=== PATIENT | female | born 1935 | race Caucasian/White ===

== ENCOUNTER → 2020-07-11 09:59 | Outpatient (BNVA) | payer MEDICARE, SELFPAY | PROVIDERS: PCP Internal Medicine; Visit Provider Urology | DX: N39.0 Urinary tract infection, site not specified (principal) | CPT/HCPCS: 99213 ==

== ENCOUNTER 2020-09-12 11:29 | Outpatient (REF) | payer MEDICARE, SELFPAY ==
[2020-09-12 15:28] LABS: Glucose Urine UA NEG (NEG); Leukocyte Esterase Urine 2+ (NEG); Nitrite Urine POS (NEG); PH 5.5 (5.0-8.0); Specific Gravity - Urine >= 1.030 (1.005-1.025); Urine Blood 3+ (NEG); Urine Ketones NEG (NEG); Urine Protein 1+ MG/DL (NEG-TRACE)
[2020-09-12 15:29] LABS: Appearance Urine CLOUDY; Color Urine YELLOW
[2020-09-12 15:39] LABS: Bacteria Urine 4+ /LPF; Calcium Oxalate Crystals Urine 1+ /LPF; Squamous Epithelial Cell Urine 2+ /LPF; WBC Urine TNTC /HPF (0-4)
== END 2020-09-12 11:30 | disposition home or self-care (01) ==
LOC: HO.HMGCLDS 11:29
PROVIDERS: PCP Internal Medicine; Visit Provider Urology
DX: Z13.9 Encounter for screening, unspecified (principal)
CPT/HCPCS: 81001; 87086; 87088; 87186

== ENCOUNTER → 2020-09-26 08:43 | Outpatient (BNVA) | payer MEDICARE, SELFPAY | PROVIDERS: PCP Internal Medicine; Visit Provider Urology | DX: N39.0 Urinary tract infection, site not specified (principal) | CPT/HCPCS: Q3014 ==

== ENCOUNTER 2020-10-10 10:38 | Outpatient (REF) | payer MEDICARE, SELFPAY ==
[2020-10-10 14:01] LABS: MANUAL DIFF FLAG NO
[2020-10-10 14:11] LABS: Basophils Percent Auto 0.4 % (0-2); Eosinophils Absolute Auto 0.1 X10*3/uL (0.0-0.4); Eosinophils Percent Auto 1.6 % (0-4); Hematocrit 42.9 % (37-47); Hemoglobin 13.9 g/dl (12.0-16.0); Imm Gran Abs Auto 0.03 X10*3/uL (0.00-0.03); Imm Gran Pct Auto 0.4 % (0.0-0.4); Lymphocytes Absolute Auto 1.3 X10*3/uL (1.2-4.9); Lymphocytes Percent Auto 18.6 % (20-40); Mean Corpuscular HGB Conc 32.4 g/dl (31.0-35.0); Mean Corpuscular Hemoglobin 31.2 pg (27.0-33.0); Mean Corpuscular Volume 96.2 fL (80-98); Mean Platelet Volume 10.3 fL (9.4-12.3); Monocytes Absolute Auto 0.5 X10*3/uL (0.1-1.2); Monocytes Percent Auto 7.2 % (2-11); Neutrophils Percent Auto 71.8 % (45-73); Platelet Count 339 X10*3/uL (160-400); Red Blood Count 4.46 X10*6/uL (4.20-5.50); Red Cell Distribution Width 12.9 % (11.0-16.0)
[2020-10-10 14:53] LABS: Alanine Aminotransferase 20 U/L (0-31); Alkaline Phosphatase 54 U/L (39-117); Anion Gap 14 (12-20); Aspartate Amino Transferase 19 U/L (5-31); Bilirubin Total 0.4 mg/dL (0.0-1.0); Blood Urea Nitrogen 11 mg/dL (9-16); Calcium 9.2 mg/dL (8.4-10.2); Carbon Dioxide 27 mmol/L (22-29); Chloride 105 mmol/L (96-108); Estimated Glomerular Filt Rate > 60; Glucose Fasting 84 mg/dL (60-99); Potassium 4.1 mmol/l (3.3-5.1); Sodium 142 mmol/L (135-145); Total Protein 6.5 g/dL (6.5-8.0)
[2020-10-10 14:54] LABS: TSH reflex Free T4 0.27 mIU/mL (0.32-4.0); Vitamin D 25-OH Total 33.9 ng/mL (>30)
[2020-10-10 15:11] LABS: Folate 12.3 ng/mL (> or = 4.0); Vitamin B12 400 pg/mL (200-900)
[2020-10-10 15:38] LABS: Free T4 (Free Thyroxine) 1.34 ng/dL (0.71-1.85)
== END 2020-10-10 10:39 | disposition home or self-care (01) ==
LOC: HO.HMGCLDS 10:38
PROVIDERS: PCP Internal Medicine; Visit Provider Internal Medicine
DX: I48.91 Unspecified atrial fibrillation (principal); E55.9 Vitamin D deficiency, unspecified; E03.9 Hypothyroidism, unspecified; I10 Essential (primary) hypertension
CPT/HCPCS: 36415; 80053; 82306; 82607; 82746; 84439; 84443; 85025

== ENCOUNTER → 2020-12-26 13:05 | Outpatient (BNVA) | payer MEDICARE, SELFPAY | PROVIDERS: PCP Internal Medicine; Visit Provider Internal Medicine Cardiovascular Disease | DX: I48.0 Paroxysmal atrial fibrillation (principal); I44.7 Left bundle-branch block, unspecified; Z79.899 Other long term (current) drug therapy | CPT/HCPCS: 93005; 99212 ==

== ENCOUNTER → 2021-02-09 09:24 | Outpatient (REF) | payer MEDICARE, SELFPAY ==
--- NOTE | 2021-02-09 09:27 | CA_ITS ---
Transthoracic Echocardiogram Patient (Last, First, Middle): Mary Shannon R Gender: Female Date of : 1935 Age: 85 Procedure Date: 02/09/2021 Procedure Type: Transthoracic Echocardiogram Location: OP Height: 152.4 cm Weight: 49.9 kg BSA: 1.45 m2 Heart Rate: 72 bpm BP: 166 / 80 mmHg Gate Supervisor: Referring MD: Jason Roger MD Symptoms: I48.0 - Paroxysmal atrial fibrillation Study Quality: Good ECG Rhythm: Sinus, LLBB, PAF Conclusions: - Normal left ventricular size and systolic function. - The visually estimated ejection fraction is between 55-60%. - E/E prime ratio is between 8 and 15 consistent with indeterminate filling pressures. - Normal right ventricular cavity size and systolic function. Findings Left Ventricle Normal left ventricular size and systolic function. There is mildly increased left ventricular wall thickness. The visually estimated ejection fraction is between 55-60%. There is no evidence of regional wall motion abnormalities. There is paradoxical septal motion consistent with a left bundle branch block. Diastolic function is indeterminate on the basis of available data. E/E prime ratio is between 8 and 15 consistent with indeterminate filling pressures. Right Ventricle Normal right ventricular cavity size and systolic function. Atria The left atrium is normal in size. Aortic Valve There is a normal trileaflet aortic valve. There is mild thickening of the aortic valve. There is no aortic valve stenosis. There is no aortic valve regurgitation. Mitral Valve Normal mitral valve structure and function. There is trace mitral valve regurgitation. There is no mitral valve stenosis. Pulmonic Valve The pulmonic valve is likely normal. Tricuspid Valve Normal tricuspid valve structure and function. There is trace tricuspid valve regurgitation. Normal right atrial pressure. There is no evidence of pulmonary hypertension. Great Vessels All visible segments of the aorta are normal in size. The visualized portions of the pulmonary artery and branches are normal. Venous The inferior vena cava is normal in size and collapses greater than 50% with inspiration. Pericardium/Pleural There is no evidence of pericardial effusion. Prior Study Comparison Changes noted compared to prior study dated: 11/19/2019. Mildly increased wall thickness. Measurements 2D Linear Measurements RVIDd: 2.20 RVIDd Index: 1.52 IVSd: 0.95 0.6-0.9/0.6-1.0 cm LVIDd: 3.57 3.9-5.3/4.2-5.9 cm LVIDd Index: 2.46 2.4-3.2/2.2-3.1 cm/m2 LVIDs: 2.67 2.0-3.6 cm LVPWd: 1.20 0.7-1.1 cm Ao Root: 2.50 2.1-3.5 cm LA Diam: 2.90 2.7-3.8/3.0-4.0 cm LAIDs Index: 2.00 1.5-2.3 cm/m2 LV Mass: 147.21 67-162/88-224 g LV Mass Index: 101.53 43-95/49-115 g/m2 LVOT Diam: 1.80 3.0+(-)1.3 cm 2D Systolic Function EF 4C: 56.90 >55% EF 2C: 74.70 >55% Mitral Valve MV Pk E: 0.81 MV PK A: 1.24 MV Decel Time: 232.00 E/A: 0.60 E'Lateral: 5.61 E'Medial: 6.19 E/E' Med: 13.00 E/E' Lat: 14.30 PHT: 95.00 MVA PHT: 2.32 Decel Peach: 2.81 MR Vol - PW Dopp: 19.40 MR VTI: 1.94 MR ERO: 10.00 MR Alias Ancelmo: 0.35 MR RAD: 0.50 Aortic Valve AoV Pk Ancelmo: 1.14 AoV Mn Ancelmo: 0.91 AoV VTI: 0.23 AoV Pk Grad: 5.00 Aov Mn Grad: 4.00 CONCETTA Cont.VTI: 2.39 LVOT LVOT Pk Ancelmo: 0.95 LVOT Mn Ancelmo: 0.64 LVOT VTI: 0.22 LVOT Pk Grad: 4.00 LVOT Mn Grad: 2.00 LVOT Diam: 1.80 LVOT Area: 2.54 Diastolic Function MV Pk E: 0.81 MV Pk A: 1.24 E/A: 0.60 E'Medial: 6.19 E/E' Med: 13.00 E' Laterial: 5.61 E/E' Lat: 14.30 Tricuspid Valve TR Pk Ancelmo: 2.43 TR Pk Grad: 24.00 RA Press: 3.00 RVSP: 27.00 Great Vessels Aorta Ao Root-2D: 2.50 2.0-3.7 cm Ao Asc: 2.50 2.1-3.4 cm Updated in Other Vendor System with Status of Final Jeremy York MD electronically signed on 02/10/2021 9:04:16 PM with status of Final
[2021-02-09 17:24] LABS: Alanine Aminotransferase 17 U/L (0-31); Albumin Level 4.1 g/dL (3.5-5.0); Alkaline Phosphatase 62 U/L (39-117); Anion Gap 12 (12-20); Aspartate Amino Transferase 16 U/L (5-31); Bilirubin Total 0.6 mg/dL (0.0-1.0); Blood Urea Nitrogen 14 mg/dL (9-16); Calcium 9.4 mg/dL (8.4-10.2); Carbon Dioxide 30 mmol/L (22-29); Chloride 103 mmol/L (96-108); Estimated Glomerular Filt Rate 59; Glucose Random 82 mg/dL (60-115); Potassium 4.3 mmol/L (3.3-5.1); Sodium 141 mmol/L (135-145); Total Protein 6.4 g/dL (6.5-8.0)
[2021-02-09 17:36] LABS: TSH reflex Free T4 0.06 uIU/mL (0.32-4.0)
[2021-02-09 18:09] LABS: Free T4 (Free Thyroxine) 1.17 ng/dL (0.71-1.85)
== END ==
LOC: HO.CARD 09:24
PROVIDERS: PCP Internal Medicine; Visit Provider Internal Medicine Cardiovascular Disease
DX: I44.7 Left bundle-branch block, unspecified (principal); I48.0 Paroxysmal atrial fibrillation
CPT/HCPCS: 36415; 80053; 84439; 84443; 93306

== ENCOUNTER 2021-04-13 10:13 | Outpatient (REF) | payer MEDICARE, SELFPAY | END 2021-04-13 10:14 | disposition home or self-care (01) | LOC: HO.LNP 10:13 | PROVIDERS: PCP Internal Medicine | DX: N39.0 Urinary tract infection, site not specified (principal) | CPT/HCPCS: 87086; 87088; 87186; Q3014 ==

== ENCOUNTER → 2021-04-16 14:36 | Outpatient (BNVA) | payer MEDICARE, SELFPAY | PROVIDERS: PCP Internal Medicine | DX: Z13.89 Encounter for screening for other disorder (principal) | CPT/HCPCS: Q3014 ==

== ENCOUNTER → 2021-04-30 13:31 | Outpatient (BNVA) | payer MEDICARE, SELFPAY | PROVIDERS: PCP Internal Medicine | DX: N39.0 Urinary tract infection, site not specified (principal); I10 Essential (primary) hypertension; I44.7 Left bundle-branch block, unspecified; I48.0 Paroxysmal atrial fibrillation; E03.9 Hypothyroidism, unspecified; E55.9 Vitamin D deficiency, unspecified; Z88.5 Allergy status to narcotic agent | CPT/HCPCS: 99212 ==

== ENCOUNTER → 2021-05-15 13:06 | Outpatient (BNVA) | payer MEDICARE, SELFPAY | PROVIDERS: PCP Internal Medicine | CPT/HCPCS: Q3014 ==

== ENCOUNTER → 2021-06-01 11:52 | Outpatient (BNVA) | payer MEDICARE, SELFPAY | PROVIDERS: PCP Internal Medicine | DX: Z13.89 Encounter for screening for other disorder (principal) | CPT/HCPCS: Q3014 ==

== ENCOUNTER 2021-07-03 09:01 | Outpatient (REF) | payer MEDICARE, SELFPAY | END 2021-07-03 09:02 | disposition home or self-care (01) | LOC: HO.LAB 09:01 | PROVIDERS: PCP Internal Medicine | DX: N39.0 Urinary tract infection, site not specified (principal); I10 Essential (primary) hypertension; E03.9 Hypothyroidism, unspecified; I44.7 Left bundle-branch block, unspecified; I48.0 Paroxysmal atrial fibrillation; E55.9 Vitamin D deficiency, unspecified; Z88.6 Allergy status to analgesic agent | CPT/HCPCS: 87086; Q3014 ==

== ENCOUNTER 2021-07-16 08:24 | Observation (INO) | payer MEDICARE, SELFPAY ==
[2021-07-16] VITALS (9 sets, daily range): BP systolic 152–200; BP diastolic 66–91; PULSE 68–84; RESP 14–20; TEMP 36.6–36.9; O2SAT 92–100; BMI 21.4; BMI 21.5
--- NOTE | 2021-07-16 | ECG_ITS ---
Test Reason : Epigastric pain, htn Blood Pressure : / mmHG Vent. Rate : 065 BPM Atrial Rate : 065 BPM P-R Int : 170 ms QRS Dur : 132 ms QT Int : 456 ms P-R-T Axes : 038 -49 061 degrees QTc Int : 474 ms Normal sinus rhythm Left axis deviation Left bundle branch block Abnormal ECG No significant changes seen Referred By: Gianfranco Reyna Electronically Signed By:SHANNON ROMEO MD
--- NOTE | ~2021-07-16 | XR_ITS ---
EXAMINATION: XR CHEST CLINICAL INFORMATION: Chest pain. COMPARISON: 03/06/2018 chest radiograph. TECHNIQUE: Frontal view of the chest was obtained. FINDINGS: No significant abnormality is noted involving the heart, lungs, mediastinum, bony thorax or soft tissues. XR/XR chest 1V IMPRESSION: No acute cardiopulmonary process.
--- NOTE | ~2021-07-16 | CT_ITS ---
EXAMINATION: CT ABDOMEN AND PELVIS WITH CONTRAST CLINICAL INFORMATION: Epigastric pain. COMPARISON: None TECHNIQUE: Multidetector volumetric images were obtained from the superior aspect of the liver through the pubic symphysis following administration 85 mL of Omnipaque 350 intravenous contrast. Sagittal and coronal reformatted images were obtained on the technologist's workstation. Oral contrast: No. This CT examination was performed using dose optimization techniques as appropriate, variously including the following: *Automated exposure control *Adjustment of mA and/or kV according to patient size (this includes techniques or standardized protocols for targeted exams where dose is matched to indication/reason for exam; i.e. extremities or head) *Use of iterative reconstruction technique DLP: 448 mGy-cm FINDINGS: LUNG BASES: The visualized lung bases are unremarkable. LIVER, GALLBLADDER, AND BILIARY TREE: The liver is normal in size, shape, and attenuation. There are multiple hypodense liver lesions most likely simple cysts. The largest cyst in segment 4A measures 4.4 x 4.4 cm. The gallbladder is not visualized. PANCREAS: Unremarkable. SPLEEN: The spleen is unremarkable. There is a small accessory splenule at the tip of the spleen. ADRENAL GLANDS: The adrenal glands are symmetrical and normal. KIDNEYS AND URETERS: The kidneys are normal in size, shape, and attenuation. No hydronephrosis, hydroureter, or calculi seen. No perinephric stranding. There are bilateral small renal cysts. The largest midpole cyst measures 9 mm left kidney. BLADDER: Unremarkable. GASTROINTESTINAL TRACT: There is scattered stool, diverticuli and gas seen in the colon without distention.. ABDOMINAL WALL: No significant hernia is appreciated. LYMPH NODES: Normal. VASCULAR: Unremarkable. PELVIC VISCERA: Unremarkable. OSSEOUS STRUCTURES: There is no lytic or sclerotic process seen. There are degenerative disc changes at the L5-S1, L4-L5, L3-L4, and L1-L2 disc levels. CT/CT abdomen pelvis w con IMPRESSION: Multiple hepatic cysts and liver cysts. Mild constipation. No radiopaque renal calculi. The pancreas is normal. The gallbladder is not seen.
[2021-07-16 10:52] LABS: MANUAL DIFF FLAG NO
--- NOTE | 2021-07-16 10:53 | ED.GENADULT ---
HPI - General Adult General Chief complaint: Abdominal Pain Stated complaint: hbp Time Seen by Provider: 07/16/21 10:24 Source: patient Mode of arrival: ambulatory Limitations: no limitations History of Present Illness HPI narrative: 86-year-old female presents with episode of epigastric pain that started at 6:00 a.m. this morning. She was lying in bed and had 1 hour of epigastric pressure and she was sweaty. She had no nausea, no shortness of breath, no chest pain. No vomiting. She had a bowel movement this morning with no dark, tarry, or bloody stool. The pain did not radiate. The pain lasted for 1 hour and then resolved. It felt more like an uncomfortable pressure than pain. Patient had an elevated blood pressure after that, her blood pressure was 190/100. Patient reports she has not been eating or sleeping well, reports depression. Patient has a history of atrial fibrillation, hypertension, left bundle branch block, and UTI. Related Data Home Medications Medication Instructions Recorded Confirmed [id number] acid 0.4 1 tab PO DAILY 07/11/20 07/16/21 mg-lycopene 300 mcg-lutein 250 mcg tablet (Centrum Silver) lorazepam 0.5 mg tablet 0.5 mg PO DAILY PRN 10/06/20 07/16/21 duloxetine 30 mg capsule,delayed 30 mg PO DAILY 12/26/20 07/16/21 release levothyroxine 75 mcg tablet 75 mcg PO DAILY 12/26/20 07/16/21 metoprolol succinate 50 mg 75 mg PO DAILY tab 06/01/21 07/16/21 tablet,extended release 24 hr cholecalciferol (vitamin D3) 25 25 mcg PO DAILY 07/16/21 07/16/21 mcg (1,000 unit) tablet (Vitamin D3) Previous Rx's Medication Instructions Recorded simvastatin 40 mg tablet 40 mg PO DAILY #90 tab 11/07/20 apixaban 2.5 mg tablet (Eliquis) 2.5 mg PO BID #180 tab 07/04/21 Allergies Allergy/AdvReac Type Severity Reaction Status Date / Time codeine [CODEINE] Allergy Unknown SEVERE Verified 06/01/21 11:53 VOMITING, stomach upset Review of Systems Constitutional: Constitutional: Denies body ache(s), Denies chills, Denies fatigue, Denies fever(s), Denies headache(s), Denies malaise and Denies weakness Eyes: Eyes: Denies diplopia ENT: Denies vertigo, Denies dizziness, Denies otalgia, Denies headache(s), Denies mouth pain, Denies post nasal drip, Denies sinus pain, Denies sinus pressure, Denies sore throat and Denies throat swelling Cardiovascular: Cardiovascular: Denies chest pain, Denies syncope, Denies leg edema, Denies lightheadedness, Denies Loss of Consciousness, Denies palpitations and Denies dyspnea Respiratory: Respiratory: Denies chest congestion, Denies cough and Denies dyspnea Gastrointestinal: Gastrointestinal: Reports abdominal pain, Denies hematochezia, Denies constipation, Denies diarrhea, Denies nausea and Denies vomiting Musculoskeletal: Musculoskeletal: Reports no additional musculoskeletal complaints Neurologic: Denies confusion, Denies vertigo, Denies dizziness, Denies syncope, Denies headache(s) and Denies weakness Psychiatric: Psychiatric: Denies anxiety, Denies confusion and Denies depression Endocrine: Endocrine: Denies fatigue and Denies palpitations Allergic/Immunologic: Allergic/Immunologic: Denies throat swelling [facility] Past Medical History Medical History HTN (hypertension) Hypothyroidism Left bundle branch block Microscopic hematuria Osteoarthritis Paroxysmal atrial fibrillation Vitamin D deficiency Surgical History H/O colonoscopy History of laparoscopy History of total abdominal hysterectomy Family History Family History Father No problems noted. Mother HTN (hypertension) CVD (cardiovascular disease) Brother No problems noted. Brother No problems noted. Sister No problems noted. Son No problems noted. Son No problems noted. Daughter No problems noted. Social History Social History Alcohol intake: never Patient Tobacco Use Status: Never used Tobacco Use of substances other than those prescribed or required for medical reasons: No Advance Directives: No Physical Exam Vital Signs: Vital Signs: Last Vital Signs Temp 98.1 F 07/16/21 12:33 Pulse 71 07/16/21 15:28 Resp 16 07/16/21 15:28 BP 164/70 H 07/16/21 15:28 Pulse Ox 97 07/16/21 14:48 Body Mass Index 21.4 Const: General: No confusion Nutritional Appearance: well nourished Orientation/consciousness: No confusion Limitations: no limitations HENMT: Head: Yes normal to inspection, Yes normocephalic and Yes atraumatic Ears: hearing grossly normal bilaterally, external ears normal, TM's normal bilaterally and EAC's normal General nose exam: Normal external nose present Face and sinus: Yes normal facial exam and Yes sinuses nontender Mouth: Normal oral and palatal mucosa present Throat: Yes posterior oropharynx normal Eyes: Conjunctivae: conjunctivae normal Pupils: Equal, round and reactive pupils present EOM: EOMs intact bilaterally Neck: Neck: Yes full ROM, Yes no lymphadenopathy and Yes supple Resp: Effort & Inspection: normal respiratory effort and able to speak in complete sentences Auscultation: clear to auscultation bilaterally, no crackles, no rales, no rhonchi and no wheezes Cardio: Rate: regular rate Rhythm: regular rhythm Heart sounds: S1 normal heart sound present and S2 normal heart sound present GI: Inspection: Yes normal to inspection Palpation (GI): Soft to palpation, Tenderness to palpation present (GI) in the epigastrum, no guarding and not rigid Percussion: Yes normal to percussion Auscultation: normal bowel sounds Skin: General skin exam: no rashes or lesions noted Neuro: General: No confusion Cranial nerves: Yes Equal, round and reactive pupils present Extrem: General: Yes normal to inspection and Yes full ROM Psych: Appearance: grossly normal Affect: normal affect Attitude: cooperative Thought process: Normal thought process present Course Course Course Narrative: 86-year-old female with a past medical history of atrial fibrillation, left bundle branch block, hypertension, UTI, with a surgical history of hysterectomy, cholecystectomy, and bowel resection for diverticulitis presents for 1 hour of epigastric pressure at 6:00 a.m. this morning. On exam, patient is tender in her epigastrium, is otherwise appearing although she endorses depression. Chest x-ray is normal, EKG shows left bundle branch with no ischemic changes, initial troponin 4.5, patient's potassium 3.2, patient has cracked calcium 8.0. Urine shows trace blood, no infection. Repleted potassium, awaiting CT Reevaluation(s) Reevaluation #1: Patient has remained hypertensive despite 10 of labetalol. Patient got an additional 10 mg of labetalol, now her blood pressure is 152/66. Patient's troponin has increased, from 4.5 to 18.8 in [address] results, CT/CT abdomen pelvis w con IMPRESSION: Multiple hepatic cysts and liver cysts. ? Mild constipation. No radiopaque renal calculi. The pancreas is normal. The gallbladder is not seen. Tire Mechanic advised patient be admitted for further evaluation. Hospitalist accepted patient. Medical Decision Making Lab Data Result diagrams: 07/16/21 10:10 07/16/21 10:10 Labs: Lab Results 07/16/21 07/16/21 07/16/21 Range/Units 10:10 10:10 10:10 WBC 9.1 (4.8-10.8) X10*3/uL RBC 4.50 (4.20-5.50) X10*6/uL Hgb 14.4 (12.0-16.0) g/dl Hct 42.1 (37-47) % MCV 93.6 (80-98) fL MCH 32.0 (27.0-33.0) pg MCHC 34.2 (31.0-35.0) g/dl RDW 12.9 (11.0-16.0) % Plt Count 279 (160-400) X10*3/uL MPV 10.4 (9.4-12.3) fL Immature Gran % (Auto) 0.3 (0.0-0.4) % Neut % (Auto) 80.1 H (45-73) % Lymph % (Auto) 13.2 L (20-40) % Amelia % (Auto) 5.8 (2-11) % Eos % (Auto) 0.3 (0-4) % Baso % (Auto) 0.3 (0-2) % Lymph # (Auto) 1.2 (1.2-4.9) X10*3/uL Amelia # (Auto) 0.5 (0.1-1.2) X10*3/uL Eos # (Auto) 0.0 (0.0-0.4) X10*3/uL Baso # (Auto) 0.0 (0.0-0.2) X10*3/uL Abs Immat Gran (auto) 0.03 (0.00-0.03) X10*3/uL Absolute Neuts (auto) 7.3 (2.0-8.3) X10*3/uL Absolute Nucleated RBC 0.000 (0.0-0.012) X10*3/uL Nucleated RBC % (auto) 0.0 (0.0-0.2) /100WBC PT (9.9-13.0) SEC INR (0.9-1.1) APTT (24.1-38.0) SEC Sodium 142 (135-145) mmol/L Potassium 3.2 L D (3.3-5.1) mmol/L Chloride 112 H (96-108) mmol/L Carbon Dioxide 22 (22-29) mmol/L Anion Gap 11 L (12-20) BUN 11 (9-16) mg/dL Creatinine 0.62 (0.5-1.4) mg/dL Estim Creat Clear Calc 47.6 Estimated GFR > 60 Random Glucose 83 (60-115) mg/dL Calcium 7.4 L D (8.4-10.2) mg/dL Total Bilirubin 0.5 (0.0-1.0) mg/dL AST 18 (5-31) U/L ALT 13 (0-31) U/L Alkaline Phosphatase 45 D (39-117) U/L Troponin I High Sens 4.5 (<3.5-17.0) ng/L Total Protein 5.2 L (6.5-8.0) g/dL Albumin 3.3 L (3.5-5.0) g/dL Lipase 27 (8-78) U/L Urine Color Urine Appearance Urine pH (5.0-8.0) Ur Specific [place] (1.005-1.025) Urine Protein (NEG-TRACE) MG/DL Urine Glucose (UA) (NEG) MG/DL Urine Ketones (NEG) MG/DL Urine Blood (NEG) Urine Nitrite (NEG) Ur Leukocyte Esterase (NEG) Urine RBC (0) /HPF Urine WBC (0-4) /HPF Ur Squamous Epith Cells /LPF Urine Bacteria /LPF COVID-19 (BLAINE) (Negative) COVID-19 Clin Com 1007/16/21 07/16/21 Range/Units 11:07 11:07 11:07 WBC (4.8-10.8) X10*3/uL RBC (4.20-5.50) X10*6/uL Hgb (12.0-16.0) g/dl Hct (37-47) % MCV (80-98) fL MCH (27.0-33.0) pg MCHC (31.0-35.0) g/dl RDW (11.0-16.0) % Plt Count (160-400) X10*3/uL MPV (9.4-12.3) fL Immature Gran % (Auto) (0.0-0.4) % Neut % (Auto) (45-73) % Lymph % (Auto) (20-40) % Amelia % (Auto) (2-11) % Eos % (Auto) (0-4) % Baso % (Auto) (0-2) % Lymph # (Auto) (1.2-4.9) X10*3/uL Amelia # (Auto) (0.1-1.2) X10*3/uL Eos # (Auto) (0.0-0.4) X10*3/uL Baso # (Auto) (0.0-0.2) X10*3/uL Abs Immat Gran (auto) (0.00-0.03) X10*3/uL Absolute Neuts (auto) (2.0-8.3) X10*3/uL Absolute Nucleated RBC (0.0-0.012) X10*3/uL Nucleated RBC % (auto) (0.0-0.2) /100WBC PT 13.2 H (9.9-13.0) SEC INR 1.2 H (0.9-1.1) APTT 41.8 H (24.1-38.0) SEC Sodium (135-145) mmol/L Potassium (3.3-5.1) mmol/L Chloride (96-108) mmol/L Carbon Dioxide (22-29) mmol/L Anion Gap (12-20) BUN (9-16) mg/dL Creatinine (0.5-1.4) mg/dL Estim Creat Clear Calc Estimated GFR Random Glucose (60-115) mg/dL Calcium (8.4-10.2) mg/dL Total Bilirubin (0.0-1.0) mg/dL AST (5-31) U/L ALT (0-31) U/L Alkaline Phosphatase (39-117) U/L Troponin I High Sens (<3.5-17.0) ng/L Total Protein (6.5-8.0) g/dL Albumin (3.5-5.0) g/dL Lipase (8-78) U/L Urine Color STRAW Urine Appearance CLEAR Urine pH 7.5 (5.0-8.0) Ur Specific [place] <= 1.005 (1.005-1.025) Urine Protein NEG (NEG-TRACE) MG/DL Urine Glucose (UA) NEG (NEG) MG/DL Urine Ketones NEG (NEG) MG/DL Urine Blood 1+ H (NEG) Urine Nitrite NEG (NEG) Ur Leukocyte Esterase NEG (NEG) Urine RBC 0-2 (0) /HPF Urine WBC 0-2 (0-4) /HPF Ur Squamous Epith Cells TRACE /LPF Urine Bacteria NONE /LPF COVID-19 (BLAINE) Negative (Negative) COVID-19 Clin Com See Note 07/16/21 Range/Units 14:52 WBC (4.8-10.8) X10*3/uL RBC (4.20-5.50) X10*6/uL Hgb (12.0-16.0) g/dl Hct (37-47) % MCV (80-98) fL MCH (27.0-33.0) pg MCHC (31.0-35.0) g/dl RDW (11.0-16.0) % Plt Count (160-400) X10*3/uL MPV (9.4-12.3) fL Immature Gran % (Auto) (0.0-0.4) % Neut % (Auto) (45-73) % Lymph % (Auto) (20-40) % Amelia % (Auto) (2-11) % Eos % (Auto) (0-4) % Baso % (Auto) (0-2) % Lymph # (Auto) (1.2-4.9) X10*3/uL Amelia # (Auto) (0.1-1.2) X10*3/uL Eos # (Auto) (0.0-0.4) X10*3/uL Baso # (Auto) (0.0-0.2) X10*3/uL Abs Immat Gran (auto) (0.00-0.03) X10*3/uL Absolute Neuts (auto) (2.0-8.3) X10*3/uL Absolute Nucleated RBC (0.0-0.012) X10*3/uL Nucleated RBC % (auto) (0.0-0.2) /100WBC PT (9.9-13.0) SEC INR (0.9-1.1) APTT (24.1-38.0) SEC Sodium (135-145) mmol/L Potassium (3.3-5.1) mmol/L Chloride (96-108) mmol/L Carbon Dioxide (22-29) mmol/L Anion Gap (12-20) BUN (9-16) mg/dL Creatinine (0.5-1.4) mg/dL Estim Creat Clear Calc Estimated GFR Random Glucose (60-115) mg/dL Calcium (8.4-10.2) mg/dL Total Bilirubin (0.0-1.0) mg/dL AST (5-31) U/L ALT (0-31) U/L Alkaline Phosphatase (39-117) U/L Troponin I High Sens 18.8 H* D (<3.5-17.0) ng/L Total Protein (6.5-8.0) g/dL Albumin (3.5-5.0) g/dL Lipase (8-78) U/L Urine Color Urine Appearance Urine pH (5.0-8.0) Ur Specific [place] (1.005-1.025) Urine Protein (NEG-TRACE) MG/DL Urine Glucose (UA) (NEG) MG/DL Urine Ketones (NEG) MG/DL Urine Blood (NEG) Urine Nitrite (NEG) Ur Leukocyte Esterase (NEG) Urine RBC (0) /HPF Urine WBC (0-4) /HPF Ur Squamous Epith Cells /LPF Urine Bacteria /LPF COVID-19 (BLAINE) (Negative) COVID-19 Clin Com ECG Data Interpretation: Sinus rhythm with a rate of 65. MS interval 170. QRS 132. QTC 474. Left axis deviation. No ST depression or elevation. Left bundle-branch block.
[2021-07-16 10:55] LABS: Basophils Percent Auto 0.3 % (0-2); Eosinophils Percent Auto 0.3 % (0-4); Hematocrit 42.1 % (37-47); Hemoglobin 14.4 g/dl (12.0-16.0); Imm Gran Abs Auto 0.03 X10*3/uL (0.00-0.03); Imm Gran Pct Auto 0.3 % (0.0-0.4); Lymphocytes Absolute Auto 1.2 X10*3/uL (1.2-4.9); Lymphocytes Percent Auto 13.2 % (20-40); Mean Corpuscular HGB Conc 34.2 g/dl (31.0-35.0); Mean Corpuscular Volume 93.6 fL (80-98); Mean Platelet Volume 10.4 fL (9.4-12.3); Monocytes Absolute Auto 0.5 X10*3/uL (0.1-1.2); Monocytes Percent Auto 5.8 % (2-11); Neutrophils Absolute Auto 7.3 X10*3/uL (2.0-8.3); Neutrophils Percent Auto 80.1 % (45-73); Platelet Count 279 X10*3/uL (160-400); Red Cell Distribution Width 12.9 % (11.0-16.0); White Blood Count 9.1 X10*3/uL (4.8-10.8)
[2021-07-16 11:13] LABS: Troponin-I High Sensitivity 4.5 ng/L (<3.5-17.0)
[2021-07-16 11:18] LABS: Alanine Aminotransferase 13 U/L (0-31); Albumin Level 3.3 g/dL (3.5-5.0); Alkaline Phosphatase 45 U/L (39-117); Anion Gap 11 (12-20); Aspartate Amino Transferase 18 U/L (5-31); Bilirubin Total 0.5 mg/dL (0.0-1.0); Blood Urea Nitrogen 11 mg/dL (9-16); Calcium 7.4 mg/dL (8.4-10.2); Carbon Dioxide 22 mmol/L (22-29); Chloride 112 mmol/L (96-108); Creatinine Clr Calc Pharmacy 47.6; Estimated Glomerular Filt Rate > 60; Glucose Random 83 mg/dL (60-115); Lipase 27 U/L (8-78); Potassium 3.2 mmol/L (3.3-5.1); Sodium 142 mmol/L (135-145); Total Protein 5.2 g/dL (6.5-8.0)
[2021-07-16 11:21] LABS: Appearance Urine CLEAR; Color Urine STRAW; Glucose Urine UA NEG (NEG); Leukocyte Esterase Urine NEG (NEG); Nitrite Urine NEG (NEG); PH 7.5 (5.0-8.0); Specific Gravity - Urine <= 1.005 (1.005-1.025); Urine Blood 1+ (NEG); Urine Ketones NEG (NEG); Urine Protein NEG (NEG-TRACE)
[2021-07-16 11:22] LABS: INTERNATIONAL NORM RATIO 1.2 (0.9-1.1); Prothrombin Time 13.2 SEC (9.9-13.0)
[2021-07-16 11:25] LABS: Partial Thromboplastin Time 41.8 SEC (24.1-38.0)
--- NOTE | 2021-07-16 11:31 | PC.NURSE ---
The pt presnets to the ED alert and oriented x 3 from home for evaluation of nausea, abdominal fullness , and diaphoresis. On arrival she states the abdominal fullness and diaphoresis have resolved, however the nausea remains. She denies chest pain. No SOb. Speech clear and appropriate. IV access/labs obtained. The pts daughter is at the bedside and the pt has signed consent for ct and is awiting CT.
[2021-07-16] MEDS: 0.9 % Sodium Chloride 500 ML IV (11:33)
[2021-07-16 11:34] LABS: COVID-19 Test Negative (Negative); IDNOW Serial# 9DD0AD1C
[2021-07-16 12:03] LABS: RBC Urine 0-2 /HPF (0); Squamous Epithelial Cell Urine TRACE /LPF; WBC Urine 0-2 /HPF (0-4)
[2021-07-16] MEDS: iohexoL 350 MG/ML 100 ML INFUS..BTL 85 ML IV (12:04)
[2021-07-16] MEDS: Potassium Chloride Packet 20 MEQ PACKET 40 MEQ PO (12:50)
[2021-07-16] MEDS: Labetalol HCL 100 MG/20 ML VIAL 10 MG IVPUSH ×2 (12:50→14:37)
--- NOTE | 2021-07-16 14:52 | PHA.MEDREC ---
Pharmacy Consult ? Medication Reconciliation Pharmacy has completed the medication reconciliation. Patient report she is suppose to be taking 1.5 tablets however she beleive she is only taking 1 tablet a daily. It may have been a month where she has not taken the 1.5 tablets. Lilliana Kelly, PharmD
[2021-07-16 15:21] LABS: Troponin-I High Sensitivity 18.8 ng/L (<3.5-17.0)
--- NOTE | 2021-07-16 15:28 | PC.NURSE ---
The pt continues to rest in bed, alert and oriented x 3 awaiting MD dispo. She denies nausea or vomiting at this time. She denies chest pain or SOB. She has been administered a second dose of Labetalol 10mg IVP in an attempt to decrease her BP. At this time her BP is 164/70 - we will continue to monitor this. She has ambuklated to and from the bathroom with one stand by assist without difficulty. Her daughter is intermittently at the bedside.
--- NOTE | 2021-07-16 17:31 | PM.IMHP ---
History of Present Illness Date of Service: 07/16/21 Chief Complaint: epigastric pain 86F presented with epigastric pain and htn. she states that evening prior to presentation she felt epigastric abdominal discomfort . felt like she was overfull. dneies sob, feve,r chills, chest pain. lasted about 20 minutes, no clear aggravating or alleviating factors. she checked her bp and found to have SBP 190. next day her BP was still persistently elevated so she came to ED. in ED EKG with known LBBB, high sensitivity troponin increased from 4.5 to 18.8. Review of Systems Review of Systems: Constitutional: Denies fever, denies Chills Eyes: denies blurry vision ENT: denies sore throat CVS: denies chest pain Respiratory: Denies dyspnea GI: abdominal pain : denies dysuria MSK: denies neck pain Skin: denies rash Neuro: dizzyness Psych: denies suicidal ideation Endocrine: denies heat/cold intolerance Hematologic: denies easy bleeding Allergy: denies hives [facility] Medical History HTN (hypertension) Hypothyroidism Left bundle branch block Microscopic hematuria Osteoarthritis Paroxysmal atrial fibrillation Vitamin D deficiency Family History Father No problems noted. Mother HTN (hypertension) CVD (cardiovascular disease) Brother No problems noted. Brother No problems noted. Sister No problems noted. Son No problems noted. Son No problems noted. Daughter No problems noted. Pertinent family history: . Surgical History H/O colonoscopy History of laparoscopy History of total abdominal hysterectomy Social History Alcohol intake: never Patient Tobacco Use Status: Never used Tobacco Use of substances other than those prescribed or required for medical reasons: No Advance Directives: No Meds Allergies Allergy/AdvReac Type Severity Reaction Status Date / Time codeine [CODEINE] Allergy Unknown SEVERE Verified 06/01/21 11:53 VOMITING, stomach upset Active Medications: Current Medications Apixaban (Apixaban 2.5 Mg Tablet) 2.5 mg PO BID RAJINDER Duloxetine HCl (Duloxetine Hcl 30 Mg Capsule.Dr) 30 mg PO DAILY [facility] Levothyroxine Sodium (Levothyroxine Sodium 75 Mcg Tablet) 75 mcg PO DAILY [facility] Lorazepam (Lorazepam 0.5 Mg Tablet) 0.5 mg PO DAILY PRN PRN Reason: Anxiety Metoprolol Succinate (Metoprolol Succinate Er 25 Mg Tab.Er.24h) 75 mg PO DAILY [facility]; Protocol Multivitamins/Vitamin C (Multivitamin Tablet) 1 tab PO DAILY [facility] Non-Formulary Medication (Simvastatin) 40 mg PO DAILY [facility] Omeprazole (Omeprazole 40 Mg Capsule.) 40 mg PO DAILY@0630 [facility] Pharmacy Consult (Consult Rx Perform Med Rec) 1 each MISCELLANE ONCE PRN PRN Reason: Consult order Vitamin D (Cholecalciferol (Vitamin D3) 25 Mcg Tablet) 25 mcg PO DAILY [facility] Home Medications Medication Instructions Recorded Confirmed Last Taken Type axslhtug-slc-hbzxe acid 0.4 1 tab PO DAILY 07/11/20 07/16/21 07/15/21 History mg-lycopene 300 mcg-lutein 250 mcg tablet (Centrum Silver) lorazepam 0.5 mg tablet 0.5 mg PO DAILY PRN 10/06/20 07/16/21 07/15/21 History duloxetine 30 mg capsule,delayed 30 mg PO DAILY 12/26/20 07/16/21 07/15/21 History release levothyroxine 75 mcg tablet 75 mcg PO DAILY 12/26/20 07/16/21 07/15/21 History metoprolol succinate 50 mg 75 mg PO DAILY tab 06/01/21 07/16/21 07/16/21 History tablet,extended release 24 hr cholecalciferol (vitamin D3) 25 25 mcg PO DAILY 07/16/21 07/16/21 07/15/21 History mcg (1,000 unit) tablet (Vitamin D3) Physical Exam Vital Signs and Narrative: Vital Signs: Last Vital Signs Temp 98.1 F 07/16/21 12:33 Pulse 71 07/16/21 15:28 Resp 16 07/16/21 15:28 BP 164/70 H 07/16/21 15:28 Pulse Ox 97 07/16/21 14:48 Body Mass Index 21.4 General: no acute distress HEENT: atraumatic Neck: normal to visual inspection CVS: S1, S2, RRR Resp: CTA bilateral Chest: non tender GI: soft, non tender, non distended : no CVA tenderness Skin: no rashes Extremities: no edema Neuro: Oriented X3, grossly intact Psych: cooperative Results Labs CBC and Chem 7: 07/16/21 10:10 07/16/21 10:10 Labs: Laboratory Results - last 24 hr 07/16/21 07/16/21 07/16/21 10:10 10:10 10:10 MCV 93.6 MCH 32.0 MCHC 34.2 RDW 12.9 Plt Count 279 MPV 10.4 Immature Gran % (Auto) 0.3 Neut % (Auto) 80.1 H Lymph % (Auto) 13.2 L Brule % (Auto) 5.8 Eos % (Auto) 0.3 Baso % (Auto) 0.3 Lymph # (Auto) 1.2 Brule # (Auto) 0.5 Eos # (Auto) 0.0 Baso # (Auto) 0.0 Abs Immat Gran (auto) 0.03 Absolute Neuts (auto) 7.3 Absolute Nucleated RBC 0.000 Nucleated RBC % (auto) 0.0 PT INR APTT Anion Gap 11 L Estim Creat Clear Calc 47.6 Estimated GFR > 60 Random Glucose 83 Calcium 7.4 L D Total Bilirubin 0.5 AST 18 ALT 13 Alkaline Phosphatase 45 D Troponin I High Sens 4.5 Total Protein 5.2 L Albumin 3.3 L Lipase 27 Urine Color Urine Appearance Urine pH Ur Specific Corning Urine Protein Urine Glucose (UA) Urine Ketones Urine Blood Urine Nitrite Ur Leukocyte Esterase Urine RBC Urine WBC Ur Squamous Epith Cells Urine Bacteria COVID-19 (BLAINE) COVID-19 Clin Com 07/16/21 07/16/21 07/16/21 11:07 11:07 11:07 MCV MCH MCHC RDW Plt Count MPV Immature Gran % (Auto) Neut % (Auto) Lymph % (Auto) Brule % (Auto) Eos % (Auto) Baso % (Auto) Lymph # (Auto) Brule # (Auto) Eos # (Auto) Baso # (Auto) Abs Immat Gran (auto) Absolute Neuts (auto) Absolute Nucleated RBC Nucleated RBC % (auto) PT 13.2 H INR 1.2 H APTT 41.8 H Anion Gap Estim Creat Clear Calc Estimated GFR Random Glucose Calcium Total Bilirubin AST ALT Alkaline Phosphatase Troponin I High Sens Total Protein Albumin Lipase Urine Color STRAW Urine Appearance CLEAR Urine pH 7.5 Ur Specific Corning <= 1.005 Urine Protein NEG Urine Glucose (UA) NEG Urine Ketones NEG Urine Blood 1+ H Urine Nitrite NEG Ur Leukocyte Esterase NEG Urine RBC 0-2 Urine WBC 0-2 Ur Squamous Epith Cells TRACE Urine Bacteria NONE COVID-19 (BLAINE) Negative COVID-19 Clin Com See Note 07/16/21 14:52 MCV MCH MCHC RDW Plt Count MPV Immature Gran % (Auto) Neut % (Auto) Lymph % (Auto) Brule % (Auto) Eos % (Auto) Baso % (Auto) Lymph # (Auto) Brule # (Auto) Eos # (Auto) Baso # (Auto) Abs Immat Gran (auto) Absolute Neuts (auto) Absolute Nucleated RBC Nucleated RBC % (auto) PT INR APTT Anion Gap Estim Creat Clear Calc Estimated GFR Random Glucose Calcium Total Bilirubin AST ALT Alkaline Phosphatase Troponin I High Sens 18.8 H* D Total Protein Albumin Lipase Urine Color Urine Appearance Urine pH Ur Specific Corning Urine Protein Urine Glucose (UA) Urine Ketones Urine Blood Urine Nitrite Ur Leukocyte Esterase Urine RBC Urine WBC Ur Squamous Epith Cells Urine Bacteria COVID-19 (BLAINE) COVID-19 Clin Com Imaging Radiologist's Impressions: Impressions Abdomen/Pelvis CT 07/16/21 10:43 IMPRESSION: Multiple hepatic cysts and liver cysts. Mild constipation. No radiopaque renal calculi. The pancreas is normal. The gallbladder is not seen. Chest X-Ray 07/16/21 10:43 IMPRESSION: No acute cardiopulmonary process. Assessment and Plan (1) Elevation of cardiac enzymes: Status: Acute (2) Abdominal pain, epigastric: Status: Acute (3) Left bundle branch block: Status: Acute (4) Paroxysmal atrial fibrillation: Status: Acute (5) Hypothyroidism: Status: Acute (6) HTN (hypertension): Status: Acute 86F presented with epigastric pain, htn, elevated troponin epigastric pain, uncontrolled hypertension, elevated troponin monitor repeat troponin bp improved to 150s, will use hydralazine as needed for now ppi cardio eval tele hypokalemia replaced, monitor paroxysmal atrial fibrillation in NSR continue toprol, eliquis (low dose for age and weight) hld statin hypothryoid synthroid derpession cymbalta full code Quality Stroke Does the patient have a stroke diagnosis?: No VTE Prior VTE?: No VTE Risk Level:: Medical - moderate - high VTE Device Contraindication: Treatment Not Indicated VTE Drug Contraindication: N/A - Med Ordered
--- NOTE | 2021-07-16 18:00 | PC.NURSE ---
The pt is alert and oriented x 3, resting in bed with her daughter at the bedside. She has been informed by ED provider that she has an elevation in her cardiac enzymes and will need to stay in the hospital for serial enzymes.She reports worry in response to this news but I know I'm in good hands. Currently she denies any pain. Respirations are non-labored. Speech clear and appropriate. She is currently awaiting admitting hospitalist rozina and inpatient bed assignment. We will continue to monitor Mary. She remains with SR on bedside monitor, rate 80's. She continues to take PO food and fluids without difficulty and occasionally ambulates to the bathroom independently with steady he has been voiding here in the ED without difficulty. She has not had a bowel movement while in the ED. Last BM 07/15/21.
[2021-07-16 19:53] LABS: Troponin-I High Sensitivity 25.9 ng/L (<3.5-17.0)
--- NOTE | 2021-07-16 21:39 | MHC.CM.PN ---
CM met with pt assigned to observation, with bed assignment pending. JERAMY reviewed and signed per protocol 07/16/2021@2045. A&Ox3. Independent. Lives alone. No services, no DME. Fully vaccinated with Pfizer. No HCP on file. HCP reviewed, completed and signed . Copies given and uploaded into [employer]. HCP/daughter, Jasiel Garcia ([phone]). D/C plan is home without services. Family to provide transportation. CM to follow for d/c needs.
[2021-07-16] MEDS: Apixaban 2.5 MG TABLET PO (22:19)
[2021-07-17 03:55] VITALS: BP 130/60; PULSE 72; RESP 20; TEMP 37; O2SAT 98
[2021-07-17] MEDS: Omeprazole 40 MG CAPSULE.DR PO (06:29)
[2021-07-17] MEDS: Levothyroxine Sodium 75 MCG TABLET PO (06:29)
[2021-07-17 06:46] LABS: Hematocrit 39.5 % (37-47); Hemoglobin 13.5 g/dl (12.0-16.0); Mean Corpuscular HGB Conc 34.2 g/dl (31.0-35.0); Mean Corpuscular Hemoglobin 31.8 pg (27.0-33.0); Mean Corpuscular Volume 92.9 fL (80-98); Mean Platelet Volume 10.1 fL (9.4-12.3); Platelet Count 249 X10*3/uL (160-400); Red Blood Count 4.25 X10*6/uL (4.20-5.50); Red Cell Distribution Width 13.4 % (11.0-16.0); White Blood Count 8.2 X10*3/uL (4.8-10.8)
[2021-07-17 07:00] LABS: Anion Gap 12 (12-20); Blood Urea Nitrogen 13 mg/dL (9-16); Carbon Dioxide 26 mmol/L (22-29); Chloride 108 mmol/L (96-108); Creatinine Clr Calc Pharmacy 37.8; Estimated Glomerular Filt Rate > 60; Glucose Fasting 96 mg/dL (60-99); Potassium 3.8 mmol/L (3.3-5.1); Sodium 142 mmol/L (135-145)
[2021-07-17 07:06] LABS: Calcium 9.2 mg/dL (8.4-10.2)
[2021-07-17 08:00] VITALS: BP 178/76; PULSE 69; RESP 17; TEMP 36.9; O2SAT 99
[2021-07-17 08:11] VITALS: BP 130/60; PULSE 72
[2021-07-17] MEDS: Cholecalciferol (Vitamin D3) 25 MCG TABLET PO (08:11)
[2021-07-17] MEDS: Apixaban 2.5 MG TABLET PO (08:11)
[2021-07-17] MEDS: Metoprolol Succinate ER 25 MG TAB.ER.24H 75 MG PO (08:11)
[2021-07-17] MEDS: Multivitamin TABLET 1 TAB PO (08:12)
[2021-07-17] MEDS: 0.9 % Sodium Chloride Flush 3 ML SYRINGE IVFLUSH (08:12)
--- NOTE | 2021-07-17 09:33 | ECG_ITS ---
Test Reason : ELEV TROPONINS Blood Pressure : / mmHG Vent. Rate : 070 BPM Atrial Rate : 070 BPM P-R Int : 166 ms QRS Dur : 134 ms QT Int : 424 ms P-R-T Axes : 034 -43 109 degrees QTc Int : 457 ms Normal sinus rhythm Left axis deviation Left bundle branch block Abnormal ECG When compared with ECG of 20-AUG-2018 16:24, T wave inversion more evident in Lateral leads Referred By: Sigifredo Carlisle Electronically Signed By:SHANNON ROMEO MD
--- NOTE | 2021-07-17 09:34 | CA_ITS ---
Transthoracic Echocardiogram Patient (Last, First, Middle): Mary Shannon R Gender: Female Date of : 1935 Age: 86 Procedure Date: 07/17/2021 Procedure Type: Transthoracic Echocardiogram [place] [facility] [place]: 152.4 cm Weight: 49.9 kg BSA: 1.45 m2 Heart Rate: bpm BP: 130 / 60 mmHg Incident Response Coordinator: Referring MD: Sigifredo Cralisle MD Symptoms: elevated troponins Study Quality: Fair ECG Rhythm: Sinus Conclusions: - The left ventricular systolic function is normal. The calculated ejection fraction is 60% by biplane method. Findings Left Ventricle Normal left ventricular cavity size. The left ventricular systolic function is normal. The calculated ejection fraction is 60% by biplane method. There is paradoxical septal motion consistent with a left bundle branch block. Right Ventricle Normal right ventricular cavity size and systolic function. Prior Study Comparison No significant change compared to prior study dated: 02/09/2021. Measurements 2D Linear Measurements IVSd: 1.08 0.6-0.9/0.6-1.0 cm LVIDd: 3.06 3.9-5.3/4.2-5.9 cm LVIDd Index: 2.11 2.4-3.2/2.2-3.1 cm/m2 LVIDs: 1.77 2.0-3.6 cm LVPWd: 1.04 0.7-1.1 cm LV Mass: 114.75 67-162/88-224 g LV Mass Index: 79.14 43-95/49-115 g/m2 2D Systolic Function EF 4C: 56.60 >55% EF 2C: 64.30 >55% EF BiP: 60.20 >55% Mitral Valve MV Pk E: 0.78 MV PK A: 1.29 MV Decel Time: 196.00 E/A: 0.60 E'Lateral: 5.00 E'Medial: 5.22 E/E' Med: 14.90 E/E' Lat: 15.60 PHT: 57.00 MVA PHT: 3.86 Decel Sanders: 3.98 Diastolic Function MV Pk E: 0.78 MV Pk A: 1.29 E/A: 0.60 E'Medial: 5.22 E/E' Med: 14.90 E' Laterial: 5.00 E/E' Lat: 15.60 Updated in Other Vendor System with Status of Final Sigifredo Carlisle MD electronically signed on 07/17/2021 12:01:28 PM with status of Final
--- NOTE | 2021-07-17 11:05 | P.CONCA_ITS ---
History of Present Illness History of Present Illness Date of Service: 07/17/21 Chief complaint: Epigastric pain, elevated trop Narrative: This is a cardiology consultation regarding epigastric pain, elevated troponins. She also has uncontrolled blood pressure. Patient of Dr. Roger. She is currently the hospital for epigastric/abdominal discomfort. She describes it started as a discomfort as opposed to pain. Her blood pressures also been running high. However, no chest pain whatsoever. She was evaluated in the ER noted to have elevation of troponins and that led to hospitalization. She has no anginal-type symptoms in the past or presently. Denies any history of coronary artery disease as well. She has history of hypertension but states that on several occasions recently, her blood pressures have been running quite high. Review of Systems Review of Systems: Yes all other systems are reviewed and are negative Cardiovascular: Cardiovascular: Reports as per HPI, Reports no additional cardiovascular complaints, Denies acrocyanosis, Denies cool extremities, Denies painful fingertips, Denies chest pain, Denies chest pain at rest, Denies diaphoresis, Denies syncope, Denies irregular heart rhythm, Denies claudication, Denies leg edema, Denies lightheadedness, Denies palpitations and Denies dyspnea Respiratory: Respiratory: Denies dyspnea Gastrointestinal: Comments: Abdominal pain Neurologic: Denies syncope Endocrine: Endocrine: Denies palpitations PMFSH Past Medical History Medical History HTN (hypertension) Hypothyroidism Left bundle branch block Microscopic hematuria Osteoarthritis Paroxysmal atrial fibrillation Vitamin D deficiency Family History Family History Father No problems noted. Mother HTN (hypertension) CVD (cardiovascular disease) Brother No problems noted. Brother No problems noted. Sister No problems noted. Son No problems noted. Son No problems noted. Daughter No problems noted. Surgical History Surgical History H/O colonoscopy History of laparoscopy History of total abdominal hysterectomy Social History Social History Household Members: None Housing: House Do you presently have visiting nurse or other home services: No Alcohol intake: never Patient Tobacco Use Status: Never used Tobacco Second Hand Smoke Exposure: No Use of substances other than those prescribed or required for medical reasons: No Currently Displaying Signs/Symptoms of Drug Intoxication Withdrawal: No Any prior treatment program specific to substance use: No Have you been hit, kicked, punched, or otherwise hurt by someone within the past year? If so, by whom?: No Do you feel safe in your current relationship?: No Current Relationship Is there a partner from a previous relationship who is making you feel unsafe now?: No Are you made to feel afraid or neglected: No Advance Directives: No Advance Directives Information Provided: No (declined) Advance Directives on File: No Do you have thoughts of harming others: None Do you have a plan to hurt others: No Plan Recently lost weight without trying: No How much weight loss: Not applicable Eating poorly because of decreased appetite: No Nutrition screen score: 0 Patient : No : No Poor oral hygiene: No service: No Current occupational status: retired [employer] Allergies Allergy/AdvReac Type Severity Reaction Status Date / Time codeine [CODEINE] Allergy Unknown SEVERE Verified 06/01/21 11:53 VOMITING, stomach upset Active Medications: Current Medications Acetaminophen (Acetaminophen 325 Mg Tablet) 650 mg PO Q6H PRN PRN Reason: Pain, Mild (Pain Scale 1-3) Apixaban (Apixaban 2.5 Mg Tablet) 2.5 mg PO BID [facility] Last Admin: 07/17/21 08:11 Dose: 2.5 mg Documented by: Atorvastatin Calcium (Atorvastatin Calcium 20 Mg Tablet) 20 mg PO BEDTIME [facility] Duloxetine HCl (Duloxetine Hcl 30 Mg Capsule.Dr) 30 mg PO DAILY [facility] Last Admin: 07/17/21 08:17 Dose: Not Given Documented by: Hydralazine HCl (Hydralazine Hcl 20 Mg/Ml Vial) 5 mg IVPUSH Q6H PRN; Protocol PRN Reason: for sbp >180 Levothyroxine Sodium (Levothyroxine Sodium 75 Mcg Tablet) 75 mcg PO DAILY@0630 [facility] Last Admin: 07/17/21 06:29 Dose: 75 mcg Documented by: Lorazepam (Lorazepam 0.5 Mg Tablet) 0.5 mg PO DAILY PRN PRN Reason: Anxiety Metoprolol Succinate (Metoprolol Succinate Er 25 Mg Tab.Er.24h) 75 mg PO DAILY [facility]; Protocol Last Admin: 07/17/21 08:11 Dose: 75 mg Documented by: Multivitamins/Vitamin C (Multivitamin Tablet) 1 tab PO DAILY [facility] Last Admin: 07/17/21 08:12 Dose: 1 tab Documented by: Omeprazole (Omeprazole 40 Mg Capsule.) 40 mg PO DAILY@0630 [facility] Last Admin: 07/17/21 06:29 Dose: 40 mg Documented by: Pharmacy Consult (Consult Rx Perform Med Rec) 1 each MISCELLANE ONCE PRN PRN Reason: Consult order Sodium Chloride (0.9 % Sodium Chloride Flush 3 Ml Syringe) 3 ml IVFLUSH QSHIFT [facility] Last Admin: 07/17/21 08:12 Dose: 3 ml Documented by: Vitamin D (Cholecalciferol (Vitamin D3) 25 Mcg Tablet) 25 mcg PO DAILY [facility] Last Admin: 07/17/21 08:11 Dose: 25 mcg Documented by: Home Medications Medication Instructions Recorded Confirmed Last Taken Type [id number] acid 0.4 1 tab PO DAILY 07/11/20 07/16/21 07/15/21 History mg-lycopene 300 mcg-lutein 250 mcg tablet (Centrum Silver) lorazepam 0.5 mg tablet 0.5 mg PO DAILY PRN 10/06/20 07/16/21 07/15/21 History duloxetine 30 mg capsule,delayed 30 mg PO DAILY 12/26/20 07/16/21 07/15/21 History release levothyroxine 75 mcg tablet 75 mcg PO DAILY 12/26/20 07/16/21 07/15/21 History metoprolol succinate 50 mg 75 mg PO DAILY tab 06/01/21 07/16/21 07/16/21 History tablet,extended release 24 hr cholecalciferol (vitamin D3) 25 25 mcg PO DAILY 07/16/21 07/16/21 07/15/21 History mcg (1,000 unit) tablet (Vitamin D3) Physical Exam Vital Signs: Vital Signs: Last Vital Signs Temp 98.4 F 07/17/21 08:00 Pulse 72 07/17/21 08:11 Resp 17 07/17/21 08:00 BP 130/60 07/17/21 08:11 Pulse Ox 99 07/17/21 08:00 Body Mass Index 21.5 Const: General: cooperative and no acute distress HENMT: Other: Unremarkable Neck: Neck: Yes normal visual inspection Chest: Chest palpation & inspection: normal inspection of the chest Resp: Auscultation: clear to auscultation bilaterally, no crackles and no wheezes Cardio: Jugular venous distension: no JVD Palpation: normal PMI Heart sounds: S1 normal heart sound present, S2 normal heart sound present, no gallop s, no murmurs and no rubs GI: Palpation (GI): Soft to palpation Back/Spine/Pelvis: Other: unremarkable Skin: General skin exam: no rashes or lesions noted Neuro: Cranial nerves: Yes Other cranial nerve findings present Extrem: General: Yes no clubbing, cyanosis or edema Psych: Mental Status: other Results Labs and Meds Result diagrams: 07/17/21 05:58 07/17/21 05:58 Lab results: Laboratory Results - last 24 hr 07/16/21 07/16/21 07/16/21 10:10 10:10 11:07 WBC RBC Hgb Hct MCV MCH MCHC RDW Plt Count MPV Absolute Nucleated RBC Nucleated RBC % (auto) PT 13.2 H INR 1.2 H APTT 41.8 H Sodium 142 Potassium 3.2 L D Chloride 112 H Carbon Dioxide 22 Anion Gap 11 L BUN 11 Creatinine 0.62 Estim Creat Clear Calc 47.6 Estimated GFR > 60 Random Glucose 83 Fasting Glucose Calcium 7.4 L D Total Bilirubin 0.5 AST 18 ALT 13 Alkaline Phosphatase 45 D Troponin I High Sens 4.5 Total Protein 5.2 L Albumin 3.3 L Lipase 27 Urine Color Urine Appearance Urine pH Ur Specific [place] Urine Protein Urine Glucose (UA) Urine Ketones Urine Blood Urine Nitrite Ur Leukocyte Esterase Urine RBC Urine WBC Ur Squamous Epith Cells Urine Bacteria COVID-19 ([facility]LAINE) COVID-19 Clin Com 07/16/21 07/16/21 07/16/21 11:07 11:07 14:52 WBC RBC Hgb Hct MCV MCH MCHC RDW Plt Count MPV Absolute Nucleated RBC Nucleated RBC % (auto) PT INR APTT Sodium Potassium Chloride Carbon Dioxide Anion Gap BUN Creatinine Estim Creat Clear Calc Estimated GFR Random Glucose Fasting Glucose Calcium Total Bilirubin AST ALT Alkaline Phosphatase Troponin I High Sens 18.8 H* D Total Protein Albumin Lipase Urine Color STRAW Urine Appearance CLEAR Urine pH 7.5 Ur Specific [place] <= 1.005 Urine Protein NEG Urine Glucose (UA) NEG Urine Ketones NEG Urine Blood 1+ H Urine Nitrite NEG Ur Leukocyte Esterase NEG Urine RBC 0-2 Urine WBC 0-2 Ur Squamous Epith Cells TRACE Urine Bacteria NONE COVID-19 (BLAINE) Negative COVID-19 Clin Com See Note 07/16/21 07/17/21 07/17/21 19:18 05:58 05:58 WBC 8.2 RBC 4.25 Hgb 13.5 Hct 39.5 MCV 92.9 MCH 31.8 MCHC 34.2 RDW 13.4 Plt Count 249 MPV 10.1 Absolute Nucleated RBC 0.000 Nucleated RBC % (auto) 0.0 PT INR APTT Sodium Potassium Chloride Carbon Dioxide Anion Gap BUN Creatinine Estim Creat Clear Calc Estimated GFR Random Glucose Fasting Glucose Calcium Total Bilirubin AST ALT Alkaline Phosphatase Troponin I High Sens 25.9 H* 13.0 Total Protein Albumin Lipase Urine Color Urine Appearance Urine pH Ur Specific [place] Urine Protein Urine Glucose (UA) Urine Ketones Urine Blood Urine Nitrite Ur Leukocyte Esterase Urine RBC Urine WBC Ur Squamous Epith Cells Urine Bacteria COVID-19 (BLAINE) COVID-19 Clin Com 07/17/21 05:58 WBC RBC Hgb Hct MCV MCH MCHC RDW Plt Count MPV Absolute Nucleated RBC Nucleated RBC % (auto) PT INR APTT Sodium 142 Potassium 3.8 Chloride 108 Carbon Dioxide 26 Anion Gap 12 BUN 13 Creatinine 0.78 Estim Creat Clear Calc 37.8 Estimated GFR > 60 Random Glucose Fasting Glucose 96 Calcium 9.2 D Total Bilirubin AST ALT Alkaline Phosphatase Troponin I High Sens Total Protein Albumin Lipase Urine Color Urine Appearance Urine pH Ur Specific [place] Urine Protein Urine Glucose (UA) Urine Ketones Urine Blood Urine Nitrite Ur Leukocyte Esterase Urine RBC Urine WBC Ur Squamous Epith Cells Urine Bacteria COVID-19 ([facility]LAINE) COVID-19 Clin Com Imaging Radiologist's impression: Impressions Abdomen/Pelvis CT 07/16/21 10:43 IMPRESSION: Multiple hepatic cysts and liver cysts. Mild constipation. No radiopaque renal calculi. The pancreas is normal. The gallbladder is not seen. Chest X-Ray 07/16/21 10:43 IMPRESSION: No acute cardiopulmonary process. Assessment and Plan (1) Hypertensive emergency: Status: Acute (2) Elevated troponin: Status: Acute (3) Paroxysmal atrial fibrillation: Status: Acute (4) Left bundle branch block: Status: Acute Cardiac and other data reviewed. Last echocardiogram is from January this year. At that time, LVEF 55-60%; wall motion abnormality from left bundle branch block noted but study was otherwise unremarkable. EKG shows a chronic left bundle-branch block. Troponins are slightly elevated, most likely from the high blood pressures. Initial blood pressures were as high as 200/81 mm Hg but currently at 130/60 mmHg. It seems that she has received some doses of labetalol intravenously. Per medication reconciliation, on metoprolol ER 75 mg daily. We can add Norvasc 5 mg daily. Continue Eliquis. Will follow-up in the office. Procedures Date of Service Date of Service: 07/17/21
--- NOTE | 2021-07-17 11:24 | P.DS_ITS ---
DS: Providers Provider Date of Service: 07/17/21 Date of admission: 07/16/21 17:30 Primary care physician: Beth Maravilla MD Consults: 07/16/21 17:30 Consult to Cardiology Routine Consulting Provider: Sigifredo Carlisle Reason for consultation: chest pain, elevated tn DS: Diagnosis Discharge Diagnosis (1) Hypertensive emergency: Status: Acute (2) Elevated troponin: Status: Acute (3) Paroxysmal atrial fibrillation: Status: Acute (4) Left bundle branch block: Status: Acute DS: Summary Hospital Course Hospital Course: patient was admitted for hypertensive emergency. blood pressure became better controlled after some labetolol. discomfort feeling did not return. troponin peaked at 25, ekg was non ischemic. she was seen by cardiology who recommending adding amlodipine 5mg daily. she is now feeling better and will be discharged home. Time Spent with Patient Time attestation: Total time spent providing and/or coordinating discharge services: Discharge coordination time: Greater than 30 minutes Quality: Stroke Does the patient have a stroke diagnosis?: No Physical Exam Vital Signs: Vital Signs: Last Vital Signs Temp 98.4 F 07/17/21 08:00 Pulse 72 07/17/21 08:11 Resp 17 07/17/21 08:00 BP 130/60 07/17/21 08:11 Pulse Ox 99 07/17/21 08:00 Body Mass Index 21.5 General: AO X 3, no acute distress Resp: CTA bilateral, no accessory muscles used CVS: S1,S2,RRR GI: soft, non tender, non distended Neuro: motor grossly intact, alert Psych: appropriate affect, appropriate insight DS: Data Data Completed and Pending Labs on day of discharge: Laboratory Results - last 24 hr 07/16/21 07/16/21 07/16/21 11:07 11:07 11:07 WBC RBC Hgb Hct MCV MCH MCHC RDW Plt Count MPV Absolute Nucleated RBC Nucleated RBC % (auto) PT 13.2 H INR 1.2 H APTT 41.8 H Sodium Potassium Chloride Carbon Dioxide Anion Gap BUN Creatinine Estim Creat Clear Calc Estimated GFR Fasting Glucose Calcium Troponin I High Sens Urine Color STRAW Urine Appearance CLEAR Urine pH 7.5 Ur Specific [place] <= 1.005 Urine Protein NEG Urine Glucose (UA) NEG Urine Ketones NEG Urine Blood 1+ H Urine Nitrite NEG Ur Leukocyte Esterase NEG Urine RBC 0-2 Urine WBC 0-2 Ur Squamous Epith Cells TRACE Urine Bacteria NONE COVID-19 (BLAINE) Negative COVID-19 [employer] Com See Note 07/16/21 07/16/21 07/17/21 14:52 19:18 05:58 WBC RBC Hgb Hct MCV MCH MCHC RDW Plt Count MPV Absolute Nucleated RBC Nucleated RBC % (auto) PT INR APTT Sodium Potassium Chloride Carbon Dioxide Anion Gap BUN Creatinine Estim Creat Clear Calc Estimated GFR Fasting Glucose Calcium Troponin I High Sens 18.8 H* D 25.9 H* 13.0 Urine Color Urine Appearance Urine pH Ur Specific [place] Urine Protein Urine Glucose (UA) Urine Ketones Urine Blood Urine Nitrite Ur Leukocyte Esterase Urine RBC Urine WBC Ur Squamous Epith Cells Urine Bacteria COVID-19 (BLAINE) COVID-19 [employer] Com 07/17/21 07/17/21 05:58 05:58 WBC 8.2 RBC 4.25 Hgb 13.5 Hct 39.5 MCV 92.9 MCH 31.8 MCHC 34.2 RDW 13.4 Plt Count 249 MPV 10.1 Absolute Nucleated RBC 0.000 Nucleated RBC % (auto) 0.0 PT INR APTT Sodium 142 Potassium 3.8 Chloride 108 Carbon Dioxide 26 Anion Gap 12 BUN 13 Creatinine 0.78 Estim Creat Clear Calc 37.8 Estimated GFR > 60 Fasting Glucose 96 Calcium 9.2 D Troponin I High Sens Urine Color Urine Appearance Urine pH Ur Specific [place] Urine Protein Urine Glucose (UA) Urine Ketones Urine Blood Urine Nitrite Ur Leukocyte Esterase Urine RBC Urine WBC Ur Squamous Epith Cells Urine Bacteria COVID-19 (BLAINE) COVID-19 [employer] Com Discharge Plan Discharge Patient Disposition: Home, Self-Care Discharge Diagnosis: hypertensive emergency Referrals: Beth Maravilla MD [Primary Care Provider] - 1 Week Discharge Medications: New amlodipine 5 mg tablet 5 mg PO DAILY Qty: 30 RF: 0 Continued simvastatin 40 mg tablet 40 mg PO DAILY Qty: 90 RF: 3 Eliquis 2.5 mg tablet 2.5 mg PO BID Qty: 180 RF: 5 cholecalciferol (vitamin D3) [Vitamin D3] 25 mcg (1,000 unit) Tablet 25 mcg PO DAILY RF: 0 lorazepam 0.5 mg tablet 0.5 mg PO DAILY PRN (Reason: Anxiety) RF: 0 duloxetine 30 mg capsule,delayed release(DR/EC) 30 mg PO DAILY RF: 0 levothyroxine 75 mcg tablet 75 mcg PO DAILY RF: 0 metoprolol succinate 50 mg tablet extended release 24 hr 75 mg PO DAILY RF: 0 Centrum Silver 0.4-300-250 mg-mcg-mcg tablet 1 tab PO DAILY RF: 0 Discharge Orders: Discharge Order (Routine); Ordered 07/17/21 Ordered By: Obi Nolen Diet: advance to usual diet Activity on Discharge: As tolerated Stand Alone Forms: Patient Portal Discharge page Care Plan Goals: manage blood pressure Health Concerns: elevated blood pressure Plan of Treatment: low salt diet, amlodipine 5mg daily added to your medications, continue metoprolol, follow up with cardiology Assessment: see above
--- NOTE | 2021-07-17 11:33 | MHC.CM.PN ---
home no servceis orderdd by
[2021-07-17 11:41] VITALS: BP 184/67; PULSE 69; RESP 18; TEMP 36.6; O2SAT 98
== END 2021-07-17 15:04 | disposition home or self-care (01) ==
LOC: HO.ED 17:15 → HO.EDOVER 17:40 → HO.IMC 21:58
PROVIDERS: Physician Assistant; Admitting Provider Internal Medicine; Emergency Provider Student in an Organized Health Care Education/Training Program; PCP Internal Medicine; Visit Provider Internal Medicine
DX: R77.8 Other specified abnormalities of plasma proteins (principal); R10.13 Epigastric pain; I16.1 Hypertensive emergency; E03.9 Hypothyroidism, unspecified; I44.7 Left bundle-branch block, unspecified; I48.0 Paroxysmal atrial fibrillation; E55.9 Vitamin D deficiency, unspecified; K76.89 Other specified diseases of liver; Z20.822 Contact with and (suspected) exposure to COVID-19; Z88.6 Allergy status to analgesic agent; Z79.899 Other long term (current) drug therapy
CPT/HCPCS: 36415; 71045; 74177; 80048; 80053; 81001; 83690; 84484; 85025; 85027; 85610; 85730; 87635; 93005; 93308; 96361; 96374; 96376; 99205; 99219; 99285; Q9967

== ENCOUNTER → 2021-08-08 08:44 | Outpatient (BNVA) | payer MEDICARE, SELFPAY | PROVIDERS: PCP Internal Medicine; Referring Provider Internal Medicine; Visit Provider Internal Medicine Cardiovascular Disease | DX: I48.0 Paroxysmal atrial fibrillation (principal); I10 Essential (primary) hypertension; R74.8 Abnormal levels of other serum enzymes | CPT/HCPCS: 99212 ==

== ENCOUNTER 2021-08-13 01:39 | Emergency (ER) | payer MEDICARE, SELFPAY ==
--- NOTE | 2021-08-13 | ECG_ITS ---
Test Reason : nausea/vomiting Blood Pressure : / mmHG Vent. Rate : 076 BPM Atrial Rate : 076 BPM P-R Int : 160 ms QRS Dur : 130 ms QT Int : 432 ms P-R-T Axes : 075 -43 089 degrees QTc Int : 486 ms Normal sinus rhythm Left axis deviation Left bundle branch block Abnormal ECG When compared with ECG of 17-JUL-2021 09:44, T wave inversion less evident in Lateral leads Referred By: Generic ED Physician Electronically Signed By:SHANNON RMOEO MD
--- NOTE | ~2021-08-13 | CT_ITS ---
EXAMINATION: CT ABDOMEN AND PELVIS WITH CONTRAST CLINICAL INFORMATION: Left-sided abdominal pain COMPARISON: 07/16/2021 TECHNIQUE: Multidetector volumetric images were obtained from the superior aspect of the liver through the pubic symphysis following administration 85 mL of Omnipaque 350 intravenous contrast. Sagittal and coronal reformatted images were obtained on the technologist's workstation. Oral contrast: No This CT examination was performed using dose optimization techniques as appropriate, variously including the following: *Automated exposure control *Adjustment of mA and/or kV according to patient size (this includes techniques or standardized protocols for targeted exams where dose is matched to indication/reason for exam; i.e. extremities or head) *Use of iterative reconstruction technique DLP: 395 mGy-cm FINDINGS: LUNG BASES: The visualized lung bases are unremarkable. LIVER, GALLBLADDER, AND BILIARY TREE: The liver is normal in size, shape, and attenuation. No biliary ductal dilatation. Multiple hepatic cysts are again noted.. The gallbladder is absent. PANCREAS: Unremarkable. SPLEEN: Normal size spleen. A few calcifications are seen. ADRENAL GLANDS: Unremarkable. KIDNEYS AND URETERS: The kidneys are normal in size, shape, and attenuation. No hydronephrosis, hydroureter, or calculi seen. No perinephric stranding. Left renal simple cysts. No follow-up imaging recommended. BLADDER: Unremarkable. GASTROINTESTINAL TRACT: The stomach is unremarkable. Tiny duodenal diverticulum. Normal caliber of the small bowel. There is no obstruction. Fluid-filled appearance of small bowel in the left midabdomen. Distal colonic anastomosis. Colonic diverticulosis without diverticulitis. No free air or free fluid. ABDOMINAL WALL: No significant hernia is appreciated. LYMPH NODES: Normal. VASCULAR: Normal caliber aorta with mild to moderate atherosclerotic calcification. PELVIC VISCERA: The uterus is not seen. No adnexal mass. OSSEOUS STRUCTURES: No acute or suspicious osseous abnormality. Degenerative changes throughout the spine. Degenerative changes of the hips. CT/CT abdomen pelvis w con IMPRESSION: Fluid-filled small bowel in the left midabdomen without obstructive appearance. Mild enteritis is possible. Colonic diverticulosis without diverticulitis.
--- NOTE | ~2021-08-13 | XR_ITS ---
EXAMINATION: XR CHEST CLINICAL INFORMATION: Cough COMPARISON: 07/16/2021 TECHNIQUE: Frontal view of the chest was obtained. FINDINGS: Cardiac leads overlie the chest. The lungs are well expanded. There is no focal consolidation, edema, or effusion. No pneumothorax. The cardiomediastinal silhouette is within normal limits of size with a calcified aorta. No acute osseous abnormality. XR/XR chest 1V IMPRESSION: No acute pulmonary finding.
[2021-08-13 01:47] VITALS: BP 138/90; BP 173/60; PULSE 74; PULSE 75; RESP 18; TEMP 36.8; O2SAT 100; O2SAT 97; BMI 21.7
--- NOTE | 2021-08-13 02:10 | ED_ITS ---
HPI - Nausea/Vomiting/Diarrhea General Chief complaint: Nausea/Vomiting/Diarrhea Stated complaint: nausea vomiting Time Seen by Provider: 08/13/21 01:49 Source: patient Mode of arrival: EMS History of Present Illness HPI Narrative: 86-year-old female who presents via EMS with complaints crampy, lower abdominal pain associated with multiple episodes of nausea and nonbloody/nonbilious vomiting this started shortly after she ate dinner cons isting of chicken. She otherwise denies any fever or chills and currently states that the pain has resolved but reports that she has had some urinary discomfort but denies any shortness of breath/chest pain/palpitations. She does have a positive intra-abdominal surgical history significant for diverticulitis. She denies history of renal colic and states she is not passing flatus. Related Data Home Medications Medication Instructions Recorded Confirmed ajndcdla-arv-pyzky acid 0.4 1 tab PO DAILY 07/11/20 08/08/21 mg-lycopene 300 mcg-lutein 250 mcg tablet (Centrum Silver) lorazepam 0.5 mg tablet 0.5 mg PO DAILY PRN 10/06/20 08/08/21 duloxetine 30 mg capsule,delayed 30 mg PO DAILY 12/26/20 08/08/21 release metoprolol succinate 50 mg 75 mg PO DAILY tab 06/01/21 08/08/21 tablet,extended release 24 hr cholecalciferol (vitamin D3) 25 25 mcg PO DAILY 07/16/21 08/08/21 mcg (1,000 unit) tablet (Vitamin D3) Previous Rx's Medication Instructions Recorded levothyroxine 75 mcg tablet 75 mcg PO DAILY #90 tab 08/03/21 amlodipine 5 mg tablet 5 mg PO BID #60 tab 08/08/21 apixaban 2.5 mg tablet (Eliquis) 2.5 mg PO BID #180 tab 08/08/21 atorvastatin 20 mg tablet 20 mg PO DAILY #30 tab 08/08/21 amoxicillin 875 mg-potassium 1 tab PO Q12H 5 Days #10 tab 08/13/21 clavulanate 125 mg tablet (Augmentin) Allergies Allergy/AdvReac Type Severity Reaction Status Date / Time codeine [CODEINE] Allergy Unknown SEVERE Verified 08/13/21 01:54 VOMITING, stomach upset Review of Systems Review of Systems: Pertinent positives and negatives as stated in HPI 10 point review of systems is otherwise negative. PMFSH Past Medical History Source: nursing notes reviewed Medical History Anxiety HTN (hypertension) Hypothyroidism Left bundle branch block Microscopic hematuria Osteoarthritis Paroxysmal atrial fibrillation Vitamin D deficiency Surgical History H/O colonoscopy History of laparoscopy History of total abdominal hysterectomy Family History Family History Father No problems noted. Mother HTN (hypertension) CVD (cardiovascular disease) Brother No problems noted. Brother No problems noted. Sister No problems noted. Son No problems noted. Son No problems noted. Daughter No problems noted. Social History Social History Household Members: None Housing: House Do you presently have visiting nurse or other home services: No Alcohol intake: never Patient Tobacco Use Status: Never used Tobacco e-Cigarette/Vaping Use: Never Used Second Hand Smoke Exposure: No Advance Directives: No service: No Current occupational status: retired Physical Exam Vital Signs: Vital Signs: Last Vital Signs Temp 98.3 F 08/13/21 01:47 Pulse 68 08/13/21 03:59 Resp 22 H 08/13/21 03:59 BP 167/74 H 08/13/21 03:59 Pulse Ox 98 08/13/21 03:59 Body Mass Index 21.7 VITAL SIGNS: Reviewed. GENERAL: Well developed, well nourished, mild distress. HEAD: Normocephalic/atraumatic EYES: PERRLA, EOMI EARS: Ext canals without abnormality NOSE: Nares patent bilateral OROPHARYNX: no oral lesions noted, posterior pharynx clear NECK: Supple, no adenopathy LUNGS: Normal breath sounds. No adventitious sounds or accessory muscle use. SpO2<100> CARDIOVASCULAR: Regular rate and rhythm without noted murmurs, no JVD or lower extremity edema. ABDOMEN: Soft, minimal tenderness at lower abdomen/left lower quadrant non- distended with bowel sounds. MUSCULOSKELETAL: No tenderness, deformities, or effusions noted on gross inspection. EXTREMITIES: No cyanosis, clubbing or edema. SKIN: Inspection of the skin reveals no rashes NEUROLOGIC: Alert and oriented x 4. Strength and sensation to light touch were grossly intact x 4. Course Course Course Narrative: 86-year-old female with history and clinical presentation suggestive of possible diverticulitis/SBO. Review of all investigations without acute findings other than evidence enteritis without obstruction or diverticulitis. Patient received initial antibiotics here in the emergency room and will go home with a prescription for antibiotics given the noted leukocytosis that may be attributable to patient's nausea and vomiting but chest x-ray and urinalysis are otherwise negative. MDM - Nausea/Vomiting/Diarrhea Lab Data Result diagrams: 08/13/21 02:21 08/13/21 02:21 Labs: Lab Results 08/13/21 08/13/21 08/13/21 Range/Units 02:21 02:21 02:21 WBC 16.0 H (4.8-10.8) X10*3/uL RBC 4.78 (4.20-5.50) X10*6/uL Hgb 15.2 (12.0-16.0) g/dl Hct 45.0 (37.0-47.0) % MCV 94.1 (80.0-98.0) fL MCH 31.8 (27.0-33.0) pg MCHC 33.8 (31.0-35.0) g/dl RDW 12.9 (11.0-16.0) % Plt Count 293 (160-400) X10*3/uL MPV 9.8 (9.4-12.3) fL Immature Gran % (Auto) 0.4 (0.0-0.4) % Neut % (Auto) 88.1 H (45-73) % Lymph % (Auto) 5.7 L (20-40) % Carlton % (Auto) 5.3 (2-11) % Eos % (Auto) 0.3 (0-4) % Baso % (Auto) 0.2 (0-2) % Lymph # (Auto) 0.9 L (1.2-4.9) X10*3/uL Carlton # (Auto) 0.9 (0.1-1.2) X10*3/uL Eos # (Auto) 0.1 (0.0-0.4) X10*3/uL Baso # (Auto) 0.0 (0.0-0.2) X10*3/uL Abs Immat Gran (auto) 0.07 H (0.00-0.03) X10*3/uL Absolute Neuts (auto) 14.1 H (2.0-8.3) x10*3/uL Absolute Nucleated RBC 0.000 (0.0-0.012) X10*3/uL Nucleated RBC % (auto) 0.0 (0.0-0.2) /100WBC PT 11.2 (9.9-13.0) SEC INR 1.0 (0.9-1.1) Sodium 141 (135-145) mmol/L Potassium 4.0 (3.3-5.1) mmol/L Chloride 101 (96-108) mmol/L Carbon Dioxide 31 H (22-29) mmol/L Anion Gap 13 (12-20) BUN 23 H D (9-16) mg/dL Creatinine 1.12 (0.5-1.4) mg/dL Estim Creat Clear Calc 26.4 Estimated GFR 46 Random Glucose 146 H (60-115) mg/dL Lactic Acid (0.5-2.0) mmol/L Calcium 9.8 D (8.4-10.2) mg/dL Total Bilirubin 0.7 (0.0-1.0) mg/dL AST 25 (5-31) U/L ALT 31 (0-31) U/L Alkaline Phosphatase 62 D (39-117) U/L Troponin I High Sens (<3.5-17.0) ng/L Total Protein 6.6 D (6.5-8.0) g/dL Albumin 4.2 D (3.5-5.0) g/dL Urine Color Urine Appearance Urine pH (5.0-8.0) Ur Specific [place] (1.005-1.025) Urine Protein (NEG-TRACE) MG/DL Urine Glucose (UA) (NEG) MG/DL Urine Ketones (NEG) MG/DL Urine Blood (NEG) Urine Nitrite (NEG) Ur Leukocyte Esterase (NEG) Urine RBC (0) /HPF Urine WBC (0-4) /HPF Ur Squamous Epith Cells /LPF Ur Renal Epithelial Cell /LPF Uric Acid Crystals /LPF Urine Bacteria /LPF Granular Casts /LPF Urine Mucus /LPF 08/13/21 08/13/21 08/13/21 Range/Units 02:21 02:21 02:41 WBC (4.8-10.8) X10*3/uL RBC (4.20-5.50) X10*6/uL Hgb (12.0-16.0) g/dl Hct (37.0-47.0) % MCV (80.0-98.0) fL MCH (27.0-33.0) pg MCHC (31.0-35.0) g/dl RDW (11.0-16.0) % Plt Count (160-400) X10*3/uL MPV (9.4-12.3) fL Immature Gran % (Auto) (0.0-0.4) % Neut % (Auto) (45-73) % Lymph % (Auto) (20-40) % Carlton % (Auto) (2-11) % Eos % (Auto) (0-4) % Baso % (Auto) (0-2) % Lymph # (Auto) (1.2-4.9) X10*3/uL Carlton # (Auto) (0.1-1.2) X10*3/uL Eos # (Auto) (0.0-0.4) X10*3/uL Baso # (Auto) (0.0-0.2) X10*3/uL Abs Immat Gran (auto) (0.00-0.03) X10*3/uL Absolute Neuts (auto) (2.0-8.3) x10*3/uL Absolute Nucleated RBC (0.0-0.012) X10*3/uL Nucleated RBC % (auto) (0.0-0.2) /100WBC PT (9.9-13.0) SEC INR (0.9-1.1) Sodium (135-145) mmol/L Potassium (3.3-5.1) mmol/L Chloride (96-108) mmol/L Carbon Dioxide (22-29) mmol/L Anion Gap (12-20) BUN (9-16) mg/dL Creatinine (0.5-1.4) mg/dL Estim Creat Clear Calc Estimated GFR Random Glucose (60-115) mg/dL Lactic Acid 1.7 (0.5-2.0) mmol/L Calcium (8.4-10.2) mg/dL Total Bilirubin (0.0-1.0) mg/dL AST (5-31) U/L ALT (0-31) U/L Alkaline Phosphatase (39-117) U/L Troponin I High Sens < 3.5 D (<3.5-17.0) ng/L Total Protein (6.5-8.0) g/dL Albumin (3.5-5.0) g/dL Urine Color YELLOW Urine Appearance HAZY Urine pH 7.5 (5.0-8.0) Ur Specific [place] 1.015 (1.005-1.025) Urine Protein 1+ H (NEG-TRACE) MG/DL Urine Glucose (UA) NEG (NEG) MG/DL Urine Ketones 15 (NEG) MG/DL Urine Blood TRACE (NEG) Urine Nitrite NEG (NEG) Ur Leukocyte Esterase NEG (NEG) Urine RBC 1-4 (0) /HPF Urine WBC 1-4 (0-4) /HPF Ur Squamous Epith Cells TRACE /LPF Ur Renal Epithelial Cell TRACE /LPF Uric Acid Crystals 4+ /LPF Urine Bacteria TRACE /LPF Granular Casts 5-9 /LPF Urine Mucus 3+ /LPF ECG Data Attestation: I personally reviewed and interpreted this ECG as follows: Prior ECG tracings: available for review (07/17/2021 no acute changes on comparison) Interpretation: Sinus rhythm, HR-76, LBBB, no STEMI, OH/QTC are within normal limits. Discharge Plan Discharge Clinical Impression: Enteritis Patient Disposition: Home, Self-Care Instructions: Enteritis (ED) Additional Instructions: 1. Resume all home medications. 2. Recommend bland diet and advance as tolerated. 3. Please follow-up with your primary care provider today to set up an appointment for re-evaluation further outpatient management. 4. Complete the entire course of antibiotics as prescribed. Return to the ER for acute worsening of symptoms. Prescriptions: New amoxicillin-pot clavulanate [Augmentin] 875-125 mg tablet 1 tab PO Q12H 5 Days Qty: 10 RF: 0 No Action levothyroxine 75 mcg tablet 75 mcg PO DAILY Qty: 90 RF: 3 cholecalciferol (vitamin D3) [Vitamin D3] 25 mcg (1,000 unit) Tablet 25 mcg PO DAILY RF: 0 lorazepam 0.5 mg tablet 0.5 mg PO DAILY PRN (Reason: Anxiety) RF: 0 duloxetine 30 mg capsule,delayed release(DR/EC) 30 mg PO DAILY RF: 0 metoprolol succinate 50 mg tablet extended release 24 hr 75 mg PO DAILY RF: 0 Centrum Silver 0.4-300-250 mg-mcg-mcg tablet 1 tab PO DAILY RF: 0 Eliquis 2.5 mg tablet 2.5 mg PO BID Qty: 180 RF: 1 amlodipine 5 mg tablet 5 mg PO BID Qty: 60 RF: 5 atorvastatin 20 mg tablet 20 mg PO DAILY Qty: 30 RF: 5 Referrals: Beth Maravilla MD [Primary Care Provider] - 2 days
[2021-08-13 02:26] LABS: MANUAL DIFF FLAG NO
[2021-08-13 02:28] LABS: Basophils Percent Auto 0.2 % (0-2); Eosinophils Absolute Auto 0.1 X10*3/uL (0.0-0.4); Eosinophils Percent Auto 0.3 % (0-4); Hemoglobin 15.2 g/dl (12.0-16.0); Imm Gran Abs Auto 0.07 X10*3/uL (0.00-0.03); Imm Gran Pct Auto 0.4 % (0.0-0.4); Lymphocytes Absolute Auto 0.9 X10*3/uL (1.2-4.9); Lymphocytes Percent Auto 5.7 % (20-40); Mean Corpuscular HGB Conc 33.8 g/dl (31.0-35.0); Mean Corpuscular Hemoglobin 31.8 pg (27.0-33.0); Mean Corpuscular Volume 94.1 fL (80.0-98.0); Mean Platelet Volume 9.8 fL (9.4-12.3); Monocytes Absolute Auto 0.9 X10*3/uL (0.1-1.2); Monocytes Percent Auto 5.3 % (2-11); Neutrophils Absolute Auto 14.1 x10*3/uL (2.0-8.3); Neutrophils Percent Auto 88.1 % (45-73); Platelet Count 293 X10*3/uL (160-400); Red Blood Count 4.78 X10*6/uL (4.20-5.50); Red Cell Distribution Width 12.9 % (11.0-16.0)
[2021-08-13 02:36] LABS: Prothrombin Time 11.2 SEC (9.9-13.0)
[2021-08-13 02:37] VITALS: BP 178/80; PULSE 82; RESP 12; O2SAT 98
[2021-08-13 02:41] LABS: Lactic Acid 1.7 mmol/L (0.5-2.0)
[2021-08-13 02:46] LABS: Alanine Aminotransferase 31 U/L (0-31); Albumin Level 4.2 g/dL (3.5-5.0); Alkaline Phosphatase 62 U/L (39-117); Anion Gap 13 (12-20); Aspartate Amino Transferase 25 U/L (5-31); Bilirubin Total 0.7 mg/dL (0.0-1.0); Blood Urea Nitrogen 23 mg/dL (9-16); Calcium 9.8 mg/dL (8.4-10.2); Carbon Dioxide 31 mmol/L (22-29); Chloride 101 mmol/L (96-108); Creatinine Clr Calc Pharmacy 26.4; Estimated Glomerular Filt Rate 46; Glucose Random 146 mg/dL (60-115); Sodium 141 mmol/L (135-145); Total Protein 6.6 g/dL (6.5-8.0)
[2021-08-13 02:47] LABS: Appearance Urine HAZY; Color Urine YELLOW; Glucose Urine UA NEG (NEG); Leukocyte Esterase Urine NEG (NEG); Nitrite Urine NEG (NEG); PH 7.5 (5.0-8.0); Specific Gravity - Urine 1.015 (1.005-1.025); UACC Culture Trigger NO; Urine Blood TRACE (NEG); Urine Ketones 15 MG/DL (NEG); Urine Protein 1+ MG/DL (NEG-TRACE)
--- NOTE | 2021-08-13 02:48 | PC.NURSE ---
IV established, all labs including BCX x 2 obtained and sent. Pt ambulating to the bathroom to provide urine sample. Pt aware of plan to await results.
[2021-08-13 02:49] LABS: Troponin-I High Sensitivity < 3.5 ng/L (<3.5-17.0)
--- NOTE | 2021-08-13 03:13 | PC.NURSE ---
Pt off to CT at this time. Plan for ABX upon return.
[2021-08-13] MEDS: iohexoL 350 MG/ML 100 ML INFUS..BTL 85 ML IV (03:33)
[2021-08-13 03:34] LABS: Bacteria Urine TRACE /LPF; Mucus Urine 3+ /LPF; Renal Epithelial Cells Urine TRACE /LPF; Squamous Epithelial Cell Urine TRACE /LPF
[2021-08-13 03:38] LABS: Uric Acid Crystals Urine 4+ /LPF
[2021-08-13] MEDS: Piperacillin Sodium/Tazobactam 3.375 GM in 0.9 % Sodium Chloride 50 ML IV (03:54)
[2021-08-13 03:59] VITALS: PULSE 84
[2021-08-13 04:44] VITALS: BP 152/65; PULSE 81; RESP 18; O2SAT 99
== END 2021-08-13 04:48 | disposition home or self-care (01) ==
PROVIDERS: Emergency Provider Student in an Organized Health Care Education/Training Program; PCP Internal Medicine
DX: K52.9 Noninfective gastroenteritis and colitis, unspecified (principal); I10 Essential (primary) hypertension; I48.0 Paroxysmal atrial fibrillation; Z79.01 Long term (current) use of anticoagulants; Z79.899 Other long term (current) drug therapy
CPT/HCPCS: 36415; 71045; 74177; 80053; 81001; 83605; 84484; 85025; 85610; 87040; 93005; 96365; 99284; J2543; Q9967

== ENCOUNTER → 2021-08-28 08:56 | Outpatient (REF) | payer MEDICARE, SELFPAY ==
--- NOTE | ~2021-08-28 | NM_ITS ---
Myocardial perfusion study Indication: Abnormal troponins to evaluate for myocardial ischemia Technique: The patient was brought in for a Lexiscan perfusion study on 08/28/2021. Patient performed low-level exercise and was injected 0.4 mg of Lexiscan intravenously. Within a minute of injection, 25 mCi of sestamibi was given intravenously. Images were obtained using the SPECT gamma camera interlaced with the gating device. Images were obtained in supine position. Resting perfusion study was performed on 08/29/2021. Patient was administered 25 mCi of sestamibi intravenously at rest. Images were then obtained in supine position. Images obtained with and without CT attenuation. Total DLP 78 mGy-cm. Images were processed with the software and compared side to side in short axis, horizontal long axis and vertical long axis views. Findings: The stress perfusion study showed non attenuated images show minimal thinning of the inferoapical wall of the LV myocardium. Remainder of the LV myocardium is normally perfused. Attenuation corrected images show mildly to moderately reduced uptake in the distal anterior, apex and inferoapical wall and distal septum of the LV myocardium.. The gated study shows normal LV systolic function with calculated LVEF of 65%. LV cavity is normal in size. The gated study shows normal systolic wall thickening and contraction of segments. Resting study shows no significant change in perfusion on non attenuated study.. Gating at rest reveals normal systolic wall motion with ejection fraction at greater than 70 %. The findings are consistent with normal myocardial perfusion. NM/NM romi perf SPECT rest & str Impression: 1. Myocardial perfusion imaging study shows normal myocardial perfusion 2. Gated LVEF is 65% 3. Transient ischemic dilatation not present EKG is nondiagnostic for ischemia
--- NOTE | 2021-08-28 08:59 | CA_ITS ---
Acquisition Time: 2021-08-28 09:00:15 Total Exercise Time: 00:02:00 Test Indications: ABN ENZYMES Medications: AMLOLIPINE METOPROL SIMVASTATIN Protocol: LEXISCAN Max HR: 117 BPM 86% of Pred: 135 BPM Max BP: 142/068 mmHG Max Work Load: 1.0 METS Pharmacological stress test with Lexiscan injection, while sitting and not moving, with heart rate up to 87% MPHR with report of feeling anxious, without anginal symptoms, without arrythmia, with normotensive response to injection, with nondiagnostic EKG for ischemia. In recovery she had fatigue and was treated with Aminophylline 75mg IVP to reverse Lexiscan with improvement in symptom. Nuclear images pending. Test reviewed with Dr Carlisle. Referred By: Jason Roger Overread By: LETI ROSENTHAL
== END ==
LOC: HO.CARD 08:56
PROVIDERS: Visit Provider Internal Medicine Cardiovascular Disease
DX: R74.8 Abnormal levels of other serum enzymes (principal)
CPT/HCPCS: 78452; 93017; A9500; J0280; J2785

== ENCOUNTER → 2022-01-08 09:37 | Outpatient (BNVA) | payer MEDICARE, SELFPAY | PROVIDERS: PCP Internal Medicine; Referring Provider Internal Medicine; Visit Provider Internal Medicine Cardiovascular Disease | DX: I48.0 Paroxysmal atrial fibrillation (principal); I44.7 Left bundle-branch block, unspecified; I10 Essential (primary) hypertension; Z79.01 Long term (current) use of anticoagulants; Z79.899 Other long term (current) drug therapy | CPT/HCPCS: 99212 ==

== ENCOUNTER → 2022-05-30 12:23 | Outpatient (REF) | payer MEDICARE, SELFPAY ==
--- NOTE | 2022-05-30 12:27 | CA_ITS ---
Transthoracic Echocardiogram Patient (Last, First, Middle): Mary Shannon R Gender: Female Date of : 1935 Age: 87 Procedure Date: 05/30/2022 Procedure Type: Transthoracic Echocardiogram Location: OP Height: 149.86 cm Weight: 49.9 kg BSA: 1.43 m2 Heart Rate: 67 bpm BP: 124 / 72 mmHg Chief Solution Architect: KENIA Referring MD: Jason Roger MD Underwriting Clerk: Jason Roger MD Symptoms: I48.0 - Paroxysmal atrial fibrillation Study Quality: Adequate ECG Rhythm: Sinus Conclusions: - 1. Normal LV systolic function with grade 1 diastolic dysfunction 2. Normal cardiac valvular Dopplers 3. Normal RV systolic pressure 4. No gross pericardial effusion Findings Left Ventricle Normal left ventricular size, thickness, and systolic function. The visually estimated ejection fraction is between 60-65%. Spectral Doppler is indicative of an impaired relaxation filling pattern. E/E prime ratio is <8, consistent with normal filling pressures. Evidence suggests grade I (mild) diastolic dysfunction.Peak GLS is -17.4% within normal limits. Right Ventricle Normal right ventricular cavity size and systolic function. Atria Both atria are normal in size. Interatrial shunt cannot be excluded. Aortic Valve There is mild calcification of the aortic valve. There is no aortic valve stenosis. There is no aortic valve regurgitation. Mitral Valve There is mild anterior and posterior mitral leaflet thickening. There is mild mitral annular calcification. There is trace mitral valve regurgitation. There is no mitral valve stenosis. Pulmonic Valve The pulmonic valve was not well visualized. Tricuspid Valve Likely normal tricuspid valve structure and function. There is trace tricuspid valve regurgitation. The right ventricular systolic pressure is normal. The right ventricular systolic pressure is 26 mmHg. Normal right atrial pressure. There is no evidence of pulmonary hypertension. Great Vessels All visible segments of the aorta are normal in size. The pulmonary artery was not well visualized. Venous The inferior vena cava is normal in size and collapses greater than 50% with inspiration. Pericardium/Pleural There is no evidence of pericardial effusion. Prior Study Comparison No significant change compared to prior study dated: 07/17/2021. Measurements 2D Linear Measurements IVSd: 1.01 0.6-0.9/0.6-1.0 cm LVIDd: 3.25 3.9-5.3/4.2-5.9 cm LVIDd Index: 2.27 2.4-3.2/2.2-3.1 cm/m2 LVIDs: 2.40 2.0-3.6 cm LVPWd: 0.79 0.7-1.1 cm LA Diam: 2.60 2.7-3.8/3.0-4.0 cm LAIDs Index: 1.82 1.5-2.3 cm/m2 LV Mass: 97.92 67-162/88-224 g LV Mass Index: 68.48 43-95/49-115 g/m2 LVOT Diam: 1.60 3.0+(-)1.3 cm 2D Systolic Function EF 4C: 64.20 >55% EF 2C: 52.30 >55% EF BiP: 58.50 >55% Mitral Valve MV Pk E: 0.75 MV PK A: 1.07 MV Decel Time: 282.00 E/A: 0.70 E'Lateral: 4.79 E'Medial: 5.55 E/E' Med: 13.60 E/E' Lat: 15.70 PHT: 82.00 MVA PHT: 2.68 Decel [place]: 2.67 Aortic Valve AoV Pk Ancelmo: 1.07 AoV Mn Ancelmo: 0.79 AoV VTI: 0.24 AoV Pk Grad: 5.00 Aov Mn Grad: 3.00 CONCETTA Cont.VTI: 1.38 CONCETTA Planim: 2.07 LVOT LVOT Pk Ancelmo: 0.73 LVOT Mn Ancelmo: 0.52 LVOT VTI: 0.16 LVOT Pk Grad: 2.00 LVOT Mn Grad: 1.00 LVOT Diam: 1.60 LVOT Area: 2.01 Diastolic Function MV Pk E: 0.75 MV Pk A: 1.07 E/A: 0.70 E'Medial: 5.55 E/E' Med: 13.60 E' Laterial: 4.79 E/E' Lat: 15.70 Right Ventricle TVS' Ancelmo: 11.00 Tricuspid Valve TR Pk Ancelmo: 2.39 TR Pk Grad: 23.00 RA Press: 3.00 RVSP: 26.00 Great Vessels Aorta Sinus of Valsalva: 2.60 2.0-3.5 cm Ao Asc: 3.10 2.1-3.4 cm Pulmonary Valve PV Pk Ancelmo: 0.91 Peak PV Grad: 3.00 Updated in Other Vendor System with Status of Final Jason Roger MD electronically signed on 05/31/2022 12:28:23 PM with status of Final
== END ==
LOC: HO.CARD 12:23
PROVIDERS: PCP Internal Medicine; Visit Provider Internal Medicine Cardiovascular Disease
DX: I48.0 Paroxysmal atrial fibrillation (principal)
CPT/HCPCS: 93306; 93356

== ENCOUNTER 2022-06-10 12:36 | Outpatient (REF) | payer MEDICARE, SELFPAY ==
[2022-06-10 13:55] LABS: MANUAL DIFF FLAG NO
[2022-06-10 14:03] LABS: Basophils Percent Auto 0.4 % (0-2); Eosinophils Absolute Auto 0.1 X10*3/uL (0.0-0.4); Eosinophils Percent Auto 0.8 % (0-4); Hematocrit 42.1 % (37.0-47.0); Hemoglobin 14.2 g/dl (12.0-16.0); Imm Gran Abs Auto 0.09 X10*3/uL (0.00-0.03); Imm Gran Pct Auto 1.2 % (0.0-0.4); Lymphocytes Absolute Auto 1.6 X10*3/uL (1.2-4.9); Lymphocytes Percent Auto 20.5 % (20-40); Mean Corpuscular HGB Conc 33.7 g/dl (31.0-35.0); Mean Corpuscular Hemoglobin 31.3 pg (27.0-33.0); Mean Corpuscular Volume 92.7 fL (80.0-98.0); Mean Platelet Volume 10.4 fL (9.4-12.3); Monocytes Absolute Auto 0.7 X10*3/uL (0.1-1.2); Monocytes Percent Auto 9.1 % (2-11); Neutrophils Absolute Auto 5.2 x10*3/uL (2.0-8.3); Platelet Count 317 X10*3/uL (160-400); Red Blood Count 4.54 X10*6/uL (4.20-5.50); White Blood Count 7.7 X10*3/uL (4.8-10.8)
[2022-06-10 14:24] LABS: Alanine Aminotransferase 22 U/L (0-31); Albumin Level 4.2 g/dL (3.5-5.0); Alkaline Phosphatase 67 U/L (39-117); Anion Gap 15 (12-20); Aspartate Amino Transferase 20 U/L (5-31); Bilirubin Total 0.6 mg/dL (0.0-1.0); Blood Urea Nitrogen 19 mg/dL (9-16); Calcium 9.1 mg/dL (8.4-10.2); Carbon Dioxide 26 mmol/L (22-29); Chloride 103 mmol/L (96-108); Estimated Glomerular Filt Rate 50; Glucose Random 100 mg/dL (60-115); Potassium 3.6 mmol/L (3.3-5.1); Sodium 140 mmol/L (135-145); Total Protein 6.7 g/dL (6.5-8.0)
[2022-06-10 14:44] LABS: Vitamin D 25-OH Total 39.4 ng/mL (>30)
[2022-06-10 15:22] LABS: Free T4 (Free Thyroxine) 0.94 ng/dL (0.71-1.85)
== END 2022-06-10 12:37 | disposition home or self-care (01) ==
LOC: HO.HMGCLDS 12:36
PROVIDERS: PCP Internal Medicine; Visit Provider Internal Medicine
DX: E03.9 Hypothyroidism, unspecified (principal); E55.9 Vitamin D deficiency, unspecified; I10 Essential (primary) hypertension; I48.0 Paroxysmal atrial fibrillation
CPT/HCPCS: 36415; 80053; 82306; 84439; 84443; 85025

== ENCOUNTER → 2022-07-31 08:45 | Outpatient (BNVA) | payer MEDICARE, SELFPAY | PROVIDERS: PCP Internal Medicine; Visit Provider Internal Medicine Cardiovascular Disease | DX: I48.0 Paroxysmal atrial fibrillation (principal); I44.7 Left bundle-branch block, unspecified; I10 Essential (primary) hypertension | CPT/HCPCS: 99212 ==

== ENCOUNTER 2022-08-16 15:11 | Outpatient (REF) | payer MEDICARE, SELFPAY | END 2022-08-16 15:12 | disposition home or self-care (01) | LOC: HO.LAB 15:11 | PROVIDERS: Visit Provider Urology | DX: N39.0 Urinary tract infection, site not specified (principal); R35.0 Frequency of micturition | CPT/HCPCS: 51798; 99212 ==

== ENCOUNTER → 2022-09-06 11:06 | Outpatient (BNVA) | payer MEDICARE, SELFPAY | PROVIDERS: PCP Internal Medicine; Visit Provider Urology | DX: N39.0 Urinary tract infection, site not specified (principal) | CPT/HCPCS: 51701 ==

== ENCOUNTER → 2022-09-24 09:54 | Outpatient (BNVA) | payer MEDICARE, SELFPAY | PROVIDERS: PCP Internal Medicine; Visit Provider Urology | DX: N39.0 Urinary tract infection, site not specified (principal) | CPT/HCPCS: 51701 ==

== ENCOUNTER 2022-10-11 09:56 | Outpatient (REF) | payer MEDICARE, SELFPAY ==
--- NOTE | ~2022-10-11 | US_ITS ---
EXAMINATION: US RETROPERITONEAL LIMITED (RENAL ONLY) CLINICAL INFORMATION: Frequency of micturition. COMPARISON: CT abdomen and pelvis 08/13/2021. TECHNIQUE: Real-time imaging of the kidneys. FINDINGS: RIGHT KIDNEY: 9.4 x 3.8 x 3.9 cm (SAG x AP x TRV). The kidney is normal in size, contour, and echogenicity. Renal cortical thickness is normal. No calculi or focal parenchymal lesions. No hydronephrosis. There are scattered echogenic foci which do not meet formal ultrasound criteria for calculi. LEFT KIDNEY: 8.6 x 4.7 x 4.8 cm (SAG x AP x TRV). The kidney is normal in size, contour, and echogenicity. Renal cortical thickness is normal. No renal calculi or hydronephrosis. At the interpolar aspect, a 1.3 cm in maximal diameter anechoic, simple cyst is seen. At the interpolar aspect, an 8.9 x 9 mm hyperechoic, circumscribed mass is seen, with ultrasound features characteristic for a benign angiomyolipoma. This is consistent with the CT findings of 04/14/2016 (6:63). US/US renal BI IMPRESSION: 1. 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 2. A benign, simple left renal cyst is redemonstrated and requires no imaging follow-up. 3. No renal calculus or hydronephrosis is seen bilaterally.
== END 2022-10-11 09:57 | disposition home or self-care (01) ==
LOC: HO.US 09:56
PROVIDERS: PCP Internal Medicine; Visit Provider Urology
DX: N39.0 Urinary tract infection, site not specified (principal); R35.0 Frequency of micturition
CPT/HCPCS: 76775

== ENCOUNTER 2022-10-16 10:54 | Outpatient (REF) | payer MEDICARE, SELFPAY | END 2022-10-16 10:55 | disposition home or self-care (01) | LOC: HO.LAB 10:54 | PROVIDERS: PCP Internal Medicine; Visit Provider Urology | DX: N39.0 Urinary tract infection, site not specified (principal); R35.0 Frequency of micturition; N28.1 Cyst of kidney, acquired; D17.71 Benign lipomatous neoplasm of kidney | CPT/HCPCS: 52000; 87086; 99212 ==

== ENCOUNTER → 2022-11-29 10:36 | Outpatient (BNVA) | payer MEDICARE, SELFPAY | PROVIDERS: PCP Internal Medicine; Visit Provider Urology | DX: N39.0 Urinary tract infection, site not specified (principal) | CPT/HCPCS: 51798; 99212 ==

== ENCOUNTER → 2023-02-04 09:28 | Outpatient (BNVA) | payer MEDICARE, SELFPAY | PROVIDERS: PCP Internal Medicine; Referring Provider Internal Medicine; Visit Provider Internal Medicine Cardiovascular Disease | DX: I48.0 Paroxysmal atrial fibrillation (principal); I10 Essential (primary) hypertension; I44.7 Left bundle-branch block, unspecified | CPT/HCPCS: 99212 ==

== ENCOUNTER → 2023-03-12 16:01 | Outpatient (BNVA) | payer MEDICARE, SELFPAY | PROVIDERS: PCP Nurse Practitioner Family; Visit Provider Urology | DX: N39.0 Urinary tract infection, site not specified (principal); R31.29 Other microscopic hematuria; R35.0 Frequency of micturition; R35.1 Nocturia; N28.1 Cyst of kidney, acquired; D17.71 Benign lipomatous neoplasm of kidney | CPT/HCPCS: Q3014 ==

== ENCOUNTER 2023-04-29 12:25 | Outpatient (REF) | payer MEDICARE, SELFPAY ==
[2023-04-29 14:42] LABS: Appearance Urine Cloudy; Color Urine Yellow; Glucose Urine UA Negative (Negative); Leukocyte Esterase Urine Large (3+) (Negative); Nitrite Urine Positive (Negative); Specific Gravity - Urine 1.015 (1.005-1.025); UMIC TRIGGER UA YES; Urine Blood Small (1+) (Negative); Urine Ketones Negative (Negative); Urine Protein Trace mg/dL (Neg-Trace)
[2023-04-29 15:07] LABS: Bacteria Urine 4+ (None Seen); Hyaline Casts Urine 0-2 /LPF (0-2); Squamous Epithelial Cell Urine 0-2 /HPF (0-2); WBC Urine >50 /HPF (0-5)
== END 2023-04-29 12:26 | disposition home or self-care (01) ==
LOC: HO.LAB 12:25
PROVIDERS: PCP Nurse Practitioner Family; Visit Provider Urology
DX: N39.0 Urinary tract infection, site not specified (principal)
CPT/HCPCS: 81001; 87086; 87088; 87186

== ENCOUNTER 2023-05-07 08:05 | Outpatient (REF) | payer MEDICARE, SELFPAY ==
[2023-05-07 08:16] LABS: MANUAL DIFF FLAG NO
[2023-05-07 09:41] LABS: Basophils Absolute Auto 0.1 X10*3/uL (0.0-0.2); Basophils Percent Auto 0.7 % (0-2); Eosinophils Absolute Auto 0.1 X10*3/uL (0.0-0.4); Eosinophils Percent Auto 1.5 % (0-4); Hematocrit 42.2 % (37.0-47.0); Hemoglobin 13.8 g/dl (12.0-16.0); Imm Gran Abs Auto 0.08 X10*3/uL (0.00-0.03); Imm Gran Pct Auto 0.9 % (0.0-0.4); Lymphocytes Absolute Auto 1.7 X10*3/uL (1.2-4.9); Lymphocytes Percent Auto 19.6 % (20-40); Mean Corpuscular HGB Conc 32.7 g/dl (31.0-35.0); Mean Corpuscular Hemoglobin 31.1 pg (27.0-33.0); Mean Platelet Volume 10.3 fL (9.4-12.3); Monocytes Absolute Auto 0.7 X10*3/uL (0.1-1.2); Monocytes Percent Auto 8.2 % (2-11); Neutrophils Absolute Auto 5.9 x10*3/uL (2.0-8.3); Neutrophils Percent Auto 69.1 % (45-73); Platelet Count 336 X10*3/uL (160-400); Red Blood Count 4.44 X10*6/uL (4.20-5.50); Red Cell Distribution Width 13.3 % (11.0-16.0); White Blood Count 8.5 X10*3/uL (4.8-10.8)
[2023-05-07 11:03] LABS: Alanine Aminotransferase 19 U/L (0-31); Albumin Level 4.1 g/dL (3.5-5.0); Alkaline Phosphatase 58 U/L (39-117); Anion Gap 14 (12-20); Aspartate Amino Transferase 15 U/L (5-31); Bilirubin Total 0.5 mg/dL (0.0-1.0); Blood Urea Nitrogen 13 mg/dL (9-16); Calcium 9.7 mg/dL (8.4-10.2); Carbon Dioxide 25 mmol/L (22-29); Chloride 108 mmol/L (96-108); Cholesterol 225 mg/dL; Estimated Glomerular Filt Rate > 60; Glucose Fasting 97 mg/dL (60-99); HDL Cholesterol 58 mg/dL; LDL Cholesterol Calculated 138 mg/dl; Potassium 3.6 mmol/L (3.3-5.1); Sodium 143 mmol/L (135-145); Total Protein 6.8 g/dL (6.5-8.0); Triglycerides 148 mg/dL
[2023-05-07 11:11] LABS: Folate 8.4 ng/mL (> or = 4.0); Vitamin B12 368 pg/mL (200-900)
[2023-05-07 11:22] LABS: TSH reflex Free T4 9.23 uIU/mL (0.32-4.0); Vitamin D 25-OH Total 36.3 ng/mL (>30)
[2023-05-07 12:36] LABS: Free T4 (Free Thyroxine) 0.85 ng/dL (0.71-1.85)
== END 2023-05-07 08:06 | disposition home or self-care (01) ==
LOC: HO.LAB 08:05
PROVIDERS: PCP Nurse Practitioner Family; Visit Provider Nurse Practitioner Family
DX: E03.9 Hypothyroidism, unspecified (principal); I10 Essential (primary) hypertension; E55.9 Vitamin D deficiency, unspecified
CPT/HCPCS: 36415; 80053; 80061; 82306; 82607; 82746; 84439; 84443; 85025

== ENCOUNTER 2023-05-13 09:54 | Outpatient (AMB) | payer MEDICARE, SELFPAY ==
[2023-05-13 09:55] VITALS: BP 108/66; PULSE 83; O2SAT 97; BMI 21.5
--- NOTE | 2023-05-13 09:55 | A.OFFPC_ITS ---
Vital Signs 05/13/23 09:55 Height 5 ft Weight 110 lb 0.6 oz BMI 21.5 BP 108/66 Blood Pressure Location Lt brachial Position Sitting Pulse 83 Pulse Source Pulse Oximeter Temp Source Skin Pulse Oximetry (%) 97 Oxygen Delivery Method Room Air Intake Visit Reasons: Failure to thrive Subscription Clerk Required: No Allergies codeine [CODEINE] Allergy (Unknown, Verified 05/13/23 10:06) SEVERE VOMITING, stomach upset aspirin Allergy (Verified 05/13/23 10:06) nausea demerol Allergy (Uncoded 05/13/23 10:06) Nausea Medication List - Last Reconciled 05/13/23 by Ethel Becerril, ENRIQUE amlodipine 5 mg PO BID apixaban (Eliquis) 2.5 mg PO BID levothyroxine 75 mcg PO DAILY lidocaine 4% (Aspercreme (lidocaine)) 1 patch topical DAILY PRN meclizine 12.5 mg PO DAILY PRN metoprolol succinate ER 75 mg (1.5 x 50 mg) PO DAILY mirabegron ER (Myrbetriq) 25 mg PO DAILY esnixlus-ahu-TB-lycopen-lutein 0.4 mg-300 mcg- 250 mcg (Centrum Silver) 1 tab PO DAILY nitrofurantoin macrocrystal 100 mg PO BID 10 days ondansetron HCl 4 mg PO Q8H PRN Tobacco use date assessed: 05/13/23 Fall risk assessment: No Falls in past year Last assessed Fall Risk: 05/13/23 HPI Failure to thrive HPI Details Patient is an 88-year-old female who presents today for a routine fol low-up.? Medical history significant for recurrent UTI-followed by [facility], hypertension, hypothyroidism, AFib-followed by Dr. 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 Patient is compliant with medications.? Patient reports problems with sleeping, she did use melatonin with no improvement. She also reports feeling lousy for about 4 weeks now, no much appetite. Patient was on medication for anxiety and depression in the past and she stopped this. Patient reports when she feels anxious she gets this feeling like there is a knot in her stomach and she can not eat? Patient denies shortness of breath or chest pain. Recent labs reviewed with the patient. ? [facility] Medical History Anxiety HTN (hypertension) Hypothyroidism Left bundle branch block Microscopic hematuria Osteoarthritis Paroxysmal atrial fibrillation Vitamin D deficiency Surgical History H/O colonoscopy History of laparoscopy History of total abdominal hysterectomy Family History Father No problems noted. Mother HTN (hypertension) CVD (cardiovascular disease) Brother No problems noted. Brother No problems noted. Sister No problems noted. Son No problems noted. Son No problems noted. Daughter No problems noted. Social History Household Members: None Housing: House Do you presently have visiting nurse or other home services: No Alcohol intake: never Patient Tobacco Use Status: Never used Tobacco e-Cigarette/Vaping Use: Never Used Second Hand Smoke Exposure: No service: No Current occupational status: retired Cognitive needs: No Hearing needs: No Vision needs: Yes Questionnaire Thrive Questionnaire Date Thrive assessed: 10/08/22 AUDIT C Alcohol Use Questionnaire (AUDIT-C) 1. How often do you have a drink containing alcohol?: Never 3. How often do you have six or more drinks on one occasion?: Never Total Score: 0 Score Reviewed/Action Taken: No JEANETH-7 AMB Questionnaire JEANETH-7 Date JEANETH - 7 assessed: 10/08/22 Source: Developed by Drs. Fabio Gongora, Sakina Oliver, Papi Stacy and colleagues, with an educational debbie from [email or web address]. Review of Systems Const Denies body aches, Denies chills, Reports difficulty sleeping, Reports fatigue, Denies fever(s), Denies headache(s) and Reports poor appetite Eyes Denies change in vision ENT Denies dizziness, Denies otalgia, Denies headache(s), Denies nasal discharge, Denies sinus pain and Denies sore throat Card Denies chest pain, Denies edema, Denies lightheadedness and Denies dyspnea Resp Denies cough and Denies dyspnea GI Denies constipation, Denies diarrhea, Denies nausea and Denies vomiting Denies dysuria Musc Denies myalgias and Reports arthralgias Skin/Breast Denies rash Neuro Denies dizziness and Denies headache(s) Endo Reports fatigue Physical exam (Primary Care) Vital Signs: Last Vital Signs Pulse 83 05/13/23 09:55 BP 108/66 05/13/23 09:55 Pulse Ox 97 05/13/23 09:55 Oxygen Delivery Method Room Air 05/13/23 09:55 BMI result Body Mass Index 21.5 Tobacco/Smoking Status: Tobacco use Status Tobacco use date assessed 05/13/23 05/13/23 09:56 Patient Tobacco Use Status Never used Tobacco 05/13/23 09:56 e-Cigarette/Vaping Use Never Used 05/13/23 09:56 Thrive Assessment: Date of Thrive Assessment Date Thrive assessed 10/08/22 05/13/23 09:56 Const General: cooperative and no acute distress Orientation/consciousness: patient oriented x3 HENMT Head: Yes normocephalic and Yes atraumatic Face and sinus: Yes sinuses nontender Mouth: oropharynx normal and moist mucous membranes Throat: Yes posterior oropharynx normal Eyes General: appearance normal, both eyes and all related structures Pupils: Equal, round and reactive pupils present EOM: EOMs intact bilaterally Neck Neck: Yes normal visual inspection, Yes full ROM and Yes no lymphadenopathy Thyroid: Thyroid normal Resp Effort & Inspection: normal respiratory effort and able to speak in complete sentences Auscultation: clear to auscultation bilaterally, no crackles, no rales, no rhonchi and no wheezes Cardio Rate: regular rate Rhythm: regular rhythm Heart sounds: S1 normal heart sound present and S2 normal heart sound present GI Auscultation: normal bowel sounds Skin General skin exam: no rashes or lesions noted Neuro General: patient oriented x3 Cranial nerves: Yes Equal, round and reactive pupils present Gait exam (Neuro): Normal gait present Extrem General: Yes full ROM and No edema Assessment and Plan Assessment & Plan (1) Paroxysmal atrial fibrillation: Code(s): I48.0 - Paroxysmal atrial fibrillation Plan: Continue to follow-up with Dr. Roger Continue Eliquis and metoprolol (2) Hypothyroidism: Code(s): E03.9 - Hypothyroidism, unspecified Plan: TSH 9.23, free T4 0.85 /2022 Increase levothyroxine to 88 mcg daily Recheck blood work in 4 weeks (3) HTN (hypertension): Code(s): I10 - Essential (primary) hypertension Plan: Continue to follow-up with Dr. Roger Continue metoprolol and amlodipine (4) Insomnia: Code(s): G47.00 - Insomnia, unspecified Plan: Reinforced sleep hygiene Start trazodone 25 mg at bedtime p.r.n.-possible adverse reactions were reviewed with the patient and her daughter (5) Hyperlipidemia: Code(s): E78.5 - Hyperlipidemia, unspecified Plan: LDL 138 04/2023, previously patient was on atorvastatin Restart atorvastatin 10 mg at bedtime Low-cholesterol diet Plan Follow-up in 3 months or sooner as needed Orders: Orders TSH reflex Free T4 4 Weeks E03.9 - Hypothyroidism, unspecified Comprehensive Lyles. Panel Fast 3 Months I10 - Essential (primary) hypertension Lipid Panel 3 Months E78.5 - Hyperlipidemia, unspecified Medications: New levothyroxine 88 mcg PO DAILY 30 tabs 2RF E03.9 - Hypothyroidism, unspecified trazodone 25 mg (1/2 x 50 mg) PO BEDTIME PRN 30 tabs 0RF sleep G47.00 - Insomnia, unspecified atorvastatin 10 mg PO BEDTIME 90 tabs 0RF E78.5 - Hyperlipidemia, unspecified Discontinued levothyroxine Discontinued Reason: Doctor's Order 75 mcg PO DAILY 90 tabs 3RF Coding Level of Care Code Est Pt Level 4 (69310) Diagnoses Paroxysmal atrial fibrillation I48.0 Hypothyroidism E03.9 HTN (hypertension) I10 Insomnia G47.00 Hyperlipidemia E78.5
== END 2023-05-13 10:24 | disposition home or self-care (01) ==
PROVIDERS: PCP Nurse Practitioner Family; Visit Provider Nurse Practitioner Family
DX: I48.0 Paroxysmal atrial fibrillation (principal); E03.9 Hypothyroidism, unspecified; I10 Essential (primary) hypertension; G47.00 Insomnia, unspecified; E78.5 Hyperlipidemia, unspecified
CPT/HCPCS: 99214

== ENCOUNTER 2023-08-26 10:44 | Outpatient (AMB) | payer MEDICARE, SELFPAY ==
[2023-08-26 11:00] VITALS: BP 102/66; PULSE 68; O2SAT 98; BMI 21.3
--- NOTE | 2023-08-26 11:00 | MHC.PC.OV ---
Vital Signs 08/26/23 11:00 Height 5 ft Weight 109 lb 0.8 oz BMI 21.3 BP 102/66 Blood Pressure Location Lt brachial Position Sitting Pulse 68 Pulse Source Pulse Oximeter Pulse Oximetry (%) 98 Oxygen Delivery Method Room Air Intake Visit Reasons: F/U thyroid, insomnia Manager Sharepoint Required: No Allergies codeine [CODEINE] Allergy (Unknown, Verified 08/26/23 11:08) SEVERE VOMITING, stomach upset aspirin Allergy (Verified 08/26/23 11:08) nausea demerol Allergy (Uncoded 08/26/23 11:08) Nausea Medication List - Last Reconciled 08/26/23 by Ethel Becerirl, ENRIQUE amlodipine 5 mg PO BID apixaban (Eliquis) 2.5 mg PO BID atorvastatin 10 mg PO BEDTIME levothyroxine 88 mcg PO DAILY lidocaine 4% (Aspercreme (lidocaine)) 1 patch topical DAILY PRN meclizine 12.5 mg (1/2 x 25 mg) PO DAILY PRN metoprolol succinate ER 75 mg (1.5 x 50 mg) PO DAILY mirabegron ER (Myrbetriq) 25 mg PO DAILY pfivrank-jaz-SO-lycopen-lutein 0.4 mg-300 mcg- 250 mcg (Centrum Silver) 1 tab PO DAILY ondansetron HCl 4 mg PO Q8H PRN trazodone 25 mg (1/2 x 50 mg) PO BEDTIME PRN Tobacco use date assessed: 08/26/23 Fall risk assessment: No Falls in past year Last assessed Fall Risk: 08/26/23 HPI F/U thyroid, insomnia HPI Details Patient is an 88-year-old female who presents today for a routine follow-up.? Medical history significant for recurrent UTI-followed by [facility], hypertension, hypothyroidism, AFib-followed by Dr. 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 Patient is compliant with medications.? In addition, patient reports intermittent forgetfulness for the past couple months - patient and her daughter interested in neurology referral for this issue. Patient also reports that she finished Keflex last week due to UTI symptoms, she still reports with some urinary urgency, frequency and intermittent chills, denies burning with urination. Patient unable to provide urine in the office-she will go to the lab later in the day today. Patient was encouraged to complete her blood work. [facility] Medical History Anxiety Left bundle branch block Paroxysmal atrial fibrillation Vitamin D deficiency Microscopic hematuria Hypothyroidism HTN (hypertension) Osteoarthritis Surgical History H/O colonoscopy History of laparoscopy History of total abdominal hysterectomy Family History Father No problems noted. Mother HTN (hypertension) CVD (cardiovascular disease) Brother No problems noted. Brother No problems noted. Sister No problems noted. Son No problems noted. Son No problems noted. Daughter No problems noted. Social History Household Members: None Housing: House Do you presently have visiting nurse or other home services: No Alcohol intake: never Patient Tobacco Use Status: Never used Tobacco e-Cigarette/Vaping Use: Never Used Second Hand Smoke Exposure: No service: No Current occupational status: retired Cognitive needs: No Hearing needs: No Vision needs: Yes Questionnaire Thrive Questionnaire Date Thrive assessed: 10/08/22 AUDIT C Alcohol Use Questionnaire (AUDIT-C) 1. How often do you have a drink containing alcohol?: Never 3. How often do you have six or more drinks on one occasion?: Never Total Score: 0 Score Reviewed/Action Taken: No JEANETH-7 AMB Questionnaire JEANETH-7 Date JEANETH - 7 assessed: 10/08/22 Source: Developed by Drs. Fabio Gongora, Sakina Oliver, Papi Stacy and colleagues, with an educational debbie from [employer]. Review of Systems Const Denies body aches, Denies chills, Reports difficulty sleeping, Denies fever(s) and Denies headache(s) ENT Denies dizziness, Denies otalgia, Denies headache(s), Denies nasal discharge, Denies sinus pain and Denies sore throat Card Denies chest pain, Denies edema, Denies lightheadedness and Denies dyspnea Resp Denies cough and Denies dyspnea GI Denies constipation, Denies diarrhea, Denies nausea and Denies vomiting Reports as per HPI and Denies dysuria Musc Denies myalgias and Reports arthralgias Neuro Denies dizziness and Denies headache(s) Physical exam (Primary Care) Vital Signs: Last Vital Signs Pulse 68 08/26/23 11:00 BP 102/66 08/26/23 11:00 Pulse Ox 98 08/26/23 11:00 Oxygen Delivery Method Room Air 08/26/23 11:00 BMI result Body Mass Index 21.3 Tobacco/Smoking Status: Tobacco use Status Tobacco use date assessed 08/26/23 08/26/23 11:06 Patient Tobacco Use Status Never used Tobacco 08/26/23 11:02 e-Cigarette/Vaping Use Never Used 08/26/23 11:02 Thrive Assessment: Date of Thrive Assessment Date Thrive assessed 10/08/22 08/26/23 11:02 Const General: cooperative and no acute distress Orientation/consciousness: patient oriented x3 HENMT Head: Yes normocephalic and Yes atraumatic Face and sinus: Yes sinuses nontender Mouth: oropharynx normal and moist mucous membranes Throat: Yes posterior oropharynx normal Eyes General: appearance normal, both eyes and all related structures Neck Neck: Yes normal visual inspection, Yes full ROM and Yes no lymphadenopathy Thyroid: Thyroid normal Resp Effort & Inspection: normal respiratory effort and able to speak in complete sentences Auscultation: clear to auscultation bilaterally, no crackles, no rales, no rhonchi and no wheezes Cardio Rate: regular rate Rhythm: regular rhythm Heart sounds: S1 normal heart sound present and S2 normal heart sound present GI Auscultation: normal bowel sounds Neuro General: patient oriented x3 Gait exam (Neuro): Normal gait present Extrem General: Yes full ROM and No edema Office Procedures Flu Questionnaire Does the patient have a severe egg allergy?: No Does the patient have severe life threatening allergies?: No Does the patient have a fever or illness today?: No Has the patient ever had Guillain-Washburn Syndrome?: No Has the patient ever had any past reaction to a flu shot?: No Immunizations flu vacc [id number] 6mos up(PF) 60 mcg(15 mcgx4)/0.5 mL IM syringe Performing Provider: ENRIQUE Gonzalez [facility] Administered by: MARISA Espinoza on 08/26/23 11:54 Dose Route Admin Location Dispensed Lot Number Expiration Date NDC Field Trainer 0.5 mL IM Left Deltoid 0.5 mL [id number] 03/28/24 69406-360-70 [employer] VIS Given Date VIS Provided VIS Publication Date 08/26/23 Single Vaccine 21 Eligibility Eligibility Date Funding Source Not [facility] Eligible 08/26/23 Private Assessment and Plan Assessment & Plan (1) Urinary frequency: Code(s): R35.0 - Frequency of micturition Plan: Urinalysis ordered Will call patient with results Increase fluid consumption (2) Paroxysmal atrial fibrillation: Code(s): I48.0 - Paroxysmal atrial fibrillation Plan: Continue to follow-up with Dr. Roger Continue Eliquis and metoprolol (3) Hypothyroidism: Code(s): E03.9 - Hypothyroidism, unspecified Plan: TSH 9.23, free T4 0.85 04/2023 Continue levothyroxine to 88 mcg daily Patient was encouraged to complete her blood work (4) HTN (hypertension): Code(s): I10 - Essential (primary) hypertension Plan: Continue to follow-up with Dr. Roger Continue metoprolol and amlodipine (5) Insomnia: Code(s): G47.00 - Insomnia, unspecified Plan: Reinforced sleep hygiene Increase trazodone to 50 mg at bedtime p.r.n. (6) Hyperlipidemia: Code(s): E78.5 - Hyperlipidemia, unspecified Plan: LDL 138 04/2023 Continue atorvastatin 10 mg at bedtime Low-cholesterol diet Patient was encouraged to complete her blood work (7) Forgetfulness: Code(s): R68.89 - Other general symptoms and signs Plan: Neurology referral for an evaluation and treatment Plan Follow-up in 3 months or sooner as needed Orders: Orders Influenza [id number] Immunization Today Z23 - Encounter for immunization UA CC w/rflx Micro + Cult Today R35.0 - Frequency of micturition Referrals Neurology Referral R68.89 - Other general symptoms and signs Medications: Changed From trazodone 25 mg (1/2 x 50 mg) PO BEDTIME PRN 30 tabs 0RF sleep G47.00 - Insomnia, unspecified To trazodone 50 mg PO BEDTIME PRN 30 tabs 2RF sleep G47.00 - Insomnia, unspecified Coding Level of Care Code Est Pt Level 4 (84914) Diagnoses Urinary frequency R35.0 Paroxysmal atrial fibrillation I48.0 Hypothyroidism E03.9 HTN (hypertension) I10 Insomnia G47.00 Hyperlipidemia E78.5 Forgetfulness R68.89
== END 2023-08-26 13:37 | disposition home or self-care (01) ==
PROVIDERS: PCP Nurse Practitioner Family; Visit Provider Nurse Practitioner Family
DX: R35.0 Frequency of micturition (principal); I48.0 Paroxysmal atrial fibrillation; E03.9 Hypothyroidism, unspecified; Z23 Encounter for immunization; I10 Essential (primary) hypertension; G47.00 Insomnia, unspecified; E78.5 Hyperlipidemia, unspecified; R68.89 Other general symptoms and signs
CPT/HCPCS: 90471; 90686; 99214

== ENCOUNTER 2023-08-26 14:19 | Outpatient (REF) | payer MEDICARE, SELFPAY ==
[2023-08-26 15:25] LABS: Alanine Aminotransferase 12 U/L (0-31); Albumin Level 4.1 g/dL (3.5-5.0); Alkaline Phosphatase 56 U/L (39-117); Anion Gap 11 (12-20); Aspartate Amino Transferase 17 U/L (5-31); Bilirubin Total 0.4 mg/dL (0.0-1.0); Blood Urea Nitrogen 26 mg/dL (9-16); Calcium 9.3 mg/dL (8.4-10.2); Carbon Dioxide 29 mmol/L (22-29); Chloride 106 mmol/L (96-108); Cholesterol 242 mg/dL (<200); Estimated Glomerular Filt Rate > 60; Glucose Fasting 83 mg/dL (60-99); HDL Cholesterol 63 mg/dL (>40); LDL Cholesterol Calculated 148 mg/dL (<100); Potassium 3.8 mmol/L (3.3-5.1); Sodium 142 mmol/L (135-145); Total Protein 6.7 g/dL (6.5-8.0); Triglycerides 159 mg/dL (<150)
[2023-08-26 15:41] LABS: TSH reflex Free T4 22.99 uIU/mL (0.32-4.0)
[2023-08-26 15:44] LABS: Appearance Urine Cloudy; Color Urine Dark Yellow; Glucose Urine UA Negative (Negative); Leukocyte Esterase Urine Trace (Negative); Nitrite Urine Negative (Negative); PH 5.5 (5.0-9.0); Specific Gravity - Urine >= 1.030 (1.005-1.025); UMIC TRIGGER UACC YES; Urine Blood Negative (Negative); Urine Ketones Negative (Negative); Urine Protein Trace mg/dL (Neg-Trace)
[2023-08-26 16:11] LABS: Bacteria Urine None Seen (None Seen); Calcium Oxalate Crystals Urine Present; Squamous Epithelial Cell Urine 0-2 /HPF (0-2); UACC Culture Trigger YES; WBC Urine 21-50 /HPF (0-5)
[2023-08-26 16:25] LABS: Free T4 (Free Thyroxine) 0.75 ng/dL (0.71-1.85)
== END 2023-08-26 14:20 | disposition home or self-care (01) ==
LOC: HO.LAB 14:19
PROVIDERS: PCP Nurse Practitioner Family; Visit Provider Nurse Practitioner Family
DX: I48.0 Paroxysmal atrial fibrillation (principal); I44.7 Left bundle-branch block, unspecified; I10 Essential (primary) hypertension; E78.5 Hyperlipidemia, unspecified; E03.9 Hypothyroidism, unspecified; R35.0 Frequency of micturition; Z79.899 Other long term (current) drug therapy
CPT/HCPCS: 36415; 80053; 80061; 81001; 84439; 84443; 87086; 93005; 99212

== ENCOUNTER 2023-08-26 14:43 | Outpatient (AMB) | payer MEDICARE, SELFPAY ==
[2023-08-26 14:45] VITALS: BP 120/78; PULSE 70; BMI 20.7
--- NOTE | 2023-08-26 14:45 | A.OFFVIS_ITS ---
Intake Vital Signs 08/26/23 14:45 Height 5 ft Weight 105 lb 13.15 oz BMI 20.7 BP 120/78 Blood Pressure Location Lt brachial Position Sitting Pulse 70 Intake Visit Reasons: 6 month follow up Intake Note: 6 month follow-up with ekg feeling good Molecular Pathologist Required: No Allergies codeine [CODEINE] Allergy (Unknown, Verified 08/26/23 11:08) SEVERE VOMITING, stomach upset aspirin Allergy (Verified 08/26/23 11:08) nausea demerol Allergy (Uncoded 08/26/23 11:08) Nausea Medication List - Last Reconciled 08/26/23 by Jason Roger MD amlodipine 5 mg PO BID apixaban (Eliquis) 2.5 mg PO BID atorvastatin 10 mg PO BEDTIME levothyroxine 88 mcg PO DAILY lidocaine 4% (Aspercreme (lidocaine)) 1 patch topical DAILY PRN meclizine 12.5 mg (1/2 x 25 mg) PO DAILY PRN metoprolol succinate ER 75 mg (1.5 x 50 mg) PO DAILY mirabegron ER (Myrbetriq) 25 mg PO DAILY jdsrjrpv-nps-UK-lycopen-lutein 0.4 mg-300 mcg- 250 mcg (Centrum Silver) 1 tab PO DAILY ondansetron HCl 4 mg PO Q8H PRN trazodone 50 mg PO BEDTIME PRN HPI HPI Comments History of Present Illness Details Mary comes for follow-up. She has been doing well from cardiac perspective. 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 She says at the end of long rear so sessions she does get tired but otherwise has no worsening shortness of breath. No chest pain, palpitations, irregular heartbeat. No bleeding issues or neurologic events. No lightheadedness, syncope. Takes all her medications. PFSH Medical History Anxiety Left bundle branch block Paroxysmal atrial fibrillation Vitamin D deficiency Microscopic hematuria Hypothyroidism HTN (hypertension) Osteoarthritis Surgical History H/O colonoscopy History of laparoscopy History of total abdominal hysterectomy Family History Father No problems noted. Mother HTN (hypertension) CVD (cardiovascular disease) Brother No problems noted. Brother No problems noted. Sister No problems noted. Son No problems noted. Son No problems noted. Daughter No problems noted. Social History Household Members: None Housing: House Do you presently have visiting nurse or other home services: No Alcohol intake: never Patient Tobacco Use Status: Never used Tobacco e-Cigarette/Vaping Use: Never Used Second Hand Smoke Exposure: No service: No Current occupational status: retired Cognitive needs: No Hearing needs: No Vision needs: Yes Review of Systems Const Denies chills, Denies fatigue, Denies fever(s), Denies frequent falls, Denies weakness, Denies weight gain and Denies weight loss ENT Denies dizziness Card Denies chest pain, Denies leg edema, Denies lightheadedness, Denies palpitations, Denies dyspnea, Denies dyspnea on exertion, Denies orthopnea and Denies other (loss of consciousness) Resp Denies cough, Denies dyspnea and Denies dyspnea on exertion GI Denies hematochezia and Denies change in stool character Musc Denies abnormal gait, Denies muscle weakness, Denies numbness, Denies radiating pain into limb and Denies tingling Neuro Denies abnormal gait, Denies dizziness, Denies frequent falls, Denies numbness, Denies tingling and Denies weakness Endo Denies fatigue and Denies palpitations Physical Exam Vital Signs: Last Vital Signs Pulse 70 08/26/23 14:45 BP 120/78 08/26/23 14:45 BMI result Body Mass Index 20.7 Const General: cooperative, comfortable, no acute distress, alert, awake and well groomed Nutritional Appearance: thin Orientation/consciousness: patient oriented x3 Limitations: no limitations Neck Neck: Yes trachea midline, Yes supple and Yes no JVD Resp Effort & Inspection: normal respiratory effort Auscultation: clear to auscultation bilaterally Cardio Jugular venous distension: no JVD Palpation: normal PMI Rate: regular rate Rhythm: regular rhythm Heart sounds: S1 normal heart sound present and S2 normal heart sound present GI Auscultation: normal bowel sounds Skin General skin exam: no rashes or lesions noted and ecchymosis Neuro General: patient oriented x3 and no focal motor deficits Extrem General: Yes no clubbing, cyanosis or edema Psych Appearance: grossly normal Office Procedures EKG Details: EKG shows normal sinus rhythm with left bundle-branch block morphology [id number], Complete Assessment & Plan Assessment & Plan (1) Paroxysmal atrial fibrillation: Code(s): I48.0 - Paroxysmal atrial fibrillation Plan: Paroxysmal atrial fibrillation, symptoms without any overt clinical recurrence at this point time. Continue medical therapy. Continue rhythm control approach. Continue current metoprolol therapy. Full oral anticoagulation, currently on Eliquis, renally dose adjusted. Quarterly renal function test should be pursued. Avoidance of stimulants was discussed. No indication for antiarrhythmic drug therapy at this point in time. (2) Left bundle branch block: Code(s): I44.7 - Left bundle-branch block, unspecified Plan: Chronic left bundle-branch block without any symptoms. No interventions required. Will continue monitor echocardiogram for LV systolic function every few years. (3) HTN (hypertension): Code(s): I10 - Essential (primary) hypertension Plan: Blood pressure is currently well optimized advised to monitor blood pressure at home maintain a log. Currently on amlodipine as well as metoprolol therapy. Importance of good blood pressure control was discussed advised low-salt diet. Will follow up in the clinic in 6 months time, sooner p.r.n.. Coding Level of Care Code Est Pt Level 4 (29272) Diagnoses Paroxysmal atrial fibrillation I48.0 Left bundle branch block I44.7 HTN (hypertension) I10 CPT Codes EKG - CPT: 20666-[id number], Complete ([id number])
== END 2023-08-26 15:36 | disposition home or self-care (01) ==
PROVIDERS: PCP Nurse Practitioner Family; Visit Provider Internal Medicine Cardiovascular Disease
DX: I48.0 Paroxysmal atrial fibrillation (principal); I44.7 Left bundle-branch block, unspecified; I10 Essential (primary) hypertension
CPT/HCPCS: 93010; 99214

== ENCOUNTER 2023-09-11 11:56 | Outpatient (AMB) | payer MEDICARE, SELFPAY ==
--- NOTE | 2023-09-11 11:59 | A.OFFVIS_ITS ---
Intake Intake Visit Reasons: 6m follow up Intake Note: Patient presents for a follow-up on Recurrent UTI Meds: None Allergies to Antibiotic: NONE Blood Thinner: Eliquis Clinical Dietitian Required: No Accompanied by: Self / Same As Patient Allergies codeine [CODEINE] Allergy (Unknown, Verified 09/11/23 12:01) SEVERE VOMITING, stomach upset aspirin Allergy (Verified 09/11/23 12:01) nausea demerol Allergy (Uncoded 09/11/23 12:01) Nausea HPI HPI Comments History of Present Illness Details Mary is an 87-year-old female who is here for tele-health follow-up for recurrent UTIs. 09/11/23- follow-up for recurrent UTIs. She states she has been doing well. The patient is active, sings in a choir ([employer]) She denies urinary incontinence. She completed Keflex 250 mg suppressive therapy. She is not using the Myrbetriq Review of chart: Office cystoscopy-10/16/22-- no suspicious bladder lesions, mild inflammatory changes c/w cystitis. She completed Keflex [address] abdomen and pelvis 08/13/2021 kidneys within normal limits left simple cysts Renal u/s -- Left renal cyst, 9 mm Left fatty lesion c/w angiomyolipoma-stable Plan: Behaviorial modificaiton. Timed Voiding Follow-up after 9 months. [facility] Medical History Anxiety Left bundle branch block Paroxysmal atrial fibrillation Vitamin D deficiency Microscopic hematuria Hypothyroidism HTN (hypertension) Osteoarthritis Surgical History H/O colonoscopy History of laparoscopy History of total abdominal hysterectomy Family History Father No problems noted. Mother HTN (hypertension) CVD (cardiovascular disease) Brother No problems noted. Brother No problems noted. Sister No problems noted. Son No problems noted. Son No problems noted. Daughter No problems noted. Social History Household Members: None Housing: House Do you presently have visiting nurse or other home services: No Alcohol intake: never Patient Tobacco Use Status: Never used Tobacco e-Cigarette/Vaping Use: Never Used Second Hand Smoke Exposure: No service: No Current occupational status: retired Cognitive needs: No Hearing needs: No Vision needs: Yes Review of Systems Const All systems reviewed & are unremarkable except as noted in HPI and below Reports no additional complaints Eyes Reports no additional complaints ENT Denies neck pain Resp Denies cough Reports no additional complaints Musc Reports no additional complaints and Denies neck pain Skin/Breast Denies rash and Denies unusual bruising Neuro Reports no additional complaints Psych Reports no additional complaints Endo Reports no additional complaints Aidan/Lymph Reports no additional complaints Aller/Immun Reports no additional complaints Results AMB Urinalysis, Automated UA Leukoctes 70 Roselia/uL Last Edit by MARISA Castillo on 09/11/23 12:23 UA Nitrite Negative Last Edit by MARISA Castillo on 09/11/23 12:23 UA Urobilinogen 0.2 mg/dL Last Edit by MARISA Castillo on 09/11/23 12:2 3 UA Protein 15 mg/dL Last Edit by MARISA Castillo on 09/11/23 12:23 UA pH 6.0 Last Edit by MARISA Castillo on 09/11/23 12:23 UA Blood 10 Xavier/uL Last Edit by MARISA Castillo on 09/11/23 12:23 UA Specific Wink 1.030 Last Edit by MARISA Castillo on 09/11/23 12: 23 UA Ketone Negative Last Edit by MARISA Castillo on 09/11/23 12:23 UA Bilirubin 0 mg/dL Last Edit by MARISA Castillo on 09/11/23 12:23 UA Glucose 0 mg/dL Last Edit by MARISA Castillo on 09/11/23 12:23 Results Reviewed Results Reviewed: Laboratory Last Values Urine pH (Auto) 6.0 09/11/23 12:21 Specific Wink (Auto) 1.030 09/11/23 12:21 Urine Protein (Auto) 15 mg/dL 09/11/23 12:21 Glucose (UA)(Auto) 0 mg/dL 09/11/23 12:21 Urine Ketones (Auto) Negative 09/11/23 12:21 Urine Blood (Auto) 10 Xavier/uL 09/11/23 12:21 Urine Nitrite (Auto) Negative 09/11/23 12:21 Urine Bilirubin (Auto) 0 mg/dL 09/11/23 12:21 Urine Urobilinogen (Auto) 0.2 mg/dL 09/11/23 12:21 Leukocyte Esterase (Auto) 70 Roselia/uL 09/11/23 12:21 Assessment & Plan Assessment & Plan (1) Recurrent UTI (urinary tract infection): Comment: August 2020 pansensitive E coli Code(s): N39.0 - Urinary tract infection, site not specified (2) Urinary frequency: Code(s): R35.0 - Frequency of micturition (3) Simple renal cyst: Code(s): N28.1 - Cyst of kidney, acquired (4) Angiomyolipoma of left kidney: Comment: 9 mm on renal ultrasound 10/11/22 Code(s): D17.71 - Benign lipomatous neoplasm of kidney (5) Nocturia: Code(s): R35.1 - Nocturia Plan Behaviorial modificaiton. Timed Voiding Follow-up after 9 months. Orders: Orders AMB Urinalysis Automated 09/11/23 Z13.9 - Encounter for screening, unspecified Patient Instructions: The patient had an opportunity to ask questions regarding treatment plan. All questions were answered. Imaging, Laboratory studies and physical exam results were discussed and reviewed in detail. No major barriers to understanding were identified. The patient expressed understanding and agreement with the above treatment plan. The patient is aware they should contact our office by phone for worsening of their current condition or the appearance of new symptoms. Compliance is encouraged with any medications and followup testing that is ordered. It is a privilege to be allowed the opportunity to participate in the urologic care of your patient. If you have any questions or concerns regarding treatment for the above conditions please do not hesitate to contact me. The office telephone contact is [phone]. This note is constructed in part using voice recognition software. While every effort has been made to ensure accuracy teacher aide clerical errors may have been included. Yours sincerely, Blaise Whitaker MD Coding Level of Care Code Est Pt Level 3 (93724) Diagnoses Recurrent UTI (urinary tract infection) N39.0 Urinary frequency R35.0 Simple renal cyst N28.1 Angiomyolipoma of left kidney D17.71 Nocturia R35.1
== END 2023-09-11 12:41 | disposition home or self-care (01) ==
LOC: HO.HUSH 11:56
PROVIDERS: PCP Nurse Practitioner Family; Visit Provider Urology
DX: N39.0 Urinary tract infection, site not specified (principal); R35.0 Frequency of micturition; N28.1 Cyst of kidney, acquired; D17.71 Benign lipomatous neoplasm of kidney; R35.1 Nocturia
CPT/HCPCS: 99213

== ENCOUNTER → 2023-09-11 11:56 | Outpatient (BNVA) | payer MEDICARE, SELFPAY | PROVIDERS: PCP Nurse Practitioner Family; Visit Provider Urology | DX: N39.0 Urinary tract infection, site not specified (principal); R35.0 Frequency of micturition; R35.1 Nocturia; N28.1 Cyst of kidney, acquired; D17.71 Benign lipomatous neoplasm of kidney | CPT/HCPCS: 81003; 99212 ==

== ENCOUNTER 2023-10-29 08:46 | Outpatient (AMB) | payer MEDICARE, SELFPAY ==
--- NOTE | 2023-10-29 08:01 | A.OFFVIS_ITS ---
Intake Intake Visit Reasons: 6wk follow up/US Allergies codeine [CODEINE] Allergy (Unknown, Verified 10/29/23 08:49) SEVERE VOMITING, stomach upset aspirin Allergy (Verified 10/29/23 08:49) nausea demerol Allergy (Uncoded 10/29/23 08:49) Nausea Medication List - Last Reconciled 10/29/23 by Blaise Whitaker MD amlodipine 5 mg PO BID apixaban (Eliquis) 2.5 mg PO BID atorvastatin 10 mg PO BEDTIME levothyroxine 100 mcg PO DAILY lidocaine 4% (Aspercreme (lidocaine)) 1 patch topical DAILY PRN meclizine 12.5 mg (1/2 x 25 mg) PO DAILY PRN metoprolol succinate ER 75 mg (1.5 x 50 mg) PO DAILY ktlbjflp-fmz-PT-lycopen-lutein 0.4 mg-300 mcg- 250 mcg (Centrum Silver) 1 tab PO DAILY ondansetron HCl 4 mg PO Q8H PRN trazodone 50 mg PO BEDTIME PRN vibegron (Gemtesa) 75 mg PO DAILY HPI HPI Comments History of Present Illness Details Mary is an 87-year-old female who is here for tele-health follow-up. Video attempted. 10/29/23-- She is followed for recurrent UTIs and OAB. She was prescribed Myrbetriq that was not covered by insurance and was on behaviorial modification. She states her bladder symptoms are more of a problem and affecting her daily activities. She denies dysuria. The patient is active, sings in a choir ([employer] She denies urinary incontinence. She completed Keflex 250 mg suppressive therapy. I will prescribe gemtesa 75 mg daily follow-up in 2 months Review of chart: Office cystoscopy-10/16/22-- no suspicious bladder lesions, mild inflammatory changes c/w cystitis. She completed Keflex [address] abdomen and pelvis 08/13/2021 kidneys within normal limits left simple cysts Renal u/s -- Left renal cyst, 9 mm Left fatty lesion c/w angiomyolipoma-stable Plan: GemTesa 75 mg daily. Continue timed voiding. Follow-up in 2 months [facility] Medical History Anxiety Left bundle branch block Paroxysmal atrial fibrillation Vitamin D deficiency Microscopic hematuria Hypothyroidism HTN (hypertension) Osteoarthritis Surgical History H/O colonoscopy History of laparoscopy History of total abdominal hysterectomy Family History Father No problems noted. Mother HTN (hypertension) CVD (cardiovascular disease) Brother No problems noted. Brother No problems noted. Sister No problems noted. Son No problems noted. Son No problems noted. Daughter No problems noted. Social History Household Members: None Housing: House Do you presently have visiting nurse or other home services: No Alcohol intake: never Patient Tobacco Use Status: Never used Tobacco e-Cigarette/Vaping Use: Never Used Second Hand Smoke Exposure: No service: No Current occupational status: retired Cognitive needs: No Hearing needs: No Vision needs: Yes Review of Systems Const All systems reviewed & are unremarkable except as noted in HPI and below Reports no additional complaints Eyes Reports no additional complaints ENT Denies neck pain Resp Denies cough Reports no additional complaints Musc Reports no additional complaints and Denies neck pain Skin/Breast Denies rash and Denies unusual bruising Neuro Reports no additional complaints Psych Reports no additional complaints Endo Reports no additional complaints Aidan/Lymph Reports no additional complaints Aller/Immun Reports no additional complaints Results Reviewed Results Reviewed: Date of Service: 10/11/22 EXAMINATION: US RETROPERITONEAL LIMITED (RENAL ONLY) CLINICAL INFORMATION: Frequency of micturition. COMPARISON: CT abdomen and pelvis 08/13/2021. TECHNIQUE: Real-time imaging of the kidneys. FINDINGS: RIGHT KIDNEY: 9.4 x 3.8 x 3.9 cm (SAG x AP x TRV). The kidney is normal in size, contour, and echogenicity. Renal cortical thickness is normal. No calculi or focal parenchymal lesions. No hydronephrosis. There are scattered echogenic foci which do not meet formal ultrasound criteria for calculi. LEFT KIDNEY: 8.6 x 4.7 x 4.8 cm (SAG x AP x TRV). The kidney is normal in size, contour, and echogenicity. Renal cortical thickness is normal. No renal calculi or hydronephrosis. At the interpolar aspect, a 1.3 cm in maximal diameter anechoic, simple cyst is seen. At the interpolar aspect, an 8.9 x 9 mm hyperechoic, circumscribed mass is seen, with ultrasound features characteristic for a benign angiomyolipoma. This is consistent with the CT findings of 04/14/2016 (6:63). IMPRESSION: 1. 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 2. A benign, simple left renal cyst is redemonstrated and requires no imaging follow-up. 3. No renal calculus or hydronephrosis is seen bilaterally. Assessment & Plan Assessment & Plan (1) Recurrent UTI (urinary tract infection): Comment: August 2020 pansensitive E coli Code(s): N39.0 - Urinary tract infection, site not specified (2) Urinary frequency: Code(s): R35.0 - Frequency of micturition (3) Simple renal cyst: Code(s): N28.1 - Cyst of kidney, acquired (4) Angiomyolipoma of left kidney: Comment: 9 mm on renal ultrasound 10/11/22 Code(s): D17.71 - Benign lipomatous neoplasm of kidney (5) Nocturia: Code(s): R35.1 - Nocturia Plan GemTesa 75 mg daily. Continue timed voiding. Follow-up in 2 months Medications: New vibegron (Gemtesa) 75 mg PO DAILY 90 tabs 1RF Discontinued mirabegron ER (Myrbetriq) Discontinued Reason: Duplicate 25 mg PO DAILY 90 tabs 0RF Patient Instructions: The patient had an opportunity to ask questions regarding treatment plan. All questions were answered. Imaging, Laboratory studies and physical exam results were discussed and reviewed in detail. No major barriers to understanding were identified. The patient expressed understanding and agreement with the above treatment plan. The patient is aware they should contact our office by phone for worsening of their current condition or the appearance of new symptoms. Compliance is encouraged with any medications and followup testing that is ordered. It is a privilege to be allowed the opportunity to participate in the urologic care of your patient. If you have any questions or concerns regarding treatment for the above conditions please do not hesitate to contact me. The office tel ephone contact is [phone]. This note is constructed in part using voice recognition software. While every effort has been made to ensure accuracy curb supervisor errors may have been included. Yours sincerely, Blaise Whitaker MD Telehealth Telehealth Location of provider rendering services: practice address Location of patient: address on file Patient Identification confirmed using: Name, : Yes Telehealth method: voice only Patient verbally consented to treatment: Yes Patient verbally consented to billing insurance company: Yes Patient informed of any privacy concerns related to visit: Yes Minutes spent on Phone/Video with Pt.: 15 Coding Level of Care Code Tele Est Pt Level 4 (34205) Diagnoses Recurrent UTI (urinary tract infection) N39.0 Urinary frequency R35.0 Simple renal cyst N28.1 Angiomyolipoma of left kidney D17.71 Nocturia R35.1
--- NOTE | 2023-10-29 08:47 | A.OFFVIS_ITS ---
Intake Intake Visit Reasons: 6wk follow up/US Intake Note: Patient presents today for a follow-up on: Ultrasound Meds- Myrbetriq Allergies to Antibiotic- No Known Allergies Blood Thinner- Eliquis Cycle Analyst Required: No Allergies codeine [CODEINE] Allergy (Unknown, Verified 10/29/23 08:49) SEVERE VOMITING, stomach upset aspirin Allergy (Verified 10/29/23 08:49) nausea demerol Allergy (Uncoded 10/29/23 08:49) Nausea PFSH Medical History Anxiety Left bundle branch block Paroxysmal atrial fibrillation Vitamin D deficiency Microscopic hematuria Hypothyroidism HTN (hypertension) Osteoarthritis Surgical History H/O colonoscopy History of laparoscopy History of total abdominal hysterectomy Family History Father No problems noted. Mother HTN (hypertension) CVD (cardiovascular disease) Brother No problems noted. Brother No problems noted. Sister No problems noted. Son No problems noted. Son No problems noted. Daughter No problems noted. Social History Household Members: None Housing: House Do you presently have visiting nurse or other home services: No Alcohol intake: never Patient Tobacco Use Status: Never used Tobacco e-Cigarette/Vaping Use: Never Used Second Hand Smoke Exposure: No service: No Current occupational status: retired Cognitive needs: No Hearing needs: No Vision needs: Yes Assessment & Plan Assessment & Plan (1) Recurrent UTI (urinary tract infection): Comment: August 2020 pansensitive E coli Code(s): N39.0 - Urinary tract infection, site not specified (2) Urinary frequency: Code(s): R35.0 - Frequency of micturition (3) Simple renal cyst: Code(s): N28.1 - Cyst of kidney, acquired (4) Angiomyolipoma of left kidney: Comment: 9 mm on renal ultrasound 10/11/22 Code(s): D17.71 - Benign lipomatous neoplasm of kidney (5) Nocturia: Code(s): R35.1 - Nocturia Telehealth Telehealth Location of provider rendering services: practice address Location of patient: address on file Patient Identification confirmed using: Name, : Yes Telehealth method: voice only Patient verbally consented to treatment: Yes Patient verbally consented to billing insurance company: Yes Patient informed of any privacy concerns related to visit: Yes Minutes spent on Phone/Video with Pt.: 15 Coding Diagnoses Recurrent UTI (urinary tract infection) N39.0 Urinary frequency R35.0 Simple renal cyst N28.1 Angiomyolipoma of left kidney D17.71 Nocturia R35.1
== END 2023-10-29 09:30 | disposition home or self-care (01) ==
LOC: HO.HUSH 08:46
PROVIDERS: PCP Nurse Practitioner Family; Visit Provider Urology
DX: N39.0 Urinary tract infection, site not specified (principal); R35.0 Frequency of micturition; N28.1 Cyst of kidney, acquired; D17.71 Benign lipomatous neoplasm of kidney; R35.1 Nocturia
CPT/HCPCS: 99442

== ENCOUNTER → 2023-10-29 08:46 | Outpatient (BNVA) | payer MEDICARE, SELFPAY | PROVIDERS: PCP Nurse Practitioner Family; Visit Provider Urology ==

== ENCOUNTER 2023-12-09 08:44 | Outpatient (REF) | payer MEDICARE, SELFPAY ==
--- NOTE | ~2023-12-09 | MR_ITS ---
EXAMINATION: MR BRAIN WITHOUT CONTRAST CLINICAL INFORMATION: Dementia COMPARISON: MRI of the brain with and without contrast 09/12/2017 TECHNIQUE: Multiplanar multisequence MR imaging of the brain was obtained without intravenous contrast. FINDINGS: There is no acute infarct on diffusion-weighted imaging. There is no intracranial hemorrhage on iron-sensitive imaging. No extra-axial collection or mass effect/herniation. Scattered periventricular and deep white matter T2 FLAIR hyperintensities consistent with mild underlying microangiopathy. No hydrocephalus. Mild to moderate generalized volume loss with commensurate sulcal and ventricular prominence. The major flow voids at the skull base are preserved. The midline structures are normal. The cerebellar tonsils are normally positioned. The craniocervical junction is normal. 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 Upper cervical spondylosis. Marrow signal is within normal limits. The visualized soft tissues are without significant abnormality. No signal abnormality within the paranasal sinuses or within the mastoid air cells. MR/MR head/brain wo con IMPRESSION: Mild chronic microangiopathy and mild to moderate generalized cerebral volume loss. Otherwise unremarkable noncontrast MRI of the brain.
== END 2023-12-09 08:45 | disposition home or self-care (01) ==
LOC: HO.MRI 08:44
PROVIDERS: PCP Nurse Practitioner Family; Visit Provider Psychiatry & Neurology Neurology
DX: G30.9 Alzheimer's disease, unspecified (principal)
CPT/HCPCS: 70551

== ENCOUNTER 2024-01-07 10:25 | Outpatient (AMB) | payer MEDICARE, SELFPAY ==
--- NOTE | 2024-01-07 10:38 | A.OFFPC_ITS ---
Vital Signs 01/07/24 10:40 Height 5 ft Weight 109 lb 2 oz BMI 21.3 BP 120/74 Blood Pressure Location Lt brachial Position Sitting Pulse 65 Pulse Source Pulse Oximeter Pulse Oximetry (%) 98 Oxygen Delivery Method Room Air Intake Visit Reasons: F/U Intake Note: Patient is here to follow up on HLD, HTN, PAfib, Hypothyroidism. Regional Education Manager Required: No [employer] Teacher: Present Accompanied by: Daughter Allergies codeine [CODEINE] Allergy (Unknown, Verified 01/07/24 12:08) SEVERE VOMITING, stomach upset aspirin Allergy (Verified 01/07/24 12:08) nausea demerol Allergy (Uncoded 01/07/24 12:08) Nausea Medication List - Last Reconciled 01/07/24 by Claudy Gabriel MD amlodipine 5 mg PO BID apixaban (Eliquis) 2.5 mg PO BID 90 days atorvastatin 10 mg PO BEDTIME levothyroxine 100 mcg PO DAILY meclizine 12.5 mg (1/2 x 25 mg) PO DAILY PRN metoprolol succinate ER 75 mg (1.5 x 50 mg) PO DAILY 90 days vcrdloww-flu-YR-lycopen-lutein 0.4 mg-300 mcg- 250 mcg (Centrum Silver) 1 tab PO DAILY ondansetron HCl 4 mg PO Q8H PRN tolterodine ER 4 mg PO DAILY trazodone 50 mg PO BEDTIME PRN Tobacco use date assessed: 01/07/24 Fall risk assessment: No Falls in past year Last assessed Fall Risk: 01/07/24 Dental Screening Dental Screen Date: 01/07/24 Did you have a dental visit in the last 12 months?: Yes Did you have a dental problem in the last 6 months where you did not have access to dental care?: No Was dental information given to patient?: Patient has dentist HPI F/U HPI Details 88-year-old female presents to the offic e to discuss her chronic medical conditions. I will be her new provider as her primary care provider has left the practice. Her daughter accompanies her on this visit. Patient lives alone and is very independent about her finances. She is seen the neurologist recently and was diagnosed with Alzheimer's disease. However she does not like taking the medications. Daughter is concerned about her driving ability. Patient drives independently, has not had any recent accidents or minor scrapes. She goes to the grocery st [place] or to attend the choir group. She is never missed her way back except for 1 or 2 occasions. Patient has history of vertigo and requests a refill on her meclizine and Zofran. [facility], [facility] Medical History (Updated 01/07/24 @ 14:11 by Claudy Gabriel MD) Alzheimer disease Anxiety Left bundle branch block Paroxysmal atrial fibrillation Vitamin D deficiency Microscopic hematuria Hypothyroidism HTN (hypertension) Osteoarthritis Surgical History H/O colonoscopy History of laparoscopy History of total abdominal hysterectomy Family History Father No problems noted. Mother HTN (hypertension) CVD (cardiovascular disease) Brother No problems noted. Brother No problems noted. Sister No problems noted. Son No problems noted. Son No problems noted. Daughter No problems noted. Social History Household Members: None Housing: House Do you presently have visiting nurse or other home services: No Alcohol intake: never Patient Tobacco Use Status: Never used Tobacco e-Cigarette/Vaping Use: Never Used Second Hand Smoke Exposure: No service: No Current occupational status: retired Cognitive needs: No Hearing needs: No Vision needs: Yes (glasses) Questionnaire PHQ-9 Over the last 2 weeks, how often have you been bothered by any of the following problems? 1. Little interest or pleasure in doing things: not at all 2. Feeling down, depressed, or hopeless: not at all 3. Trouble falling or staying asleep, or sleeping too much: not at all 4. Feeling tired or having little energy: not at all 5. Poor appetite or overeating: not at all 6. Feeling bad about yourself - or that you are a failure or have let yourself or your family down: not at all 7. Trouble concentrating on things, such as reading the newspaper or watching television: not at all 8. Moving or speaking so slowly that other people could have noticed. Or the opposite - being so fidgety or restless that you have been moving around a lot more than usual: not at all 9. Thoughts that you would be better off or of hurting yourself in some way: not at all Total score: 0 Depression Screening Interpretation: Negative Depression Screening Done: Yes Source: Developed by Drs. Fabio Gongora, Papi Mondragon and colleagues, with an educational debbie from [employer]. Thrive Questionnaire Date Thrive assessed: 01/07/24 I am a: Patient What is your living situation today?: I have a steady place to live Within the past 12 months, did the food you bought not last and you didn't have the money to get more?: Never true Within the past 12 months, did you worry whether your food would run out before you got money to buy more?: Never true Do you have trouble paying for medicines?: No Do you have trouble getting transportation to medical appointments?: No Do you have trouble paying your heating and electricity bill?: No Do you have trouble taking care of your child, family member or friend?: No Do you have trouble with day-to-day activities such as bathing, preparing meals, shopping, managing finances, etc.?: No Are you currently unemployed and looking for a job?: No Are you interested in more education?: No Currently or been in a relationship where the following occur: no concerns reported THRIVE Score: 0 AUDIT C Alcohol Use Questionnaire (AUDIT-C) 1. How often do you have a drink containing alcohol?: Never Total Score: 0 JEANETH-7 AMB Questionnaire JEANETH-7 Date JEANETH - 7 assessed: 01/07/24 Feeling nervous, anxious, or on edge: 0 = Not at all Not being able to stop or control worryin = Not at all Worrying too much about different things: 0 = Not at all Trouble relaxin = Not at all Being so restless that it is hard to sit still: 0 = Not at all Becoming easily annoyed or irritable: 0 = Not at all Feeling afraid as if something awful might happen: 0 = Not at all Total JEANETH-7 score (0-4 normal; 5-9 mild; 10-14 moderate; 15-21 severe): 0 Source: Developed by Sakina Pearson Kurt Kroenke and colleagues, with an educational debbie from [employer]. Physical exam (Primary Care) Vital Signs: Last Vital Signs Pulse 65 01/07/24 10:40 BP 120/74 01/07/24 10:40 Pulse Ox 98 01/07/24 10:40 Oxygen Delivery Method Room Air 01/07/24 10:40 Care Plan Goal for BP management: Blood pressure is in range. BMI result Body Mass Index 21.3 Tobacco/Smoking Status: Tobacco use Status Tobacco use date assessed 01/07/24 01/07/24 10:40 Patient Tobacco Use Status Never used Tobacco 01/07/24 10:40 e-Cigarette/Vaping Use Never Used 01/07/24 10:40 PHQ-9: PHQ-9 Score PHQ-9: Total score 0 01/07/24 10:40 Depression Screening Interpretation: Negative Thrive Assessment: Date of Thrive Assessment Date Thrive assessed 01/07/24 01/07/24 10:40 Currently or been in a relationship where the following occur: no concerns reported Const General: cooperative and healthy appearing Nutritional Appearance: well nourished Orientation/consciousness: patient oriented x3 Limitations: no limitations HENMT Head: Yes normal to inspection Eyes General: appearance normal, both eyes and all related structures Neck Neck: Yes normal visual inspection Chest Chest palpation & inspection: normal palpation of entire chest wall Resp Effort & Inspection: normal respiratory effort Neuro General: patient oriented x3 Assessment and Plan Assessment & Plan (1) Paroxysmal atrial fibrillation: Code(s): I48.0 - Paroxysmal atrial fibrillation Plan: Continue current medications. (2) Hypothyroidism: Code(s): E03.9 - Hypothyroidism, unspecified Plan: Levothyroxine has been reordered. (3) Vertigo: Code(s): R42 - Dizziness and giddiness Plan: Meclizine and Zofran reordered (4) Alzheimer disease: Code(s): G30.9 - Alzheimer's disease, unspecified; F02.80 - Dementia in other diseases classified elsewhere, unspecified severity, without behavioral disturbance, psychotic disturbance, mood disturbance, and anxiety Plan: Spent 20 minutes on this issue. Patient at present has no difficulties in driving. The car she drives appears in good shape. She should continue driving. However she should be conscientious and careful. If she begins to forget her way, confused, this issue should be addressed again. Medications: Refilled levothyroxine 100 mcg PO DAILY 30 tabs 2RF E03.9 - Hypothyroidism, unspecified ondansetron HCl 4 mg PO Q8H PRN 10 tabs 0RF nausea and vomiting Coding Level of Care Code Est Pt Level 4 (86141) Diagnoses Paroxysmal atrial fibrillation I48.0 Hypothyroidism E03.9 Vertigo R42 Alzheimer disease G30.9; F02.80
[2024-01-07 10:40] VITALS: BP 120/74; PULSE 65; O2SAT 98; BMI 21.3
== END 2024-01-07 11:58 | disposition home or self-care (01) ==
PROVIDERS: PCP Nurse Practitioner Family; Visit Provider Internal Medicine
DX: I48.0 Paroxysmal atrial fibrillation (principal); R42 Dizziness and giddiness; G30.9 Alzheimer's disease, unspecified; F02.80 Dementia in other diseases classified elsewhere, unspecified severity, without behavioral disturbance, psychotic disturbance, mood disturbance, and anxiety
CPT/HCPCS: 99214

== ENCOUNTER 2024-02-17 13:42 | Outpatient (AMB) | payer MEDICARE, SELFPAY ==
[2024-02-17 13:44] VITALS: BP 120/70; PULSE 72; BMI 20.2
--- NOTE | 2024-02-17 13:44 | MHC.OFFVIS ---
Vital Signs 02/17/24 13:44 Height 5 ft Weight 103 lb 9.876 oz BMI 20.2 BP 120/70 Blood Pressure Location Lt brachial Position Sitting Pulse 72 Intake Visit Reasons: 6 mth f/up Intake Note: 6 month follow-up feeling good Attending Ambulatory Care Required: No Allergies codeine [CODEINE] Allergy (Unknown, Verified 01/07/24 12:08) SEVERE VOMITING, stomach upset aspirin Allergy (Verified 01/07/24 12:08) nausea demerol Allergy (Uncoded 01/07/24 12:08) Nausea Medication List - Last Reconciled 02/17/24 by Jason Roger MD amlodipine 5 mg PO BID apixaban (Eliquis) 2.5 mg PO BID 90 days atorvastatin 10 mg PO BEDTIME levothyroxine 100 mcg PO DAILY meclizine 12.5 mg (1/2 x 25 mg) PO DAILY PRN metoprolol succinate ER 75 mg (1.5 x 50 mg) PO DAILY 90 days syhofuya-xri-IP-lycopen-lutein 0.4 mg-300 mcg- 250 mcg (Centrum Silver) 1 tab PO DAILY ondansetron HCl 4 mg PO Q8H PRN trazodone 50 mg PO BEDTIME PRN HPI Comments Details: Mary comes for follow-up. She is accompanied by her daughter. Besides short-term memory issues she has otherwise been doing very well. She denies any new cardiac symptoms. Denies any prolonged palpitation irregular heartbeat. Denies any chest pain, shortness of breath, orthopnea, PND, bleeding issues, neurologic events. No lightheadedness, syncope. Taking all her medications. [facility] Medical History Alzheimer disease Anxiety Left bundle branch block Paroxysmal atrial fibrillation Vitamin D deficiency Microscopic hematuria Hypothyroidism HTN (hypertension) Osteoarthritis Surgical History H/O colonoscopy History of laparoscopy History of total abdominal hysterectomy Family History Father No problems noted. Mother HTN (hypertension) CVD (cardiovascular disease) Brother No problems noted. Brother No problems noted. Sister No problems noted. Son No problems noted. Son No problems noted. Daughter No problems noted. Social History Household Members: None Housing: House Do you presently have visiting nurse or other home services: No Alcohol intake: never Patient Tobacco Use Status: Never used Tobacco e-Cigarette/Vaping Use: Never Used Second Hand Smoke Exposure: No service: No Current occupational status: retired Cognitive needs: No Hearing needs: No Vision needs: Yes (glasses) Review of Systems Const Denies chills, Denies fatigue, Denies fever(s), Denies frequent falls, Denies weakness, Denies weight gain and Denies weight loss ENT Denies dizziness Card Denies chest pain, Denies leg edema, Denies lightheadedness, Denies palpitations, Denies dyspnea, Denies dyspnea on exertion, Denies orthopnea and Denies other (loss of consciousness) Resp Denies cough, Denies dyspnea and Denies dyspnea on exertion GI Denies hematochezia and Denies change in stool character Musc Denies abnormal gait, Denies muscle weakness, Denies numbness, Denies radiating pain into limb and Denies tingling Neuro Denies abnormal gait, Denies dizziness, Denies frequent falls, Denies numbness, Denies tingling and Denies weakness Endo Denies fatigue and Denies palpitations Physical Exam Vital Signs: Last Vital Signs Pulse 72 02/17/24 13:44 BP 120/70 02/17/24 13:44 BMI result Body Mass Index 20.2 Const General: cooperative, comfortable, no acute distress, alert, awake and well groomed Nutritional Appearance: thin Orientation/consciousness: patient oriented x3 Limitations: no limitations Neck Neck: Yes trachea midline, Yes supple and Yes no JVD Resp Effort & Inspection: normal respiratory effort Auscultation: clear to auscultation bilaterally Cardio Jugular venous distension: no JVD Palpation: normal PMI Rate: regular rate Rhythm: regular rhythm Heart sounds: S1 normal heart sound present and S2 normal heart sound present GI Auscultation: normal bowel sounds Skin General skin exam: no rashes or lesions noted and ecchymosis Neuro General: patient oriented x3 and no focal motor deficits Extrem General: Yes no clubbing, cyanosis or edema Psych Appearance: grossly normal Assessment & Plan Assessment & Plan (1) Paroxysmal atrial fibrillation: Code(s): I48.0 - Paroxysmal atrial fibrillation Category: Medical Plan: Paroxysmal atrial fibrillation this elderly woman without any significant symptoms at this point time. Vital suppressed on metoprolol therapy. No need for antiarrhythmic therapy but will pursue rhythm control approach. Continue full oral anticoagulation, currently on 2.5 mg b.i.d.. Semi annual renal function test should be pursued. Avoidance of stimulants was discussed. Advised to call me with any worsening symptoms. (2) Left bundle branch block: Code(s): I44.7 - Left bundle-branch block, unspecified Category: Medical Plan: Chronic left bundle-branch block without any symptoms. No interventions required. Follow-up with EKG on a yearly basis. Echocardiogram every 2-3 years can be pursued to evaluate for LV systolic dysfunction. (3) HTN (hypertension): Code(s): I10 - Essential (primary) hypertension Category: Medical Plan: Hypertension which is currently well optimized on current therapy. Continue the same. She has no symptoms of lightheadedness. Blood pressure is well optimized. Low-salt diet was discussed. Advised to monitor blood pressure intermittently at home and maintain a log. Will follow up in the clinic in 1 year's time, sooner p.r.n.. Thank you for allowing me to partake Coding Level of Care Code Est Pt Level 4 (94823) Diagnoses Paroxysmal atrial fibrillation I48.0 Left bundle branch block I44.7 HTN (hypertension) I10
== END 2024-02-17 14:05 | disposition home or self-care (01) ==
PROVIDERS: PCP Nurse Practitioner Family; Visit Provider Internal Medicine Cardiovascular Disease
DX: I48.0 Paroxysmal atrial fibrillation (principal); I44.7 Left bundle-branch block, unspecified; I10 Essential (primary) hypertension
CPT/HCPCS: 99214

== ENCOUNTER → 2024-02-17 13:42 | Outpatient (BNVA) | payer MEDICARE, SELFPAY | PROVIDERS: PCP Nurse Practitioner Family; Visit Provider Internal Medicine Cardiovascular Disease | DX: I48.0 Paroxysmal atrial fibrillation (principal); I44.7 Left bundle-branch block, unspecified; I10 Essential (primary) hypertension | CPT/HCPCS: 99212 ==

== ENCOUNTER 2024-04-14 09:15 | Outpatient (AMB) | payer MEDICARE, SELFPAY ==
--- NOTE | 2024-04-14 09:22 | MHC.PC.OV ---
Vital Signs 04/14/24 09:23 Height 5 ft Weight 99 lb 8 oz BMI 19.4 BP 122/66 Blood Pressure Location Lt brachial Position Sitting Pulse 71 Pulse Source Pulse Oximeter Pulse Oximetry (%) 96 Oxygen Delivery Method Room Air Intake Visit Reasons: 3 month f/u Intake Note: Patient is here to follow up on Alzheimer, HLD, HTN, PAfib. Office Administration Instructor Required: No Interior Design Faculty Member: Present Accompanied by: Daughter Allergies codeine [CODEINE] Allergy (Unknown, Verified 04/14/24 10:00) SEVERE VOMITING, stomach upset aspirin Allergy (Verified 04/14/24 10:00) nausea demerol Allergy (Uncoded 04/14/24 10:00) Nausea Medication List - Last Reconciled 04/14/24 by Claudy Gabriel MD amlodipine 5 mg PO BID apixaban (Eliquis) 2.5 mg PO BID 90 days levothyroxine 100 mcg PO DAILY meclizine 12.5 mg (1/2 x 25 mg) PO DAILY PRN metoprolol succinate ER 75 mg (1.5 x 50 mg) PO DAILY 90 days azmbhsjg-abn-ZS-lycopen-lutein 0.4 mg-300 mcg- 250 mcg (Centrum Silver) 1 tab PO DAILY ondansetron HCl 4 mg PO Q8H PRN quetiapine (Seroquel) 25 mg PO BEDTIME trazodone 50 mg PO BEDTIME PRN Tobacco use date assessed: 04/14/24 Fall risk assessment: No Falls in past year Last assessed Fall Risk: 04/14/24 Dental Screening Dental Screen Date: 01/07/24 HPI 3 month f/u HPI Details 88-year-old female presents to the office to discuss her chronic medical conditions. Patient is concerned about her weight loss despite not making an effort to lose weight. She has been compliant with her medications. Daughter is concerned about her worsening cognition. She has seen the neurologist a few months ago who had put her on Seroquel. Patient has been taking this medication at night. Continues to have occasional incontinence of urine. [facility] Medical History Alzheimer disease Anxiety Left bundle branch block Paroxysmal atrial fibrillation Vitamin D deficiency Microscopic hematuria Hypothyroidism HTN (hypertension) Osteoarthritis Surgical History H/O colonoscopy History of laparoscopy History of total abdominal hysterectomy Family History Father No problems noted. Mother HTN (hypertension) CVD (cardiovascular disease) Brother No problems noted. Brother No problems noted. Sister No problems noted. Son No problems noted. Son No problems noted. Daughter No problems noted. Social History Household Members: None Housing: House Do you presently have visiting nurse or other home services: No Alcohol intake: never Patient Tobacco Use Status: Never used Tobacco e-Cigarette/Vaping Use: Never Used Second Hand Smoke Exposure: No service: No Current occupational status: retired Cognitive needs: No Hearing needs: No Vision needs: Yes (glasses) Questionnaire Thrive Questionnaire Date Thrive assessed: 01/07/24 JEANETH-7 AMB Questionnaire JEANETH-7 Date JEANETH - 7 assessed: 01/07/24 Source: Developed by Drs. Fabio Gongora, Sakina Oliver, Papi Stacy and colleagues, with an educational debbie from [email or web address]. Physical exam (Primary Care) Vital Signs: Last Vital Signs Pulse 71 04/14/24 09:23 BP 122/66 04/14/24 09:23 Pulse Ox 96 04/14/24 09:23 Oxygen Delivery Method Room Air 04/14/24 09:23 Care Plan Goal for BP management: Blood pressure is in range. BMI result Body Mass Index 19.4 Tobacco/Smoking Status: Tobacco use Status Tobacco use date assessed 04/14/24 04/14/24 09:31 Patient Tobacco Use Status Never used Tobacco 04/14/24 09:31 e-Cigarette/Vaping Use Never Used 04/14/24 09:31 Thrive Assessment: Date of Thrive Assessment Date Thrive assessed 01/07/24 04/14/24 09:31 Advance Care Planning discussion: Exists, not on file Date of discussion: 04/14/24 Who was present: Patient and daughter Forms completed: Health Care Proxy Const General: cooperative and healthy appearing Nutritional Appearance: well nourished Orientation/consciousness: patient oriented x3 Limitations: no limitations HENMT Head: Yes normal to inspection Eyes General: appearance normal, both eyes and all related structures Neck Neck: Yes normal visual inspection Chest Chest palpation & inspection: normal palpation of entire chest wall Resp Effort & Inspection: normal respiratory effort Neuro General: patient oriented x3 Assessment and Plan Assessment & Plan (1) Alzheimer disease: Code(s): G30.9 - Alzheimer's disease, unspecified; F02.80 - Dementia in other diseases classified elsewhere, unspecified severity, without behavioral disturbance, psychotic disturbance, mood disturbance, and anxiety Plan: Patient has seen a neurologist. The daughter and the patient are in conflict about her driving ability. I have suggested that [facility] will be contacted to see if the patient can be given a driving test. She also sees a neurologist and his opinion will also be sort. (2) Paroxysmal atrial fibrillation: Code(s): I48.0 - Paroxysmal atrial fibrillation Plan: Currently in sinus rhythm. Continue to take the anticoagulants and blood pressure medication at the same dosage. (3) Hypothyroidism: Code(s): E03.9 - Hypothyroidism, unspecified Plan: TSH needs to be checked to adjust the Synthroid dosage. (4) Weight loss: Code(s): R63.4 - Abnormal weight loss Plan: Weight is recorded in the past were reviewed. Patient has only lost 3 lb. Will continue to monitor. Coding Level of Care Code Est Pt Level 4 (87234) Complex EM visit Add On G2211 Diagnoses Alzheimer disease G30.9; F02.80 Paroxysmal atrial fibrillation I48.0 Hypothyroidism E03.9 Weight loss R63.4 Additional Codes Vital Signs *Quality* - Advance Care Planning discussion: Exists, not on file ([id number])
[2024-04-14 09:23] VITALS: BP 122/66; PULSE 71; O2SAT 96; BMI 19.4
== END 2024-04-14 10:05 | disposition home or self-care (01) ==
PROVIDERS: PCP Internal Medicine; Visit Provider Internal Medicine
DX: G30.9 Alzheimer's disease, unspecified (principal); F02.80 Dementia in other diseases classified elsewhere, unspecified severity, without behavioral disturbance, psychotic disturbance, mood disturbance, and anxiety; I48.0 Paroxysmal atrial fibrillation; E03.9 Hypothyroidism, unspecified; R63.4 Abnormal weight loss; Z00.00 Encounter for general adult medical examination without abnormal findings
CPT/HCPCS: 1123F; 99214; G2211

== ENCOUNTER 2024-04-14 10:10 | Outpatient (REF) | payer MEDICARE, SELFPAY ==
[2024-04-14 10:56] LABS: Hematocrit 41.1 % (37.0-47.0); Hemoglobin 13.9 g/dl (12.0-16.0); Mean Corpuscular HGB Conc 33.8 g/dl (31.0-35.0); Mean Corpuscular Hemoglobin 32.9 pg (27.0-33.0); Mean Corpuscular Volume 97.2 fL (80.0-98.0); Mean Platelet Volume 9.9 fL (9.4-12.3); Platelet Count 277 X10*3/uL (160-400); Red Blood Count 4.23 X10*6/uL (4.20-5.50); Red Cell Distribution Width 13.2 % (11.0-16.0); White Blood Count 7.8 X10*3/uL (4.8-10.8)
[2024-04-14 11:50] LABS: Alanine Aminotransferase 9 U/L (0-31); Alkaline Phosphatase 48 U/L (39-117); Anion Gap 12 (12-20); Aspartate Amino Transferase 12 U/L (5-31); Bilirubin Direct 0.2 mg/dL (0.0-0.5); Bilirubin Total 0.5 mg/dL (0.0-1.0); Blood Urea Nitrogen 17 mg/dL (9-16); Calcium 9.6 mg/dL (8.4-10.2); Carbon Dioxide 27 mmol/L (22-29); Chloride 107 mmol/L (96-108); Cholesterol 215 mg/dL (<200); Estimated Glomerular Filt Rate > 60; Glucose Random 101 mg/dL (60-115); HDL Cholesterol 58 mg/dL (>40); LDL Cholesterol Calculated 136 mg/dL (<100); Sodium 142 mmol/L (135-145); Total Protein 6.4 g/dL (6.5-8.0); Triglycerides 106 mg/dL (<150)
[2024-04-14 12:06] LABS: Thyroid Stimulating Hormone 1.11 uIU/mL (0.32-4.0)
[2024-04-14 17:28] LABS: Appearance Urine Turbid; Color Urine Dark Yellow; Glucose Urine UA Negative (Negative); Leukocyte Esterase Urine Moderate (2+) (Negative); Nitrite Urine Negative (Negative); PH 5.5 (5.0-9.0); UMIC TRIGGER UA YES; Urine Blood Trace (Negative); Urine Ketones Negative (Negative); Urine Protein 100 (2+) mg/dL (Neg-Trace)
[2024-04-14 18:17] LABS: RBC Urine 0-2 /HPF (0-2); Squamous Epithelial Cell Urine 0-2 /HPF (0-2); WBC Urine 21-50 /HPF (0-5)
[2024-04-14 18:18] LABS: Bacteria Urine 1+ (None Seen); Calcium Oxalate Crystals Urine Present; Hyaline Casts Urine 0-2 /LPF (0-2)
== END 2024-04-14 10:11 | disposition home or self-care (01) ==
LOC: HO.LAB 10:10
PROVIDERS: PCP Internal Medicine; Visit Provider Internal Medicine
DX: G30.9 Alzheimer's disease, unspecified (principal); F02.80 Dementia in other diseases classified elsewhere, unspecified severity, without behavioral disturbance, psychotic disturbance, mood disturbance, and anxiety; I48.0 Paroxysmal atrial fibrillation
CPT/HCPCS: 36415; 80048; 80061; 80076; 81001; 84443; 85027

== ENCOUNTER 2024-06-10 13:01 | Emergency (ER) | payer MEDICARE, SELFPAY ==
--- NOTE | ~2024-06-10 | XR_ITS ---
EXAMINATION: XR CHEST CLINICAL INFORMATION: Pneumonia? Altered. COMPARISON: Chest radiograph 08/13/2021 TECHNIQUE: Frontal view of the chest was obtained. FINDINGS: No significant abnormality is noted involving the heart, lungs, mediastinum, bony thorax or soft tissues. XR/XR chest 1V IMPRESSION: Unremarkable examination. Electronically signed by: Fidencio Separs MD 06/10/2024 03:23 PM EDT
[2024-06-10 13:09] VITALS: BP 169/55; PULSE 66; RESP 18; TEMP 36.5; O2SAT 98; BMI 17.7
--- NOTE | 2024-06-10 13:15 | ED.GENADULT ---
HPI - General Adult General Chief complaint: General Medical Stated complaint: Weakness, shaking Time Seen by Provider: 06/10/24 17:19 Source: patient Mode of arrival: ambulatory Limitations: no limitations History of Present Illness ED Provider: balaji HPI narrative: Patient's history of dementia been feeling increased confused with poor oral intake and weakness for last 3 days and discomfort when she urinates patient's about 8 years ago and still thinks that he is at home Related Data Home Medications ?Medication ?Instructions ?Recorded ?Confirmed julpwmrx-tfp-blvge acid 0.4 1 tab PO DAILY 07/11/20 05/05/24 mg-lycopene 300 mcg-lutein 250 mcg tablet (Centrum Silver) quetiapine 50 mg tablet (Seroquel) 25 mg PO BEDTIME 04/14/24 05/05/24 Previous Rx's ?Medication ?Instructions ?Recorded apixaban 2.5 mg tablet (Eliquis) 2.5 mg PO BID 90 days #180 tabs 11/03/23 metoprolol succinate 50 mg 75 mg (1.5 x 50 mg) PO DAILY 90 12/13/23 tablet,extended release 24 hr days #135 tabs meclizine 25 mg tablet 12.5 mg (1/2 x 25 mg) PO DAILY PRN 01/07/24 vertigo #15 tabs ondansetron HCl 4 mg tablet 4 mg PO Q8H PRN nausea and 01/07/24 vomiting #10 tabs amlodipine 5 mg tablet 5 mg PO BID #180 tabs 04/29/24 levothyroxine 100 mcg tablet 100 mcg PO DAILY #90 tabs 04/29/24 trazodone 50 mg tablet 50 mg PO BEDTIME PRN sleep #30 tabs 05/28/24 cefuroxime axetil 250 mg tablet 250 mg PO BID 5 days #10 tabs 06/10/24 Allergies Allergy/AdvReac Type Severity Reaction Status Date / Time codeine [CODEINE] Allergy Unknown SEVERE Verified 06/10/24 13:13 VOMITING, stomach upset aspirin Allergy nausea Verified 06/10/24 13:13 demerol Allergy Nausea Uncoded 04/14/24 10:00 Review of Systems Review of Systems: Yes all other systems are reviewed and are negative PMFSH Past Medical History Medical History Alzheimer disease Anxiety Left bundle branch block Paroxysmal atrial fibrillation Vitamin D deficiency Microscopic hematuria Hypothyroidism HTN (hypertension) Osteoarthritis Surgical History H/O colonoscopy History of laparoscopy History of total abdominal hysterectomy Family History Family History Father No problems noted. Mother HTN (hypertension) CVD (cardiovascular disease) Brother No problems noted. Brother No problems noted. Sister No problems noted. Son No problems noted. Son No problems noted. Daughter No problems noted. Social History Social History Household Members: None Housing: House Do you presently have visiting nurse or other home services: No Alcohol intake: never Patient Tobacco Use Status: Never used Tobacco e-Cigarette/Vaping Use: Never Used Second Hand Smoke Exposure: No Advance Directives: Yes Advance Directives Information Provided: No Advance Directives on File: No Do you have a plan to hurt others: No Plan service: No Current occupational status: retired Cognitive needs: No Hearing needs: No Vision needs: Yes (glasses) Physical Exam ED Vital Signs: Vital Signs - 24 hr 06/10/24 13:09 06/10/24 17:11 06/10/24 18:20 Temperature 97.7 F 98 F 98.2 F Pulse Rate 66 65 64 Respiratory Rate 18 20 19 Blood Pressure 169/55 H 176/71 H 165/83 H Pulse Oximetry 98 99 99 Oxygen Delivery Method Room Air Room Air Room Air 06/10/24 20:29 Temperature 98.2 F Pulse Rate 64 Respiratory Rate 19 Blood Pressure 165/83 H Pulse Oximetry 99 Oxygen Delivery Method Room Air BMI result Body Mass Index 17.7 Appearance: Alert. Oriented X3. No acute distress. Eyes: PERRLA, No Nystagmus ENT: Pharynx normal. Oral Mucosa moist Neck: Normal inspection. Neck supple. CVS: Normal heart rate and rhythm. Pulses normal. Respiratory: No respiratory distress. Equal air entry bilateral, no wheezing/rales/rhonchi Abdomen: Soft and nontender. Bowel sounds are present, no mass palpable, no CVA tenderness Skin: Skin warm and dry. Normal skin color. Normal skin turgor. Extremities: No lower extremity edema. No calf tenderness Neuro: Oriented X 3. No motor deficit. No sensory deficit.No cerebellar signs , cranial nerves II-XII intact Course Course Course Narrative: RME: Done by VANESSA Covington. 89-year-old female history of Alzheimer's brought by daughter due to daughter stating patient has had altered mental status in terms of patient becoming more aggressive towards her. Patient is also states pressure when urinating. Daughter states poor appetite. Mode of steroids patient become aggressive usually she has a UTI. Physical exam negative for any signs of any neuro deficits. NIH score is 0. Presently patient is at baseline AAO x3 as per daughter. Lungs abdomen heart sounds normal. Medications Administered Discontinued Medications Generic Name Dose Route Start Last Admin Trade Name Freq PRN Reason Stop Dose Admin Cefuroxime Axetil 250 mg 06/10/24 17:41 06/10/24 20:27 Cefuroxime Axetil 250 Mg Tablet PO 06/10/24 17:42 250 mg ONCE ONE Administration Medical Decision Making Medical Decision Making [facility] Narrative: Patient's dementia with increased confusion noticed to have mild UTI will prescribe cefuroxime labs are stable otherwise case discussed with case plan for increased help at home Differential Diagnosis Differential Diagnoses: The differential diagnosis associated with the presentation includes UTI/metabolic encephalopathy/hyponatremia/uremia Lab Data [facility] Lab Attestation statement: I reviewed the patient's lab results. 06/10/24 13:31 06/10/24 13:31 Labs: Lab Results 06/10/24 Range/Units 13:31 WBC 8.8 (4.8-10.8) X10*3/uL RBC 4.41 (4.20-5.50) X10*6/uL Hgb 14.4 (12.0-16.0) g/dl Hct 40.4 (37.0-47.0) % MCV 91.6 (80.0-98.0) fL MCH 32.7 (27.0-33.0) pg MCHC 35.6 H (31.0-35.0) g/dl RDW 12.7 (11.0-16.0) % Plt Count 329 (160-400) X10*3/uL MPV 9.7 (9.4-12.3) fL Immature Gran % (Auto) 0.5 H (0.0-0.4) % Neut % (Auto) 75.7 H (45-73) % Lymph % (Auto) 14.6 L (20-40) % [place] % (Auto) 8.3 (2-11) % Eos % (Auto) 0.3 (0-4) % Baso % (Auto) 0.6 (0-2) % Lymph # (Auto) 1.3 (1.2-4.9) X10*3/uL [place] # (Auto) 0.7 (0.1-1.2) X10*3/uL Eos # (Auto) 0.0 (0.0-0.4) X10*3/uL Baso # (Auto) 0.1 (0.0-0.2) X10*3/uL Abs Immat Gran (auto) 0.04 H (0.00-0.03) X10*3/uL Absolute Neuts (auto) 6.7 (2.0-8.3) x10*3/uL Absolute Nucleated RBC 0.000 (0.0-0.012) X10*3/uL Nucleated RBC % (auto) 0.0 (0.0-0.2) /100WBC Sodium 139 (135-145) mmol/L Potassium 3.8 (3.3-5.1) mmol/L Chloride 107 (96-108) mmol/L Carbon Dioxide 22 (22-29) mmol/L Anion Gap 14 (12-20) BUN 19 H (9-16) mg/dL Creatinine 0.75 (0.5-1.4) mg/dL Estim Creat Clear Calc 33.7 Estimated GFR > 60 Random Glucose 107 (60-115) mg/dL Calcium 9.3 (8.4-10.2) mg/dL Total Bilirubin 0.6 (0.0-1.0) mg/dL AST 19 (5-31) U/L ALT 14 (0-31) U/L Alkaline Phosphatase 42 (39-117) U/L Ammonia 36 (13-55) umol/L Troponin I High Sens 3.2 (<3.5-17.0) ng/L Total Protein 6.5 (6.5-8.0) g/dL Albumin 3.9 (3.5-5.0) g/dL Urine Color Yellow Urine Appearance Clear Urine pH 6.0 (5.0-9.0) Ur Specific [place] 1.020 (1.005-1.025) Urine Protein Negative (Neg-Trace) mg/dL Urine Glucose (UA) Negative (Negative) mg/dL Urine Ketones 15 (Negative) mg/dL Urine Blood Negative (Negative) Urine Nitrite Negative (Negative) Ur Leukocyte Esterase Moderate (2+) H (Negative) Urine RBC 0-2 (0-2) /HPF Urine WBC 11-20 H (0-5) /HPF Ur Squamous Epith Cells 0-2 (0-2) /HPF Urine Bacteria None Seen (None Seen) Hyaline Casts 0-2 (0-2) /LPF Influenza Type A (PCR) NEGATIVE (Negative) Influenza Type B (PCR) NEGATIVE (Negative) RSV RNA Qual (PCR) NEGATIVE (Negative) SARS-CoV-2 RNA (RT-PCR) NEGATIVE (Negative) Discharge Plan Discharge Clinical Impression: Alzheimer disease, Acute UTI Patient Disposition: Home, Self-Care Instructions: Alzheimer Disease (DC), Urinary Tract Infection in Older Adults (ED) Additional Instructions: Drink plenty of fluids Take antibiotic as prescribed you have very mild urinary tract infection if any Follow with your PCP and case management for extra help at home Prescriptions: New cefuroxime axetil 250 mg tablet 250 mg PO BID 5 Days Qty: 10 0RF No Action Eliquis 2.5 mg tablet 2.5 mg PO BID 90 Days Qty: 180 3RF metoprolol succinate 50 mg tablet extended release 24 hr 75 mg PO DAILY 90 Days Qty: 135 3RF amlodipine 5 mg tablet 5 mg PO BID Qty: 180 1RF levothyroxine 100 mcg tablet 100 mcg PO DAILY Qty: 90 1RF trazodone 50 mg tablet 50 mg PO BEDTIME PRN (Reason: sleep) Qty: 30 1RF meclizine 25 mg tablet 12.5 mg PO DAILY PRN (Reason: vertigo) Qty: 15 0RF ondansetron HCl 4 mg tablet 4 mg PO Q8H PRN (Reason: nausea and vomiting) Qty: 10 0RF quetiapine [Seroquel] 50 mg tablet 25 mg PO BEDTIME Centrum Silver 0.4-300-250 mg-mcg-mcg tablet 1 tab PO DAILY Interventions: ED Discharge Assessment Last Done: 06/10/24 20:29 Discharge Date/Time: 06/10/24 20:30 Print Language: Mongolian
--- NOTE | 2024-06-10 13:19 | ECG_ITS ---
Test Reason : ams Blood Pressure : / mmHG Vent. Rate : 066 BPM Atrial Rate : 066 BPM P-R Int : 138 ms QRS Dur : 132 ms QT Int : 444 ms P-R-T Axes : 066 -44 095 degrees QTc Int : 465 ms Normal sinus rhythm Left axis deviation Left bundle branch block Abnormal ECG When compared with ECG of 13-AUG-2021 01:46, No significant change was found Referred By: Gabriel Covington Electronically Signed By:RENAN LIZARRAGA
[2024-06-10 13:37] LABS: MANUAL DIFF FLAG NO
[2024-06-10 13:38] LABS: Basophils Absolute Auto 0.1 X10*3/uL (0.0-0.2); Basophils Percent Auto 0.6 % (0-2); Eosinophils Percent Auto 0.3 % (0-4); Hematocrit 40.4 % (37.0-47.0); Hemoglobin 14.4 g/dl (12.0-16.0); Imm Gran Abs Auto 0.04 X10*3/uL (0.00-0.03); Imm Gran Pct Auto 0.5 % (0.0-0.4); Lymphocytes Absolute Auto 1.3 X10*3/uL (1.2-4.9); Lymphocytes Percent Auto 14.6 % (20-40); Mean Corpuscular HGB Conc 35.6 g/dl (31.0-35.0); Mean Corpuscular Hemoglobin 32.7 pg (27.0-33.0); Mean Corpuscular Volume 91.6 fL (80.0-98.0); Mean Platelet Volume 9.7 fL (9.4-12.3); Monocytes Absolute Auto 0.7 X10*3/uL (0.1-1.2); Monocytes Percent Auto 8.3 % (2-11); Neutrophils Absolute Auto 6.7 x10*3/uL (2.0-8.3); Neutrophils Percent Auto 75.7 % (45-73); Platelet Count 329 X10*3/uL (160-400); Red Blood Count 4.41 X10*6/uL (4.20-5.50); Red Cell Distribution Width 12.7 % (11.0-16.0); White Blood Count 8.8 X10*3/uL (4.8-10.8)
[2024-06-10 13:40] LABS: Appearance Urine Clear; Color Urine Yellow; Glucose Urine UA Negative (Negative); Leukocyte Esterase Urine Moderate (2+) (Negative); Nitrite Urine Negative (Negative); UMIC TRIGGER UACC YES; Urine Blood Negative (Negative); Urine Ketones 15 mg/dL (Negative); Urine Protein Negative (Neg-Trace)
[2024-06-10 13:46] LABS: Ammonia 36 umol/L (13-55)
[2024-06-10 13:49] LABS: Bacteria Urine None Seen (None Seen); Hyaline Casts Urine 0-2 /LPF (0-2); RBC Urine 0-2 /HPF (0-2); Squamous Epithelial Cell Urine 0-2 /HPF (0-2); UACC Culture Trigger YES
[2024-06-10 13:56] LABS: Alanine Aminotransferase 14 U/L (0-31); Albumin Level 3.9 g/dL (3.5-5.0); Alkaline Phosphatase 42 U/L (39-117); Anion Gap 14 (12-20); Aspartate Amino Transferase 19 U/L (5-31); Bilirubin Total 0.6 mg/dL (0.0-1.0); Blood Urea Nitrogen 19 mg/dL (9-16); Calcium 9.3 mg/dL (8.4-10.2); Carbon Dioxide 22 mmol/L (22-29); Chloride 107 mmol/L (96-108); Creatinine Clr Calc Pharmacy 33.7; Estimated Glomerular Filt Rate > 60; Glucose Random 107 mg/dL (60-115); Potassium 3.8 mmol/L (3.3-5.1); Sodium 139 mmol/L (135-145); Total Protein 6.5 g/dL (6.5-8.0)
[2024-06-10 14:01] LABS: Troponin-I High Sensitivity 3.2 ng/L (<3.5-17.0)
[2024-06-10 14:15] LABS: Influenza A PCR NEGATIVE (Negative); Influenza B PCR NEGATIVE (Negative); Resp Syncy Virus RNA Qual PCR NEGATIVE (Negative); SARS COV2 PCR INHOUSE NEGATIVE (Negative)
[2024-06-10 17:11] VITALS: BP 176/71; PULSE 65; RESP 20; TEMP 36.6; O2SAT 99
[2024-06-10 18:20] VITALS: BP 165/83; PULSE 64; RESP 19; TEMP 36.8; O2SAT 99
--- NOTE | 2024-06-10 19:58 | MHC.CM.ED ---
CM met with patient and daughter at the request of Dr. Pappas. Pt has Alzheimer dementia. Jasiel Red ([phone])daughter/HCP/ HCP on file. PCP is verified. Pt uses no DME. Lives alone. Recently has MOW, life alert and HHC twice a month from [facility]. Daughter sees patient twice a day, morning and evening. Daughter manages her medications, brings extra meals, manages doctor visits, pays all bills and grocery shops. Pt is pleasant and forgetful. Believes her is alive and then remembers he 8 years ago. Pt has been resistant to help at home.. She does not drive and her car is no longer at her home. Her appetite is poor. She also sees a neurologist. She has a mild UTI and will be treated. Daughter would like to take her home. Does not feel that her mother needs a PT consult. Pt has no needs for VNA referral. Meet with daughter privately at her request. She tells CM that her mother is becoming aggressive and angry. Has outbursts. CM explained that can happen with AD dementia. Daughter is a nurse at [employer] and is know to this song writer. Daughter given multiple resources, including increasing help with [facility], visiting angels for companionship, [facility] with advanced memory care for advancing dementia and some home safety changes.(cameras and alarms). Also encouraged daughter to speak with provider regarding additional medications to help with alzheimer's aggression. Patient has some funds. Offered [employer] [facility] [employer] financial services, but daughter declined at this time. Contact card given. Pt will be discharged home.
[2024-06-10] MEDS: cefuroxime axetiL 250 MG TABLET PO (20:27)
[2024-06-10 20:29] VITALS: BP 165/83; PULSE 64; RESP 19; TEMP 36.8; O2SAT 99
== END 2024-06-10 20:30 | disposition home or self-care (01) ==
PROVIDERS: Physician Assistant; Emergency Provider Internal Medicine; PCP Internal Medicine
DX: G30.9 Alzheimer's disease, unspecified (principal); N39.0 Urinary tract infection, site not specified; I44.7 Left bundle-branch block, unspecified; F02.80 Dementia in other diseases classified elsewhere, unspecified severity, without behavioral disturbance, psychotic disturbance, mood disturbance, and anxiety; R53.1 Weakness; R94.31 Abnormal electrocardiogram [ECG] [EKG]; R30.0 Dysuria; Z03.818 Encounter for observation for suspected exposure to other biological agents ruled out; Z79.899 Other long term (current) drug therapy
CPT/HCPCS: 0241U; 36415; 71045; 80053; 81001; 82140; 84484; 85025; 87086; 93005; 99283; 99284

== ENCOUNTER 2024-06-24 20:17 | Inpatient (IN) | payer MEDICARE, SELFPAY ==
--- NOTE | ~2024-06-24 | XR_ITS ---
EXAMINATION: XR CHEST CLINICAL INFORMATION: Rule out pneumonia COMPARISON: Chest x-ray on 06/10/2024 TECHNIQUE: 2 views of the chest were obtained. FINDINGS: No significant abnormality is noted involving the heart, lungs, mediastinum, bony thorax or soft tissues. XR/XR chest 2V IMPRESSION: Unremarkable examination. Electronically signed by: Evita Choudhury MD 07/15/2024 11:10 PM EDT RP
[2024-06-24 20:19] VITALS: BP 140/60; PULSE 80; O2SAT 98
[2024-06-24 20:22] VITALS: BMI 18.7
[2024-06-24 20:23] VITALS: BP 145/70; PULSE 73; RESP 18; TEMP 36.8; O2SAT 96
--- NOTE | 2024-06-24 21:04 | ECG_ITS ---
Test Reason : WEAKNESS Blood Pressure : / mmHG Vent. Rate : 063 BPM Atrial Rate : 063 BPM P-R Int : 162 ms QRS Dur : 136 ms QT Int : 452 ms P-R-T Axes : 048 -53 082 degrees QTc Int : 462 ms Normal sinus rhythm Left axis deviation Left bundle branch block Abnormal ECG When compared with ECG of 10-JUN-2024 13:18, No significant change was found Referred By: Manisha Quan Electronically Signed By:RENAN LIZARRAGA
[2024-06-24 21:42] LABS: MANUAL DIFF FLAG NO
[2024-06-24 21:48] LABS: Basophils Percent Auto 0.3 % (0-2); Eosinophils Absolute Auto 0.1 X10*3/uL (0.0-0.4); Eosinophils Percent Auto 0.6 % (0-4); Hematocrit 39.9 % (37.0-47.0); Hemoglobin 13.8 g/dl (12.0-16.0); Imm Gran Abs Auto 0.05 X10*3/uL (0.00-0.03); Imm Gran Pct Auto 0.5 % (0.0-0.4); Lymphocytes Absolute Auto 1.4 X10*3/uL (1.2-4.9); Lymphocytes Percent Auto 13.6 % (20-40); Mean Corpuscular HGB Conc 34.6 g/dl (31.0-35.0); Mean Corpuscular Hemoglobin 31.9 pg (27.0-33.0); Mean Corpuscular Volume 92.4 fL (80.0-98.0); Mean Platelet Volume 9.8 fL (9.4-12.3); Monocytes Percent Auto 9.9 % (2-11); Neutrophils Absolute Auto 7.5 x10*3/uL (2.0-8.3); Neutrophils Percent Auto 75.1 % (45-73); Platelet Count 303 X10*3/uL (160-400); Red Blood Count 4.32 X10*6/uL (4.20-5.50); Red Cell Distribution Width 12.8 % (11.0-16.0)
[2024-06-24 21:50] LABS: Appearance Urine Clear; Color Urine Yellow; Glucose Urine UA Negative (Negative); Leukocyte Esterase Urine Moderate (2+) (Negative); Nitrite Urine Negative (Negative); PH 6.5 (5.0-9.0); Specific Gravity - Urine 1.015 (1.005-1.025); UMIC TRIGGER UACC YES; Urine Blood Negative (Negative); Urine Ketones Negative (Negative); Urine Protein Negative (Neg-Trace)
[2024-06-24 21:55] LABS: Bacteria Urine None Seen (None Seen); Hyaline Casts Urine 0-2 /LPF (0-2); RBC Urine 0-2 /HPF (0-2); Squamous Epithelial Cell Urine 0-2 /HPF (0-2); UACC Culture Trigger YES
--- NOTE | 2024-06-24 21:58 | ED.GENADULT ---
HPI - General Adult General Chief complaint: General Medical Stated complaint: combative w/ family, has demetia Time Seen by Provider: 06/24/24 21:04 Source: patient and EMS Mode of arrival: EMS Limitations: other (dementia) History of Present Illness ED Provider: MAIN CHAMBERLAIN narrative: 89 yo female from home with PMH of UTI, HLD, dementia, PAF on eliquis, hypothyroidism, HTN, here with c/o being agitated at home though she denies this to me. Reported aggression at home. Patient is very nice and pleasant here no signs of head trauma and no falls reported. She denies headaches. She is oriented to self and place. Daughter arrived and patient became aggressive and agitated. MD complaint: change in behaviors Onset (ago): day(s) (few) Severity: moderate Relieving factors: none Exacerbating factors: none Associated symptoms: denies other symptoms Treatments prior to arrival: none Related Data Home Medications ?Medication ?Instructions ?Recorded ?Confirmed pdrmsayj-wni-lvwdx acid 0.4 1 tab PO DAILY 07/11/20 05/05/24 mg-lycopene 300 mcg-lutein 250 mcg tablet (Centrum Silver) quetiapine 50 mg tablet (Seroquel) 25 mg PO BEDTIME 04/14/24 06/24/24 amlodipine 5 mg tablet 5 mg PO DAILY 06/24/24 06/24/24 donepezil 5 mg tablet 5 mg PO DAILY 06/24/24 06/24/24 Previous Rx's ?Medication ?Instructions ?Recorded apixaban 2.5 mg tablet (Eliquis) 2.5 mg PO BID 90 days #180 tabs 11/03/23 metoprolol succinate 50 mg 75 mg (1.5 x 50 mg) PO DAILY 90 12/13/23 tablet,extended release 24 hr days #135 tabs meclizine 25 mg tablet 12.5 mg (1/2 x 25 mg) PO DAILY PRN 01/07/24 vertigo #15 tabs ondansetron HCl 4 mg tablet 4 mg PO Q8H PRN nausea and 01/07/24 vomiting #10 tabs levothyroxine 100 mcg tablet 100 mcg PO DAILY #90 tabs 04/29/24 trazodone 50 mg tablet 50 mg PO BEDTIME PRN sleep #30 tabs 05/28/24 cefuroxime axetil 250 mg tablet 250 mg PO BID 5 days #10 tabs 06/10/24 Allergies Allergy/AdvReac Type Severity Reaction Status Date / Time codeine [CODEINE] Allergy Unknown SEVERE Verified 06/24/24 20:23 VOMITING, stomach upset aspirin Allergy nausea Verified 06/24/24 20:23 demerol Allergy Nausea Uncoded 06/24/24 20:23 Review of Systems Review of Systems: Constitutional : No Fever, No Chills, No Fatigue ENT/Mouth : No sore throat, No Rhinorrhea Eyes: No Eye Pain, No Swelling, No Redness Cardiovascular : No Chest Pain, No SOB, No Dyspnea on Exertion Respiratory : No Cough, No Sputum Gastrointestinal : No Nausea, No Vomiting, No Diarrhea, No abdominal Pain Genitourinary : pos Dysuria, No Urinary Frequency, No Hematuria, Musculoskeletal : No joint pain, No Myalgias, No Joint Swelling Skin : No Skin Lesions, No rash Neuro : No Weakness, No Numbness, No Dizziness, no Headache Psych : No Anxiety/Panic, No Depression All other systems reviewed and are negative [facility] Past Medical History Attestation statement: The following information was validated with the patient. Source: old records reviewed Medical History Alzheimer disease Anxiety Left bundle branch block Paroxysmal atrial fibrillation Vitamin D deficiency Microscopic hematuria Hypothyroidism HTN (hypertension) Osteoarthritis Surgical History H/O colonoscopy History of laparoscopy History of total abdominal hysterectomy Family History Family History Father No problems noted. Mother HTN (hypertension) CVD (cardiovascular disease) Brother No problems noted. Brother No problems noted. Sister No problems noted. Son No problems noted. Son No problems noted. Daughter No problems noted. Social History Social History Household Members: None Housing: House Do you presently have visiting nurse or other home services: No Alcohol intake: never Patient Tobacco Use Status: Never used Tobacco Smoked in Last 30 Days: No e-Cigarette/Vaping Use: Never Used Second Hand Smoke Exposure: No Use of substances other than those prescribed or required for medical reasons: No Advance Directives: Yes Advance Directives Information Provided: No Advance Directives on File: No service: No Current occupational status: retired Cognitive needs: No Hearing needs: No Vision needs: Yes (glasses) Physical Exam ED Vital Signs: Vital Signs - 24 hr 06/24/24 20:23 06/24/24 22:35 06/25/24 00:10 Temperature 98.3 F 98.3 F 98.3 F Pulse Rate 73 65 69 Respiratory Rate 18 16 16 Blood Pressure 145/70 H 175/86 H 121/57 L Pulse Oximetry 96 98 94 Oxygen Delivery Method Room Air Room Air Room Air BMI result Body Mass Index 18.7 Appearance: Alert. Oriented X2 . No acute distress. Eyes: Pupils equal, round and reactive to light. ENT: Pharynx normal. Neck: Normal inspection. Neck supple. CVS: Normal heart rate and rhythm. Pulses normal. Respiratory: No respiratory distress. Breath sounds normal. Abdomen: Soft and nontender. Skin: Skin warm and dry. Normal skin color. Normal skin turgor. Extremities: No lower extremity edema. No calf ttp Neuro: Oriented X 2. No motor deficit. No sensory deficit. Course Course Course Narrative: per CARE team inpatient bed search Medications Administered Generic Name Dose Route Start Last Admin Trade Name Freq PRN Reason Stop Dose Admin Cefuroxime Axetil 250 mg 06/24/24 22:10 06/24/24 22:49 Cefuroxime Axetil 250 Mg Tablet PO 07/01/24 22:09 250 mg BID RAJINDER Administration Trazodone HCl 50 mg 06/24/24 22:37 06/24/24 22:49 Trazodone Hcl 50 Mg Tablet PO 50 mg BEDTIME PRN Administration sleep Medical Decision Making Medical Decision Making MDM Narrative: 89 yo female from home with PMH of UTI, HLD, dementia, PAF on eliquis, hypothyroidism, HTN, here with c/o dementia and aggression towards family no signs of head trauma has mild dysuria at this time will need labs, EKG, UA - refer to [facility]. She has no signs of head trauma. Differential Diagnosis Differential Diagnoses: The differential diagnosis associated with the presentation includes dementia, UTI Admission/Observation Consideration of admission/observation: Escalation of care including admission/observation considered physician observation started at 1010pm pending CARE team Lab Data [facility] Lab Attestation statement: I reviewed the patient's lab results. 06/24/24 21:35 06/24/24 21:35 Labs: Lab Results 06/24/24 Range/Units 21:35 WBC 10.0 (4.8-10.8) X10*3/uL RBC 4.32 (4.20-5.50) X10*6/uL Hgb 13.8 (12.0-16.0) g/dl Hct 39.9 (37.0-47.0) % MCV 92.4 (80.0-98.0) fL MCH 31.9 (27.0-33.0) pg MCHC 34.6 (31.0-35.0) g/dl RDW 12.8 (11.0-16.0) % Plt Count 303 (160-400) X10*3/uL MPV 9.8 (9.4-12.3) fL Immature Gran % (Auto) 0.5 H (0.0-0.4) % Neut % (Auto) 75.1 H (45-73) % Lymph % (Auto) 13.6 L (20-40) % [place] % (Auto) 9.9 (2-11) % Eos % (Auto) 0.6 (0-4) % Baso % (Auto) 0.3 (0-2) % Lymph # (Auto) 1.4 (1.2-4.9) X10*3/uL [place] # (Auto) 1.0 (0.1-1.2) X10*3/uL Eos # (Auto) 0.1 (0.0-0.4) X10*3/uL Baso # (Auto) 0.0 (0.0-0.2) X10*3/uL Abs Immat Gran (auto) 0.05 H (0.00-0.03) X10*3/uL Absolute Neuts (auto) 7.5 (2.0-8.3) x10*3/uL Absolute Nucleated RBC 0.000 (0.0-0.012) X10*3/uL Nucleated RBC % (auto) 0.0 (0.0-0.2) /100WBC Sodium 141 (135-145) mmol/L Potassium 3.8 (3.3-5.1) mmol/L Chloride 106 (96-108) mmol/L Carbon Dioxide 28 (22-29) mmol/L Anion Gap 11 L (12-20) BUN 17 H (9-16) mg/dL Creatinine 0.81 (0.5-1.4) mg/dL Estim Creat Clear Calc 32.9 Estimated GFR > 60 Random Glucose 103 (60-115) mg/dL Calcium 9.4 (8.4-10.2) mg/dL Total Bilirubin 0.3 (0.0-1.0) mg/dL AST 14 (5-31) U/L ALT 14 (0-31) U/L Alkaline Phosphatase 47 (39-117) U/L Total Protein 6.2 L (6.5-8.0) g/dL Albumin 3.9 (3.5-5.0) g/dL TSH 0.15 L (0.32-4.0) uIU/mL Free T4 1.54 (0.71-1.85) ng/dL Urine Color Yellow Urine Appearance Clear Urine pH 6.5 (5.0-9.0) Ur Specific [place] 1.015 (1.005-1.025) Urine Protein Negative (Neg-Trace) mg/dL Urine Glucose (UA) Negative (Negative) mg/dL Urine Ketones Negative (Negative) mg/dL Urine Blood Negative (Negative) Urine Nitrite Negative (Negative) Ur Leukocyte Esterase Moderate (2+) H (Negative) Urine RBC 0-2 (0-2) /HPF Urine WBC 11-20 H (0-5) /HPF Ur Squamous Epith Cells 0-2 (0-2) /HPF Urine Bacteria None Seen (None Seen) Hyaline Casts 0-2 (0-2) /LPF Independent Interpretation I performed an independent interpretation of an: EKG Interpretation: Rate: 63 Rhythm: NSR [place]: left Normal P waves. Normal SUSAN. LBBB ST T wave : inverted t waves I and aVL, no ELAINE qTC: 462 prior studies: on change from priors The study has been interpreted contemporaneously by me. . Independent Historian Clinical information obtained from an independent historian. History obtained from or confirmed by: EMS External Record Review External record reviewed: Office record Discharge Plan Discharge Clinical Impression: Recurrent UTI (urinary tract infection) Dementia Qualifiers: Dementia type: Alzheimer's Alzheimer's disease onset: unspecified onset Dementia severity: unspecified severity Dementia behavioral or psychological symptom: with other behavioral disturbance Qualified Code(s): G30.9 - Alzheimer's disease, unspecified Patient Disposition: Still a Patient Prescriptions: No Action Eliquis 2.5 mg tablet 2.5 mg PO BID 90 Days Qty: 180 3RF metoprolol succinate 50 mg tablet extended release 24 hr 75 mg PO DAILY 90 Days Qty: 135 3RF levothyroxine 100 mcg tablet 100 mcg PO DAILY Qty: 90 1RF trazodone 50 mg tablet 50 mg PO BEDTIME PRN (Reason: sleep) Qty: 30 1RF donepezil 5 mg tablet 5 mg PO DAILY amlodipine 5 mg tablet 5 mg PO DAILY cefuroxime axetil 250 mg tablet 250 mg PO BID 5 Days Qty: 10 0RF meclizine 25 mg tablet 12.5 mg PO DAILY PRN (Reason: vertigo) Qty: 15 0RF ondansetron HCl 4 mg tablet 4 mg PO Q8H PRN (Reason: nausea and vomiting) Qty: 10 0RF quetiapine [Seroquel] 50 mg tablet 25 mg PO BEDTIME Centrum Silver 0.4-300-250 mg-mcg-mcg tablet 1 tab PO DAILY Print Language: [place]
[2024-06-24 22:06] LABS: Alanine Aminotransferase 14 U/L (0-31); Albumin Level 3.9 g/dL (3.5-5.0); Alkaline Phosphatase 47 U/L (39-117); Anion Gap 11 (12-20); Aspartate Amino Transferase 14 U/L (5-31); Bilirubin Total 0.3 mg/dL (0.0-1.0); Blood Urea Nitrogen 17 mg/dL (9-16); Calcium 9.4 mg/dL (8.4-10.2); Carbon Dioxide 28 mmol/L (22-29); Chloride 106 mmol/L (96-108); Creatinine Clr Calc Pharmacy 32.9; Estimated Glomerular Filt Rate > 60; Glucose Random 103 mg/dL (60-115); Potassium 3.8 mmol/L (3.3-5.1); Sodium 141 mmol/L (135-145); Total Protein 6.2 g/dL (6.5-8.0)
--- NOTE | 2024-06-24 22:17 | PC.NURSE ---
med rec completed based on med list provided by daughter at bedside
[2024-06-24 22:26] LABS: TSH reflex Free T4 0.15 uIU/mL (0.32-4.0)
[2024-06-24 22:35] VITALS: BP 175/86; PULSE 65; RESP 16; TEMP 36.8; O2SAT 98
[2024-06-24] MEDS: cefuroxime axetiL 250 MG TABLET PO (22:49)
[2024-06-24] MEDS: traZODone HCL 50 MG TABLET PO (22:49)
[2024-06-24 22:58] LABS: Free T4 (Free Thyroxine) 1.54 ng/dL (0.71-1.85)
[2024-06-25] VITALS (7 sets, daily range): BP systolic 121–163; BP diastolic 57–80; PULSE 58–70; RESP 16–18; TEMP 36.1–36.8; O2SAT 94–99; BMI 18.7
[2024-06-25] MEDS: Levothyroxine Sodium 100 MCG TABLET PO (07:41)
--- NOTE | 2024-06-25 07:46 | PC.NURSE ---
Resumed care of pt at 0700. Pt resting in bed quietly, respirations even and unlabored, no increased wob/sob noted. a/o x2, s1 and s2 heard, abdomen soft, non-tender on palpation. Pt up in bed eating breakfast. Plan for pt to go to [facility], possibly getting a bed today, pt updated on this plan of care. Call castañeda within reach, all needs met at this time.
[2024-06-25] MEDS: amLODIPine Besylate 5 MG TABLET PO (08:42)
[2024-06-25] MEDS: Donepezil HCl 5 MG TABLET PO (08:43)
[2024-06-25] MEDS: cefuroxime axetiL 250 MG TABLET PO ×2 (08:43→20:10)
[2024-06-25] MEDS: Apixaban 2.5 MG TABLET PO ×2 (08:43→20:10)
[2024-06-25] MEDS: Metoprolol Succinate ER 25 MG TAB.ER.24H 75 MG PO (08:43)
--- NOTE | 2024-06-25 08:48 | PC.NURSE ---
Pt family at bedside. Updated on plan of care for bed in [facility].
--- NOTE | 2024-06-25 10:16 | PHA.MEDREC ---
Addendum entered by Britni Velazquez RPh 06/25/24 10:31: Reviewed by [facility]. Original Note: Pharmacy Consult ? Medication Reconciliation Pharmacy has completed the medication reconciliation. Spoke to patients daughter to confirm med list. Daughter stated patient no longer takes A multivitamin daily, and Quetiapine 50 mg .
--- NOTE | 2024-06-25 11:33 | PC.NURSE ---
Pts family at bedside at this time. Pt noted to become agitated at times, raising her voice towards her family members. Pt remains an inpatient [facility] at this time
[2024-06-25 11:55] LABS: Amphetamine Screen Urine Not Detected (Not Detect); Barbiturates, Urine Not Detected (Not Detect); Benzodiazepines Screen Urine Not Detected (Not Detect); Buprenorphine Scr Not Detected (Not Detect); Cannabinoid Screen Urine Not Detected (Not Detect); Cocaine Screen Urine Not Detected (Not Detect); Fentanyl, urine Not Detected (Not Detect); Methadone Screen, Urine Not Detected (Not Detect); Opiate Screen Urine Not Detected (Not Detect); Oxycodone Screen Urine Not Detected (Not Detect); Phencyclidine Screen Urine Not Detected (Not Detect)
[2024-06-25 12:53] LABS: Amphetamine Screen Urine Not Detected (Not Detect); Barbiturates, Urine Not Detected (Not Detect); Benzodiazepines Screen Urine Not Detected (Not Detect); Buprenorphine Scr Not Detected (Not Detect); Cannabinoid Screen Urine Not Detected (Not Detect); Cocaine Screen Urine Not Detected (Not Detect); Fentanyl, urine Not Detected (Not Detect); Methadone Screen, Urine Not Detected (Not Detect); Opiate Screen Urine Not Detected (Not Detect); Oxycodone Screen Urine Not Detected (Not Detect); Phencyclidine Screen Urine Not Detected (Not Detect)
--- NOTE | 2024-06-25 16:14 | HO.PSYADMNOT ---
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 The patient was seen by the care team and apparently her mental status has changed in the last weeks. She was also assessed by the medical team and they found out a UTI and was started on antibiotics. On the intake interview the patient was very pleasant cooperative, she was unable to understand why she was brought to the emergency room, she stated that she is feeling fine, she admitted that she has chronic UTI and she stated that sometimes she forgets sporadically. She was unable to provide any major information. She was very cordial but looks confused. She was able to understand Rojas warning and she signed herself into the facility. She wants to have treatment. We will try to gather more collateral information. Apparently, as per the crisis team, the patient was pleasant and cooperative and she become very agitated and angry when her daughter came into the emergency room. Past Psychiatric History: The patient is a very poor historian but apparently she has never had psychiatric treatment. She has never been admitted into the hospital no history of substance abuse. Medical Evaluation Reviewed: Yes [facility] Medical History Alzheimer disease Anxiety Left bundle branch block Paroxysmal atrial fibrillation Vitamin D deficiency Microscopic hematuria Hypothyroidism HTN (hypertension) Osteoarthritis Surgical History H/O colonoscopy History of laparoscopy History of total abdominal hysterectomy Diagnostics Vital Signs (24Hr): Vital Signs - 24 hr 06/24/24 20:23 06/24/24 22:35 06/25/24 00:10 Temperature 98.3 F 98.3 F 98.3 F Pulse Rate 73 65 69 Respiratory Rate 18 16 16 Blood Pressure 145/70 H 175/86 H 121/57 L Pulse Oximetry 96 98 94 Oxygen Delivery Method Room Air Room Air Room Air 06/25/24 06:00 06/25/24 08:41 06/25/24 08:42 Temperature 97.9 F Pulse Rate 58 Respiratory Rate 18 18 Blood Pressure 157/63 H 157/63 H Pulse Oximetry 97 Oxygen Delivery Method Room Air 06/25/24 08:43 06/25/24 14:57 Temperature 96.9 F Pulse Rate 70 62 Respiratory Rate 17 Blood Pressure 157/63 H 163/72 H Pulse Oximetry 99 Oxygen Delivery Method Room Air BMI result Body Mass Index 18.7 Labs 06/24/24 21:35 06/24/24 21:35 Labs: Laboratory Results - last 48 hr 06/24/24 06/25/24 21:35 12:31 WBC 10.0 RBC 4.32 Hgb 13.8 Hct 39.9 MCV 92.4 MCH 31.9 MCHC 34.6 RDW 12.8 Plt Count 303 MPV 9.8 Immature Gran % (Auto) 0.5 H Neut % (Auto) 75.1 H Lymph % (Auto) 13.6 L [place] % (Auto) 9.9 Eos % (Auto) 0.6 Baso % (Auto) 0.3 Lymph # (Auto) 1.4 [place] # (Auto) 1.0 Eos # (Auto) 0.1 Baso # (Auto) 0.0 Abs Immat Gran (auto) 0.05 H Absolute Neuts (auto) 7.5 Absolute Nucleated RBC 0.000 Nucleated RBC % (auto) 0.0 Sodium 141 Potassium 3.8 Chloride 106 Carbon Dioxide 28 Anion Gap 11 L BUN 17 H Creatinine 0.81 Estim Creat Clear Calc 32.9 Estimated GFR > 60 Random Glucose 103 Calcium 9.4 Total Bilirubin 0.3 AST 14 ALT 14 Alkaline Phosphatase 47 Total Protein 6.2 L Albumin 3.9 TSH 0.15 L Free T4 1.54 Urine Color Yellow Urine Appearance Clear Urine pH 6.5 Ur Specific [place] 1.015 Urine Protein Negative Urine Glucose (UA) Negative Urine Ketones Negative Urine Blood Negative Urine Nitrite Negative Ur Leukocyte Esterase Moderate (2+) H Urine RBC 0-2 Urine WBC 11-20 H Ur Squamous Epith Cells 0-2 Urine Bacteria None Seen Hyaline Casts 0-2 Urine Opiates Screen Not Detected Not Detected Ur Buprenorphine Scrn Not Detected Not Detected Ur Oxycodone Screen Not Detected Not Detected Urine Methadone Screen Not Detected Not Detected Urine Fentanyl Screen Not Detected Not Detected Ur Barbiturates Screen Not Detected Not Detected Ur Phencyclidine Scrn Not Detected Not Detected Ur Amphetamines Screen Not Detected Not Detected U Benzodiazepines Scrn Not Detected Not Detected Urine Cocaine Screen Not Detected Not Detected U Marijuana (THC) Screen Not Detected Not Detected Meds/Allergies Meds Home Medications ?Medication ?Instructions ?Recorded ?Confirmed ?Type amlodipine 5 mg tablet 5 mg PO DAILY 06/24/24 06/25/24 History donepezil 5 mg tablet 5 mg PO DAILY 06/24/24 06/25/24 History sertraline 25 mg tablet 25 mg PO DAILY 06/25/24 06/25/24 History Allergies Allergies Allergy/AdvReac Type Severity Reaction Status Date / Time codeine [CODEINE] Allergy Unknown SEVERE Verified 06/24/24 20:23 VOMITING, stomach upset aspirin Allergy nausea Verified 06/24/24 20:23 demerol Allergy Nausea Uncoded 06/24/24 20:23 Mental Status Exam Mental Status Exam Patient Appearance: Appropriate Patient Orientation: Person and Situation Level of Consciousness: Awake and Appropriate Patient Behavior: Appropriate and Passive Mood Description: Calm Affect Description: Constricted Patient Cognition Impaired: Yes Ability to Follow Directions: Good Speech Pattern: Clear Hallucinations: None Delusions: Ideas of Reference Thought Process: Distracted and Slowed Thinking Thought Content: positive for [place] and positive for Poverty of Content Judgement: Poor Assessment & Plan Assessment & Plan (1) Mood disorder: Status: Acute Code(s): F39 - Unspecified mood [affective] disorder (2) Alzheimer disease: Status: Acute Code(s): G30.9 - Alzheimer's disease, unspecified; F02.80 - Dementia in other diseases classified elsewhere, unspecified severity, without behavioral disturbance, psychotic disturbance, mood disturbance, and anxiety (3) HTN (hypertension): Status: Acute Code(s): I10 - Essential (primary) hypertension (4) Recurrent UTI (urinary tract infection): Status: Acute Code(s): N39.0 - Urinary tract infection, site not specified Plan The patient is an elderly female with no prior psychiatric history diagnosed with Alzheimer's treated already on Aricept who was brought to our emergency room in the context of exacerbation of confusion, irritability and disorganized behavior. While she was in the emergency room she was diagnosed with a UTI. The patient is a very poor historian unable to provide more details. According to the med rec, the patient was already started on Aricept 5 mg by her primary care physician. Plan 1. Gather collateral information. 2. The patient will be on 5 minute checks for the next 24 hours and later on, if the patient is able to contract for safety to 50 minute checks. 3. Continue with Aricept. 4. Continue with antibiotics for UTI. 5. Blood work for tomorrow. 6. Reassessment with results Patient educated on: diagnosis Reason for continued inpatient stay Substantial Risk for: inability to function, rapid decompensation and med/psych decompensation Statement Statement: I have reviewed the history and physical and performed a pertinent examination on my patient. No changes have occurred unless specified. If the History and Physical was not performed prior to admission, the Hospitalist's service will be consulted for completing the admission physical. Time Spent With Patient Time: Total time managing care of this patient today __45__ minutes.
[2024-06-25] MEDS: Ondansetron ODT 4 MG TAB.RAPDIS TRANSLINGU (16:37)
--- NOTE | 2024-06-25 16:55 | PC.ADMIT ---
Patient was admitted to the unit from the ED POD at 14:50 on a CV with Unspecified Anxiety and Alzheimer Disease. Patient was admitted to the ER secondary to increased agitation towards family at home. Patient's daughter Jasiel (whose also the patient's HCP), reported that the patient had recently been started on Aricept, but since then the aggression/agitation has only become worse; yelling, cursing and posturing at family members. While in the ED, patient's labs showed positive UTI and he was started on Ceftin abx. Upon the admission assessment, patient has been pleasant, calm and cooperative. She is A&Ox3, limited insight into her situation with some short term memory impairments noted. I just came in because I was having some GI upset . She also reports her is a current Pharmacist here in the hospital and that she lives with him at home (patient's has been for 8 years and she currently lives home alone with kids frequently checking on her). Patient denies depression/anxiety, SI/HI/AVH and has not exhibited any aggressive behavior towards staff since being admitted onto our unit. She is independent with ADL's/ambulation, vitals obtained and skin check completed with another nurse (old bruise noted on pt's upper chest and left forearm, skin otherwise is warm, dry and intact). Patient has been placed on 5 minute checks at this time.
--- NOTE | 2024-06-25 17:46 | PC.NURSE ---
Upon admission, patient initially agreed to receive the Influenza vaccine, later in the evening, patient reported increased nausea and feeling like I'm going to throw up . Patient feels it's best to hold off on the vaccine at this time.
[2024-06-25] MEDS: QUEtiapine Fumarate 25 MG TABLET PO (20:10)
[2024-06-25] MEDS: traZODone HCL 50 MG TABLET PO (20:11)
[2024-06-25] MEDS: Magnesium Hydrox/Alum Hydrox 30 ML ORAL.SUSP PO (20:42)
[2024-06-26] MEDS: Levothyroxine Sodium 100 MCG TABLET PO (06:19)
[2024-06-26 08:18] VITALS: BP 132/62; PULSE 70; RESP 18; TEMP 36.1; O2SAT 97
[2024-06-26] MEDS: Metoprolol Succinate ER 25 MG TAB.ER.24H 75 MG PO (08:36)
[2024-06-26] MEDS: cefuroxime axetiL 250 MG TABLET PO ×2 (08:37→20:10)
[2024-06-26] MEDS: Apixaban 2.5 MG TABLET PO ×2 (08:37→20:10)
[2024-06-26] MEDS: amLODIPine Besylate 5 MG TABLET PO (08:37)
[2024-06-26] MEDS: Donepezil HCl 5 MG TABLET PO (08:37)
[2024-06-26 09:04] LABS: Alanine Aminotransferase 14 U/L (0-31); Albumin Level 3.9 g/dL (3.5-5.0); Alkaline Phosphatase 43 U/L (39-117); Anion Gap 9 (12-20); Aspartate Amino Transferase 15 U/L (5-31); Bilirubin Total 0.6 mg/dL (0.0-1.0); Blood Urea Nitrogen 13 mg/dL (9-16); Calcium 9.6 mg/dL (8.4-10.2); Carbon Dioxide 31 mmol/L (22-29); Chloride 107 mmol/L (96-108); Cholesterol 196 mg/dL (<200); Creatinine Clr Calc Pharmacy 32.9; Estimated Glomerular Filt Rate > 60; Glucose Fasting 88 mg/dL (60-99); HDL Cholesterol 58 mg/dL (>40); LDL Cholesterol Calculated 117 mg/dL (<100); Potassium 3.6 mmol/L (3.3-5.1); Sodium 143 mmol/L (135-145); Triglycerides 109 mg/dL (<150)
--- NOTE | 2024-06-26 11:13 | HO.PSYCHPN ---
Subjective Subjective Date of Service: 06/26/24 Reason For Visit: AMS Interim History: Patient's case reviewed with nursing staff chart reviewed patient seen. Patient has not been combative she is at times perplexed able to discuss that she lives in [place] intermittently focused on the fact that her still works here response to some degree of re orientation. Being treated for UTI continues on Aricept Mental Status Exam Mental Status Exam Patient Appearance: Appropriate Patient Orientation: Person and Situation Level of Consciousness: Awake and Appropriate Patient Behavior: Appropriate and Passive Mood Description: Calm Affect Description: Constricted Patient Cognition Impaired: Yes Ability to Follow Directions: Good Speech Pattern: Clear Hallucinations: None Delusions: Ideas of Reference Thought Process: Distracted and Slowed Thinking Thought Content: positive for [place] and positive for Poverty of Content Judgement: Poor Judgement and Insight: Patient can not really explain how she came to the hospital what were the events she does know that she is at [facility] not combative during examination some intermittent difficulty with orientation preoccupied with the fact that her is still alive when in fact he has been a years able to relate that she has had urinary frequency Diagnostics Vital Signs (24Hr): Vital Signs - 24 hr 06/25/24 14:57 06/25/24 20:00 06/26/24 08:18 Temperature 96.9 F 97.4 F 96.9 F Pulse Rate 62 68 70 Respiratory Rate 17 18 18 Blood Pressure 163/72 H 156/80 H 132/62 Pulse Oximetry 99 98 97 Oxygen Delivery Method Room Air Room Air Room Air BMI result Body Mass Index 18.7 Labs 06/24/24 21:35 06/26/24 08:32 Labs: Laboratory Results - last 48 hr 06/24/24 06/25/24 06/26/24 21:35 12:31 08:32 WBC 10.0 RBC 4.32 Hgb 13.8 Hct 39.9 MCV 92.4 MCH 31.9 MCHC 34.6 RDW 12.8 Plt Count 303 MPV 9.8 Immature Gran % (Auto) 0.5 H Neut % (Auto) 75.1 H Lymph % (Auto) 13.6 L [place] % (Auto) 9.9 Eos % (Auto) 0.6 Baso % (Auto) 0.3 Lymph # (Auto) 1.4 [place] # (Auto) 1.0 Eos # (Auto) 0.1 Baso # (Auto) 0.0 Abs Immat Gran (auto) 0.05 H Absolute Neuts (auto) 7.5 Absolute Nucleated RBC 0.000 Nucleated RBC % (auto) 0.0 Sodium 141 143 Potassium 3.8 3.6 Chloride 106 107 Carbon Dioxide 28 31 H Anion Gap 11 L 9 L BUN 17 H 13 Creatinine 0.81 0.81 Estim Creat Clear Calc 32.9 32.9 Estimated GFR > 60 > 60 Random Glucose 103 Fasting Glucose 88 Calcium 9.4 9.6 Total Bilirubin 0.3 0.6 AST 14 15 ALT 14 14 Alkaline Phosphatase 47 43 Total Protein 6.2 L 6.0 L Albumin 3.9 3.9 Triglycerides 109 Cholesterol 196 LDL Cholesterol, Calc 117 H HDL Cholesterol 58 TSH 0.15 L Free T4 1.54 Urine Color Yellow Urine Appearance Clear Urine pH 6.5 Ur Specific [place] 1.015 Urine Protein Negative Urine Glucose (UA) Negative Urine Ketones Negative Urine Blood Negative Urine Nitrite Negative Ur Leukocyte Esterase Moderate (2+) H Urine RBC 0-2 Urine WBC 11-20 H Ur Squamous Epith Cells 0-2 Urine Bacteria None Seen Hyaline Casts 0-2 Urine Opiates Screen Not Detected Not Detected Ur Buprenorphine Scrn Not Detected Not Detected Ur Oxycodone Screen Not Detected Not Detected Urine Methadone Screen Not Detected Not Detected Urine Fentanyl Screen Not Detected Not Detected Ur Barbiturates Screen Not Detected Not Detected Ur Phencyclidine Scrn Not Detected Not Detected Ur Amphetamines Screen Not Detected Not Detected U Benzodiazepines Scrn Not Detected Not Detected Urine Cocaine Screen Not Detected Not Detected U Marijuana (THC) Screen Not Detected Not Detected Medications Medications Current Medications Acetaminophen (Acetaminophen 325 Mg Tablet) 650 mg PO Q6H PRN PRN Reason: Headache/Pain Mild Scale (1-3) Al Hydroxide/Mg Hydroxide (Magnesium Hydrox/Alum Hydrox 30 Ml Oral.Susp) 30 ml PO Q6H PRN PRN Reason: Heartburn/Nausea Last Admin: 06/25/24 20:42 Dose: 30 ml Amlodipine Besylate (Amlodipine Besylate 5 Mg Tablet) 5 mg PO DAILY RAJINDER; Protocol Last Admin: 06/26/24 08:37 Dose: 5 mg Apixaban (Apixaban 2.5 Mg Tablet) 2.5 mg PO BID [facility] Last Admin: 06/26/24 08:37 Dose: 2.5 mg Cefuroxime Axetil (Cefuroxime Axetil 250 Mg Tablet) 250 mg PO BID [facility] Stop: 07/01/24 22:09 Last Admin: 06/26/24 08:37 Dose: 250 mg Donepezil HCl (Donepezil Hcl 5 Mg Tablet) 5 mg PO DAILY [facility] Last Admin: 06/26/24 08:37 Dose: 5 mg Levothyroxine Sodium (Levothyroxine Sodium 100 Mcg Tablet) 100 mcg PO DAILY@0600 [facility] Last Admin: 06/26/24 06:19 Dose: 100 mcg Magnesium Hydroxide (Milk Of Magnesia 30 Ml Oral.Susp) 30 ml PO DAILY PRN PRN Reason: Constipation Metoprolol Succinate (Metoprolol Succinate Er 25 Mg Tab.Er.24h) 75 mg PO DAILY [facility]; Protocol Last Admin: 06/26/24 08:36 Dose: 75 mg Ondansetron HCl (Ondansetron Odt 4 Mg Tab.Rapdis) 4 mg TRANSLINGU Q6H PRN PRN Reason: Nausea and Vomiting Last Admin: 06/25/24 16:37 Dose: 4 mg Quetiapine Fumarate (Quetiapine Fumarate 25 Mg Tablet) 25 mg PO BEDTIME [facility] Last Admin: 06/25/24 20:10 Dose: 25 mg Trazodone HCl (Trazodone Hcl 50 Mg Tablet) 50 mg PO BEDTIME PRN PRN Reason: sleep Last Admin: 06/25/24 20:11 Dose: 50 mg Trazodone HCl (Trazodone Hcl 50 Mg Tablet) 50 mg PO BEDTIME MRX1 PRN PRN Reason: Insomnia Allergies Allergies Allergy/AdvReac Type Severity Reaction Status Date / Time codeine [CODEINE] Allergy Unknown SEVERE Verified 06/24/24 20:23 VOMITING, stomach upset aspirin Allergy nausea Verified 06/24/24 20:23 demerol Allergy Nausea Uncoded 06/24/24 20:23 Assessment & Plan Assessment & Plan (1) Mood disorder: Status: Acute Code(s): F39 - Unspecified mood [affective] disorder (2) Alzheimer disease: Status: Acute Code(s): G30.9 - Alzheimer's disease, unspecified; F02.80 - Dementia in other diseases classified elsewhere, unspecified severity, without behavioral disturbance, psychotic disturbance, mood disturbance, and anxiety (3) HTN (hypertension): Status: Acute Code(s): I10 - Essential (primary) hypertension (4) Recurrent UTI (urinary tract infection): Status: Acute Code(s): N39.0 - Urinary tract infection, site not specified Plan The patient is an elderly female with no prior psychiatric history diagnosed with Alzheimer's treated already on Aricept who was brought to our emergency room in the context of exacerbation of confusion, irritability and disorganized behavior. While she was in the emergency room she was diagnosed with a UTI. The patient is a very poor historian unable to provide more details. According to the med rec, the patient was already started on Aricept 5 mg by her primary care physician. Plan 1. Gather collateral information. 2. The patient will be on 5 minute checks for the next 24 hours and later on, if the patient is able to contract for safety to 50 minute checks. 3. Continue with Aricept. 4. Continue with antibiotics for UTI. 5. Blood work for tomorrow. 6. Reassessment with results 06/26/2024 Patient seen seems to be somewhat calmer than preadmission some difficulty with orientation understanding events that transpired prior to hospitalization CBC chemistries generally unremarkable TSH decreased free T4 unremarkable unfortunately urine culture and sensitivity not helpful The patient does have a healthcare proxy Unclear if recent agitation mental status changes and behavioral difficulties including aggression relates to UTI can sometimes worsen cholinesterase inhibitor Patient educated on: diagnosis Informed Consent: further education needed Reason for continued inpatient stay Substantial Risk for: inability to function, rapid decompensation and med/psych decompensation Time Spent With Patient Time: Total time managing care of this patient today 25____ minutes.
[2024-06-26 20:00] VITALS: BP 150/70; PULSE 66; RESP 16; TEMP 36.6; O2SAT 97
[2024-06-26] MEDS: QUEtiapine Fumarate 25 MG TABLET PO (20:10)
[2024-06-26] MEDS: traZODone HCL 50 MG TABLET PO (20:46)
[2024-06-27] MEDS: Levothyroxine Sodium 100 MCG TABLET PO (06:36)
[2024-06-27 08:00] VITALS: BP 173/75; PULSE 64; RESP 18; TEMP 36.2; O2SAT 98
[2024-06-27] MEDS: Apixaban 2.5 MG TABLET PO ×2 (08:25→20:46)
[2024-06-27] MEDS: Metoprolol Succinate ER 25 MG TAB.ER.24H 75 MG PO (08:26)
[2024-06-27] MEDS: amLODIPine Besylate 5 MG TABLET PO (08:26)
[2024-06-27] MEDS: cefuroxime axetiL 250 MG TABLET PO ×2 (08:26→20:46)
[2024-06-27] MEDS: Donepezil HCl 5 MG TABLET PO (08:26)
[2024-06-27 20:00] VITALS: BP 161/70; PULSE 64; RESP 18; TEMP 36.6; O2SAT 95
[2024-06-27] MEDS: QUEtiapine Fumarate 25 MG TABLET PO (20:46)
[2024-06-27] MEDS: traZODone HCL 50 MG TABLET PO (20:47)
--- NOTE | 2024-06-27 22:51 | HO.PSYCHPN ---
Subjective Subjective Date of Service: 06/27/24 Reason For Visit: AMS Subjective Notes: Conditional Voluntary Healthcare Proxy: Yes Interim History: Patient calm cooperative future oriented not combative urine culture and sensitivity mixed michelle Mental Status Exam Mental Status Exam Patient Appearance: Appropriate Patient Orientation: Person and Situation Level of Consciousness: Awake and Appropriate Patient Behavior: Appropriate and Passive Mood Description: Calm Affect Description: Constricted Patient Cognition Impaired: Yes Ability to Follow Directions: Good Speech Pattern: Clear Hallucinations: None Delusions: Ideas of Reference Thought Process: Distracted and Slowed Thinking Thought Content: positive for [place] and positive for Poverty of Content Judgement: Poor Judgement and Insight: Patient can not really explain how she came to the hospital what were the events she does know that she is at [facility] not combative during examination some intermittent difficulty with orientation preoccupied with the fact that her is still alive when in fact he has been a years able to relate that she has had urinary frequency Diagnostics Vital Signs (24Hr): Vital Signs - 24 hr 06/27/24 08:00 06/27/24 20:00 Temperature 97.1 F 97.8 F Pulse Rate 64 64 Respiratory Rate 18 18 Blood Pressure 173/75 H 161/70 H Pulse Oximetry 98 95 Oxygen Delivery Method Room Air Room Air BMI result Body Mass Index 18.7 Labs 06/24/24 21:35 06/26/24 08:32 Labs: Laboratory Results - last 48 hr 06/26/24 08:32 Sodium 143 Potassium 3.6 Chloride 107 Carbon Dioxide 31 H Anion Gap 9 L BUN 13 Creatinine 0.81 Estim Creat Clear Calc 32.9 Estimated GFR > 60 Fasting Glucose 88 Calcium 9.6 Total Bilirubin 0.6 AST 15 ALT 14 Alkaline Phosphatase 43 Total Protein 6.0 L Albumin 3.9 Triglycerides 109 Cholesterol 196 LDL Cholesterol, Calc 117 H HDL Cholesterol 58 Medications Medications Current Medications Acetaminophen (Acetaminophen 325 Mg Tablet) 650 mg PO Q6H PRN PRN Reason: Headache/Pain Mild Scale (1-3) Al Hydroxide/Mg Hydroxide (Magnesium Hydrox/Alum Hydrox 30 Ml Oral.Susp) 30 ml PO Q6H PRN PRN Reason: Heartburn/Nausea Last Admin: 06/25/24 20:42 Dose: 30 ml Amlodipine Besylate (Amlodipine Besylate 5 Mg Tablet) 5 mg PO DAILY RAJINDER; Protocol Last Admin: 06/27/24 08:26 Dose: 5 mg Apixaban (Apixaban 2.5 Mg Tablet) 2.5 mg PO BID [facility] Last Admin: 06/27/24 20:46 Dose: 2.5 mg Cefuroxime Axetil (Cefuroxime Axetil 250 Mg Tablet) 250 mg PO BID [facility] Stop: 07/01/24 22:09 Last Admin: 06/27/24 20:46 Dose: 250 mg Donepezil HCl (Donepezil Hcl 5 Mg Tablet) 5 mg PO DAILY [facility] Last Admin: 06/27/24 08:26 Dose: 5 mg Levothyroxine Sodium (Levothyroxine Sodium 100 Mcg Tablet) 100 mcg PO DAILY@0600 [facility] Last Admin: 06/27/24 06:36 Dose: 100 mcg Magnesium Hydroxide (Milk Of Magnesia 30 Ml Oral.Susp) 30 ml PO DAILY PRN PRN Reason: Constipation Metoprolol Succinate (Metoprolol Succinate Er 25 Mg Tab.Er.24h) 75 mg PO DAILY [facility]; Protocol Last Admin: 06/27/24 08:26 Dose: 75 mg Ondansetron HCl (Ondansetron Odt 4 Mg Tab.Rapdis) 4 mg TRANSLINGU Q6H PRN PRN Reason: Nausea and Vomiting Last Admin: 06/25/24 16:37 Dose: 4 mg Quetiapine Fumarate (Quetiapine Fumarate 25 Mg Tablet) 25 mg PO BEDTIME [facility] Last Admin: 06/27/24 20:46 Dose: 25 mg Trazodone HCl (Trazodone Hcl 50 Mg Tablet) 50 mg PO BEDTIME PRN PRN Reason: sleep Last Admin: 06/27/24 20:47 Dose: 50 mg Trazodone HCl (Trazodone Hcl 50 Mg Tablet) 50 mg PO BEDTIME MRX1 PRN PRN Reason: Insomnia Last Admin: 06/26/24 20:46 Dose: 50 mg Allergies Allergies Allergy/AdvReac Type Severity Reaction Status Date / Time codeine [CODEINE] Allergy Unknown SEVERE Verified 06/24/24 20:23 VOMITING, stomach upset aspirin Allergy nausea Verified 06/24/24 20:23 demerol Allergy Nausea Uncoded 06/24/24 20:23 Assessment & Plan Assessment & Plan (1) Mood disorder: Status: Acute Code(s): F39 - Unspecified mood [affective] disorder (2) Alzheimer disease: Status: Acute Code(s): G30.9 - Alzheimer's disease, unspecified; F02.80 - Dementia in other diseases classified elsewhere, unspecified severity, without behavioral disturbance, psychotic disturbance, mood disturbance, and anxiety (3) HTN (hypertension): Status: Acute Code(s): I10 - Essential (primary) hypertension (4) Recurrent UTI (urinary tract infection): Status: Acute Code(s): N39.0 - Urinary tract infection, site not specified Plan The patient is an elderly female with no prior psychiatric history diagnosed with Alzheimer's treated already on Aricept who was brought to our emergency room in the context of exacerbation of confusion, irritability and disorganized behavior. While she was in the emergency room she was diagnosed with a UTI. The patient is a very poor historian unable to provide more details. According to the [facility] rec, the patient was already started on Aricept 5 mg by her primary care physician. Plan 1. Gather collateral information. 2. The patient will be on 5 minute checks for the next 24 hours and later on, if the patient is able to contract for safety to 50 minute checks. 3. Continue with Aricept. 4. Continue with antibiotics for UTI. 5. Blood work for tomorrow. 6. Reassessment with results 06/26/2024 Patient seen seems to be somewhat calmer than preadmission some difficulty with orientation understanding events that transpired prior to hospitalization CBC chemistries generally unremarkable TSH decreased free T4 unremarkable unfortunately urine culture and sensitivity not helpful The patient does have a healthcare proxy Unclear if recent agitation mental status changes and behavioral difficulties including aggression relates to UTI can sometimes worsen cholinesterase inhibitor 06/27/2024 Continue plan of care Reason for continued inpatient stay Substantial Risk for: inability to function and rapid decompensation Time Spent With Patient Time: Total time managing care of this patient today ____ minutes.
[2024-06-28] MEDS: Levothyroxine Sodium 100 MCG TABLET PO (06:20)
[2024-06-28 08:15] VITALS: BP 129/62; PULSE 70; RESP 15; TEMP 36.8; O2SAT 99
[2024-06-28] MEDS: amLODIPine Besylate 5 MG TABLET PO (08:17)
[2024-06-28] MEDS: Apixaban 2.5 MG TABLET PO ×2 (08:17→20:40)
[2024-06-28] MEDS: cefuroxime axetiL 250 MG TABLET PO ×2 (08:17→20:40)
[2024-06-28] MEDS: Metoprolol Succinate ER 25 MG TAB.ER.24H 75 MG PO (08:17)
[2024-06-28] MEDS: Donepezil HCl 5 MG TABLET PO (08:17)
--- NOTE | 2024-06-28 12:55 | P.PNPSI_ITS ---
Subjective Subjective Date of Service: 06/28/24 Reason For Visit: AMS Subjective Notes: Conditional Voluntary Interim History: The nursing staff reported the patient had been pleasant cooperative, slept well last night. She was recently started on Aricept and the staff noticed that she was more agitated. She slept well last night. Continue antibiotics for UTI. On interview the patient denies new symptoms she agreed to have another UA to monitor improvement of the UTI. Mental Status Exam Mental Status Exam Patient Appearance: Appropriate Patient Orientation: Person and Situation Level of Consciousness: Awake and Appropriate Patient Behavior: Guarded and Passive Mood Description: Withdrawn Affect Description: Constricted Patient Cognition Impaired: Yes Ability to Follow Directions: Good Speech Pattern: Clear Hallucinations: None Delusions: Not Present Thought Process: Distracted and Slowed Thinking Thought Content: positive for [place] Judgement: Fair Diagnostics Vital Signs (24Hr): Vital Signs - 24 hr 06/27/24 20:00 06/28/24 08:15 Temperature 97.8 F 98.2 F Pulse Rate 64 70 Respiratory Rate 18 15 Blood Pressure 161/70 H 129/62 Pulse Oximetry 95 99 Oxygen Delivery Method Room Air Room Air BMI result Body Mass Index 18.7 Labs 06/24/24 21:35 06/26/24 08:32 Medications Medications Current Medications Acetaminophen (Acetaminophen 325 Mg Tablet) 650 mg PO Q6H PRN PRN Reason: Headache/Pain Mild Scale (1-3) Al Hydroxide/Mg Hydroxide (Magnesium Hydrox/Alum Hydrox 30 Ml Oral.Susp) 30 ml PO Q6H PRN PRN Reason: Heartburn/Nausea Last Admin: 06/25/24 20:42 Dose: 30 ml Amlodipine Besylate (Amlodipine Besylate 5 Mg Tablet) 5 mg PO DAILY [facility]; Protocol Last Admin: 06/28/24 08:17 Dose: 5 mg Apixaban (Apixaban 2.5 Mg Tablet) 2.5 mg PO BID [facility] Last Admin: 06/28/24 08:17 Dose: 2.5 mg Cefuroxime Axetil (Cefuroxime Axetil 250 Mg Tablet) 250 mg PO BID [facility] Stop: 07/01/24 22:09 Last Admin: 06/28/24 08:17 Dose: 250 mg Donepezil HCl (Donepezil Hcl 5 Mg Tablet) 5 mg PO DAILY [facility] Last Admin: 06/28/24 08:17 Dose: 5 mg Levothyroxine Sodium (Levothyroxine Sodium 100 Mcg Tablet) 100 mcg PO DAILY@0600 [facility] Last Admin: 06/28/24 06:20 Dose: 100 mcg Magnesium Hydroxide (Milk Of Magnesia 30 Ml Oral.Susp) 30 ml PO DAILY PRN PRN Reason: Constipation Metoprolol Succinate (Metoprolol Succinate Er 25 Mg Tab.Er.24h) 75 mg PO DAILY [facility]; Protocol Last Admin: 06/28/24 08:17 Dose: 75 mg Ondansetron HCl (Ondansetron Odt 4 Mg Tab.Rapdis) 4 mg TRANSLINGU Q6H PRN PRN Reason: Nausea and Vomiting Last Admin: 06/25/24 16:37 Dose: 4 mg Quetiapine Fumarate (Quetiapine Fumarate 25 Mg Tablet) 25 mg PO BEDTIME [facility] Last Admin: 06/27/24 20:46 Dose: 25 mg Trazodone HCl (Trazodone Hcl 50 Mg Tablet) 50 mg PO BEDTIME PRN PRN Reason: sleep Last Admin: 06/27/24 20:47 Dose: 50 mg Trazodone HCl (Trazodone Hcl 50 Mg Tablet) 50 mg PO BEDTIME MRX1 PRN PRN Reason: Insomnia Last Admin: 06/26/24 20:46 Dose: 50 mg Allergies Allergies Allergy/AdvReac Type Severity Reaction Status Date / Time codeine [CODEINE] Allergy Unknown SEVERE Verified 06/24/24 20:23 VOMITING, stomach upset aspirin Allergy nausea Verified 06/24/24 20:23 demerol Allergy Nausea Uncoded 06/24/24 20:23 Assessment & Plan Assessment & Plan (1) Mood disorder: Status: Acute Code(s): F39 - Unspecified mood [affective] disorder (2) Alzheimer disease: Status: Acute Code(s): G30.9 - Alzheimer's disease, unspecified; F02.80 - Dementia in other diseases classified elsewhere, unspecified severity, without behavioral disturbance, psychotic disturbance, mood disturbance, and anxiety (3) HTN (hypertension): Status: Acute Code(s): I10 - Essential (primary) hypertension (4) Recurrent UTI (urinary tract infection): Status: Acute Code(s): N39.0 - Urinary tract infection, site not specified Plan The patient is an elderly female with no prior psychiatric history diagnosed with Alzheimer's treated already on Aricept who was brought to our emergency room in the context of exacerbation of confusion, irritability and disorganized behavior. While she was in the emergency room she was diagnosed with a UTI. The patient is a very poor historian unable to provide more details. According to the med rec, the patient was already started on Aricept 5 mg by her primary care physician. Plan 1. Gather collateral information. 2. The patient will be on 5 minute checks for the next 24 hours and later on, if the patient is able to contract for safety to 50 minute checks. 3. Continue with Aricept. 4. Continue with antibiotics for UTI. 5. Blood work for tomorrow. 6. Reassessment with results 7. New UA ordered on June 28 Reason for continued inpatient stay Substantial Risk for: inability to function, rapid decompensation and med/psych decompensation Time Spent With Patient Time: Total time managing care of this patient today __20__ minutes.
--- NOTE | 2024-06-28 13:33 | MHC.CLN ---
NUTRITION PATIENT WITH POTENTIAL RISK FOR NUTRITIONAL PROBLEM. BMI=18.7 WITH WEIGHT 96% OF IBW. WEIGHT HX SHOWS WEIGHT STABLE X 2 MONTHS. WEIGHT LOSS -9.4% X [address] TO FOLLOW UP FOR PO INTAKE.
[2024-06-28 13:49] LABS: Appearance Urine Clear; Color Urine Yellow; Glucose Urine UA Negative (Negative); Leukocyte Esterase Urine Small (1+) (Negative); Nitrite Urine Negative (Negative); PH 6.5 (5.0-9.0); Specific Gravity - Urine 1.015 (1.005-1.025); UMIC TRIGGER UACC YES; Urine Blood Negative (Negative); Urine Ketones Negative (Negative); Urine Protein Negative (Neg-Trace)
[2024-06-28 15:07] LABS: Bacteria Urine None Seen (None Seen); Hyaline Casts Urine 0-2 /LPF (0-2); RBC Urine 0-2 /HPF (0-2); Squamous Epithelial Cell Urine 0-2 /HPF (0-2); UACC Culture Trigger YES; WBC Urine 0-5 /HPF (0-5)
[2024-06-28 20:00] VITALS: BP 153/78; PULSE 92; RESP 16; TEMP 36.1; O2SAT 98
[2024-06-28] MEDS: QUEtiapine Fumarate 25 MG TABLET PO (20:40)
[2024-06-28] MEDS: traZODone HCL 50 MG TABLET PO (20:41)
[2024-06-29] MEDS: traZODone HCL 50 MG TABLET PO ×2 (01:02→20:31)
[2024-06-29] MEDS: Levothyroxine Sodium 100 MCG TABLET PO (06:20)
[2024-06-29 09:12] VITALS: BP 122/61; PULSE 76; RESP 18; TEMP 36.6; O2SAT 99
[2024-06-29] MEDS: Metoprolol Succinate ER 25 MG TAB.ER.24H 75 MG PO (09:14)
[2024-06-29] MEDS: Apixaban 2.5 MG TABLET PO ×2 (09:14→20:31)
[2024-06-29] MEDS: cefuroxime axetiL 250 MG TABLET PO ×2 (09:14→20:31)
[2024-06-29] MEDS: amLODIPine Besylate 5 MG TABLET PO (09:15)
[2024-06-29] MEDS: Donepezil HCl 5 MG TABLET PO (09:20)
--- NOTE | 2024-06-29 17:01 | HO.PSYCHPN ---
Subjective Subjective Date of Service: 06/29/24 Reason For Visit: AMS Subjective Notes: Conditional Voluntary Interim History: The nursing staff reported the patient had been confused but pleasant, she slept 6 hours she has participate in groups. The social services technician reported that she spoke with her daughter and they were thinking of placement on assisted living facility. She was diagnosed with dementia 11/18/[address] Walters neurology. The occupational therapist did a [place] test and she scored 19/30 but her Luis E test was over 4. We have decided to increase Aricept to 10 mg p.o. q.h.s.. On interview the patient reports that she is feeling better, it is clear that the patient was on delirium due to UTI now that her urine test came back normal after antibiotics Mental Status Exam Mental Status Exam Patient Appearance: Appropriate Patient Orientation: Person and Situation Level of Consciousness: Awake and Appropriate Patient Behavior: Guarded and Passive Mood Description: Withdrawn Affect Description: Constricted Patient Cognition Impaired: Yes Ability to Follow Directions: Good Speech Pattern: Clear Hallucinations: None Delusions: Not Present Thought Process: Distracted and Slowed Thinking Thought Content: positive for [place] and positive for Poverty of Content Judgement: Fair Diagnostics Vital Signs (24Hr): Vital Signs - 24 hr 06/28/24 20:00 06/29/24 09:12 Temperature 96.9 F 97.8 F Pulse Rate 92 76 Respiratory Rate 16 18 Blood Pressure 153/78 H 122/61 Pulse Oximetry 98 99 Oxygen Delivery Method Room Air Room Air BMI result Body Mass Index 18.7 Labs 06/24/24 21:35 06/26/24 08:32 Labs: Laboratory Results - last 48 hr 06/28/24 13:00 Urine Color Yellow Urine Appearance Clear Urine pH 6.5 Ur Specific [place] 1.015 Urine Protein Negative Urine Glucose (UA) Negative Urine Ketones Negative Urine Blood Negative Urine Nitrite Negative Ur Leukocyte Esterase Small (1+) H Urine RBC 0-2 Urine WBC 0-5 Ur Squamous Epith Cells 0-2 Urine Bacteria None Seen Hyaline Casts 0-2 Medications Medications Current Medications Acetaminophen (Acetaminophen 325 Mg Tablet) 650 mg PO Q6H PRN PRN Reason: Headache/Pain Mild Scale (1-3) Al Hydroxide/Mg Hydroxide (Magnesium Hydrox/Alum Hydrox 30 Ml Oral.Susp) 30 ml PO Q6H PRN PRN Reason: Heartburn/Nausea Last Admin: 06/25/24 20:42 Dose: 30 ml Amlodipine Besylate (Amlodipine Besylate 5 Mg Tablet) 5 mg PO DAILY [facility]; Protocol Last Admin: 06/29/24 09:15 Dose: 5 mg Apixaban (Apixaban 2.5 Mg Tablet) 2.5 mg PO BID [facility] Last Admin: 06/29/24 09:14 Dose: 2.5 mg Cefuroxime Axetil (Cefuroxime Axetil 250 Mg Tablet) 250 mg PO BID [facility] Stop: 07/01/24 22:09 Last Admin: 06/29/24 09:14 Dose: 250 mg Donepezil HCl (Donepezil Hcl 10 Mg Tablet) 10 mg PO DAILY [facility] Levothyroxine Sodium (Levothyroxine Sodium 100 Mcg Tablet) 100 mcg PO DAILY@0600 [facility] Last Admin: 06/29/24 06:20 Dose: 100 mcg Magnesium Hydroxide (Milk Of Magnesia 30 Ml Oral.Susp) 30 ml PO DAILY PRN PRN Reason: Constipation Metoprolol Succinate (Metoprolol Succinate Er 25 Mg Tab.Er.24h) 75 mg PO DAILY [facility]; Protocol Last Admin: 06/29/24 09:14 Dose: 75 mg Ondansetron HCl (Ondansetron Odt 4 Mg Tab.Rapdis) 4 mg TRANSLINGU Q6H PRN PRN Reason: Nausea and Vomiting Last Admin: 06/25/24 16:37 Dose: 4 mg Quetiapine Fumarate (Quetiapine Fumarate 25 Mg Tablet) 25 mg PO BEDTIME [facility] Last Admin: 06/28/24 20:40 Dose: 25 mg Trazodone HCl (Trazodone Hcl 50 Mg Tablet) 50 mg PO BEDTIME PRN PRN Reason: sleep Last Admin: 06/28/24 20:41 Dose: 50 mg Trazodone HCl (Trazodone Hcl 50 Mg Tablet) 50 mg PO BEDTIME MRX1 PRN PRN Reason: Insomnia Last Admin: 06/29/24 01:02 Dose: 50 mg Allergies Allergies Allergy/AdvReac Type Severity Reaction Status Date / Time codeine [CODEINE] Allergy Unknown SEVERE Verified 06/24/24 20:23 VOMITING, stomach upset aspirin Allergy nausea Verified 06/24/24 20:23 demerol Allergy Nausea Uncoded 06/24/24 20:23 Assessment & Plan Assessment & Plan (1) Mood disorder: Status: Acute Code(s): F39 - Unspecified mood [affective] disorder (2) Alzheimer disease: Status: Acute Code(s): G30.9 - Alzheimer's disease, unspecified; F02.80 - Dementia in other diseases classified elsewhere, unspecified severity, without behavioral disturbance, psychotic disturbance, mood disturbance, and anxiety (3) HTN (hypertension): Status: Acute Code(s): I10 - Essential (primary) hypertension (4) Recurrent UTI (urinary tract infection): Status: Acute Code(s): N39.0 - Urinary tract infection, site not specified Plan The patient is an elderly female with no prior psychiatric history diagnosed with Alzheimer's treated already on Aricept who was brought to our emergency room in the context of exacerbation of confusion, irritability and disorganized behavior. While she was in the emergency room she was diagnosed with a UTI. The patient is a very poor historian unable to provide more details. According to the med rec, the patient was already started on Aricept 5 mg by her primary care physician. Plan 1. Gather collateral information. 2. The patient will be on 5 minute checks for the next 24 hours and later on, if the patient is able to contract for safety to 50 minute checks. 3. Continue with Aricept. 4. Continue with antibiotics for UTI. 5. Blood work for tomorrow. 6. Reassessment with results 7. New UA ordered on June 28 Reason for continued inpatient stay Substantial Risk for: inability to function, rapid decompensation and med/psych decompensation Time Spent With Patient Time: Total time managing care of this patient today _20___ minutes.
[2024-06-29 20:00] VITALS: BP 149/69; PULSE 88; RESP 18; TEMP 36.1; O2SAT 98
[2024-06-29] MEDS: QUEtiapine Fumarate 25 MG TABLET PO (20:31)
[2024-06-30] MEDS: Levothyroxine Sodium 100 MCG TABLET PO (06:19)
[2024-06-30 08:00] VITALS: BP 153/66; PULSE 66; RESP 16; TEMP 36.6; O2SAT 96
[2024-06-30] MEDS: amLODIPine Besylate 5 MG TABLET PO (08:41)
[2024-06-30] MEDS: Apixaban 2.5 MG TABLET PO ×2 (08:42→20:00)
[2024-06-30] MEDS: cefuroxime axetiL 250 MG TABLET PO ×2 (08:42→20:00)
[2024-06-30] MEDS: Donepezil HCl 10 MG TABLET PO (08:42)
[2024-06-30] MEDS: Metoprolol Succinate ER 25 MG TAB.ER.24H 75 MG PO (08:42)
--- NOTE | 2024-06-30 16:30 | P.PNPSI_ITS ---
Subjective Subjective Date of Service: 06/30/24 Reason For Visit: AMS Subjective Notes: Conditional Voluntary Interim History: The nursing staff reported the patient has a brighter affect she was been eating well. The professor of social work reported that we are going to have a family meeting tomorrow with the daughter. On interview the patient is pleasant cooperative less confused now that she has with antibiotics. Mental Status Exam Mental Status Exam Patient Appearance: Appropriate Patient Orientation: Person and Situation Level of Consciousness: Awake and Appropriate Patient Behavior: Guarded and Passive Mood Description: Calm Affect Description: Constricted Patient Cognition Impaired: Yes Ability to Follow Directions: Good Speech Pattern: Clear Hallucinations: None Delusions: Not Present Thought Process: Distracted and Slowed Thinking Thought Content: positive for [place] and positive for Poverty of Content Judgement: Fair Diagnostics Vital Signs (24Hr): Vital Signs - 24 hr 06/29/24 20:00 06/30/24 08:00 Temperature 97 F 97.9 F Pulse Rate 88 66 Respiratory Rate 18 16 Blood Pressure 149/69 H 153/66 H Pulse Oximetry 98 96 Oxygen Delivery Method Room Air Room Air BMI result Body Mass Index 18.7 Labs 06/24/24 21:35 06/26/24 08:32 Medications Medications Current Medications Acetaminophen (Acetaminophen 325 Mg Tablet) 650 mg PO Q6H PRN PRN Reason: Headache/Pain Mild Scale (1-3) Al Hydroxide/Mg Hydroxide (Magnesium Hydrox/Alum Hydrox 30 Ml Oral.Susp) 30 ml PO Q6H PRN PRN Reason: Heartburn/Nausea Last Admin: 06/25/24 20:42 Dose: 30 ml Amlodipine Besylate (Amlodipine Besylate 5 Mg Tablet) 5 mg PO DAILY [facility]; Protocol Last Admin: 06/30/24 08:41 Dose: 5 mg Apixaban (Apixaban 2.5 Mg Tablet) 2.5 mg PO BID [facility] Last Admin: 06/30/24 08:42 Dose: 2.5 mg Cefuroxime Axetil (Cefuroxime Axetil 250 Mg Tablet) 250 mg PO BID [facility] Stop: 07/01/24 22:09 Last Admin: 06/30/24 08:42 Dose: 250 mg Donepezil HCl (Donepezil Hcl 10 Mg Tablet) 10 mg PO DAILY [facility] Last Admin: 06/30/24 08:42 Dose: 10 mg Levothyroxine Sodium (Levothyroxine Sodium 100 Mcg Tablet) 100 mcg PO DAILY@0600 [facility] Last Admin: 06/30/24 06:19 Dose: 100 mcg Magnesium Hydroxide (Milk Of Magnesia 30 Ml Oral.Susp) 30 ml PO DAILY PRN PRN Reason: Constipation Metoprolol Succinate (Metoprolol Succinate Er 25 Mg Tab.Er.24h) 75 mg PO DAILY [facility]; Protocol Last Admin: 06/30/24 08:42 Dose: 75 mg Ondansetron HCl (Ondansetron Odt 4 Mg Tab.Rapdis) 4 mg TRANSLINGU Q6H PRN PRN Reason: Nausea and Vomiting Last Admin: 06/25/24 16:37 Dose: 4 mg Quetiapine Fumarate (Quetiapine Fumarate 25 Mg Tablet) 25 mg PO BEDTIME [facility] Last Admin: 06/29/24 20:31 Dose: 25 mg Trazodone HCl (Trazodone Hcl 50 Mg Tablet) 50 mg PO BEDTIME PRN PRN Reason: sleep Last Admin: 06/28/24 20:41 Dose: 50 mg Trazodone HCl (Trazodone Hcl 50 Mg Tablet) 50 mg PO BEDTIME MRX1 PRN PRN Reason: Insomnia Last Admin: 06/29/24 20:31 Dose: 50 mg Allergies Allergies Allergy/AdvReac Type Severity Reaction Status Date / Time codeine [CODEINE] Allergy Unknown SEVERE Verified 06/24/24 20:23 VOMITING, stomach upset aspirin Allergy nausea Verified 06/24/24 20:23 demerol Allergy Nausea Uncoded 06/24/24 20:23 Assessment & Plan Assessment & Plan (1) Mood disorder: Status: Acute Code(s): F39 - Unspecified mood [affective] disorder (2) Alzheimer disease: Status: Acute Code(s): G30.9 - Alzheimer's disease, unspecified; F02.80 - Dementia in other diseases classified elsewhere, unspecified severity, without behavioral disturbance, psychotic disturbance, mood disturbance, and anxiety (3) HTN (hypertension): Status: Acute Code(s): I10 - Essential (primary) hypertension (4) Recurrent UTI (urinary tract infection): Status: Acute Code(s): N39.0 - Urinary tract infection, site not specified Plan The patient is an elderly female with no prior psychiatric history diagnosed with Alzheimer's treated already on Aricept who was brought to our emergency room in the context of exacerbation of confusion, irritability and disorganized behavior. While she was in the emergency room she was diagnosed with a UTI. The patient is a very poor historian unable to provide more details. According to the med rec, the patient was already started on Aricept 5 mg by her primary care physician. Plan 1. Gather collateral information. 2. The patient will be on 5 minute checks for the next 24 hours and later on, if the patient is able to contract for safety to 50 minute checks. 3. Continue with Aricept. 4. Continue with antibiotics for UTI. 5. Blood work for tomorrow. 6. Reassessment with results 7. New UA ordered on June 28 Reason for continued inpatient stay Substantial Risk for: inability to function, rapid decompensation and med/psych decompensation Time Spent With Patient Time: Total time managing care of this patient today _20___ minutes.
[2024-06-30 20:00] VITALS: BP 193/78; PULSE 70; RESP 16; TEMP 36.6; O2SAT 99
[2024-06-30] MEDS: QUEtiapine Fumarate 25 MG TABLET PO (20:00)
[2024-06-30] MEDS: traZODone HCL 50 MG TABLET PO (21:13)
[2024-07-01] MEDS: traZODone HCL 50 MG TABLET PO (00:18)
[2024-07-01] MEDS: Levothyroxine Sodium 100 MCG TABLET PO (05:56)
[2024-07-01 08:05] VITALS: BP 128/68; PULSE 82; RESP 18; TEMP 36.6; O2SAT 97
[2024-07-01] MEDS: Donepezil HCl 10 MG TABLET PO (08:11)
[2024-07-01] MEDS: Apixaban 2.5 MG TABLET PO ×2 (08:11→19:28)
[2024-07-01] MEDS: cefuroxime axetiL 250 MG TABLET PO ×2 (08:11→19:28)
[2024-07-01] MEDS: amLODIPine Besylate 5 MG TABLET PO (08:11)
[2024-07-01] MEDS: Metoprolol Succinate ER 25 MG TAB.ER.24H 75 MG PO (08:12)
[2024-07-01 10:43] VITALS: BMI 18.6
--- NOTE | 2024-07-01 16:35 | HO.PSYCHPN ---
Subjective Subjective Date of Service: 07/01/24 Reason For Visit: AMS Subjective Notes: Conditional Voluntary Interim History: The nursing staff reported the patient had been pleasant cooperative. The secondary social studies teacher reported that we are going to have a family meeting today. She required trazodone last night poor sleep. On interview the patient denies new symptoms we are going to increase Seroquel at night. Mental Status Exam Mental Status Exam Patient Appearance: Appropriate Patient Orientation: Person and Situation Level of Consciousness: Awake and Appropriate Patient Behavior: Guarded and Passive Mood Description: Calm Affect Description: Constricted Patient Cognition Impaired: Yes Ability to Follow Directions: Good Speech Pattern: Clear Hallucinations: None Delusions: Not Present Thought Process: Distracted and Slowed Thinking Thought Content: positive for [place] and positive for Poverty of Content Judgement: Fair Diagnostics Vital Signs (24Hr): Vital Signs - 24 hr 06/30/24 20:00 07/01/24 08:05 Temperature 98 F 97.9 F Pulse Rate 70 82 Respiratory Rate 16 18 Blood Pressure 193/78 H 128/68 Pulse Oximetry 99 97 Oxygen Delivery Method Room Air Room Air BMI result Body Mass Index 18.6 Labs 06/24/24 21:35 06/26/24 08:32 Medications Medications Current Medications Acetaminophen (Acetaminophen 325 Mg Tablet) 650 mg PO Q6H PRN PRN Reason: Headache/Pain Mild Scale (1-3) Al Hydroxide/Mg Hydroxide (Magnesium Hydrox/Alum Hydrox 30 Ml Oral.Susp) 30 ml PO Q6H PRN PRN Reason: Heartburn/Nausea Last Admin: 06/25/24 20:42 Dose: 30 ml Amlodipine Besylate (Amlodipine Besylate 5 Mg Tablet) 5 mg PO DAILY [facility]; Protocol Last Admin: 07/01/24 08:11 Dose: 5 mg Apixaban (Apixaban 2.5 Mg Tablet) 2.5 mg PO BID [facility] Last Admin: 07/01/24 08:11 Dose: 2.5 mg Cefuroxime Axetil (Cefuroxime Axetil 250 Mg Tablet) 250 mg PO BID [facility] Stop: 07/01/24 22:09 Last Admin: 07/01/24 08:11 Dose: 250 mg Donepezil HCl (Donepezil Hcl 10 Mg Tablet) 10 mg PO DAILY [facility] Last Admin: 07/01/24 08:11 Dose: 10 mg Levothyroxine Sodium (Levothyroxine Sodium 100 Mcg Tablet) 100 mcg PO DAILY@0600 [facility] Last Admin: 07/01/24 05:56 Dose: 100 mcg Magnesium Hydroxide (Milk Of Magnesia 30 Ml Oral.Susp) 30 ml PO DAILY PRN PRN Reason: Constipation Metoprolol Succinate (Metoprolol Succinate Er 25 Mg Tab.Er.24h) 75 mg PO DAILY [facility]; Protocol Last Admin: 07/01/24 08:12 Dose: 75 mg Ondansetron HCl (Ondansetron Odt 4 Mg Tab.Rapdis) 4 mg TRANSLINGU Q6H PRN PRN Reason: Nausea and Vomiting Last Admin: 06/25/24 16:37 Dose: 4 mg Quetiapine Fumarate (Quetiapine Fumarate 25 Mg Tablet) 25 mg PO BEDTIME [facility] Last Admin: 06/30/24 20:00 Dose: 25 mg Trazodone HCl (Trazodone Hcl 50 Mg Tablet) 50 mg PO BEDTIME PRN PRN Reason: sleep Last Admin: 06/28/24 20:41 Dose: 50 mg Trazodone HCl (Trazodone Hcl 50 Mg Tablet) 50 mg PO BEDTIME MRX1 PRN PRN Reason: Insomnia Last Admin: 07/01/24 00:18 Dose: 50 mg Allergies Allergies Allergy/AdvReac Type Severity Reaction Status Date / Time codeine [CODEINE] Allergy Unknown SEVERE Verified 06/24/24 20:23 VOMITING, stomach upset aspirin Allergy nausea Verified 06/24/24 20:23 demerol Allergy Nausea Uncoded 06/24/24 20:23 Assessment & Plan Assessment & Plan (1) Mood disorder: Status: Acute Code(s): F39 - Unspecified mood [affective] disorder (2) Alzheimer disease: Status: Acute Code(s): G30.9 - Alzheimer's disease, unspecified; F02.80 - Dementia in other diseases classified elsewhere, unspecified severity, without behavioral disturbance, psychotic disturbance, mood disturbance, and anxiety (3) HTN (hypertension): Status: Acute Code(s): I10 - Essential (primary) hypertension (4) Recurrent UTI (urinary tract infection): Status: Acute Code(s): N39.0 - Urinary tract infection, site not specified Plan The patient is an elderly female with no prior psychiatric history diagnosed with Alzheimer's treated already on Aricept who was brought to our emergency room in the context of exacerbation of confusion, irritability and disorganized behavior. While she was in the emergency room she was diagnosed with a UTI. The patient is a very poor historian unable to provide more details. According to the med rec, the patient was already started on Aricept 5 mg by her primary care physician. Plan 1. Gather collateral information. 2. The patient will be on 5 minute checks for the next 24 hours and later on, if the patient is able to contract for safety to 50 minute checks. 3. Continue with Aricept. 4. Continue with antibiotics for UTI. 5. Blood work. 6. Reassessment with results 7. New UA ordered on June 28 it came back now normal. 8. Increase Seroquel up to 100 mg p.o. q.h.s. on July 01 Reason for continued inpatient stay Substantial Risk for: inability to function, rapid decompensation and med/psych decompensation Time Spent With Patient Time: Total time managing care of this patient today __20__ minutes.
[2024-07-01 19:27] VITALS: BP 163/81; PULSE 82; RESP 15; TEMP 36.1; O2SAT 100
[2024-07-01] MEDS: QUEtiapine Fumarate 25 MG TABLET PO (19:28)
[2024-07-02] MEDS: Levothyroxine Sodium 100 MCG TABLET PO (05:49)
[2024-07-02 08:58] VITALS: BP 163/74; PULSE 74; RESP 16; TEMP 36.7; O2SAT 100
[2024-07-02] MEDS: amLODIPine Besylate 5 MG TABLET PO (08:59)
[2024-07-02] MEDS: Metoprolol Succinate ER 25 MG TAB.ER.24H 75 MG PO (08:59)
[2024-07-02] MEDS: Donepezil HCl 10 MG TABLET PO (08:59)
[2024-07-02] MEDS: Apixaban 2.5 MG TABLET PO ×2 (08:59→20:59)
[2024-07-02] MEDS: LORazepam 0.5 MG TABLET PO (14:11)
--- NOTE | 2024-07-02 15:21 | P.PNPSI_ITS ---
Subjective Subjective Date of Service: 07/02/24 Reason For Visit: AMS Subjective Notes: Conditional Voluntary Interim History: The nursing staff reported the patient had been pleasant cooperative she slept 8 hours. Yesterday she vomited once. The psychosocial rehabilitation counselor reported that yesterday we have a family meeting and the family is interested in [facility]. On interview the patient denies new symptoms she is pleasant cooperative. She was very upset after talking with her daughter who explained her that she probably needs to go to assisted living facility. We needed to start Ativan p.r.n. for anxiety. Mental Status Exam Mental Status Exam Patient Appearance: Appropriate Patient Orientation: Person and Situation Level of Consciousness: Awake and Appropriate Patient Behavior: Guarded and Passive Mood Description: Withdrawn Affect Description: Constricted Patient Cognition Impaired: Yes Ability to Follow Directions: Good Speech Pattern: Clear Hallucinations: None Delusions: Ideas of Reference Thought Process: Distracted and Slowed Thinking Thought Content: positive for [place] and positive for Poverty of Content Judgement: Poor Diagnostics Vital Signs (24Hr): Vital Signs - 24 hr 07/01/24 19:27 07/02/24 08:58 Temperature 97 F 98.1 F Pulse Rate 82 74 Respiratory Rate 15 16 Blood Pressure 163/81 H 163/74 H Pulse Oximetry 100 100 Oxygen Delivery Method Room Air BMI result Body Mass Index 18.6 Labs 06/24/24 21:35 06/26/24 08:32 Medications Medications Current Medications Acetaminophen (Acetaminophen 325 Mg Tablet) 650 mg PO Q6H PRN PRN Reason: Headache/Pain Mild Scale (1-3) Al Hydroxide/Mg Hydroxide (Magnesium Hydrox/Alum Hydrox 30 Ml Oral.Susp) 30 ml PO Q6H PRN PRN Reason: Heartburn/Nausea Last Admin: 06/25/24 20:42 Dose: 30 ml Amlodipine Besylate (Amlodipine Besylate 5 Mg Tablet) 5 mg PO DAILY [facility]; Protocol Last Admin: 07/02/24 08:59 Dose: 5 mg Apixaban (Apixaban 2.5 Mg Tablet) 2.5 mg PO BID [facility] Last Admin: 07/02/24 08:59 Dose: 2.5 mg Donepezil HCl (Donepezil Hcl 10 Mg Tablet) 10 mg PO DAILY [facility] Last Admin: 07/02/24 08:59 Dose: 10 mg Levothyroxine Sodium (Levothyroxine Sodium 100 Mcg Tablet) 100 mcg PO DAILY@0600 [facility] Last Admin: 07/02/24 05:49 Dose: 100 mcg Lorazepam (Lorazepam 0.5 Mg Tablet) 0.5 mg PO Q8H PRN PRN Reason: Anxiety Last Admin: 07/02/24 14:11 Dose: 0.5 mg Magnesium Hydroxide (Milk Of Magnesia 30 Ml Oral.Susp) 30 ml PO DAILY PRN PRN Reason: Constipation Metoprolol Succinate (Metoprolol Succinate Er 25 Mg Tab.Er.24h) 75 mg PO DAILY [facility]; Protocol Last Admin: 07/02/24 08:59 Dose: 75 mg Ondansetron HCl (Ondansetron Odt 4 Mg Tab.Rapdis) 4 mg TRANSLINGU Q6H PRN PRN Reason: Nausea and Vomiting Last Admin: 06/25/24 16:37 Dose: 4 mg Quetiapine Fumarate (Quetiapine Fumarate 25 Mg Tablet) 25 mg PO BEDTIME [facility] Last Admin: 07/01/24 19:28 Dose: 25 mg Trazodone HCl (Trazodone Hcl 50 Mg Tablet) 50 mg PO BEDTIME PRN PRN Reason: sleep Last Admin: 06/28/24 20:41 Dose: 50 mg Trazodone HCl (Trazodone Hcl 50 Mg Tablet) 50 mg PO BEDTIME MRX1 PRN PRN Reason: Insomnia Last Admin: 07/01/24 00:18 Dose: 50 mg Allergies Allergies Allergy/AdvReac Type Severity Reaction Status Date / Time codeine [CODEINE] Allergy Unknown SEVERE Verified 06/24/24 20:23 VOMITING, stomach upset aspirin Allergy nausea Verified 06/24/24 20:23 demerol Allergy Nausea Uncoded 06/24/24 20:23 Assessment & Plan Assessment & Plan (1) Mood disorder: Status: Acute Code(s): F39 - Unspecified mood [affective] disorder (2) Alzheimer disease: Status: Acute Code(s): G30.9 - Alzheimer's disease, unspecified; F02.80 - Dementia in other diseases classified elsewhere, unspecified severity, without behavioral disturbance, psychotic disturbance, mood disturbance, and anxiety (3) HTN (hypertension): Status: Acute Code(s): I10 - Essential (primary) hypertension (4) Recurrent UTI (urinary tract infection): Status: Acute Code(s): N39.0 - Urinary tract infection, site not specified Plan The patient is an elderly female with no prior psychiatric history diagnosed with Alzheimer's treated already on Aricept who was brought to our emergency room in the context of exacerbation of confusion, irritability and disorganized behavior. While she was in the emergency room she was diagnosed with a UTI. The patient is a very poor historian unable to provide more details. According to the med rec, the patient was already started on Aricept 5 mg by her primary care physician. Plan 1. Gather collateral information. 2. The patient will be on 5 minute checks for the next 24 hours and later on, if the patient is able to contract for safety to 50 minute checks. 3. Continue with Aricept. 4. Continue with antibiotics for UTI. 5. Blood work. 6. Reassessment with results 7. New UA ordered on June 28 it came back now normal. 8. Increase Seroquel up to 100 mg p.o. q.h.s. on July 01 Reason for continued inpatient stay Substantial Risk for: inability to function, rapid decompensation and med/psych decompensation Time Spent With Patient Time: Total time managing care of this patient today __20__ minutes.
[2024-07-02 20:00] VITALS: BP 176/73; PULSE 74; RESP 16; TEMP 36.6; O2SAT 100
[2024-07-02] MEDS: traZODone HCL 50 MG TABLET PO (20:59)
[2024-07-02] MEDS: QUEtiapine Fumarate 25 MG TABLET PO (20:59)
[2024-07-03 08:00] VITALS: BP 144/67; PULSE 71; RESP 16; TEMP 36.9; O2SAT 99
[2024-07-03] MEDS: amLODIPine Besylate 5 MG TABLET PO (09:40)
[2024-07-03] MEDS: Apixaban 2.5 MG TABLET PO ×2 (09:40→21:18)
[2024-07-03] MEDS: Levothyroxine Sodium 100 MCG TABLET PO (09:40)
[2024-07-03] MEDS: Metoprolol Succinate ER 25 MG TAB.ER.24H 75 MG PO (09:41)
[2024-07-03] MEDS: Donepezil HCl 10 MG TABLET PO (09:41)
--- NOTE | 2024-07-03 15:17 | HO.PSYCHPN ---
Subjective Subjective Date of Service: 07/03/24 Reason For Visit: AMS Interim History: met with patient; discussed with team pt pleasant, calm on approach. She says she is doing well...i think. She says she prefers to go home. Understands she'll discuss this more with primary team when they return on friday. Mental Status Exam Mental Status Exam Patient Appearance: Appropriate Patient Orientation: Person and Situation Level of Consciousness: Awake and Appropriate Patient Behavior: Appropriate and Passive Mood Description: Calm and Appropriate Affect Description: Constricted Patient Cognition Impaired: Yes Ability to Follow Directions: Good Speech Pattern: Clear Hallucinations: None Delusions: Not Present Thought Process: Distracted and Slowed Thinking Thought Content: positive for [place] and positive for Poverty of Content Judgement: Fair Diagnostics Vital Signs (24Hr): Vital Signs - 24 hr 07/02/24 20:00 07/03/24 08:00 Temperature 97.9 F 98.4 F Pulse Rate 74 71 Respiratory Rate 16 16 Blood Pressure 176/73 H 144/67 H Pulse Oximetry 100 99 Oxygen Delivery Method Room Air Room Air BMI result Body Mass Index 18.6 Labs 06/24/24 21:35 06/26/24 08:32 Medications Medications Current Medications Acetaminophen (Acetaminophen 325 Mg Tablet) 650 mg PO Q6H PRN PRN Reason: Headache/Pain Mild Scale (1-3) Al Hydroxide/Mg Hydroxide (Magnesium Hydrox/Alum Hydrox 30 Ml Oral.Susp) 30 ml PO Q6H PRN PRN Reason: Heartburn/Nausea Last Admin: 06/25/24 20:42 Dose: 30 ml Amlodipine Besylate (Amlodipine Besylate 5 Mg Tablet) 5 mg PO DAILY [facility]; Protocol Last Admin: 07/03/24 09:40 Dose: 5 mg Apixaban (Apixaban 2.5 Mg Tablet) 2.5 mg PO BID [facility] Last Admin: 07/03/24 09:40 Dose: 2.5 mg Donepezil HCl (Donepezil Hcl 10 Mg Tablet) 10 mg PO DAILY [facility] Last Admin: 07/03/24 09:41 Dose: 10 mg Levothyroxine Sodium (Levothyroxine Sodium 100 Mcg Tablet) 100 mcg PO DAILY@0600 [facility] Last Admin: 07/03/24 09:40 Dose: 100 mcg Lorazepam (Lorazepam 0.5 Mg Tablet) 0.5 mg PO Q8H PRN PRN Reason: Anxiety Last Admin: 07/02/24 14:11 Dose: 0.5 mg Magnesium Hydroxide (Milk Of Magnesia 30 Ml Oral.Susp) 30 ml PO DAILY PRN PRN Reason: Constipation Metoprolol Succinate (Metoprolol Succinate Er 25 Mg Tab.Er.24h) 75 mg PO DAILY [facility]; Protocol Last Admin: 07/03/24 09:41 Dose: 75 mg Ondansetron HCl (Ondansetron Odt 4 Mg Tab.Rapdis) 4 mg TRANSLINGU Q6H PRN PRN Reason: Nausea and Vomiting Last Admin: 06/25/24 16:37 Dose: 4 mg Quetiapine Fumarate (Quetiapine Fumarate 25 Mg Tablet) 25 mg PO BEDTIME [facility] Last Admin: 07/02/24 20:59 Dose: 25 mg Trazodone HCl (Trazodone Hcl 50 Mg Tablet) 50 mg PO BEDTIME PRN PRN Reason: sleep Last Admin: 07/02/24 20:59 Dose: 50 mg Trazodone HCl (Trazodone Hcl 50 Mg Tablet) 50 mg PO BEDTIME MRX1 PRN PRN Reason: Insomnia Last Admin: 07/01/24 00:18 Dose: 50 mg Allergies Allergies Allergy/AdvReac Type Severity Reaction Status Date / Time codeine [CODEINE] Allergy Unknown SEVERE Verified 06/24/24 20:23 VOMITING, stomach upset aspirin Allergy nausea Verified 06/24/24 20:23 demerol Allergy Nausea Uncoded 06/24/24 20:23 Assessment & Plan Assessment & Plan (1) Mood disorder: Status: Acute Code(s): F39 - Unspecified mood [affective] disorder (2) Alzheimer disease: Status: Acute Code(s): G30.9 - Alzheimer's disease, unspecified; F02.80 - Dementia in other diseases classified elsewhere, unspecified severity, without behavioral disturbance, psychotic disturbance, mood disturbance, and anxiety (3) HTN (hypertension): Status: Acute Code(s): I10 - Essential (primary) hypertension (4) Recurrent UTI (urinary tract infection): Status: Acute Code(s): N39.0 - Urinary tract infection, site not specified Plan The patient is an elderly female with no prior psychiatric history diagnosed with Alzheimer's treated already on Aricept who was brought to our emergency room in the context of exacerbation of confusion, irritability and disorganized behavior. While she was in the emergency room she was diagnosed with a UTI. The patient is a very poor historian unable to provide more details. According to the med rec, the patient was already started on Aricept 5 mg by her primary care physician. Plan 1. Gather collateral information. 2. The patient will be on 5 minute checks for the next 24 hours and later on, if the patient is able to contract for safety to 50 minute checks. 3. Continue with Aricept. 4. Continue with antibiotics for UTI. 5. Blood work. 6. Reassessment with results 7. New UA ordered on June 28 it came back now normal. 8. Increase Seroquel up to 100 mg p.o. q.h.s. on July 01 Patient educated on: diagnosis Informed Consent: understands, does not understand and further education needed Reason for continued inpatient stay Substantial Risk for: inability to function Time Spent With Patient Time: Total time managing care of this patient today ____ minutes.
[2024-07-03 20:00] VITALS: BP 172/82; PULSE 97; RESP 16; TEMP 36.7; O2SAT 99
[2024-07-03] MEDS: QUEtiapine Fumarate 25 MG TABLET PO (21:19)
[2024-07-03] MEDS: traZODone HCL 50 MG TABLET PO (21:19)
[2024-07-04] MEDS: Levothyroxine Sodium 100 MCG TABLET PO (06:03)
[2024-07-04 08:37] VITALS: BP 144/63; PULSE 63; RESP 18; TEMP 36.1; O2SAT 100
[2024-07-04] MEDS: Metoprolol Succinate ER 25 MG TAB.ER.24H 75 MG PO (08:39)
[2024-07-04] MEDS: Apixaban 2.5 MG TABLET PO ×2 (08:40→21:02)
[2024-07-04] MEDS: amLODIPine Besylate 5 MG TABLET PO (08:40)
[2024-07-04] MEDS: Donepezil HCl 10 MG TABLET PO (09:38)
--- NOTE | 2024-07-04 16:48 | HO.PSYCHPN ---
Subjective Subjective Date of Service: 07/04/24 Reason For Visit: AMS Interim History: Met with patient; discussed with team Same presentation, patient quiet and friendly on approach; continues to prefer to be home and curious about discharge Mental Status Exam Mental Status Exam Patient Appearance: Appropriate Patient Orientation: Person and Situation Level of Consciousness: Awake and Appropriate Patient Behavior: Appropriate and Passive Mood Description: Calm and Appropriate Affect Description: Constricted Patient Cognition Impaired: Yes Ability to Follow Directions: Good Speech Pattern: Clear Hallucinations: None Delusions: Not Present Thought Process: Distracted and Slowed Thinking Thought Content: positive for [place] and positive for Poverty of Content Judgement: Fair Diagnostics Vital Signs (24Hr): Vital Signs - 24 hr 07/03/24 20:00 07/04/24 08:37 Temperature 98.1 F 96.9 F Pulse Rate 97 63 Respiratory Rate 16 18 Blood Pressure 172/82 H 144/63 H Pulse Oximetry 99 100 Oxygen Delivery Method Room Air Room Air BMI result Body Mass Index 18.6 Labs 06/24/24 21:35 06/26/24 08:32 Medications Medications Current Medications Acetaminophen (Acetaminophen 325 Mg Tablet) 650 mg PO Q6H PRN PRN Reason: Headache/Pain Mild Scale (1-3) Al Hydroxide/Mg Hydroxide (Magnesium Hydrox/Alum Hydrox 30 Ml Oral.Susp) 30 ml PO Q6H PRN PRN Reason: Heartburn/Nausea Last Admin: 06/25/24 20:42 Dose: 30 ml Amlodipine Besylate (Amlodipine Besylate 5 Mg Tablet) 5 mg PO DAILY [facility]; Protocol Last Admin: 07/04/24 08:40 Dose: 5 mg Apixaban (Apixaban 2.5 Mg Tablet) 2.5 mg PO BID [facility] Last Admin: 07/04/24 08:40 Dose: 2.5 mg Donepezil HCl (Donepezil Hcl 10 Mg Tablet) 10 mg PO DAILY [facility] Last Admin: 07/04/24 09:38 Dose: 10 mg Levothyroxine Sodium (Levothyroxine Sodium 100 Mcg Tablet) 100 mcg PO DAILY@0600 [facility] Last Admin: 07/04/24 06:03 Dose: 100 mcg Lorazepam (Lorazepam 0.5 Mg Tablet) 0.5 mg PO Q8H PRN PRN Reason: Anxiety Last Admin: 07/02/24 14:11 Dose: 0.5 mg Magnesium Hydroxide (Milk Of Magnesia 30 Ml Oral.Susp) 30 ml PO DAILY PRN PRN Reason: Constipation Metoprolol Succinate (Metoprolol Succinate Er 25 Mg Tab.Er.24h) 75 mg PO DAILY [facility]; Protocol Last Admin: 07/04/24 08:39 Dose: 75 mg Ondansetron HCl (Ondansetron Odt 4 Mg Tab.Rapdis) 4 mg TRANSLINGU Q6H PRN PRN Reason: Nausea and Vomiting Last Admin: 06/25/24 16:37 Dose: 4 mg Quetiapine Fumarate (Quetiapine Fumarate 25 Mg Tablet) 25 mg PO BEDTIME [facility]JIND[facility] Last Admin: 07/03/24 21:19 Dose: 25 mg Trazodone HCl (Trazodone Hcl 50 Mg Tablet) 50 mg PO BEDTIME PRN PRN Reason: sleep Last Admin: 07/03/24 21:19 Dose: 50 mg Trazodone HCl (Trazodone Hcl 50 Mg Tablet) 50 mg PO BEDTIME MRX1 PRN PRN Reason: Insomnia Last Admin: 07/01/24 00:18 Dose: 50 mg Allergies Allergies Allergy/AdvReac Type Severity Reaction Status Date / Time codeine [CODEINE] Allergy Unknown SEVERE Verified 06/24/24 20:23 VOMITING, stomach upset aspirin Allergy nausea Verified 06/24/24 20:23 demerol Allergy Nausea Uncoded 06/24/24 20:23 Assessment & Plan Assessment & Plan (1) Mood disorder: Status: Acute Code(s): F39 - Unspecified mood [affective] disorder (2) Alzheimer disease: Status: Acute Code(s): G30.9 - Alzheimer's disease, unspecified; F02.80 - Dementia in other diseases classified elsewhere, unspecified severity, without behavioral disturbance, psychotic disturbance, mood disturbance, and anxiety (3) HTN (hypertension): Status: Acute Code(s): I10 - Essential (primary) hypertension (4) Recurrent UTI (urinary tract infection): Status: Acute Code(s): N39.0 - Urinary tract infection, site not specified Plan The patient is an elderly female with no prior psychiatric history diagnosed with Alzheimer's treated already on Aricept who was brought to our emergency room in the context of exacerbation of confusion, irritability and disorganized behavior. While she was in the emergency room she was diagnosed with a UTI. The patient is a very poor historian unable to provide more details. According to the med rec, the patient was already started on Aricept 5 mg by her primary care physician. Plan 1. Gather collateral information. 2. The patient will be on 5 minute checks for the next 24 hours and later on, if the patient is able to contract for safety to 50 minute checks. 3. Continue with Aricept. 4. Continue with antibiotics for UTI. 5. Blood work. 6. Reassessment with results 7. New UA ordered on June 28 it came back now normal. 8. Increase Seroquel up to 100 mg p.o. q.h.s. on July 01 Patient educated on: diagnosis Informed Consent: does not understand Reason for continued inpatient stay Substantial Risk for: inability to function Time Spent With Patient Time: Total time managing care of this patient today ____ minutes.
[2024-07-04 20:00] VITALS: BP 168/66; PULSE 71; RESP 16; TEMP 36.6; O2SAT 99
[2024-07-04] MEDS: traZODone HCL 50 MG TABLET PO (21:01)
[2024-07-04] MEDS: LORazepam 0.5 MG TABLET PO (21:01)
[2024-07-04] MEDS: QUEtiapine Fumarate 25 MG TABLET PO (21:02)
[2024-07-05] MEDS: Levothyroxine Sodium 100 MCG TABLET PO (06:10)
[2024-07-05 08:26] VITALS: BP 141/67; PULSE 71; RESP 17; TEMP 36.1; O2SAT 97
[2024-07-05] MEDS: Metoprolol Succinate ER 25 MG TAB.ER.24H 75 MG PO (08:27)
[2024-07-05] MEDS: amLODIPine Besylate 5 MG TABLET PO (08:28)
[2024-07-05] MEDS: Donepezil HCl 10 MG TABLET PO (08:28)
[2024-07-05] MEDS: Apixaban 2.5 MG TABLET PO ×2 (08:28→20:15)
--- NOTE | 2024-07-05 12:10 | HO.PSYCHPN ---
Subjective Subjective Date of Service: 07/05/24 Reason For Visit: AMS Subjective Notes: Conditional Voluntary Interim History: The nursing staff reported the patient had been relaxed denies suicidal or homicidal thoughts, she slept 8 hours. The occupational therapist reported that she is pleasant but her short-term memory is were remarkable. On interview the patient was unable to remember previous conversations, we are adding Namenda 5 mg p.o. b.i.d. to target dementia. Mental Status Exam Mental Status Exam Patient Appearance: Appropriate Patient Orientation: Person and Situation Level of Consciousness: Awake and Appropriate Patient Behavior: Guarded and Passive Mood Description: Withdrawn Affect Description: Constricted Patient Cognition Impaired: Yes Ability to Follow Directions: Good Speech Pattern: Clear Hallucinations: None Delusions: Not Present Thought Process: Distracted and Slowed Thinking Thought Content: positive for [place] and positive for Poverty of Content Judgement: Fair Diagnostics Vital Signs (24Hr): Vital Signs - 24 hr 07/04/24 20:00 07/05/24 08:26 Temperature 97.8 F 97.0 F Pulse Rate 71 71 Respiratory Rate 16 17 Blood Pressure 168/66 H 141/67 H Pulse Oximetry 99 97 Oxygen Delivery Method Room Air Room Air BMI result Body Mass Index 18.6 Labs 06/24/24 21:35 06/26/24 08:32 Medications Medications Current Medications Acetaminophen (Acetaminophen 325 Mg Tablet) 650 mg PO Q6H PRN PRN Reason: Headache/Pain Mild Scale (1-3) Al Hydroxide/Mg Hydroxide (Magnesium Hydrox/Alum Hydrox 30 Ml Oral.Susp) 30 ml PO Q6H PRN PRN Reason: Heartburn/Nausea Last Admin: 06/25/24 20:42 Dose: 30 ml Amlodipine Besylate (Amlodipine Besylate 5 Mg Tablet) 5 mg PO DAILY [facility]; Protocol Last Admin: 07/05/24 08:28 Dose: 5 mg Apixaban (Apixaban 2.5 Mg Tablet) 2.5 mg PO BID [facility] Last Admin: 07/05/24 08:28 Dose: 2.5 mg Donepezil HCl (Donepezil Hcl 10 Mg Tablet) 10 mg PO DAILY [facility] Last Admin: 07/05/24 08:28 Dose: 10 mg Levothyroxine Sodium (Levothyroxine Sodium 100 Mcg Tablet) 100 mcg PO DAILY@0600 [facility] Last Admin: 07/05/24 06:10 Dose: 100 mcg Lorazepam (Lorazepam 0.5 Mg Tablet) 0.5 mg PO Q8H PRN PRN Reason: Anxiety Last Admin: 07/04/24 21:01 Dose: 0.5 mg Magnesium Hydroxide (Milk Of Magnesia 30 Ml Oral.Susp) 30 ml PO DAILY PRN PRN Reason: Constipation Memantine (Memantine Hcl 5 Mg Tablet) 5 mg PO BID [facility] Metoprolol Succinate (Metoprolol Succinate Er 25 Mg Tab.Er.24h) 75 mg PO DAILY [facility]; Protocol Last Admin: 07/05/24 08:27 Dose: 75 mg Ondansetron HCl (Ondansetron Odt 4 Mg Tab.Rapdis) 4 mg TRANSLINGU Q6H PRN PRN Reason: Nausea and Vomiting Last Admin: 06/25/24 16:37 Dose: 4 mg Quetiapine Fumarate (Quetiapine Fumarate 50 Mg Tablet) 50 mg PO BEDTIME [facility] Trazodone HCl (Trazodone Hcl 50 Mg Tablet) 50 mg PO BEDTIME PRN PRN Reason: sleep Last Admin: 07/04/24 21:01 Dose: 50 mg Trazodone HCl (Trazodone Hcl 50 Mg Tablet) 50 mg PO BEDTIME MRX1 PRN PRN Reason: Insomnia Last Admin: 07/01/24 00:18 Dose: 50 mg Allergies Allergies Allergy/AdvReac Type Severity Reaction Status Date / Time codeine [CODEINE] Allergy Unknown SEVERE Verified 06/24/24 20:23 VOMITING, stomach upset aspirin Allergy nausea Verified 06/24/24 20:23 demerol Allergy Nausea Uncoded 06/24/24 20:23 Assessment & Plan Assessment & Plan (1) Mood disorder: Status: Acute Code(s): F39 - Unspecified mood [affective] disorder (2) Alzheimer disease: Status: Acute Code(s): G30.9 - Alzheimer's disease, unspecified; F02.80 - Dementia in other diseases classified elsewhere, unspecified severity, without behavioral disturbance, psychotic disturbance, mood disturbance, and anxiety (3) HTN (hypertension): Status: Acute Code(s): I10 - Essential (primary) hypertension (4) Recurrent UTI (urinary tract infection): Status: Acute Code(s): N39.0 - Urinary tract infection, site not specified Plan The patient is an elderly female with no prior psychiatric history diagnosed with Alzheimer's treated already on Aricept who was brought to our emergency room in the context of exacerbation of confusion, irritability and disorganized behavior. While she was in the emergency room she was diagnosed with a UTI. The patient is a very poor historian unable to provide more details. According to the med rec, the patient was already started on Aricept 5 mg by her primary care physician. Plan 1. Gather collateral information. 2. The patient will be on 5 minute checks for the next 24 hours and later on, if the patient is able to contract for safety to 50 minute checks. 3. Continue with Aricept. 4. Continue with antibiotics for UTI. 5. Blood work. 6. Reassessment with results 7. New UA ordered on June 28 it came back now normal. 8. Increase Seroquel up to 100 mg p.o. q.h.s. on July 01 Reason for continued inpatient stay Substantial Risk for: inability to function, rapid decompensation and med/psych decompensation Time Spent With Patient Time: Total time managing care of this patient today __20__ minutes.
[2024-07-05 20:00] VITALS: BP 166/74; PULSE 75; RESP 18; TEMP 36.7; O2SAT 100
[2024-07-05] MEDS: Memantine HCl 5 MG TABLET PO (20:15)
[2024-07-05] MEDS: QUEtiapine Fumarate 50 MG TABLET PO (20:15)
[2024-07-05] MEDS: traZODone HCL 50 MG TABLET PO (20:16)
[2024-07-06] MEDS: Levothyroxine Sodium 100 MCG TABLET PO (05:43)
[2024-07-06 08:02] VITALS: BP 146/65; PULSE 72; RESP 16; TEMP 36.5; O2SAT 99
[2024-07-06] MEDS: Metoprolol Succinate ER 25 MG TAB.ER.24H 75 MG PO (08:17)
[2024-07-06] MEDS: Donepezil HCl 10 MG TABLET PO (08:17)
[2024-07-06] MEDS: amLODIPine Besylate 5 MG TABLET PO (08:17)
[2024-07-06] MEDS: Memantine HCl 5 MG TABLET PO ×2 (08:17→20:43)
[2024-07-06] MEDS: Apixaban 2.5 MG TABLET PO ×2 (08:17→20:43)
--- NOTE | 2024-07-06 13:35 | P.PNPSI_ITS ---
Subjective Subjective Date of Service: 07/06/24 Reason For Visit: AMS Subjective Notes: Conditional Voluntary Interim History: The nursing staff reported the patient had been out for meals, tearful at times, she slept 8 hours. The social security benefits interviewer reported that the daughter and the son came and they were thinking on placement but the patient is unable to process this information. We invoke the healthcare proxy. On interview the patient is pleasantly confused easily redirectable. Mental Status Exam Mental Status Exam Patient Appearance: Appropriate Patient Orientation: Person and Situation Level of Consciousness: Awake and Appropriate Patient Behavior: Guarded and Passive Mood Description: Withdrawn Affect Description: Constricted Patient Cognition Impaired: Yes Ability to Follow Directions: Good Speech Pattern: Clear Hallucinations: None Delusions: Not Present Thought Process: Distracted and Slowed Thinking Thought Content: positive for [place] and positive for Poverty of Content Judgement: Fair Diagnostics Vital Signs (24Hr): Vital Signs - 24 hr 07/05/24 20:00 07/06/24 08:02 Temperature 98.1 F 97.7 F Pulse Rate 75 72 Respiratory Rate 18 16 Blood Pressure 166/74 H 146/65 H Pulse Oximetry 100 99 Oxygen Delivery Method Room Air Room Air BMI result Body Mass Index 18.6 Labs 06/24/24 21:35 06/26/24 08:32 Medications Medications Current Medications Acetaminophen (Acetaminophen 325 Mg Tablet) 650 mg PO Q6H PRN PRN Reason: Headache/Pain Mild Scale (1-3) Al Hydroxide/Mg Hydroxide (Magnesium Hydrox/Alum Hydrox 30 Ml Oral.Susp) 30 ml PO Q6H PRN PRN Reason: Heartburn/Nausea Last Admin: 06/25/24 20:42 Dose: 30 ml Amlodipine Besylate (Amlodipine Besylate 5 Mg Tablet) 5 mg PO DAILY [facility]; Protocol Last Admin: 07/06/24 08:17 Dose: 5 mg Apixaban (Apixaban 2.5 Mg Tablet) 2.5 mg PO BID [facility] Last Admin: 07/06/24 08:17 Dose: 2.5 mg Donepezil HCl (Donepezil Hcl 10 Mg Tablet) 10 mg PO DAILY [facility] Last Admin: 07/06/24 08:17 Dose: 10 mg Levothyroxine Sodium (Levothyroxine Sodium 100 Mcg Tablet) 100 mcg PO DAILY@0600 [facility] Last Admin: 07/06/24 05:43 Dose: 100 mcg Lorazepam (Lorazepam 0.5 Mg Tablet) 0.5 mg PO Q8H PRN PRN Reason: Anxiety Last Admin: 07/04/24 21:01 Dose: 0.5 mg Magnesium Hydroxide (Milk Of Magnesia 30 Ml Oral.Susp) 30 ml PO DAILY PRN PRN Reason: Constipation Memantine (Memantine Hcl 5 Mg Tablet) 5 mg PO BID [facility] Last Admin: 07/06/24 08:17 Dose: 5 mg Metoprolol Succinate (Metoprolol Succinate Er 25 Mg Tab.Er.24h) 75 mg PO DAILY [facility]; Protocol Last Admin: 07/06/24 08:17 Dose: 75 mg Ondansetron HCl (Ondansetron Odt 4 Mg Tab.Rapdis) 4 mg TRANSLINGU Q6H PRN PRN Reason: Nausea and Vomiting Last Admin: 06/25/24 16:37 Dose: 4 mg Quetiapine Fumarate (Quetiapine Fumarate 50 Mg Tablet) 50 mg PO BEDTIME [facility] Last Admin: 07/05/24 20:15 Dose: 50 mg Trazodone HCl (Trazodone Hcl 50 Mg Tablet) 50 mg PO BEDTIME PRN PRN Reason: sleep Last Admin: 07/05/24 20:16 Dose: 50 mg Trazodone HCl (Trazodone Hcl 50 Mg Tablet) 50 mg PO BEDTIME MRX1 PRN PRN Reason: Insomnia Last Admin: 07/01/24 00:18 Dose: 50 mg Allergies Allergies Allergy/AdvReac Type Severity Reaction Status Date / Time codeine [CODEINE] Allergy Unknown SEVERE Verified 06/24/24 20:23 VOMITING, stomach upset aspirin Allergy nausea Verified 06/24/24 20:23 demerol Allergy Nausea Uncoded 06/24/24 20:23 Assessment & Plan Assessment & Plan (1) Mood disorder: Status: Acute Code(s): F39 - Unspecified mood [affective] disorder (2) Alzheimer disease: Status: Acute Code(s): G30.9 - Alzheimer's disease, unspecified; F02.80 - Dementia in other diseases classified elsewhere, unspecified severity, without behavioral disturbance, psychotic disturbance, mood disturbance, and anxiety (3) HTN (hypertension): Status: Acute Code(s): I10 - Essential (primary) hypertension (4) Recurrent UTI (urinary tract infection): Status: Acute Code(s): N39.0 - Urinary tract infection, site not specified Plan The patient is an elderly female with no prior psychiatric history diagnosed with Alzheimer's treated already on Aricept who was brought to our emergency room in the context of exacerbation of confusion, irritability and disorganized behavior. While she was in the emergency room she was diagnosed with a UTI. The patient is a very poor historian unable to provide more details. According to the med rec, the patient was already started on Aricept 5 mg by her primary care physician. Plan 1. Gather collateral information. 2. The patient will be on 5 minute checks for the next 24 hours and later on, if the patient is able to contract for safety to 50 minute checks. 3. Continue with Aricept. 4. Continue with antibiotics for UTI. 5. Blood work. 6. Reassessment with results 7. New UA ordered on June 28 it came back now normal. 8. Increase Seroquel up to 100 mg p.o. q.h.s. on July 01 Reason for continued inpatient stay Substantial Risk for: inability to function, rapid decompensation and med/psych decompensation Time Spent With Patient Time: Total time managing care of this patient today __20__ minutes.
[2024-07-06 20:00] VITALS: BP 155/61; PULSE 90; RESP 18; TEMP 36.2; O2SAT 96
[2024-07-06] MEDS: QUEtiapine Fumarate 50 MG TABLET PO (20:43)
[2024-07-06] MEDS: traZODone HCL 50 MG TABLET PO ×2 (20:43→21:55)
[2024-07-07] MEDS: Levothyroxine Sodium 100 MCG TABLET PO (06:19)
[2024-07-07 08:00] VITALS: BP 157/70; PULSE 69; RESP 16; TEMP 36.7; O2SAT 98
[2024-07-07] MEDS: Metoprolol Succinate ER 25 MG TAB.ER.24H 75 MG PO (08:16)
[2024-07-07] MEDS: Memantine HCl 5 MG TABLET PO ×2 (08:16→20:48)
[2024-07-07] MEDS: Donepezil HCl 10 MG TABLET PO (08:17)
[2024-07-07] MEDS: Apixaban 2.5 MG TABLET PO ×2 (08:17→20:48)
[2024-07-07] MEDS: amLODIPine Besylate 5 MG TABLET PO (08:17)
--- NOTE | 2024-07-07 15:04 | P.PNPSI_ITS ---
Subjective Subjective Date of Service: 07/07/24 Reason For Visit: AMS Subjective Notes: Conditional Voluntary Interim History: The nursing staff reported the patient had been pleasant, social slept 8 hours. The vp digital marketing social media and crm will sign referrals for application care home facilities. On interview the patient denies new symptoms, waiting for placement. Mental Status Exam Mental Status Exam Patient Appearance: Appropriate Patient Orientation: Person and Situation Level of Consciousness: Awake and Appropriate Patient Behavior: Guarded and Passive Mood Description: Withdrawn Affect Description: Constricted Patient Cognition Impaired: Yes Ability to Follow Directions: Good Speech Pattern: Clear Hallucinations: None Delusions: Not Present Thought Process: Distracted and Slowed Thinking Thought Content: positive for [place] and positive for Poverty of Content Judgement: Poor Diagnostics Vital Signs (24Hr): Vital Signs - 24 hr 07/06/24 20:00 07/07/24 08:00 Temperature 97.1 F 98.1 F Pulse Rate 90 69 Respiratory Rate 18 16 Blood Pressure 155/61 H 157/70 H Pulse Oximetry 96 98 Oxygen Delivery Method Room Air Room Air BMI result Body Mass Index 18.6 Labs 06/24/24 21:35 06/26/24 08:32 Medications Medications Current Medications Acetaminophen (Acetaminophen 325 Mg Tablet) 650 mg PO Q6H PRN PRN Reason: Headache/Pain Mild Scale (1-3) Al Hydroxide/Mg Hydroxide (Magnesium Hydrox/Alum Hydrox 30 Ml Oral.Susp) 30 ml PO Q6H PRN PRN Reason: Heartburn/Nausea Last Admin: 06/25/24 20:42 Dose: 30 ml Amlodipine Besylate (Amlodipine Besylate 5 Mg Tablet) 5 mg PO DAILY [facility]; Protocol Last Admin: 07/07/24 08:17 Dose: 5 mg Apixaban (Apixaban 2.5 Mg Tablet) 2.5 mg PO BID [facility] Last Admin: 07/07/24 08:17 Dose: 2.5 mg Donepezil HCl (Donepezil Hcl 10 Mg Tablet) 10 mg PO DAILY [facility] Last Admin: 07/07/24 08:17 Dose: 10 mg Levothyroxine Sodium (Levothyroxine Sodium 100 Mcg Tablet) 100 mcg PO DAILY@0600 [facility] Last Admin: 07/07/24 06:19 Dose: 100 mcg Lorazepam (Lorazepam 0.5 Mg Tablet) 0.5 mg PO Q8H PRN PRN Reason: Anxiety Last Admin: 07/04/24 21:01 Dose: 0.5 mg Magnesium Hydroxide (Milk Of Magnesia 30 Ml Oral.Susp) 30 ml PO DAILY PRN PRN Reason: Constipation Memantine (Memantine Hcl 5 Mg Tablet) 5 mg PO BID [facility] Last Admin: 07/07/24 08:16 Dose: 5 mg Metoprolol Succinate (Metoprolol Succinate Er 25 Mg Tab.Er.24h) 75 mg PO DAILY [facility]; Protocol Last Admin: 07/07/24 08:16 Dose: 75 mg Ondansetron HCl (Ondansetron Odt 4 Mg Tab.Rapdis) 4 mg TRANSLINGU Q6H PRN PRN Reason: Nausea and Vomiting Last Admin: 06/25/24 16:37 Dose: 4 mg Quetiapine Fumarate (Quetiapine Fumarate 50 Mg Tablet) 50 mg PO BEDTIME [facility] Last Admin: 07/06/24 20:43 Dose: 50 mg Trazodone HCl (Trazodone Hcl 50 Mg Tablet) 50 mg PO BEDTIME PRN PRN Reason: sleep Last Admin: 07/05/24 20:16 Dose: 50 mg Trazodone HCl (Trazodone Hcl 50 Mg Tablet) 50 mg PO BEDTIME MRX1 PRN PRN Reason: Insomnia Last Admin: 07/06/24 21:55 Dose: 50 mg Allergies Allergies Allergy/AdvReac Type Severity Reaction Status Date / Time codeine [CODEINE] Allergy Unknown SEVERE Verified 06/24/24 20:23 VOMITING, stomach upset aspirin Allergy nausea Verified 06/24/24 20:23 demerol Allergy Nausea Uncoded 06/24/24 20:23 Assessment & Plan Assessment & Plan (1) Mood disorder: Status: Acute Code(s): F39 - Unspecified mood [affective] disorder (2) Alzheimer disease: Status: Acute Code(s): G30.9 - Alzheimer's disease, unspecified; F02.80 - Dementia in other diseases classified elsewhere, unspecified severity, without behavioral disturbance, psychotic disturbance, mood disturbance, and anxiety (3) HTN (hypertension): Status: Acute Code(s): I10 - Essential (primary) hypertension (4) Recurrent UTI (urinary tract infection): Status: Acute Code(s): N39.0 - Urinary tract infection, site not specified Plan The patient is an elderly female with no prior psychiatric history diagnosed with Alzheimer's treated already on Aricept who was brought to our emergency room in the context of exacerbation of confusion, irritability and disorganized behavior. While she was in the emergency room she was diagnosed with a UTI. The patient is a very poor historian unable to provide more details. According to the med rec, the patient was already started on Aricept 5 mg by her primary care physician. Plan 1. Gather collateral information. 2. The patient will be on 5 minute checks for the next 24 hours and later on, if the patient is able to contract for safety to 50 minute checks. 3. Continue with Aricept. 4. Continue with antibiotics for UTI. 5. Blood work. 6. Reassessment with results 7. New UA ordered on June 28 it came back now normal. 8. Increase Seroquel up to 100 mg p.o. q.h.s. on July 01 Reason for continued inpatient stay Substantial Risk for: inability to function, rapid decompensation and med/psych decompensation Time Spent With Patient Time: Total time managing care of this patient today __20__ minutes.
[2024-07-07 20:00] VITALS: BP 160/77; PULSE 72; RESP 18; TEMP 36.6; O2SAT 97
[2024-07-07] MEDS: traZODone HCL 50 MG TABLET PO ×2 (20:48→22:55)
[2024-07-07] MEDS: QUEtiapine Fumarate 50 MG TABLET PO (20:48)
[2024-07-08] MEDS: Levothyroxine Sodium 100 MCG TABLET PO (06:02)
[2024-07-08 07:00] VITALS: BMI 18.8
[2024-07-08 08:00] VITALS: BP 147/69; PULSE 68; RESP 18; TEMP 36.3; O2SAT 95
[2024-07-08 08:44] VITALS: BP 147/69; PULSE 68
[2024-07-08] MEDS: Apixaban 2.5 MG TABLET PO ×2 (08:44→20:21)
[2024-07-08] MEDS: Metoprolol Succinate ER 25 MG TAB.ER.24H 75 MG PO (08:44)
[2024-07-08 08:45] VITALS: BP 147/69
[2024-07-08] MEDS: amLODIPine Besylate 5 MG TABLET PO (08:45)
[2024-07-08] MEDS: Donepezil HCl 10 MG TABLET PO (08:45)
[2024-07-08] MEDS: Memantine HCl 5 MG TABLET PO (08:45)
--- NOTE | 2024-07-08 12:16 | HO.PSYCHPN ---
Subjective Subjective Date of Service: 07/08/24 Reason For Visit: AMS Subjective Notes: Conditional Voluntary Interim History: The nursing staff reported the patient had been fully compliant with treatment she attended to groups. She had been confused pleasant and slept 7 hours. The social services manager reported that she will take her back home next Friday. On interview the patient remains confused but easily redirectable. We are increasing Namenda to 10 mg p.o. b.i.d. to target dementia. Mental Status Exam Mental Status Exam Patient Appearance: Appropriate Patient Orientation: Person and Situation Level of Consciousness: Awake and Appropriate Patient Behavior: Guarded and Passive Mood Description: Withdrawn Affect Description: Constricted Patient Cognition Impaired: Yes Ability to Follow Directions: Good Speech Pattern: Clear Hallucinations: None Delusions: Not Present Thought Process: Distracted and Slowed Thinking Thought Content: positive for [place] and positive for Poverty of Content Judgement: Fair Diagnostics Vital Signs (24Hr): Vital Signs - 24 hr 07/07/24 20:00 07/08/24 08:00 07/08/24 08:44 Temperature 98 F 97.3 F Pulse Rate 72 68 68 Respiratory Rate 18 18 Blood Pressure 160/77 H 147/69 H 147/69 H Pulse Oximetry 97 95 Oxygen Delivery Method Room Air Room Air 07/08/24 08:45 Temperature Pulse Rate Respiratory Rate Blood Pressure 147/69 H Pulse Oximetry Oxygen Delivery Method BMI result Body Mass Index 18.6 Labs 06/24/24 21:35 06/26/24 08:32 Medications Medications Current Medications Acetaminophen (Acetaminophen 325 Mg Tablet) 650 mg PO Q6H PRN PRN Reason: Headache/Pain Mild Scale (1-3) Al Hydroxide/Mg Hydroxide (Magnesium Hydrox/Alum Hydrox 30 Ml Oral.Susp) 30 ml PO Q6H PRN PRN Reason: Heartburn/Nausea Last Admin: 06/25/24 20:42 Dose: 30 ml Amlodipine Besylate (Amlodipine Besylate 5 Mg Tablet) 5 mg PO DAILY [facility]; Protocol Last Admin: 07/08/24 08:45 Dose: 5 mg Apixaban (Apixaban 2.5 Mg Tablet) 2.5 mg PO BID [facility] Last Admin: 07/08/24 08:44 Dose: 2.5 mg Donepezil HCl (Donepezil Hcl 10 Mg Tablet) 10 mg PO DAILY [facility] Last Admin: 07/08/24 08:45 Dose: 10 mg Levothyroxine Sodium (Levothyroxine Sodium 100 Mcg Tablet) 100 mcg PO DAILY@0600 [facility] Last Admin: 07/08/24 06:02 Dose: 100 mcg Lorazepam (Lorazepam 0.5 Mg Tablet) 0.5 mg PO Q8H PRN PRN Reason: Anxiety Last Admin: 07/04/24 21:01 Dose: 0.5 mg Magnesium Hydroxide (Milk Of Magnesia 30 Ml Oral.Susp) 30 ml PO DAILY PRN PRN Reason: Constipation Memantine (Memantine Hcl 10 Mg Tablet) 10 mg PO BID [facility] Metoprolol Succinate (Metoprolol Succinate Er 25 Mg Tab.Er.24h) 75 mg PO DAILY [facility]; Protocol Last Admin: 07/08/24 08:44 Dose: 75 mg Ondansetron HCl (Ondansetron Odt 4 Mg Tab.Rapdis) 4 mg TRANSLINGU Q6H PRN PRN Reason: Nausea and Vomiting Last Admin: 06/25/24 16:37 Dose: 4 mg Quetiapine Fumarate (Quetiapine Fumarate 50 Mg Tablet) 50 mg PO BEDTIME [facility] Last Admin: 07/07/24 20:48 Dose: 50 mg Trazodone HCl (Trazodone Hcl 50 Mg Tablet) 50 mg PO BEDTIME PRN PRN Reason: sleep Last Admin: 07/07/24 20:48 Dose: 50 mg Trazodone HCl (Trazodone Hcl 50 Mg Tablet) 50 mg PO BEDTIME MRX1 PRN PRN Reason: Insomnia Last Admin: 07/07/24 22:55 Dose: 50 mg Allergies Allergies Allergy/AdvReac Type Severity Reaction Status Date / Time codeine [CODEINE] Allergy Unknown SEVERE Verified 06/24/24 20:23 VOMITING, stomach upset aspirin Allergy nausea Verified 06/24/24 20:23 demerol Allergy Nausea Uncoded 06/24/24 20:23 Assessment & Plan Assessment & Plan (1) Mood disorder: Status: Acute Code(s): F39 - Unspecified mood [affective] disorder (2) Alzheimer disease: Status: Acute Code(s): G30.9 - Alzheimer's disease, unspecified; F02.80 - Dementia in other diseases classified elsewhere, unspecified severity, without behavioral disturbance, psychotic disturbance, mood disturbance, and anxiety (3) HTN (hypertension): Status: Acute Code(s): I10 - Essential (primary) hypertension (4) Recurrent UTI (urinary tract infection): Status: Acute Code(s): N39.0 - Urinary tract infection, site not specified Plan The patient is an elderly female with no prior psychiatric history diagnosed with Alzheimer's treated already on Aricept who was brought to our emergency room in the context of exacerbation of confusion, irritability and disorganized behavior. While she was in the emergency room she was diagnosed with a UTI. The patient is a very poor historian unable to provide more details. According to the med rec, the patient was already started on Aricept 5 mg by her primary care physician. Plan 1. Gather collateral information. 2. The patient will be on 5 minute checks for the next 24 hours and later on, if the patient is able to contract for safety to 50 minute checks. 3. Continue with Aricept. Was increased up to 10 mg p.o. q.h.s. on July 02 4. Continue with antibiotics for UTI. 5. Blood work. 6. Reassessment with results 7. New UA ordered on June 28 it came back now normal. 8. Increase Seroquel up to 50 mg p.o. q.h.s. on July 01. 9. Namenda was started on July 05 increase up to 10 mg p.o. b.i.d. July 08. Reason for continued inpatient stay Substantial Risk for: inability to function, rapid decompensation and med/psych decompensation Time Spent With Patient Time: Total time managing care of this patient today __20__ minutes.
[2024-07-08 20:00] VITALS: BP 160/67; PULSE 79; RESP 16; TEMP 36.6; O2SAT 98
[2024-07-08] MEDS: Memantine HCl 10 MG TABLET PO (20:21)
[2024-07-08] MEDS: QUEtiapine Fumarate 50 MG TABLET PO (20:21)
[2024-07-09] MEDS: Levothyroxine Sodium 100 MCG TABLET PO (06:42)
[2024-07-09 08:00] VITALS: BP 145/65; PULSE 70; RESP 18; TEMP 36.3; O2SAT 100
[2024-07-09 09:26] VITALS: BP 145/65
[2024-07-09] MEDS: amLODIPine Besylate 5 MG TABLET PO (09:26)
[2024-07-09] MEDS: Donepezil HCl 10 MG TABLET PO (09:26)
[2024-07-09] MEDS: Apixaban 2.5 MG TABLET PO ×2 (09:26→20:07)
[2024-07-09] MEDS: Memantine HCl 10 MG TABLET PO ×2 (09:26→20:07)
[2024-07-09 09:27] VITALS: BP 145/65; PULSE 70
[2024-07-09] MEDS: Metoprolol Succinate ER 25 MG TAB.ER.24H 75 MG PO (09:27)
--- NOTE | 2024-07-09 14:13 | HO.PSYCHPN ---
Subjective Subjective Date of Service: 07/09/24 Reason For Visit: AMS Subjective Notes: Conditional Voluntary Interim History: The nursing staff reported the patient had been compliant with treatment. On interview the patient reported that she is very upset with her family since the family wants her to go to a facility. Poor insight into her condition still believing that her still alive. Mental Status Exam Mental Status Exam Patient Appearance: Well Grooomed and Appropriate Patient Orientation: Person and Situation Level of Consciousness: Awake and Appropriate Patient Behavior: Guarded and Passive Mood Description: Withdrawn Affect Description: Constricted Patient Cognition Impaired: Yes Ability to Follow Directions: Good Speech Pattern: Clear Hallucinations: None Delusions: Not Present Thought Process: Distracted and Slowed Thinking Thought Content: positive for [place] and positive for Poverty of Content Judgement: Fair Diagnostics Vital Signs (24Hr): Vital Signs - 24 hr 07/08/24 20:00 07/09/24 08:00 07/09/24 09:26 Temperature 97.8 F 97.4 F Pulse Rate 79 70 Respiratory Rate 16 18 Blood Pressure 160/67 H 145/65 H 145/65 H Pulse Oximetry 98 100 Oxygen Delivery Method Room Air Room Air 07/09/24 09:27 Temperature Pulse Rate 70 Respiratory Rate Blood Pressure 145/65 H Pulse Oximetry Oxygen Delivery Method BMI result Body Mass Index 18.8 Labs 06/24/24 21:35 06/26/24 08:32 Medications Medications Current Medications Acetaminophen (Acetaminophen 325 Mg Tablet) 650 mg PO Q6H PRN PRN Reason: Headache/Pain Mild Scale (1-3) Al Hydroxide/Mg Hydroxide (Magnesium Hydrox/Alum Hydrox 30 Ml Oral.Susp) 30 ml PO Q6H PRN PRN Reason: Heartburn/Nausea Last Admin: 06/25/24 20:42 Dose: 30 ml Amlodipine Besylate (Amlodipine Besylate 5 Mg Tablet) 5 mg PO DAILY [facility]; Protocol Last Admin: 07/09/24 09:26 Dose: 5 mg Apixaban (Apixaban 2.5 Mg Tablet) 2.5 mg PO BID [facility] Last Admin: 07/09/24 09:26 Dose: 2.5 mg Donepezil HCl (Donepezil Hcl 10 Mg Tablet) 10 mg PO DAILY [facility] Last Admin: 07/09/24 09:26 Dose: 10 mg Levothyroxine Sodium (Levothyroxine Sodium 100 Mcg Tablet) 100 mcg PO DAILY@0600 [facility] Last Admin: 07/09/24 06:42 Dose: 100 mcg Lorazepam (Lorazepam 0.5 Mg Tablet) 0.5 mg PO Q8H PRN PRN Reason: Anxiety Last Admin: 07/04/24 21:01 Dose: 0.5 mg Magnesium Hydroxide (Milk Of Magnesia 30 Ml Oral.Susp) 30 ml PO DAILY PRN PRN Reason: Constipation Memantine (Memantine Hcl 10 Mg Tablet) 10 mg PO BID [facility] Last Admin: 07/09/24 09:26 Dose: 10 mg Metoprolol Succinate (Metoprolol Succinate Er 25 Mg Tab.Er.24h) 75 mg PO DAILY [facility]; Protocol Last Admin: 07/09/24 09:27 Dose: 75 mg Ondansetron HCl (Ondansetron Odt 4 Mg Tab.Rapdis) 4 mg TRANSLINGU Q6H PRN PRN Reason: Nausea and Vomiting Last Admin: 06/25/24 16:37 Dose: 4 mg Quetiapine Fumarate (Quetiapine Fumarate 50 Mg Tablet) 50 mg PO BEDTIME [facility] Last Admin: 07/08/24 20:21 Dose: 50 mg Trazodone HCl (Trazodone Hcl 50 Mg Tablet) 50 mg PO BEDTIME PRN PRN Reason: sleep Last Admin: 07/07/24 20:48 Dose: 50 mg Trazodone HCl (Trazodone Hcl 50 Mg Tablet) 50 mg PO BEDTIME MRX1 PRN PRN Reason: Insomnia Last Admin: 07/07/24 22:55 Dose: 50 mg Allergies Allergies Allergy/AdvReac Type Severity Reaction Status Date / Time codeine [CODEINE] Allergy Unknown SEVERE Verified 06/24/24 20:23 VOMITING, stomach upset aspirin Allergy nausea Verified 06/24/24 20:23 demerol Allergy Nausea Uncoded 06/24/24 20:23 Assessment & Plan Assessment & Plan (1) Mood disorder: Status: Acute Code(s): F39 - Unspecified mood [affective] disorder (2) Alzheimer disease: Status: Acute Code(s): G30.9 - Alzheimer's disease, unspecified; F02.80 - Dementia in other diseases classified elsewhere, unspecified severity, without behavioral disturbance, psychotic disturbance, mood disturbance, and anxiety (3) HTN (hypertension): Status: Acute Code(s): I10 - Essential (primary) hypertension (4) Recurrent UTI (urinary tract infection): Status: Acute Code(s): N39.0 - Urinary tract infection, site not specified Plan The patient is an elderly female with no prior psychiatric history diagnosed with Alzheimer's treated already on Aricept who was brought to our emergency room in the context of exacerbation of confusion, irritability and disorganized behavior. While she was in the emergency room she was diagnosed with a UTI. The patient is a very poor historian unable to provide more details. According to the med rec, the patient was already started on Aricept 5 mg by her primary care physician. Plan 1. Gather collateral information. 2. The patient will be on 5 minute checks for the next 24 hours and later on, if the patient is able to contract for safety to 50 minute checks. 3. Continue with Aricept. Was increased up to 10 mg p.o. q.h.s. on July 02 4. Continue with antibiotics for UTI. 5. Blood work. 6. Reassessment with results 7. New UA ordered on June 28 it came back now normal. 8. Increase Seroquel up to 50 mg p.o. q.h.s. on July 01. 9. Namenda was started on July 05 increase up to 10 mg p.o. b.i.d. July 08. Reason for continued inpatient stay Substantial Risk for: inability to function, rapid decompensation and med/psych decompensation Time Spent With Patient Time: Total time managing care of this patient today __20__ minutes.
[2024-07-09 20:00] VITALS: BP 148/67; PULSE 78; RESP 16; TEMP 36.5; O2SAT 97
[2024-07-09] MEDS: QUEtiapine Fumarate 50 MG TABLET PO (20:07)
[2024-07-09] MEDS: traZODone HCL 50 MG TABLET PO (20:26)
[2024-07-10] MEDS: Levothyroxine Sodium 100 MCG TABLET PO (06:25)
[2024-07-10 08:31] VITALS: BP 159/72; PULSE 70; RESP 17; TEMP 36; O2SAT 99
[2024-07-10] MEDS: Metoprolol Succinate ER 25 MG TAB.ER.24H 75 MG PO (08:32)
[2024-07-10] MEDS: Memantine HCl 10 MG TABLET PO ×2 (08:33→20:08)
[2024-07-10] MEDS: Apixaban 2.5 MG TABLET PO ×2 (08:33→20:08)
[2024-07-10] MEDS: Donepezil HCl 10 MG TABLET PO (08:33)
[2024-07-10] MEDS: amLODIPine Besylate 5 MG TABLET PO (08:33)
--- NOTE | 2024-07-10 14:57 | P.PNPSI_ITS ---
Subjective Subjective Date of Service: 07/10/24 Reason For Visit: AMS Subjective Notes: Conditional Voluntary Interim History: Patient was seen and discussed in rounds today. Records and plans were reviewed. Nursing reports that she has been stable. Medication compliant. Eating and sleeping well. No complaints or side effects. No changes were made today Review of Systems Review of Systems Yes all other systems are reviewed and are negative Mental Status Exam Mental Status Exam Patient Appearance: Well Grooomed and Appropriate Patient Orientation: Person and Situation Level of Consciousness: Awake and Appropriate Patient Behavior: Guarded and Passive Mood Description: Withdrawn Affect Description: Constricted Patient Cognition Impaired: Yes Ability to Follow Directions: Good Speech Pattern: Clear Hallucinations: None Delusions: Not Present Thought Process: Distracted and Slowed Thinking Thought Content: positive for [place] and positive for Poverty of Content Judgement: Fair Diagnostics Vital Signs (24Hr): Vital Signs - 24 hr 07/09/24 20:00 07/10/24 08:31 Temperature 97.7 F 96.8 F Pulse Rate 78 70 Respiratory Rate 16 17 Blood Pressure 148/67 H 159/72 H Pulse Oximetry 97 99 Oxygen Delivery Method Room Air Room Air BMI result Body Mass Index 18.8 Labs 06/24/24 21:35 06/26/24 08:32 Medications Medications Current Medications Acetaminophen (Acetaminophen 325 Mg Tablet) 650 mg PO Q6H PRN PRN Reason: Headache/Pain Mild Scale (1-3) Al Hydroxide/Mg Hydroxide (Magnesium Hydrox/Alum Hydrox 30 Ml Oral.Susp) 30 ml PO Q6H PRN PRN Reason: Heartburn/Nausea Last Admin: 06/25/24 20:42 Dose: 30 ml Amlodipine Besylate (Amlodipine Besylate 5 Mg Tablet) 5 mg PO DAILY [facility]; Protocol Last Admin: 07/10/24 08:33 Dose: 5 mg Apixaban (Apixaban 2.5 Mg Tablet) 2.5 mg PO BID [facility] Last Admin: 07/10/24 08:33 Dose: 2.5 mg Donepezil HCl (Donepezil Hcl 10 Mg Tablet) 10 mg PO DAILY [facility] Last Admin: 07/10/24 08:33 Dose: 10 mg Levothyroxine Sodium (Levothyroxine Sodium 100 Mcg Tablet) 100 mcg PO DAILY@0600 [facility] Last Admin: 07/10/24 06:25 Dose: 100 mcg Lorazepam (Lorazepam 0.5 Mg Tablet) 0.5 mg PO Q8H PRN PRN Reason: Anxiety Last Admin: 07/04/24 21:01 Dose: 0.5 mg Magnesium Hydroxide (Milk Of Magnesia 30 Ml Oral.Susp) 30 ml PO DAILY PRN PRN Reason: Constipation Memantine (Memantine Hcl 10 Mg Tablet) 10 mg PO BID [facility] Last Admin: 07/10/24 08:33 Dose: 10 mg Metoprolol Succinate (Metoprolol Succinate Er 25 Mg Tab.Er.24h) 75 mg PO DAILY [facility]; Protocol Last Admin: 07/10/24 08:32 Dose: 75 mg Ondansetron HCl (Ondansetron Odt 4 Mg Tab.Rapdis) 4 mg TRANSLINGU Q6H PRN PRN Reason: Nausea and Vomiting Last Admin: 06/25/24 16:37 Dose: 4 mg Quetiapine Fumarate (Quetiapine Fumarate 50 Mg Tablet) 50 mg PO BEDTIME [facility] Last Admin: 07/09/24 20:07 Dose: 50 mg Trazodone HCl (Trazodone Hcl 50 Mg Tablet) 50 mg PO BEDTIME PRN PRN Reason: sleep Last Admin: 07/09/24 20:26 Dose: 50 mg Trazodone HCl (Trazodone Hcl 50 Mg Tablet) 50 mg PO BEDTIME MRX1 PRN PRN Reason: Insomnia Last Admin: 07/07/24 22:55 Dose: 50 mg Allergies Allergies Allergy/AdvReac Type Severity Reaction Status Date / Time codeine [CODEINE] Allergy Unknown SEVERE Verified 06/24/24 20:23 VOMITING, stomach upset aspirin Allergy nausea Verified 06/24/24 20:23 demerol Allergy Nausea Uncoded 06/24/24 20:23 Assessment & Plan Assessment & Plan (1) Mood disorder: Status: Acute Code(s): F39 - Unspecified mood [affective] disorder (2) Alzheimer disease: Status: Acute Code(s): G30.9 - Alzheimer's disease, unspecified; F02.80 - Dementia in other diseases classified elsewhere, unspecified severity, without behavioral disturbance, psychotic disturbance, mood disturbance, and anxiety (3) HTN (hypertension): Status: Acute Code(s): I10 - Essential (primary) hypertension (4) Recurrent UTI (urinary tract infection): Status: Acute Code(s): N39.0 - Urinary tract infection, site not specified Plan The patient is an elderly female with no prior psychiatric history diagnosed with Alzheimer's treated already on Aricept who was brought to our emergency room in the context of exacerbation of confusion, irritability and disorganized behavior. While she was in the emergency room she was diagnosed with a UTI. The patient is a very poor historian unable to provide more details. According to the [facility] rec, the patient was already started on Aricept 5 mg by her primary care physician. Plan 1. Gather collateral information. 2. The patient will be on 5 minute checks for the next 24 hours and later on, if the patient is able to contract for safety to 50 minute checks. 3. Continue with Aricept. Was increased up to 10 mg p.o. q.h.s. on July 02 4. Continue with antibiotics for UTI. 5. Blood work. 6. Reassessment with results 7. New UA ordered on June 28 it came back now normal. 8. Increase Seroquel up to 50 mg p.o. q.h.s. on July 01. 9. Namenda was started on July 05 increase up to 10 mg p.o. b.i.d. July 08. Reason for continued inpatient stay Substantial Risk for: inability to function Time Spent With Patient Time: Total time managing care of this patient today ____ minutes.
[2024-07-10 20:00] VITALS: BP 163/74; PULSE 72; RESP 16; TEMP 36.5; O2SAT 96
[2024-07-10] MEDS: QUEtiapine Fumarate 50 MG TABLET PO (20:08)
[2024-07-10] MEDS: traZODone HCL 50 MG TABLET PO (20:16)
[2024-07-11] MEDS: Levothyroxine Sodium 100 MCG TABLET PO (06:33)
[2024-07-11 08:25] VITALS: BP 162/75; PULSE 77; RESP 16; TEMP 36.4; O2SAT 98
[2024-07-11] MEDS: Donepezil HCl 10 MG TABLET PO (08:25)
[2024-07-11] MEDS: Memantine HCl 10 MG TABLET PO ×2 (08:25→20:23)
[2024-07-11] MEDS: amLODIPine Besylate 5 MG TABLET PO (08:26)
[2024-07-11] MEDS: Apixaban 2.5 MG TABLET PO ×2 (08:26→20:23)
[2024-07-11] MEDS: Metoprolol Succinate ER 25 MG TAB.ER.24H 75 MG PO (08:26)
--- NOTE | 2024-07-11 12:43 | HO.PSYCHPN ---
Subjective Subjective Date of Service: 07/11/24 Reason For Visit: AMS Subjective Notes: Conditional Voluntary Interim History: Patient was seen and discussed in rounds today. Records and plans were reviewed. N she has been stable with no behavioral issues. Eating and sleeping adequately. No changes were made today Review of Systems Review of Systems Yes all other systems are reviewed and are negative Mental Status Exam Mental Status Exam Patient Appearance: Well Grooomed and Appropriate Patient Orientation: Person and Situation Level of Consciousness: Awake and Appropriate Patient Behavior: Guarded and Passive Mood Description: Withdrawn Affect Description: Constricted Patient Cognition Impaired: Yes Ability to Follow Directions: Good Speech Pattern: Clear Hallucinations: None Delusions: Not Present Thought Process: Distracted and Slowed Thinking Thought Content: positive for [place] and positive for Poverty of Content Judgement: Fair Diagnostics Vital Signs (24Hr): Vital Signs - 24 hr 07/10/24 20:00 07/11/24 08:25 Temperature 97.7 F 97.6 F Pulse Rate 72 77 Respiratory Rate 16 16 Blood Pressure 163/74 H 162/75 H Pulse Oximetry 96 98 Oxygen Delivery Method Room Air Room Air BMI result Body Mass Index 18.8 Labs 06/24/24 21:35 06/26/24 08:32 Medications Medications Current Medications Acetaminophen (Acetaminophen 325 Mg Tablet) 650 mg PO Q6H PRN PRN Reason: Headache/Pain Mild Scale (1-3) Al Hydroxide/Mg Hydroxide (Magnesium Hydrox/Alum Hydrox 30 Ml Oral.Susp) 30 ml PO Q6H PRN PRN Reason: Heartburn/Nausea Last Admin: 06/25/24 20:42 Dose: 30 ml Amlodipine Besylate (Amlodipine Besylate 5 Mg Tablet) 5 mg PO DAILY [facility]; Protocol Last Admin: 07/11/24 08:26 Dose: 5 mg Apixaban (Apixaban 2.5 Mg Tablet) 2.5 mg PO BID [facility] Last Admin: 07/11/24 08:26 Dose: 2.5 mg Donepezil HCl (Donepezil Hcl 10 Mg Tablet) 10 mg PO DAILY [facility] Last Admin: 07/11/24 08:25 Dose: 10 mg Levothyroxine Sodium (Levothyroxine Sodium 100 Mcg Tablet) 100 mcg PO DAILY@0600 [facility] Last Admin: 07/11/24 06:33 Dose: 100 mcg Lorazepam (Lorazepam 0.5 Mg Tablet) 0.5 mg PO Q8H PRN PRN Reason: Anxiety Last Admin: 07/04/24 21:01 Dose: 0.5 mg Magnesium Hydroxide (Milk Of Magnesia 30 Ml Oral.Susp) 30 ml PO DAILY PRN PRN Reason: Constipation Memantine (Memantine Hcl 10 Mg Tablet) 10 mg PO BID [facility] Last Admin: 07/11/24 08:25 Dose: 10 mg Metoprolol Succinate (Metoprolol Succinate Er 25 Mg Tab.Er.24h) 75 mg PO DAILY [facility]; Protocol Last Admin: 07/11/24 08:26 Dose: 75 mg Ondansetron HCl (Ondansetron Odt 4 Mg Tab.Rapdis) 4 mg TRANSLINGU Q6H PRN PRN Reason: Nausea and Vomiting Last Admin: 06/25/24 16:37 Dose: 4 mg Quetiapine Fumarate (Quetiapine Fumarate 50 Mg Tablet) 50 mg PO BEDTIME [facility] Last Admin: 07/10/24 20:08 Dose: 50 mg Trazodone HCl (Trazodone Hcl 50 Mg Tablet) 50 mg PO BEDTIME PRN PRN Reason: sleep Last Admin: 07/10/24 20:16 Dose: 50 mg Trazodone HCl (Trazodone Hcl 50 Mg Tablet) 50 mg PO BEDTIME MRX1 PRN PRN Reason: Insomnia Last Admin: 07/07/24 22:55 Dose: 50 mg Allergies Allergies Allergy/AdvReac Type Severity Reaction Status Date / Time codeine [CODEINE] Allergy Unknown SEVERE Verified 06/24/24 20:23 VOMITING, stomach upset aspirin Allergy nausea Verified 06/24/24 20:23 demerol Allergy Nausea Uncoded 06/24/24 20:23 Assessment & Plan Assessment & Plan (1) Mood disorder: Status: Acute Code(s): F39 - Unspecified mood [affective] disorder (2) Alzheimer disease: Status: Acute Code(s): G30.9 - Alzheimer's disease, unspecified; F02.80 - Dementia in other diseases classified elsewhere, unspecified severity, without behavioral disturbance, psychotic disturbance, mood disturbance, and anxiety (3) HTN (hypertension): Status: Acute Code(s): I10 - Essential (primary) hypertension (4) Recurrent UTI (urinary tract infection): Status: Acute Code(s): N39.0 - Urinary tract infection, site not specified Plan The patient is an elderly female with no prior psychiatric history diagnosed with Alzheimer's treated already on Aricept who was brought to our emergency room in the context of exacerbation of confusion, irritability and disorganized behavior. While she was in the emergency room she was diagnosed with a UTI. The patient is a very poor historian unable to provide more details. According to the med rec, the patient was already started on Aricept 5 mg by her primary care physician. Plan 1. Gather collateral information. 2. The patient will be on 5 minute checks for the next 24 hours and later on, if the patient is able to contract for safety to 50 minute checks. 3. Continue with Aricept. Was increased up to 10 mg p.o. q.h.s. on July 02 4. Continue with antibiotics for UTI. 5. Blood work. 6. Reassessment with results 7. New UA ordered on June 28 it came back now normal. 8. Increase Seroquel up to 50 mg p.o. q.h.s. on July 01. 9. Namenda was started on July 05 increase up to 10 mg p.o. b.i.d. July 08. 07/11: Continue current regimen and plans Reason for continued inpatient stay Substantial Risk for: med/psych decompensation Time Spent With Patient Time: Total time managing care of this patient today ____ minutes.
[2024-07-11 19:45] VITALS: BP 162/78; PULSE 78; RESP 18; TEMP 36.7; O2SAT 98
[2024-07-11] MEDS: traZODone HCL 50 MG TABLET PO (20:23)
[2024-07-11] MEDS: QUEtiapine Fumarate 50 MG TABLET PO (20:23)
[2024-07-12] MEDS: Levothyroxine Sodium 100 MCG TABLET PO (06:08)
[2024-07-12 08:00] VITALS: BP 150/72; PULSE 78; RESP 16; TEMP 36.3; O2SAT 96
[2024-07-12] MEDS: Apixaban 2.5 MG TABLET PO ×2 (08:08→20:50)
[2024-07-12] MEDS: Metoprolol Succinate ER 25 MG TAB.ER.24H 75 MG PO (08:08)
[2024-07-12] MEDS: amLODIPine Besylate 5 MG TABLET PO (08:08)
[2024-07-12] MEDS: Memantine HCl 10 MG TABLET PO ×2 (08:08→20:50)
[2024-07-12] MEDS: Donepezil HCl 10 MG TABLET PO (08:08)
--- NOTE | 2024-07-12 10:50 | HO.PSYCHPN ---
Subjective Subjective Date of Service: 07/12/24 Reason For Visit: AMS Subjective Notes: Conditional Voluntary Interim History: Patient was seen and discussed in rounds today. Records and plans were reviewed. She continues to be stable and is doing well with no behavioral issues reported. No complaints or side effects. Eating and sleeping well. No dangerous behaviors. No changes were made Diagnostics Vital Signs (24Hr): Vital Signs - 24 hr 07/11/24 19:45 07/12/24 08:00 Temperature 98.1 F 97.3 F Pulse Rate 78 78 Respiratory Rate 18 16 Blood Pressure 162/78 H 150/72 H Pulse Oximetry 98 96 Oxygen Delivery Method Room Air Room Air BMI result Body Mass Index 18.8 Labs 06/24/24 21:35 06/26/24 08:32 Medications Medications Current Medications Acetaminophen (Acetaminophen 325 Mg Tablet) 650 mg PO Q6H PRN PRN Reason: Headache/Pain Mild Scale (1-3) Al Hydroxide/Mg Hydroxide (Magnesium Hydrox/Alum Hydrox 30 Ml Oral.Susp) 30 ml PO Q6H PRN PRN Reason: Heartburn/Nausea Last Admin: 06/25/24 20:42 Dose: 30 ml Amlodipine Besylate (Amlodipine Besylate 5 Mg Tablet) 5 mg PO DAILY [facility]; Protocol Last Admin: 07/12/24 08:08 Dose: 5 mg Apixaban (Apixaban 2.5 Mg Tablet) 2.5 mg PO BID [facility] Last Admin: 07/12/24 08:08 Dose: 2.5 mg Donepezil HCl (Donepezil Hcl 10 Mg Tablet) 10 mg PO DAILY [facility] Last Admin: 07/12/24 08:08 Dose: 10 mg Levothyroxine Sodium (Levothyroxine Sodium 100 Mcg Tablet) 100 mcg PO DAILY@0600 [facility] Last Admin: 07/12/24 06:08 Dose: 100 mcg Lorazepam (Lorazepam 0.5 Mg Tablet) 0.5 mg PO Q8H PRN PRN Reason: Anxiety Last Admin: 07/04/24 21:01 Dose: 0.5 mg Magnesium Hydroxide (Milk Of Magnesia 30 Ml Oral.Susp) 30 ml PO DAILY PRN PRN Reason: Constipation Memantine (Memantine Hcl 10 Mg Tablet) 10 mg PO BID [facility] Last Admin: 07/12/24 08:08 Dose: 10 mg Metoprolol Succinate (Metoprolol Succinate Er 25 Mg Tab.Er.24h) 75 mg PO DAILY [facility]; Protocol Last Admin: 07/12/24 08:08 Dose: 75 mg Ondansetron HCl (Ondansetron Odt 4 Mg Tab.Rapdis) 4 mg TRANSLINGU Q6H PRN PRN Reason: Nausea and Vomiting Last Admin: 06/25/24 16:37 Dose: 4 mg Quetiapine Fumarate (Quetiapine Fumarate 50 Mg Tablet) 50 mg PO BEDTIME [facility] Last Admin: 07/11/24 20:23 Dose: 50 mg Trazodone HCl (Trazodone Hcl 50 Mg Tablet) 50 mg PO BEDTIME PRN PRN Reason: sleep Last Admin: 07/11/24 20:23 Dose: 50 mg Trazodone HCl (Trazodone Hcl 50 Mg Tablet) 50 mg PO BEDTIME MRX1 PRN PRN Reason: Insomnia Last Admin: 07/07/24 22:55 Dose: 50 mg Allergies Allergies Allergy/AdvReac Type Severity Reaction Status Date / Time codeine [CODEINE] Allergy Unknown SEVERE Verified 06/24/24 20:23 VOMITING, stomach upset aspirin Allergy nausea Verified 06/24/24 20:23 demerol Allergy Nausea Uncoded 06/24/24 20:23 Assessment & Plan Assessment & Plan (1) Mood disorder: Status: Acute Code(s): F39 - Unspecified mood [affective] disorder (2) Alzheimer disease: Status: Acute Code(s): G30.9 - Alzheimer's disease, unspecified; F02.80 - Dementia in other diseases classified elsewhere, unspecified severity, without behavioral disturbance, psychotic disturbance, mood disturbance, and anxiety (3) HTN (hypertension): Status: Acute Code(s): I10 - Essential (primary) hypertension (4) Recurrent UTI (urinary tract infection): Status: Acute Code(s): N39.0 - Urinary tract infection, site not specified Plan The patient is an elderly female with no prior psychiatric history diagnosed with Alzheimer's treated already on Aricept who was brought to our emergency room in the context of exacerbation of confusion, irritability and disorganized behavior. While she was in the emergency room she was diagnosed with a UTI. The patient is a very poor historian unable to provide more details. According to the med rec, the patient was already started on Aricept 5 mg by her primary care physician. Plan 1. Gather collateral information. 2. The patient will be on 5 minute checks for the next 24 hours and later on, if the patient is able to contract for safety to 50 minute checks. 3. Continue with Aricept. Was increased up to 10 mg p.o. q.h.s. on July 02 4. Continue with antibiotics for UTI. 5. Blood work. 6. Reassessment with results 7. New UA ordered on June 28 it came back now normal. 8. Increase Seroquel up to 50 mg p.o. q.h.s. on July 01. 9. Namenda was started on July 05 increase up to 10 mg p.o. b.i.d. July 08. 07/11: Continue current regimen and plans 07/12: Continue current plans and regimen Reason for continued inpatient stay Substantial Risk for: inability to function Time Spent With Patient Time: Total time managing care of this patient today ____ minutes.
[2024-07-12 20:00] VITALS: BP 144/65; PULSE 61; RESP 18; TEMP 36.2; O2SAT 99
[2024-07-12] MEDS: traZODone HCL 50 MG TABLET PO (20:50)
[2024-07-12] MEDS: QUEtiapine Fumarate 50 MG TABLET PO (20:50)
[2024-07-13] MEDS: Levothyroxine Sodium 100 MCG TABLET PO (06:07)
[2024-07-13 08:22] VITALS: BP 146/66; PULSE 83; RESP 18; TEMP 36.4; O2SAT 98
[2024-07-13] MEDS: Apixaban 2.5 MG TABLET PO ×2 (08:25→20:28)
[2024-07-13] MEDS: Donepezil HCl 10 MG TABLET PO (08:25)
[2024-07-13] MEDS: amLODIPine Besylate 5 MG TABLET PO (08:25)
[2024-07-13] MEDS: Metoprolol Succinate ER 25 MG TAB.ER.24H 75 MG PO (08:25)
[2024-07-13] MEDS: Memantine HCl 10 MG TABLET PO ×2 (08:25→20:28)
--- NOTE | 2024-07-13 12:33 | P.PNPSI_ITS ---
Subjective Subjective Date of Service: 07/13/24 Reason For Visit: AMS Subjective Notes: Conditional Voluntary Interim History: The nursing staff reported the patient had been compliant with treatment slept 8 hours. The social media marketer reported that discharge would be pretty soon since the family has arranged for disposition. On interview the patient denies new symptoms, waiting for placement Mental Status Exam Mental Status Exam Patient Appearance: Appropriate Patient Orientation: Person and Situation Level of Consciousness: Awake and Appropriate Patient Behavior: Guarded and Passive Mood Description: Withdrawn Affect Description: Constricted Patient Cognition Impaired: Yes Ability to Follow Directions: Good Speech Pattern: Clear Hallucinations: None Delusions: Not Present Thought Process: Distracted and Slowed Thinking Thought Content: positive for [place] and positive for Poverty of Content Judgement: Fair Diagnostics Vital Signs (24Hr): Vital Signs - 24 hr 07/12/24 20:00 07/13/24 08:22 Temperature 97.2 F 97.6 F Pulse Rate 61 83 Respiratory Rate 18 18 Blood Pressure 144/65 H 146/66 H Pulse Oximetry 99 98 Oxygen Delivery Method Room Air Room Air BMI result Body Mass Index 18.8 Labs 06/24/24 21:35 06/26/24 08:32 Medications Medications Current Medications Acetaminophen (Acetaminophen 325 Mg Tablet) 650 mg PO Q6H PRN PRN Reason: Headache/Pain Mild Scale (1-3) Al Hydroxide/Mg Hydroxide (Magnesium Hydrox/Alum Hydrox 30 Ml Oral.Susp) 30 ml PO Q6H PRN PRN Reason: Heartburn/Nausea Last Admin: 06/25/24 20:42 Dose: 30 ml Amlodipine Besylate (Amlodipine Besylate 5 Mg Tablet) 5 mg PO DAILY [facility]; Protocol Last Admin: 07/13/24 08:25 Dose: 5 mg Apixaban (Apixaban 2.5 Mg Tablet) 2.5 mg PO BID [facility] Last Admin: 07/13/24 08:25 Dose: 2.5 mg Donepezil HCl (Donepezil Hcl 10 Mg Tablet) 10 mg PO DAILY [facility] Last Admin: 07/13/24 08:25 Dose: 10 mg Levothyroxine Sodium (Levothyroxine Sodium 100 Mcg Tablet) 100 mcg PO DAILY@0600 [facility] Last Admin: 07/13/24 06:07 Dose: 100 mcg Lorazepam (Lorazepam 0.5 Mg Tablet) 0.5 mg PO Q8H PRN PRN Reason: Anxiety Last Admin: 07/04/24 21:01 Dose: 0.5 mg Magnesium Hydroxide (Milk Of Magnesia 30 Ml Oral.Susp) 30 ml PO DAILY PRN PRN Reason: Constipation Memantine (Memantine Hcl 10 Mg Tablet) 10 mg PO BID [facility] Last Admin: 07/13/24 08:25 Dose: 10 mg Metoprolol Succinate (Metoprolol Succinate Er 25 Mg Tab.Er.24h) 75 mg PO DAILY [facility]; Protocol Last Admin: 07/13/24 08:25 Dose: 75 mg Ondansetron HCl (Ondansetron Odt 4 Mg Tab.Rapdis) 4 mg TRANSLINGU Q6H PRN PRN Reason: Nausea and Vomiting Last Admin: 06/25/24 16:37 Dose: 4 mg Quetiapine Fumarate (Quetiapine Fumarate 50 Mg Tablet) 50 mg PO BEDTIME [facility] Last Admin: 07/12/24 20:50 Dose: 50 mg Trazodone HCl (Trazodone Hcl 50 Mg Tablet) 50 mg PO BEDTIME PRN PRN Reason: sleep Last Admin: 07/12/24 20:50 Dose: 50 mg Trazodone HCl (Trazodone Hcl 50 Mg Tablet) 50 mg PO BEDTIME MRX1 PRN PRN Reason: Insomnia Last Admin: 07/07/24 22:55 Dose: 50 mg Allergies Allergies Allergy/AdvReac Type Severity Reaction Status Date / Time codeine [CODEINE] Allergy Unknown SEVERE Verified 06/24/24 20:23 VOMITING, stomach upset aspirin Allergy nausea Verified 06/24/24 20:23 demerol Allergy Nausea Uncoded 06/24/24 20:23 Assessment & Plan Assessment & Plan (1) Mood disorder: Status: Acute Code(s): F39 - Unspecified mood [affective] disorder (2) Alzheimer disease: Status: Acute Code(s): G30.9 - Alzheimer's disease, unspecified; F02.80 - Dementia in other diseases classified elsewhere, unspecified severity, without behavioral disturbance, psychotic disturbance, mood disturbance, and anxiety (3) HTN (hypertension): Status: Acute Code(s): I10 - Essential (primary) hypertension (4) Recurrent UTI (urinary tract infection): Status: Acute Code(s): N39.0 - Urinary tract infection, site not specified Plan The patient is an elderly female with no prior psychiatric history diagnosed with Alzheimer's treated already on Aricept who was brought to our emergency room in the context of exacerbation of confusion, irritability and disorganized behavior. While she was in the emergency room she was diagnosed with a UTI. The patient is a very poor historian unable to provide more details. According to the [facility] rec, the patient was already started on Aricept 5 mg by her primary care physician. Plan 1. Gather collateral information. 2. The patient will be on 5 minute checks for the next 24 hours and later on, if the patient is able to contract for safety to 50 minute checks. 3. Continue with Aricept. Was increased up to 10 mg p.o. q.h.s. on July 02 4. Continue with antibiotics for UTI. 5. Blood work. 6. Reassessment with results 7. New UA ordered on June 28 it came back now normal. 8. Increase Seroquel up to 50 mg p.o. q.h.s. on July 01. 9. Namenda was started on July 05 increase up to 10 mg p.o. b.i.d. July 08. 10. Referral to [facility] facility or long-term placement. Reason for continued inpatient stay Substantial Risk for: inability to function, rapid decompensation and med/psych decompensation Time Spent With Patient Time: Total time managing care of this patient today __20__ minutes.
[2024-07-13 20:00] VITALS: BP 164/70; PULSE 74; RESP 18; TEMP 36.4; O2SAT 98
[2024-07-13] MEDS: QUEtiapine Fumarate 50 MG TABLET PO (20:28)
[2024-07-13] MEDS: traZODone HCL 50 MG TABLET PO (20:28)
[2024-07-14] MEDS: Levothyroxine Sodium 100 MCG TABLET PO (05:37)
[2024-07-14 08:00] VITALS: BP 148/64; PULSE 72; RESP 18; TEMP 36; O2SAT 98
[2024-07-14] MEDS: Metoprolol Succinate ER 25 MG TAB.ER.24H 75 MG PO (08:27)
[2024-07-14] MEDS: Memantine HCl 10 MG TABLET PO ×2 (08:27→20:16)
[2024-07-14] MEDS: Donepezil HCl 10 MG TABLET PO (08:27)
[2024-07-14] MEDS: Apixaban 2.5 MG TABLET PO ×2 (08:28→20:16)
[2024-07-14] MEDS: amLODIPine Besylate 5 MG TABLET PO (08:32)
--- NOTE | 2024-07-14 15:22 | P.PNPSI_ITS ---
Subjective Subjective Date of Service: 07/14/24 Reason For Visit: AMS Subjective Notes: Conditional Voluntary Interim History: The nursing staff reported the patient had been socializing with peers pleasant cooperative quiet. The social organization professor reported that she will be back to her home tomorrow with ancillary services as per coordination with his family. On interview the patient denies new symptoms, waiting for discharge tomorrow Mental Status Exam Mental Status Exam Patient Appearance: Well Grooomed Patient Orientation: Person and Situation Level of Consciousness: Awake and Appropriate Patient Behavior: Guarded and Passive Mood Description: Withdrawn Affect Description: Constricted Patient Cognition Impaired: Yes Ability to Follow Directions: Good Speech Pattern: Clear Hallucinations: None Delusions: Not Present Thought Process: Distracted and Slowed Thinking Thought Content: positive for [place] and positive for Poverty of Content Judgement: Fair Diagnostics Vital Signs (24Hr): Vital Signs - 24 hr 07/13/24 20:00 07/14/24 08:00 Temperature 97.6 F 96.8 F Pulse Rate 74 72 Respiratory Rate 18 18 Blood Pressure 164/70 H 148/64 H Pulse Oximetry 98 98 Oxygen Delivery Method Room Air Room Air BMI result Body Mass Index 18.8 Labs 06/24/24 21:35 06/26/24 08:32 Medications Medications Current Medications Acetaminophen (Acetaminophen 325 Mg Tablet) 650 mg PO Q6H PRN PRN Reason: Headache/Pain Mild Scale (1-3) Al Hydroxide/Mg Hydroxide (Magnesium Hydrox/Alum Hydrox 30 Ml Oral.Susp) 30 ml PO Q6H PRN PRN Reason: Heartburn/Nausea Last Admin: 06/25/24 20:42 Dose: 30 ml Amlodipine Besylate (Amlodipine Besylate 5 Mg Tablet) 5 mg PO DAILY [facility]; Protocol Last Admin: 07/14/24 08:32 Dose: 5 mg Apixaban (Apixaban 2.5 Mg Tablet) 2.5 mg PO BID [facility] Last Admin: 07/14/24 08:28 Dose: 2.5 mg Donepezil HCl (Donepezil Hcl 10 Mg Tablet) 10 mg PO DAILY [facility] Last Admin: 07/14/24 08:27 Dose: 10 mg Levothyroxine Sodium (Levothyroxine Sodium 100 Mcg Tablet) 100 mcg PO DAILY@0600 [facility] Last Admin: 07/14/24 05:37 Dose: 100 mcg Lorazepam (Lorazepam 0.5 Mg Tablet) 0.5 mg PO Q8H PRN PRN Reason: Anxiety Last Admin: 07/04/24 21:01 Dose: 0.5 mg Magnesium Hydroxide (Milk Of Magnesia 30 Ml Oral.Susp) 30 ml PO DAILY PRN PRN Reason: Constipation Memantine (Memantine Hcl 10 Mg Tablet) 10 mg PO BID [facility] Last Admin: 07/14/24 08:27 Dose: 10 mg Metoprolol Succinate (Metoprolol Succinate Er 25 Mg Tab.Er.24h) 75 mg PO DAILY [facility]; Protocol Last Admin: 07/14/24 08:27 Dose: 75 mg Ondansetron HCl (Ondansetron Odt 4 Mg Tab.Rapdis) 4 mg TRANSLINGU Q6H PRN PRN Reason: Nausea and Vomiting Last Admin: 06/25/24 16:37 Dose: 4 mg Quetiapine Fumarate (Quetiapine Fumarate 50 Mg Tablet) 50 mg PO BEDTIME [facility] Last Admin: 07/13/24 20:28 Dose: 50 mg Trazodone HCl (Trazodone Hcl 50 Mg Tablet) 50 mg PO BEDTIME PRN PRN Reason: sleep Last Admin: 07/13/24 20:28 Dose: 50 mg Trazodone HCl (Trazodone Hcl 50 Mg Tablet) 50 mg PO BEDTIME MRX1 PRN PRN Reason: Insomnia Last Admin: 07/07/24 22:55 Dose: 50 mg Allergies Allergies Allergy/AdvReac Type Severity Reaction Status Date / Time codeine [CODEINE] Allergy Unknown SEVERE Verified 06/24/24 20:23 VOMITING, stomach upset aspirin Allergy nausea Verified 06/24/24 20:23 demerol Allergy Nausea Uncoded 06/24/24 20:23 Assessment & Plan Assessment & Plan (1) Mood disorder: Status: Acute Code(s): F39 - Unspecified mood [affective] disorder (2) Alzheimer disease: Status: Acute Code(s): G30.9 - Alzheimer's disease, unspecified; F02.80 - Dementia in other diseases classified elsewhere, unspecified severity, without behavioral disturbance, psychotic disturbance, mood disturbance, and anxiety (3) HTN (hypertension): Status: Acute Code(s): I10 - Essential (primary) hypertension (4) Recurrent UTI (urinary tract infection): Status: Acute Code(s): N39.0 - Urinary tract infection, site not specified Plan The patient is an elderly female with no prior psychiatric history diagnosed with Alzheimer's treated already on Aricept who was brought to our emergency room in the context of exacerbation of confusion, irritability and disorganized behavior. While she was in the emergency room she was diagnosed with a UTI. The patient is a very poor historian unable to provide more details. According to the med rec, the patient was already started on Aricept 5 mg by her primary care physician. Plan 1. Gather collateral information. 2. The patient will be on 5 minute checks for the next 24 hours and later on, if the patient is able to contract for safety to 50 minute checks. 3. Continue with Aricept. Was increased up to 10 mg p.o. q.h.s. on July 02 4. Continue with antibiotics for UTI. 5. Blood work. 6. Reassessment with results 7. New UA ordered on June 28 it came back now normal. 8. Increase Seroquel up to 50 mg p.o. q.h.s. on July 01. 9. Namenda was started on July 05 increase up to 10 mg p.o. b.i.d. July 08. 10. Referral to shelter facility or long-term placement. His family agreed on the disposition Reason for continued inpatient stay Substantial Risk for: inability to function, rapid decompensation and med/psych decompensation Time Spent With Patient Time: Total time managing care of this patient today _20___ minutes.
[2024-07-14 20:00] VITALS: BP 153/93; PULSE 76; RESP 15; TEMP 36.1; O2SAT 97
[2024-07-14] MEDS: QUEtiapine Fumarate 50 MG TABLET PO (20:16)
[2024-07-15] VITALS (7 sets, daily range): BP systolic 135–189; BP diastolic 63–83; PULSE 65–79; RESP 16–18; TEMP 36.5–36.9; O2SAT 96–100; BMI 18.3
[2024-07-15] MEDS: Levothyroxine Sodium 100 MCG TABLET PO (05:20)
[2024-07-15] MEDS: Memantine HCl 10 MG TABLET PO ×2 (08:33→20:02)
[2024-07-15] MEDS: amLODIPine Besylate 5 MG TABLET PO (08:33)
[2024-07-15] MEDS: Apixaban 2.5 MG TABLET PO ×2 (08:33→20:02)
[2024-07-15] MEDS: Donepezil HCl 10 MG TABLET PO (08:33)
[2024-07-15] MEDS: Metoprolol Succinate ER 25 MG TAB.ER.24H 75 MG PO (08:33)
--- NOTE | 2024-07-15 11:34 | PM.PSYDC ---
DS: Providers Provider Date of Service: 07/15/24 Date of admission: 06/25/24 14:13 Date of discharge: 07/15/24 Primary care physician: Claudy Gabriel MD DS: Diagnosis Discharge Diagnosis (1) Mood disorder: Status: Acute (2) Alzheimer disease: Status: Acute (3) HTN (hypertension): Status: Acute (4) Recurrent UTI (urinary tract infection): Status: Acute DS: Medications Discharge Medications Home Medications: Home Medications ?Medication ?Instructions ?Recorded ?Confirmed amlodipine 5 mg tablet 5 mg PO DAILY 06/24/24 06/25/24 donepezil 5 mg tablet 5 mg PO DAILY 06/24/24 06/25/24 sertraline 25 mg tablet 25 mg PO DAILY 06/25/24 06/25/24 Previous Rx's ?Medication ?Instructions ?Recorded apixaban 2.5 mg tablet (Eliquis) 2.5 mg PO BID 90 days #180 tabs 11/03/23 metoprolol succinate 50 mg 75 mg (1.5 x 50 mg) PO DAILY 90 12/13/23 tablet,extended release 24 hr days #135 tabs meclizine 25 mg tablet 12.5 mg (1/2 x 25 mg) PO DAILY PRN 01/07/24 vertigo #15 tabs ondansetron HCl 4 mg tablet 4 mg PO Q8H PRN nausea and 01/07/24 vomiting #10 tabs levothyroxine 100 mcg tablet 100 mcg PO DAILY #90 tabs 04/29/24 trazodone 50 mg tablet 50 mg PO BEDTIME PRN sleep #30 tabs 05/28/24 Mental Status Exam Mental Status Exam Patient Appearance: Well Grooomed and Appropriate Patient Orientation: Person and Situation Level of Consciousness: Awake and Appropriate Patient Behavior: Guarded and Passive Mood Description: Withdrawn Affect Description: Constricted Patient Cognition Impaired: Yes Ability to Follow Directions: Good Speech Pattern: Clear Hallucinations: None Delusions: Not Present Thought Process: Distracted and Slowed Thinking Thought Content: positive for [place] and positive for Poverty of Content Judgement: Fair Data Data Completed and Pending Completed studies during hospitalization [Text1]: 06/28/24 Unknown Urine clean catch - Clean Catch Midstream Urine Culture - Final 06/24/24 22:25 Urine clean catch - Clean Catch Midstream Urine Culture - Final DS: Summary Hospital Course Hospital Course: The patient is an 89-year-old male with a past history of Alzheimer's disease, hyperlipidemia, hypothyroidism and high blood pressure who was living in the community. She was brought to the emergency room of our hospital by his family since they reported that in the last 2 or 3 weeks she became more restless, aggressive paranoid and disorganized. She was assessed by the crisis team and checked by the emergency room staff and she was diagnosed with a UTI. She was transferring to this facility for psychiatric stabilization. Please see the HPI of the admission note for further details. On admission, we assessed the patient the patient was pleasant cooperative and very confused unable to remember why or how come she in the in the hospital. We continue with antibiotics for her UTI and we followed UA that came back normal after a few days with antibiotics. The mental status of the patient improved she was more alert and oriented but she was extremely confused. 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 The patient is a for the last 8 years and apparently she is unable to process new information. We had several family meetings with her daughter and other relatives. It was clear that the patient was very impaired. The occupational therapist did a [place] test and she scored very low a 16/30 and her Luis E test was below 4. We discussed risks, benefits, side-effects and alternatives and we decided to start a low dose of antipsychotics and anti cholinesterase spirits the patient was able to contract for safety was pleasant cooperative and ready for discharge no evidence of safety concerns at the moment of the discharge. The family work with the team for proper aftercare. Time spent discussing smoking cessation with patient: 3 to 10 minutes Status at Discharge Cognitive/behavioral status at discharge: Impaired at baseline Functional status at discharge: independent ambulation Overall status at discharge: patient is back to baseline Time Spent with Patient Time attestation: Total time managing care of this patient today __30__ minutes. Time spent: Less than 30 minutes Discharge Plan Discharge Anticipated Discharge Date/Time: 07/15/24 11:00 Patient Disposition: Home, Self-Care Discharge Diagnosis: Dementia Alzheimer's type UTI resolved Delirium resolved Referrals: Ignacia Conway NP [Other] - 08/04/24 1:00 pm (Your first psychiatry appointment is scheduled for 08/04/24 at 1pm in office.) [facility] [Other] - 1 Week (Request for increase in home care hours as placed with your case briefer Savana Mcrae. ) [facility] [Other] - 3-5 Days (Referral was placed for adult day health program. Please contact program after discharge at [phone] to schedule tour to begin enrollment process. ) Claudy Gabriel MD [Primary Care Provider] - 1 Week Discharge Medications: New donepezil 10 mg Tablet 10 mg PO DAILY 30 Days Qty: 30 0RF ondansetron 4 mg Tablet,Disintegrating 4 mg translingual Q6H PRN (Reason: Nausea And Vomiting) 30 Days Qty: 30 0RF memantine 10 mg Tablet 10 mg PO BID 30 Days Qty: 60 0RF quetiapine 50 mg Tablet 50 mg PO BEDTIME 30 Days Qty: 30 0RF Continued trazodone 50 mg tablet 50 mg PO BEDTIME PRN (Reason: sleep) 30 Days Qty: 30 1RF levothyroxine 100 mcg tablet 100 mcg PO DAILY Qty: 90 1RF Eliquis 2.5 mg tablet 2.5 mg PO BID 90 Days Qty: 180 3RF metoprolol succinate 50 mg tablet extended release 24 hr 75 mg PO DAILY 90 Days Qty: 135 3RF Changed amlodipine 5 mg tablet 5 mg PO DAILY 30 Days Qty: 30 0RF Discontinued donepezil 5 mg tablet 5 mg PO DAILY sertraline 25 mg tablet 25 mg PO DAILY meclizine 25 mg tablet 12.5 mg PO DAILY PRN (Reason: vertigo) Qty: 15 0RF ondansetron HCl 4 mg tablet 4 mg PO Q8H PRN (Reason: nausea and vomiting) Qty: 10 0RF Discharge Orders: Discharge Order (Routine); Ordered 07/15/24 Ordered By: Nic Reynolds Diet: Advance to usual diet Activity on Discharge: As tolerated Stand Alone Forms: Patient Portal Discharge page Print Language: Mohawk Care Plan Goals: Care plan goals achieved in this admission Health Concerns: Continue treatment with outpatient providers Plan of Treatment: Continue treatment with outpatient psychiatrist. Assessment: Elderly female with a long history of Alzheimer's, very impaired admitted for exacerbation of agitation in the context of delirium due to UTI that was already treated. The patient went back to her baseline, we increased Aricept to 10 mg p.o. daily and added Namenda 10 mg p.o. b.i.d. to target dementia. At this moment the patient is ready to go back to the community stable. No safety concerns
[2024-07-15] MEDS: cloNIDine HCL 0.1 MG TABLET PO (14:38)
--- NOTE | 2024-07-15 15:12 | PC.NURSE ---
Patient was showered with assistance after lunch. MHA notified nurse that patient was dizzy, stumbling and listing in the shower. This flex o writer operator observed the patient stumbling with the MHA back to her room. Vital signs taken B/P 175/70 at that time. Patient resting in bed and B/P taken again after 30 minutes and it was 187/74, P65 at 1430. Dr Reynolds updated and Clonidine 0.1mg ordered and given PO at 1438. Patient now complaining of the chills. B/P repeated at 1500 while patient was being seen by Dr. Reynolds and her B/P was slightly higher at 189/83, P73 supine in left arm as all previous B/P's were taken. Patient denies headache, chest pain and weakness. No drooping of lip or difference in raising of the arms. Hospitalist notified by Dr. Reynolds.
--- NOTE | 2024-07-15 16:02 | P.EN_ITS ---
Event Note Date of Service: 07/15/24 Event Note: Patient is an 89-year-old female with a PMH significant for HTN, paroxysmal AFib on Eliquis, hypothyroidism, and dementia who was admitted to [facility] psych for stabilization after patient was experiencing frequent forgetfulness, irritability, and disorganized behavior. Hospitalist consult for elevated blood pressure. Patient was set to be discharged today back home with family, but routine vitals found patient's BP spiking as high as 189/83. Patient also has been experiencing some difficulty walking and unsteadiness on feet earlier in the day. Patient currently on amlodipine 5 mg and metoprolol succinate 75 mg. Was given clonidine 0.1 mg for HTN. Patient seen and evaluated in her room where she is resting comfortably on the bed. Her only complaint is of feeling ?wobbly? when she walks. Denies lightheadedness or dizziness. No fever, chills, nausea, vomiting, abdominal pain. Denies chest pain/pressure, palpitations. No shortness a breath, difficulty breathing, LINARES, or cough. Repeat BP after clonidine 170/74 on the left and 164/74 on the right. Manual on left 170/78. Physical exam unremarkable. No focal deficits noted. Preserved strength and ROM of upper and lower extremities bilaterally. Lungs CTA. Heart RRR without murmurs, rubs, or gallops. Patient was ambulated on the unit where she stated her knees felt weak and wobbly, otherwise no acute medical complaints. Denies lightheadedness or dizziness. Plan is to do routine labs -- CBC, CMP, Mag -- check UA and get PT evaluation. Patient will be kept overnight for additional observation and close BP monitoring. If labs are negative, patient's BP closer to baseline, and she feels steady on her feet, then patient should be clear for discharge tomorrow in the morning. Time Spent With Patient Time: Total time managing care of this patient today ____ minutes.
--- NOTE | 2024-07-15 16:32 | HO.PSYCHPN ---
Subjective Subjective Date of Service: 07/15/24 Reason For Visit: AMS Subjective Notes: Conditional Voluntary Interim History: The nursing staff reported the patient was ready for discharge today in the morning. In the afternoon the patient started feeling very dizzy her blood pressure was very high and we gave 1 dose of clonidine with minimal improvement. I called the hospitalist and we review her case and decided to hold the discharge for today, order new blood work for tomorrow morning a UA and a chest x-ray and reassess. The family was informed. Mental Status Exam Mental Status Exam Patient Appearance: Well Grooomed and Appropriate Patient Orientation: Person and Situation Level of Consciousness: Awake Patient Behavior: Guarded and Passive Mood Description: Withdrawn Affect Description: Constricted Patient Cognition Impaired: Yes Ability to Follow Directions: Good Speech Pattern: Clear Hallucinations: None Delusions: Not Present Thought Process: Distracted and Slowed Thinking Thought Content: positive for [place] and positive for Poverty of Content Judgement: Fair Diagnostics Vital Signs (24Hr): Vital Signs - 24 hr 07/14/24 20:00 07/15/24 08:00 07/15/24 14:00 Temperature 96.9 F Pulse Rate 76 79 Respiratory Rate 15 18 Blood Pressure 153/93 H 135/69 175/70 H Pulse Oximetry 97 98 Oxygen Delivery Method Room Air Room Air Room Air 07/15/24 14:38 07/15/24 15:00 07/15/24 15:35 Temperature 98.4 F Pulse Rate 65 73 68 Respiratory Rate Blood Pressure 187/74 H 189/83 H 164/74 H Pulse Oximetry 100 Oxygen Delivery Method Room Air 07/15/24 16:04 Temperature Pulse Rate 78 Respiratory Rate 18 Blood Pressure 171/72 H Pulse Oximetry 99 Oxygen Delivery Method Room Air BMI result Body Mass Index 18.8 Labs 06/24/24 21:35 06/26/24 08:32 Medications Medications Current Medications Acetaminophen (Acetaminophen 325 Mg Tablet) 650 mg PO Q6H PRN PRN Reason: Headache/Pain Mild Scale (1-3) Al Hydroxide/Mg Hydroxide (Magnesium Hydrox/Alum Hydrox 30 Ml Oral.Susp) 30 ml PO Q6H PRN PRN Reason: Heartburn/Nausea Last Admin: 06/25/24 20:42 Dose: 30 ml Amlodipine Besylate (Amlodipine Besylate 5 Mg Tablet) 5 mg PO DAILY [facility]; Protocol Last Admin: 07/15/24 08:33 Dose: 5 mg Apixaban (Apixaban 2.5 Mg Tablet) 2.5 mg PO BID [facility] Last Admin: 07/15/24 08:33 Dose: 2.5 mg Donepezil HCl (Donepezil Hcl 10 Mg Tablet) 10 mg PO DAILY [facility] Last Admin: 07/15/24 08:33 Dose: 10 mg Levothyroxine Sodium (Levothyroxine Sodium 100 Mcg Tablet) 100 mcg PO DAILY@0600 [facility] Last Admin: 07/15/24 05:20 Dose: 100 mcg Lorazepam (Lorazepam 0.5 Mg Tablet) 0.5 mg PO Q8H PRN PRN Reason: Anxiety Last Admin: 07/04/24 21:01 Dose: 0.5 mg Magnesium Hydroxide (Milk Of Magnesia 30 Ml Oral.Susp) 30 ml PO DAILY PRN PRN Reason: Constipation Memantine (Memantine Hcl 10 Mg Tablet) 10 mg PO BID [facility] Last Admin: 07/15/24 08:33 Dose: 10 mg Metoprolol Succinate (Metoprolol Succinate Er 25 Mg Tab.Er.24h) 75 mg PO DAILY [facility]; Protocol Last Admin: 07/15/24 08:33 Dose: 75 mg Ondansetron HCl (Ondansetron Odt 4 Mg Tab.Rapdis) 4 mg TRANSLINGU Q6H PRN PRN Reason: Nausea and Vomiting Last Admin: 06/25/24 16:37 Dose: 4 mg Quetiapine Fumarate (Quetiapine Fumarate 50 Mg Tablet) 50 mg PO BEDTIME [facility] Last Admin: 07/14/24 20:16 Dose: 50 mg Trazodone HCl (Trazodone Hcl 50 Mg Tablet) 50 mg PO BEDTIME PRN PRN Reason: sleep Last Admin: 07/13/24 20:28 Dose: 50 mg Trazodone HCl (Trazodone Hcl 50 Mg Tablet) 50 mg PO BEDTIME MRX1 PRN PRN Reason: Insomnia Last Admin: 07/07/24 22:55 Dose: 50 mg Allergies Allergies Allergy/AdvReac Type Severity Reaction Status Date / Time codeine [CODEINE] Allergy Unknown SEVERE Verified 06/24/24 20:23 VOMITING, stomach upset aspirin Allergy nausea Verified 06/24/24 20:23 demerol Allergy Nausea Uncoded 06/24/24 20:23 Assessment & Plan Assessment & Plan (1) Mood disorder: Status: Acute Code(s): F39 - Unspecified mood [affective] disorder (2) Alzheimer disease: Status: Acute Code(s): G30.9 - Alzheimer's disease, unspecified; F02.80 - Dementia in other diseases classified elsewhere, unspecified severity, without behavioral disturbance, psychotic disturbance, mood disturbance, and anxiety (3) HTN (hypertension): Status: Acute Code(s): I10 - Essential (primary) hypertension (4) Recurrent UTI (urinary tract infection): Status: Acute Code(s): N39.0 - Urinary tract infection, site not specified Plan The patient is an elderly female with no prior psychiatric history diagnosed with Alzheimer's treated already on Aricept who was brought to our emergency room in the context of exacerbation of confusion, irritability and disorganized behavior. While she was in the emergency room she was diagnosed with a UTI. The patient is a very poor historian unable to provide more details. According to the med rec, the patient was already started on Aricept 5 mg by her primary care physician. Plan 1. Gather collateral information. 2. The patient will be on 5 minute checks for the next 24 hours and later on, if the patient is able to contract for safety to 50 minute checks. 3. Continue with Aricept. 4. Continue with antibiotics for UTI. 5. Blood work. 6. Reassessment with results 7. New UA ordered on June 28 it came back now normal. 8. Increase Seroquel up to 100 mg p.o. q.h.s. on July 01. 9. CBC with differential, comprehensive metabolic panel for June 18:00, UA and chest x-ray July 15. Discharge was held today due to blood pressure increased hospitalist is has been involved Reason for continued inpatient stay Substantial Risk for: inability to function, rapid decompensation and med/psych decompensation Time Spent With Patient Time: Total time managing care of this patient today __20__ minutes.
[2024-07-15 16:48] LABS: Hematocrit 40.6 % (37.0-47.0); Hemoglobin 13.8 g/dl (12.0-16.0); Mean Corpuscular Hemoglobin 31.9 pg (27.0-33.0); Mean Corpuscular Volume 93.8 fL (80.0-98.0); Mean Platelet Volume 9.4 fL (9.4-12.3); Platelet Count 310 X10*3/uL (160-400); Red Blood Count 4.33 X10*6/uL (4.20-5.50); Red Cell Distribution Width 13.2 % (11.0-16.0); White Blood Count 8.1 X10*3/uL (4.8-10.8)
[2024-07-15 17:02] LABS: Alanine Aminotransferase 12 U/L (0-31); Albumin Level 3.8 g/dL (3.5-5.0); Alkaline Phosphatase 51 U/L (39-117); Anion Gap 10 (12-20); Aspartate Amino Transferase 14 U/L (5-31); Bilirubin Total 0.5 mg/dL (0.0-1.0); Blood Urea Nitrogen 14 mg/dL (9-16); Calcium 9.3 mg/dL (8.4-10.2); Carbon Dioxide 29 mmol/L (22-29); Chloride 107 mmol/L (96-108); Creatinine Clr Calc Pharmacy 34.3; Estimated Glomerular Filt Rate > 60; Glucose Random 104 mg/dL (60-115); Magnesium 2.1 mg/dL (1.6-2.6); Potassium 3.5 mmol/L (3.3-5.1); Sodium 142 mmol/L (135-145); Total Protein 6.2 g/dL (6.5-8.0)
[2024-07-15] MEDS: QUEtiapine Fumarate 50 MG TABLET PO (20:02)
[2024-07-15 20:41] LABS: Appearance Urine Clear; Color Urine Yellow; Glucose Urine UA Negative (Negative); Leukocyte Esterase Urine Trace (Negative); Nitrite Urine Negative (Negative); Specific Gravity - Urine 1.015 (1.005-1.025); UMIC TRIGGER UACC YES; Urine Blood Negative (Negative); Urine Ketones Negative (Negative); Urine Protein Negative (Neg-Trace)
[2024-07-15 20:46] LABS: Bacteria Urine None Seen (None Seen); Hyaline Casts Urine 0-2 /LPF (0-2); RBC Urine 0-2 /HPF (0-2); Squamous Epithelial Cell Urine 0-2 /HPF (0-2); WBC Urine 0-5 /HPF (0-5)
[2024-07-16] MEDS: Levothyroxine Sodium 100 MCG TABLET PO (05:36)
[2024-07-16 08:20] VITALS: BP 120/60; PULSE 62; RESP 18; TEMP 36.6; O2SAT 96
[2024-07-16] MEDS: Metoprolol Succinate ER 25 MG TAB.ER.24H 75 MG PO (08:22)
[2024-07-16] MEDS: amLODIPine Besylate 5 MG TABLET PO (08:22)
[2024-07-16 08:23] VITALS: BP 120/60; PULSE 62; O2SAT 96
[2024-07-16] MEDS: Apixaban 2.5 MG TABLET PO ×2 (08:23→20:14)
[2024-07-16] MEDS: Donepezil HCl 10 MG TABLET PO (08:23)
[2024-07-16] MEDS: Memantine HCl 10 MG TABLET PO ×2 (08:23→20:14)
--- NOTE | 2024-07-16 14:10 | HO.PSYCHPN ---
Subjective Subjective Date of Service: 07/16/24 Reason For Visit: AMS Subjective Notes: Conditional Voluntary Interim History: The nursing staff reported the patient slept well last night. Her blood work came back normal UA within normal limits chest x-ray normal but later in the morning, she started vomiting and had massive diarrhea. We ordered GI panel and we held at discharge. On interview the patient feels very sick she wants to rest. Mental Status Exam Mental Status Exam Patient Appearance: Appropriate Patient Orientation: Person and Situation Level of Consciousness: Awake and Appropriate Patient Behavior: Guarded and Passive Mood Description: Withdrawn Affect Description: Constricted Patient Cognition Impaired: Yes Ability to Follow Directions: Good Speech Pattern: Clear Hallucinations: None Delusions: Not Present Thought Process: Distracted and Slowed Thinking Thought Content: positive for [place] and positive for Poverty of Content Judgement: Fair Diagnostics Vital Signs (24Hr): Vital Signs - 24 hr 07/15/24 14:38 07/15/24 15:00 07/15/24 15:35 Temperature 98.4 F Pulse Rate 65 73 68 Respiratory Rate Blood Pressure 187/74 H 189/83 H 164/74 H Pulse Oximetry 100 Oxygen Delivery Method Room Air 07/15/24 16:04 07/15/24 20:00 07/16/24 08:20 Temperature 97.7 F 97.9 F Pulse Rate 78 65 62 Respiratory Rate 18 16 18 Blood Pressure 171/72 H 138/63 120/60 Pulse Oximetry 99 96 96 Oxygen Delivery Method Room Air Room Air Room Air 07/16/24 08:23 Temperature Pulse Rate 62 Respiratory Rate Blood Pressure 120/60 Pulse Oximetry 96 Oxygen Delivery Method BMI result Body Mass Index 18.3 Labs 07/15/24 16:44 07/15/24 16:44 Labs: Laboratory Results - last 48 hr 07/15/24 07/15/24 16:44 20:15 WBC 8.1 RBC 4.33 Hgb 13.8 Hct 40.6 MCV 93.8 MCH 31.9 MCHC 34.0 RDW 13.2 Plt Count 310 MPV 9.4 Absolute Nucleated RBC 0.000 Nucleated RBC % (auto) 0.0 Sodium 142 Potassium 3.5 Chloride 107 Carbon Dioxide 29 Anion Gap 10 L BUN 14 Creatinine 0.76 Estim Creat Clear Calc 34.3 Estimated GFR > 60 Random Glucose 104 Calcium 9.3 Magnesium 2.1 Total Bilirubin 0.5 AST 14 ALT 12 Alkaline Phosphatase 51 Total Protein 6.2 L Albumin 3.8 Urine Color Yellow Urine Appearance Clear Urine pH 7.0 Ur Specific [place] 1.015 Urine Protein Negative Urine Glucose (UA) Negative Urine Ketones Negative Urine Blood Negative Urine Nitrite Negative Ur Leukocyte Esterase Trace H Urine RBC 0-2 Urine WBC 0-5 Ur Squamous Epith Cells 0-2 Urine Bacteria None Seen Hyaline Casts 0-2 Imaging Radiology Impressions: ITS Impressions Chest X-Ray 07/15/24 17:05 IMPRESSION: Unremarkable examination. Electronically signed by: Evita Choudhury MD 07/15/2024 11:10 PM EDT Medications Medications Current Medications Acetaminophen (Acetaminophen 325 Mg Tablet) 650 mg PO Q6H PRN PRN Reason: Headache/Pain Mild Scale (1-3) Al Hydroxide/Mg Hydroxide (Magnesium Hydrox/Alum Hydrox 30 Ml Oral.Susp) 30 ml PO Q6H PRN PRN Reason: Heartburn/Nausea Last Admin: 06/25/24 20:42 Dose: 30 ml Amlodipine Besylate (Amlodipine Besylate 5 Mg Tablet) 5 mg PO DAILY [facility]; Protocol Last Admin: 07/16/24 08:22 Dose: 5 mg Apixaban (Apixaban 2.5 Mg Tablet) 2.5 mg PO BID [facility] Last Admin: 07/16/24 08:23 Dose: 2.5 mg Donepezil HCl (Donepezil Hcl 10 Mg Tablet) 10 mg PO DAILY [facility] Last Admin: 07/16/24 08:23 Dose: 10 mg Levothyroxine Sodium (Levothyroxine Sodium 100 Mcg Tablet) 100 mcg PO DAILY@0600 [facility] Last Admin: 07/16/24 05:36 Dose: 100 mcg Lorazepam (Lorazepam 0.5 Mg Tablet) 0.5 mg PO Q8H PRN PRN Reason: Anxiety Last Admin: 07/04/24 21:01 Dose: 0.5 mg Magnesium Hydroxide (Milk Of Magnesia 30 Ml Oral.Susp) 30 ml PO DAILY PRN PRN Reason: Constipation Memantine (Memantine Hcl 10 Mg Tablet) 10 mg PO BID [facility] Last Admin: 07/16/24 08:23 Dose: 10 mg Metoprolol Succinate (Metoprolol Succinate Er 25 Mg Tab.Er.24h) 75 mg PO DAILY [facility]; Protocol Last Admin: 07/16/24 08:22 Dose: 75 mg Ondansetron HCl (Ondansetron Odt 4 Mg Tab.Rapdis) 4 mg TRANSLINGU Q6H PRN PRN Reason: Nausea and Vomiting Last Admin: 06/25/24 16:37 Dose: 4 mg Quetiapine Fumarate (Quetiapine Fumarate 50 Mg Tablet) 50 mg PO BEDTIME [facility] Last Admin: 07/15/24 20:02 Dose: 50 mg Trazodone HCl (Trazodone Hcl 50 Mg Tablet) 50 mg PO BEDTIME PRN PRN Reason: sleep Last Admin: 07/13/24 20:28 Dose: 50 mg Trazodone HCl (Trazodone Hcl 50 Mg Tablet) 50 mg PO BEDTIME MRX1 PRN PRN Reason: Insomnia Last Admin: 07/07/24 22:55 Dose: 50 mg Allergies Allergies Allergy/AdvReac Type Severity Reaction Status Date / Time codeine [CODEINE] Allergy Unknown SEVERE Verified 06/24/24 20:23 VOMITING, stomach upset aspirin Allergy nausea Verified 06/24/24 20:23 demerol Allergy Nausea Uncoded 06/24/24 20:23 Assessment & Plan Assessment & Plan (1) Mood disorder: Status: Acute Code(s): F39 - Unspecified mood [affective] disorder (2) Alzheimer disease: Status: Acute Code(s): G30.9 - Alzheimer's disease, unspecified; F02.80 - Dementia in other diseases classified elsewhere, unspecified severity, without behavioral disturbance, psychotic disturbance, mood disturbance, and anxiety (3) HTN (hypertension): Status: Acute Code(s): I10 - Essential (primary) hypertension (4) Recurrent UTI (urinary tract infection): Status: Acute Code(s): N39.0 - Urinary tract infection, site not specified Plan The patient is an elderly female with no prior psychiatric history diagnosed with Alzheimer's treated already on Aricept who was brought to our emergency room in the context of exacerbation of confusion, irritability and disorganized behavior. While she was in the emergency room she was diagnosed with a UTI. The patient is a very poor historian unable to provide more details. According to the [facility] rec, the patient was already started on Aricept 5 mg by her primary care physician. Plan 1. Gather collateral information. 2. The patient will be on 5 minute checks for the next 24 hours and later on, if the patient is able to contract for safety to 50 minute checks. 3. Continue with Aricept. 4. Continue with antibiotics for UTI. 5. Blood work. 6. Reassessment with results 7. New UA ordered on June 28 it came back now normal. 8. Increase Seroquel up to 100 mg p.o. q.h.s. on July 01. 9. CBC with differential, comprehensive metabolic panel for June 18:00, UA and chest x-ray July 15. Discharge was held today due to blood pressure increased hospitalist is has been involved. Her blood work, chest x-ray and UA came back normal. Still discharge held since the patient has massive diarrhea, we are ruling out if she has norovirus. Reason for continued inpatient stay Substantial Risk for: inability to function, rapid decompensation and med/psych decompensation Time Spent With Patient Time: Total time managing care of this patient today __20__ minutes.
[2024-07-16 20:00] VITALS: BP 134/60; PULSE 64; RESP 17; TEMP 36; O2SAT 98
[2024-07-16] MEDS: QUEtiapine Fumarate 50 MG TABLET PO (20:14)
[2024-07-17] MEDS: Levothyroxine Sodium 100 MCG TABLET PO (05:40)
--- NOTE | 2024-07-17 06:50 | P.PNPSI_ITS ---
Subjective Subjective Date of Service: 07/17/24 Reason For Visit: AMS Subjective Notes: Conditional Voluntary Interim History: The nursing staff reported the patient had diarrhea yesterday. Yesterday her discharge was canceled against since she was medically not doing well, she was vomiting with diarrhea. Vital signs have been stable, hospitalist was involved and reported that she looks better. On interview the patient reports that she is feeling much better since yesterday. Mental Status Exam Mental Status Exam Patient Appearance: Appropriate Patient Orientation: Person and Situation Level of Consciousness: Awake Patient Behavior: Cooperative Mood Description: Calm Affect Description: Constricted Patient Cognition Impaired: Yes Ability to Follow Directions: Good Speech Pattern: Clear Hallucinations: None Delusions: Not Present Thought Process: Distracted and Slowed Thinking Thought Content: positive for [place] and positive for Poverty of Content Judgement: Fair Diagnostics Vital Signs (24Hr): Vital Signs - 24 hr 07/16/24 08:20 07/16/24 08:23 07/16/24 20:00 Temperature 97.9 F 96.8 F Pulse Rate 62 62 64 Respiratory Rate 18 17 Blood Pressure 120/60 120/60 134/60 Pulse Oximetry 96 96 98 Oxygen Delivery Method Room Air Room Air BMI result Body Mass Index 18.3 Labs 07/15/24 16:44 07/15/24 16:44 Labs: Laboratory Results - last 48 hr 07/15/24 07/15/24 16:44 20:15 WBC 8.1 RBC 4.33 Hgb 13.8 Hct 40.6 MCV 93.8 MCH 31.9 MCHC 34.0 RDW 13.2 Plt Count 310 MPV 9.4 Absolute Nucleated RBC 0.000 Nucleated RBC % (auto) 0.0 Sodium 142 Potassium 3.5 Chloride 107 Carbon Dioxide 29 Anion Gap 10 L BUN 14 Creatinine 0.76 Estim Creat Clear Calc 34.3 Estimated GFR > 60 Random Glucose 104 Calcium 9.3 Magnesium 2.1 Total Bilirubin 0.5 AST 14 ALT 12 Alkaline Phosphatase 51 Total Protein 6.2 L Albumin 3.8 Urine Color Yellow Urine Appearance Clear Urine pH 7.0 Ur Specific [place] 1.015 Urine Protein Negative Urine Glucose (UA) Negative Urine Ketones Negative Urine Blood Negative Urine Nitrite Negative Ur Leukocyte Esterase Trace H Urine RBC 0-2 Urine WBC 0-5 Ur Squamous Epith Cells 0-2 Urine Bacteria None Seen Hyaline Casts 0-2 Imaging Radiology Impressions: ITS Impressions Chest X-Ray 07/15/24 17:05 IMPRESSION: Unremarkable examination. Electronically signed by: Evita Choudhury MD 07/15/2024 11:10 PM EDT Medications Medications Current Medications Acetaminophen (Acetaminophen 325 Mg Tablet) 650 mg PO Q6H PRN PRN Reason: Headache/Pain Mild Scale (1-3) Al Hydroxide/Mg Hydroxide (Magnesium Hydrox/Alum Hydrox 30 Ml Oral.Susp) 30 ml PO Q6H PRN PRN Reason: Heartburn/Nausea Last Admin: 06/25/24 20:42 Dose: 30 ml Amlodipine Besylate (Amlodipine Besylate 5 Mg Tablet) 5 mg PO DAILY [facility]; Protocol Last Admin: 07/16/24 08:22 Dose: 5 mg Apixaban (Apixaban 2.5 Mg Tablet) 2.5 mg PO BID [facility] Last Admin: 07/16/24 20:14 Dose: 2.5 mg Donepezil HCl (Donepezil Hcl 10 Mg Tablet) 10 mg PO DAILY [facility] Last Admin: 07/16/24 08:23 Dose: 10 mg Levothyroxine Sodium (Levothyroxine Sodium 100 Mcg Tablet) 100 mcg PO DAILY@0600 [facility] Last Admin: 07/17/24 05:40 Dose: 100 mcg Lorazepam (Lorazepam 0.5 Mg Tablet) 0.5 mg PO Q8H PRN PRN Reason: Anxiety Last Admin: 07/04/24 21:01 Dose: 0.5 mg Magnesium Hydroxide (Milk Of Magnesia 30 Ml Oral.Susp) 30 ml PO DAILY PRN PRN Reason: Constipation Memantine (Memantine Hcl 10 Mg Tablet) 10 mg PO BID [facility] Last Admin: 07/16/24 20:14 Dose: 10 mg Metoprolol Succinate (Metoprolol Succinate Er 25 Mg Tab.Er.24h) 75 mg PO DAILY [facility]; Protocol Last Admin: 07/16/24 08:22 Dose: 75 mg Ondansetron HCl (Ondansetron Odt 4 Mg Tab.Rapdis) 4 mg TRANSLINGU Q6H PRN PRN Reason: Nausea and Vomiting Last Admin: 06/25/24 16:37 Dose: 4 mg Quetiapine Fumarate (Quetiapine Fumarate 50 Mg Tablet) 50 mg PO BEDTIME [facility] Last Admin: 07/16/24 20:14 Dose: 50 mg Trazodone HCl (Trazodone Hcl 50 Mg Tablet) 50 mg PO BEDTIME PRN PRN Reason: sleep Last Admin: 07/13/24 20:28 Dose: 50 mg Trazodone HCl (Trazodone Hcl 50 Mg Tablet) 50 mg PO BEDTIME MRX1 PRN PRN Reason: Insomnia Last Admin: 07/07/24 22:55 Dose: 50 mg Allergies Allergies Allergy/AdvReac Type Severity Reaction Status Date / Time codeine [CODEINE] Allergy Unknown SEVERE Verified 06/24/24 20:23 VOMITING, stomach upset aspirin Allergy nausea Verified 06/24/24 20:23 demerol Allergy Nausea Uncoded 06/24/24 20:23 Assessment & Plan Assessment & Plan (1) Mood disorder: Status: Acute Code(s): F39 - Unspecified mood [affective] disorder (2) Alzheimer disease: Status: Acute Code(s): G30.9 - Alzheimer's disease, unspecified; F02.80 - Dementia in other diseases classified elsewhere, unspecified severity, without behavioral disturbance, psychotic disturbance, mood disturbance, and anxiety (3) HTN (hypertension): Status: Acute Code(s): I10 - Essential (primary) hypertension (4) Recurrent UTI (urinary tract infection): Status: Acute Code(s): N39.0 - Urinary tract infection, site not specified Plan The patient is an elderly female with no prior psychiatric history diagnosed with Alzheimer's treated already on Aricept who was brought to our emergency room in the context of exacerbation of confusion, irritability and disorganized behavior. While she was in the emergency room she was diagnosed with a UTI. The patient is a very poor historian unable to provide more details. According to the [facility] rec, the patient was already started on Aricept 5 mg by her primary care physician. Plan 1. Gather collateral information. 2. The patient will be on 5 minute checks for the next 24 hours and later on, if the patient is able to contract for safety to 50 minute checks. 3. Continue with Aricept. 4. Continue with antibiotics for UTI. 5. Blood work. 6. Reassessment with results 7. New UA ordered on June 28 it came back now normal. 8. Increase Seroquel up to 100 mg p.o. q.h.s. on July 01. 9. CBC with differential, comprehensive metabolic panel for June 18:00, UA and chest x-ray July 15. Discharge was held today due to blood pressure increased hospitalist is has been involved. Her blood work, chest x-ray and UA came back normal. Still discharge held since the patient has massive diarrhea, we are ruling out if she has norovirus. Reason for continued inpatient stay Substantial Risk for: inability to function, rapid decompensation and med/psych decompensation Time Spent With Patient Time: Total time managing care of this patient today __20__ minutes.
[2024-07-17 08:00] VITALS: BP 120/60; PULSE 66; RESP 14; TEMP 36.1; O2SAT 97
[2024-07-17] MEDS: Donepezil HCl 10 MG TABLET PO (09:17)
[2024-07-17] MEDS: Metoprolol Succinate ER 25 MG TAB.ER.24H 75 MG PO (09:17)
[2024-07-17] MEDS: amLODIPine Besylate 5 MG TABLET PO (09:17)
[2024-07-17] MEDS: Apixaban 2.5 MG TABLET PO ×2 (09:17→21:06)
[2024-07-17] MEDS: Memantine HCl 10 MG TABLET PO ×2 (09:17→21:06)
[2024-07-17 20:00] VITALS: BP 170/72; PULSE 65; RESP 16; TEMP 36.8; O2SAT 96
[2024-07-17] MEDS: QUEtiapine Fumarate 50 MG TABLET PO (21:06)
[2024-07-18] MEDS: Levothyroxine Sodium 100 MCG TABLET PO (05:15)
--- NOTE | 2024-07-18 06:37 | P.PNPSI_ITS ---
Subjective Subjective Date of Service: 07/18/24 Reason For Visit: AMS Subjective Notes: Conditional Voluntary Interim History: The nursing staff reported the patient had been compliant with treatment, she slept 8 hours and her vital signs have been stable. On interview the patient is pleasantly confused, easily redirectable. Mental Status Exam Mental Status Exam Patient Appearance: Appropriate Patient Orientation: Person and Situation Level of Consciousness: Awake and Appropriate Patient Behavior: Cooperative Mood Description: Calm Affect Description: Constricted Patient Cognition Impaired: Yes Ability to Follow Directions: Good Speech Pattern: Clear Hallucinations: None Delusions: Not Present Thought Process: Distracted and Slowed Thinking Thought Content: positive for [place] and positive for Poverty of Content Judgement: Fair Diagnostics Vital Signs (24Hr): Vital Signs - 24 hr 07/17/24 08:00 07/17/24 20:00 Temperature 97 F 98.3 F Pulse Rate 66 65 Respiratory Rate 14 16 Blood Pressure 120/60 170/72 H Pulse Oximetry 97 96 Oxygen Delivery Method Room Air Room Air BMI result Body Mass Index 18.3 Labs 07/15/24 16:44 07/15/24 16:44 Imaging Radiology Impressions: ITS Impressions Chest X-Ray 07/15/24 17:05 IMPRESSION: Unremarkable examination. Electronically signed by: Evita Choudhury MD 07/15/2024 11:10 PM EDT RP Medications Medications Current Medications Acetaminophen (Acetaminophen 325 Mg Tablet) 650 mg PO Q6H PRN PRN Reason: Headache/Pain Mild Scale (1-3) Al Hydroxide/Mg Hydroxide (Magnesium Hydrox/Alum Hydrox 30 Ml Oral.Susp) 30 ml PO Q6H PRN PRN Reason: Heartburn/Nausea Last Admin: 06/25/24 20:42 Dose: 30 ml Amlodipine Besylate (Amlodipine Besylate 5 Mg Tablet) 5 mg PO DAILY [facility]; Protocol Last Admin: 07/17/24 09:17 Dose: 5 mg Apixaban (Apixaban 2.5 Mg Tablet) 2.5 mg PO BID [facility] Last Admin: 07/17/24 21:06 Dose: 2.5 mg Donepezil HCl (Donepezil Hcl 10 Mg Tablet) 10 mg PO DAILY [facility] Last Admin: 07/17/24 09:17 Dose: 10 mg Levothyroxine Sodium (Levothyroxine Sodium 100 Mcg Tablet) 100 mcg PO DAILY@0600 [facility] Last Admin: 07/18/24 05:15 Dose: 100 mcg Lorazepam (Lorazepam 0.5 Mg Tablet) 0.5 mg PO Q8H PRN PRN Reason: Anxiety Last Admin: 07/04/24 21:01 Dose: 0.5 mg Magnesium Hydroxide (Milk Of Magnesia 30 Ml Oral.Susp) 30 ml PO DAILY PRN PRN Reason: Constipation Memantine (Memantine Hcl 10 Mg Tablet) 10 mg PO BID [facility] Last Admin: 07/17/24 21:06 Dose: 10 mg Metoprolol Succinate (Metoprolol Succinate Er 25 Mg Tab.Er.24h) 75 mg PO DAILY [facility]; Protocol Last Admin: 07/17/24 09:17 Dose: 75 mg Ondansetron HCl (Ondansetron Odt 4 Mg Tab.Rapdis) 4 mg TRANSLINGU Q6H PRN PRN Reason: Nausea and Vomiting Last Admin: 06/25/24 16:37 Dose: 4 mg Quetiapine Fumarate (Quetiapine Fumarate 50 Mg Tablet) 50 mg PO BEDTIME [facility] Last Admin: 07/17/24 21:06 Dose: 50 mg Trazodone HCl (Trazodone Hcl 50 Mg Tablet) 50 mg PO BEDTIME PRN PRN Reason: sleep Last Admin: 07/13/24 20:28 Dose: 50 mg Trazodone HCl (Trazodone Hcl 50 Mg Tablet) 50 mg PO BEDTIME MRX1 PRN PRN Reason: Insomnia Last Admin: 07/07/24 22:55 Dose: 50 mg Allergies Allergies Allergy/AdvReac Type Severity Reaction Status Date / Time codeine [CODEINE] Allergy Unknown SEVERE Verified 06/24/24 20:23 VOMITING, stomach upset aspirin Allergy nausea Verified 06/24/24 20:23 demerol Allergy Nausea Uncoded 06/24/24 20:23 Assessment & Plan Assessment & Plan (1) Mood disorder: Status: Acute Code(s): F39 - Unspecified mood [affective] disorder (2) Alzheimer disease: Status: Acute Code(s): G30.9 - Alzheimer's disease, unspecified; F02.80 - Dementia in other diseases classified elsewhere, unspecified severity, without behavioral disturbance, psychotic disturbance, mood disturbance, and anxiety (3) HTN (hypertension): Status: Acute Code(s): I10 - Essential (primary) hypertension (4) Recurrent UTI (urinary tract infection): Status: Acute Code(s): N39.0 - Urinary tract infection, site not specified Plan The patient is an elderly female with no prior psychiatric history diagnosed with Alzheimer's treated already on Aricept who was brought to our emergency room in the context of exacerbation of confusion, irritability and disorganized behavior. While she was in the emergency room she was diagnosed with a UTI. The patient is a very poor historian unable to provide more details. According to the med rec, the patient was already started on Aricept 5 mg by her primary care physician. Plan 1. Gather collateral information. 2. The patient will be on 5 minute checks for the next 24 hours and later on, if the patient is able to contract for safety to 50 minute checks. 3. Continue with Aricept. 4. Continue with antibiotics for UTI. 5. Blood work. 6. Reassessment with results 7. New UA ordered on June 28 it came back now normal. 8. Increase Seroquel up to 100 mg p.o. q.h.s. on July 01. 9. CBC with differential, comprehensive metabolic panel for June 18:00, UA and chest x-ray July 15. Discharge was held today due to blood pressure increased hospitalist is has been involved. Her blood work, chest x-ray and UA came back normal. Still discharge held since the patient has massive diarrhea, we are ruling out if she has norovirus. During the weekend she looks much better. Reason for continued inpatient stay Substantial Risk for: inability to function, rapid decompensation and med/psych decompensation Time Spent With Patient Time: Total time managing care of this patient today __20__ minutes.
[2024-07-18 07:55] VITALS: BP 130/73; PULSE 84; RESP 18; TEMP 36.4; O2SAT 98
[2024-07-18] MEDS: amLODIPine Besylate 5 MG TABLET PO (08:08)
[2024-07-18] MEDS: Metoprolol Succinate ER 25 MG TAB.ER.24H 75 MG PO (08:08)
[2024-07-18] MEDS: Apixaban 2.5 MG TABLET PO ×2 (08:08→20:24)
[2024-07-18] MEDS: Donepezil HCl 10 MG TABLET PO (08:08)
[2024-07-18] MEDS: Memantine HCl 10 MG TABLET PO ×2 (08:09→20:24)
[2024-07-18 20:00] VITALS: BP 172/72; PULSE 70; RESP 18; TEMP 36.7; O2SAT 97
[2024-07-18] MEDS: QUEtiapine Fumarate 50 MG TABLET PO (20:24)
[2024-07-18] MEDS: traZODone HCL 50 MG TABLET PO (20:24)
[2024-07-19] MEDS: Levothyroxine Sodium 100 MCG TABLET PO (06:33)
[2024-07-19 08:00] VITALS: BP 166/76; PULSE 76; RESP 16; TEMP 36.5; O2SAT 97
[2024-07-19] MEDS: Apixaban 2.5 MG TABLET PO (09:20)
[2024-07-19] MEDS: Metoprolol Succinate ER 25 MG TAB.ER.24H 75 MG PO (09:20)
[2024-07-19] MEDS: Memantine HCl 10 MG TABLET PO (09:20)
[2024-07-19] MEDS: Donepezil HCl 10 MG TABLET PO (09:21)
[2024-07-19] MEDS: amLODIPine Besylate 5 MG TABLET PO (09:21)
[2024-07-19 11:29] LABS: Glucose, Whole Blood 106 mg/dL (60-115)
[2024-07-19] MEDS: Ondansetron ODT 4 MG TAB.RAPDIS TRANSLINGU (11:47)
[2024-07-19] MEDS: LORazepam 0.5 MG TABLET PO (11:47)
[2024-07-19 12:22] VITALS: BP 137/65; PULSE 77; RESP 18; O2SAT 98
[2024-07-19 14:54] VITALS: BP 137/65; PULSE 77; O2SAT 98
--- NOTE | 2024-07-19 17:03 | PM.EVENT ---
Event Note Date of Service: 07/19/24 Event Note: 89-year-old woman admitted to [facility] for psychiatric care. Called by psychiatrist secondary to patient complaints of dizziness. Patient alert and chronically confused Denied any dizziness, visual changes Sitting up in a wheelchair Daughter present during interview And stated that she did not have any dizziness. Her daughter patient does have a history of vertigo that waxes and wanes. Patient's vital signs were orthostatic blood pressures negative. Patient had been seen by Physical therapy and Occupational therapy and plan was for discharge home with family with physical therapy. Discussed this with patient's daughter. She agrees with the plan and will be taking her home today. Time Spent With Patient Time: Total time managing care of this patient today ____ minutes.
== END 2024-07-19 17:36 | disposition home or self-care (01) | DRG 57 ==
LOC: HO.ED 06-25 09:50 → HO.PGERI 06-25 14:14
PROVIDERS: Student in an Organized Health Care Education/Training Program; Admitting Provider Psychiatry & Neurology Psychiatry; Emergency Provider Emergency Medicine; PCP Internal Medicine; Visit Provider Psychiatry & Neurology Psychiatry
DX: G30.9 Alzheimer's disease, unspecified (principal); F05 Delirium due to known physiological condition; N39.0 Urinary tract infection, site not specified; I48.0 Paroxysmal atrial fibrillation; I10 Essential (primary) hypertension; E78.5 Hyperlipidemia, unspecified; E03.9 Hypothyroidism, unspecified; F02.80 Dementia in other diseases classified elsewhere, unspecified severity, without behavioral disturbance, psychotic disturbance, mood disturbance, and anxiety; Z79.01 Long term (current) use of anticoagulants; Z87.440 Personal history of urinary (tract) infections; Z79.890 Hormone replacement therapy; Z79.899 Other long term (current) drug therapy
CPT/HCPCS: 36415; 71046; 80053; 80061; 80307; 81001; 82947; 83735; 84439; 84443; 85025; 85027; 87086; 93005; 97161; 99285; S9485

== ENCOUNTER → 2024-06-25 14:13 | Outpatient (BNV) | payer MEDICARE, SELFPAY | PROVIDERS: Admitting Provider Psychiatry & Neurology Psychiatry; Emergency Provider Emergency Medicine; PCP Internal Medicine; Visit Provider Psychiatry & Neurology Psychiatry | DX: F39 Unspecified mood [affective] disorder (principal); G30.9 Alzheimer's disease, unspecified; F02.80 Dementia in other diseases classified elsewhere, unspecified severity, without behavioral disturbance, psychotic disturbance, mood disturbance, and anxiety; I10 Essential (primary) hypertension; N39.0 Urinary tract infection, site not specified | CPT/HCPCS: 90792; 99231; 99232; 99238 ==

== ENCOUNTER → 2024-06-25 14:13 | Outpatient (BNV) | payer MEDICARE, SELFPAY | PROVIDERS: Admitting Provider Psychiatry & Neurology Psychiatry; Emergency Provider Emergency Medicine; PCP Internal Medicine; Visit Provider Psychiatry & Neurology Psychiatry | DX: F39 Unspecified mood [affective] disorder (principal); G30.9 Alzheimer's disease, unspecified; F02.80 Dementia in other diseases classified elsewhere, unspecified severity, without behavioral disturbance, psychotic disturbance, mood disturbance, and anxiety; I10 Essential (primary) hypertension; N39.0 Urinary tract infection, site not specified | CPT/HCPCS: 99231; 99232 ==

== ENCOUNTER 2024-07-28 14:32 | Outpatient (AMB) | payer MEDICARE, SELFPAY ==
--- NOTE | 2024-07-28 14:33 | A.OFFPC_ITS ---
Vital Signs 07/28/24 14:34 Height 5 ft Weight 91 lb BMI 17.8 BP 124/58 L Blood Pressure Location Lt brachial Position Sitting Pulse 66 Pulse Source Pulse Oximeter Pulse Oximetry (%) 98 Oxygen Delivery Method Room Air Intake Visit Reasons: [facility] [place] 07/19 [employer] Required: No Accompanied by: Daughter Allergies codeine [CODEINE] Allergy (Unknown, Verified 06/24/24 20:23) SEVERE VOMITING, stomach upset aspirin Allergy (Verified 06/24/24 20:23) nausea demerol Allergy (Uncoded 06/24/24 20:23) Nausea Tobacco use date assessed: 04/14/24 Fall risk assessment: No Falls in past year Last assessed Fall Risk: 07/28/24 Dental Screening Dental Screen Date: 01/07/24 HPI HPI Comments History of Present Illness Details 89 Y/O female patient who presents to [facility] today for HDF. Accompanied by daughter who provides history today. She was admitted at [facility] on 07/16/24 for Hypertension emergency and Alzheimer disease. She was discharged home on 07/19/24 on stable condition. She currently takes Aricept 10 mg daily and follows with Neurology. Amlodipine 5 mg was added to her HTN regiment. Daughter concerned that patient has been loosing weight, because she does not eat enough food. Pt reports Anorexia and sometimes does not eat for a day. Had brief discussion regarding adding Mirtazapine as diet booster. [facility] Medical History Alzheimer disease Anxiety Left bundle branch block Paroxysmal atrial fibrillation Vitamin D deficiency Microscopic hematuria Hypothyroidism HTN (hypertension) Osteoarthritis Surgical History H/O colonoscopy History of laparoscopy History of total abdominal hysterectomy Family History Father No problems noted. Mother HTN (hypertension) CVD (cardiovascular disease) Brother No problems noted. Brother No problems noted. Sister No problems noted. Son No problems noted. Son No problems noted. Daughter No problems noted. Social History Household Members: None Housing: House Do you presently have visiting nurse or other home services: Yes (Meals on Wheels) Alcohol intake: never Patient Tobacco Use Status: Never used Tobacco Tobacco use type: Cigarette e-Cigarette/Vaping Use: Never Used Second Hand Smoke Exposure: No service: No Current occupational status: retired Sexual orientation: Straight/Heterosexual Cognitive needs: No Hearing needs: No Vision needs: Yes (glasses) Questionnaire Thrive Questionnaire Date Thrive assessed: 06/30/24 JEANETH-7 AMB Questionnaire JEANETH-7 Date JEANETH - 7 assessed: 01/07/24 Source: Developed by Drs. Fabio Gongora, Sakina Oliver, Papi Stacy and colleagues, with an educational debbie from [employer]. Review of Systems Const All systems reviewed & are unremarkable except as noted in HPI and below Physical exam (Primary Care) Vital Signs: Last Vital Signs Pulse 66 07/28/24 14:34 BP 124/58 L 07/28/24 14:34 Pulse Ox 98 07/28/24 14:34 Oxygen Delivery Method Room Air 07/28/24 14:34 BMI result Body Mass Index 17.8 Tobacco/Smoking Status: Tobacco use Status Tobacco use date assessed 04/14/24 07/28/24 14:38 Patient Tobacco Use Status Never used Tobacco 07/28/24 14:38 Tobacco use type Cigarette 07/28/24 14:38 e-Cigarette/Vaping Use Never Used 07/28/24 14:38 Thrive Assessment: Date of Thrive Assessment Date Thrive assessed 06/30/24 07/28/24 14:38 Const General: cooperative and no acute distress Nutritional Appearance: underweight Orientation/consciousness: patient oriented x3 Resp Effort & Inspection: normal respiratory effort Auscultation: clear to auscultation bilaterally Cardio Heart sounds: S1 normal heart sound present and S2 normal heart sound present Neuro General: patient oriented x3, gait normal and moves all extremities Psych Speech and movement: Normal speech and movement present Coding Level of Care Code Est Pt Level 4 (73989) Diagnoses Alzheimer disease G30.9; F02.80 Primary hypertension I10 Hypertension type: primary hypertension Time Spent (min) 20 Assessment & Plan Assessment & Plan (1) Alzheimer disease: Code(s): G30.9 - Alzheimer's disease, unspecified; F02.80 - Dementia in other diseases classified elsewhere, unspecified severity, without behavioral disturbance, psychotic disturbance, mood disturbance, and anxiety Category: Medical Plan: Managed by Neurology. Currently on Aricept (2) HTN (hypertension): Code(s): I10 - Essential (primary) hypertension Category: Medical Qualifiers: Hypertension type: primary hypertension Qualified Code(s): I10 - Essential (primary) hypertension Plan: Stable, continue on current regiment.
[2024-07-28 14:34] VITALS: BP 124/58; PULSE 66; O2SAT 98; BMI 17.8
== END 2024-07-28 14:55 | disposition home or self-care (01) ==
LOC: HO.HMCH 14:33
PROVIDERS: PCP Internal Medicine; Visit Provider Nurse Practitioner Family
DX: G30.9 Alzheimer's disease, unspecified (principal); F02.80 Dementia in other diseases classified elsewhere, unspecified severity, without behavioral disturbance, psychotic disturbance, mood disturbance, and anxiety; I10 Essential (primary) hypertension

== ENCOUNTER → 2024-07-28 14:32 | Outpatient (BNVA) | payer MEDICARE, SELFPAY | PROVIDERS: PCP Internal Medicine; Visit Provider Nurse Practitioner Family | DX: G30.9 Alzheimer's disease, unspecified (principal); F02.80 Dementia in other diseases classified elsewhere, unspecified severity, without behavioral disturbance, psychotic disturbance, mood disturbance, and anxiety; I10 Essential (primary) hypertension | CPT/HCPCS: 99212 ==

== ENCOUNTER 2024-08-04 14:03 | Outpatient (REF) | payer MEDICARE, SELFPAY ==
[2024-08-04 14:48] LABS: Appearance Urine Clear; Color Urine Yellow; Glucose Urine UA Negative (Negative); Leukocyte Esterase Urine Trace (Negative); Nitrite Urine Negative (Negative); UMIC TRIGGER UA YES; Urine Blood Negative (Negative); Urine Ketones Trace mg/dL (Negative); Urine Protein Negative (Neg-Trace)
[2024-08-04 14:56] LABS: Bacteria Urine None Seen (None Seen); Calcium Oxalate Crystals Urine Present; Hyaline Casts Urine 0-2 /LPF (0-2); RBC Urine 0-2 /HPF (0-2); Squamous Epithelial Cell Urine 0-2 /HPF (0-2); WBC Urine 0-5 /HPF (0-5)
== END 2024-08-04 14:04 | disposition home or self-care (01) ==
LOC: HO.LAB 14:03
PROVIDERS: PCP Internal Medicine; Visit Provider Internal Medicine
DX: G30.9 Alzheimer's disease, unspecified (principal); F02.80 Dementia in other diseases classified elsewhere, unspecified severity, without behavioral disturbance, psychotic disturbance, mood disturbance, and anxiety; I48.0 Paroxysmal atrial fibrillation
CPT/HCPCS: 81001; 87086

== ENCOUNTER 2024-09-16 15:33 | Outpatient (REF) | payer MEDICARE, SELFPAY ==
[2024-09-16 17:08] LABS: Appearance Urine Turbid; Color Urine Yellow; Glucose Urine UA Negative (Negative); Leukocyte Esterase Urine Large (3+) (Negative); Nitrite Urine Negative (Negative); PH 5.5 (5.0-9.0); UMIC TRIGGER UA YES; Urine Blood Small (1+) (Negative); Urine Ketones Negative (Negative); Urine Protein 100 (2+) mg/dL (Neg-Trace)
[2024-09-16 17:43] LABS: Bacteria Urine 4+ (None Seen); WBC Urine >50 /HPF (0-5)
[2024-09-19 16:24] LABS: TS Negative Control Passed; TS Panel A 1; TS Panel B 2; TS Positive Control Passed; TSpotTB Negative (Negative)
== END 2024-09-16 15:34 | disposition home or self-care (01) ==
LOC: HO.LAB 15:33
PROVIDERS: PCP Internal Medicine; Visit Provider Internal Medicine
DX: Z11.9 Encounter for screening for infectious and parasitic diseases, unspecified (principal); R39.9 Unspecified symptoms and signs involving the genitourinary system
CPT/HCPCS: 36415; 81001; 81003; 86481